=== PATIENT | male | born 1935 | race Caucasian/White ===

== ENCOUNTER → 2016-10-04 | Outpatient (CLI) | payer OTHER ==
[~2016-10-04] MED LIST: ASPEC81 PO; CARV6.252 PO; CLB200 PO; CLOP1TAB54 PO; DUTA0.5C PO; FELO5TAB PO; GLC/500 PO; GLC500 PO; HYT/2 PO; ISOS60TA PO; LCTL30 PO; LISI-461 PO; SENNTAB23 PO
[2016-10-04 10:46] LABS: BASO % 0.9 %; BASO ABS # 0.07 K/uL (0-0.2); COMPLETE YES; EOS % 6.6 %; HEMATOCRIT 38.4 % (42-52); IG% 0.4 %; LYMPH % 16.1 %; LYMPH ABS # 1.19 K/uL (1.2-3.4); MEAN CELL VOLUME 98.5 fL (80-100); MEAN CORPUSCULAR HEMOGLOBIN 33.1 pg (25-34); MEAN CORPUSCULAR HGB CONC 33.6 g/dl (32-36); MEAN PLATELET VOLUME 9.2 fL (7.4-10.4); MONO % 10.4 %; NEUT % 65.6 %; PLATELET COUNT 159 K/uL (130-400)
[2016-10-04 11:07] LABS: ALT/SGPT 18 U/L (12-78); AST/SGOT 11 U/L (15-37); BLOOD UREA NITROGEN 24 mg/dl (7-18); BUN/CREATININE RATIO 20.3 (10-20); CARBON DIOXIDE 25 mmol/L (21-32); CHLORIDE 103 mmol/L (98-107); CHOLESTEROL 188 mg/dl (0-200); GLUCOSE 144 mg/dl (70-99); POTASSIUM 4.7 mmol/L (3.5-5.1); SODIUM 139 mmol/L (136-145); TRIGLYCERIDES 191 mg/dl (0-150); VERY LOW DENSITY LIPOPROT CALC 38 mg/dl
[2016-10-04 11:18] LABS: ALB/GLOB RATIO 1.1 (0.9-2); ALKALINE PHOSPHATASE 62 U/L (45-117); CHOLESTEROL/HDL RATIO 5.7; HDL CHOLESTEROL 33 mg/dl; LDL CHOLESTEROL CALCULATED 117 mg/dl
[2016-10-04 11:28] LABS: ESTIMATED AVERAGE GLUCOSE 140 mg/dl; HA1C FLAG Normal (Normal)
[2016-10-04 11:30] LABS: CALCIUM 9.2 mg/dl (8.5-10.1)
--- NOTE | 2016-10-09 11:55 | CODING QUERY MEDICAL NECESSITY ---
SUPPORTING DIAGNOSIS NEEDED A supporting diagnosis is required for the test/procedure performed on this patient in order for us to be reimbursed by the patient's insurance. Please provide a supporting diagnosis for the following test/procedure listed below next to the test name along with your signature. *If there is no additional diagnosis for this patient that would support the following test/procedure please document that below next to the test/procedure. Test(s)/Procedure(s) that require a supporting diagnosis: * HEMOGLOBIN A1C DIAGNOSIS: * VITAMIN D, 25-HYDROXY DIAGNOSIS: Provider Signature: Date: Thank you Allegra Lucero [facility]stru[facility] Information Management Once completed, please kindly fax back to [phone] For questions please call [phone]
== END | disposition home or self-care (01) ==
LOC: C.LABBC 08:06
PROVIDERS: ATTEND Internal Medicine
DX: K59.09 Other constipation (principal); N20.0 Calculus of kidney; E11.9 Type 2 diabetes mellitus without complications; E55.9 Vitamin D deficiency, unspecified

== ENCOUNTER → 2017-04-29 | Outpatient (CLI) | payer OTHER | END | disposition home or self-care (01) | LOC: C.LABBC 09:49 | PROVIDERS: ATTEND Urology | DX: Z00.00 Encounter for general adult medical examination without abnormal findings (principal); N40.1 Benign prostatic hyperplasia with lower urinary tract symptoms ==

== ENCOUNTER 2017-08-07 15:56 | Inpatient (IN) | payer OTHER ==
[~2017-08-07] VITALS: Ht 177.8 cm; Wt 117.1 kg
[2017-08-07] MEDS ORDERED: ALBUT/IPRATROP 3MG/0.5MG NEB 3 ML VIAL INH SCH (16:15)
[2017-08-07] MEDS ORDERED: METHYLPREDNISOLONE 125 MG VIAL IV STA (16:26)
[2017-08-07] MEDS ORDERED: ALBUT/IPRATROP 3MG/0.5MG NEB 3 ML VIAL INH ONE (16:30)
--- NOTE | 2017-08-07 16:32 | DIAGNOSTIC IMAGING REPORT ---
CHEST ONE VIEW PORTABLE HISTORY: 81 years-old Male hypoxia acute hypoxia COMPARISON: Chest radiograph 10/22/2015 TECHNIQUE: Portable AP view of the chest FINDINGS: Cardiac silhouette is again enlarged. Atherosclerosis of the aorta. Prior median sternotomy. Trace bilateral pleural effusions with pulmonary vascular congestion and mild interstitial coarsening, left greater than right. No pneumothorax. Severe degenerative changes about the right shoulder with suggested loose bodies within the axillary recess. IMPRESSION: 1. Cardiomegaly with pulmonary vascular congestion and left greater than right interstitial coarsening suggesting asymmetric pulmonary edema. 2. Trace bilateral pleural effusions. The above report was generated using voice recognition software. It may contain grammatical, syntax or spelling errors. Electronically signed by: Braulio Ennis M.D. 08/07/2017 4:30 PM Dictated Date/Time: 08/07/2017 4:28 PM
[2017-08-07 16:38] VITALS: PULSE 80; O2SAT 98
[2017-08-07 16:49] LABS: BASO % 0.5 %; BASO ABS # 0.03 K/uL (0-0.2); EOS % 2.7 %; EOS ABS # 0.17 K/uL (0-0.5); HEMATOCRIT 35.5 % (42-52); HEMOGLOBIN 12.2 g/dL (14.0-18.0); IG# 0.03 K/uL (0.00-0.02); LYMPH ABS # 1.15 K/uL (1.2-3.4); MEAN CELL VOLUME 98.9 fL (80-100); MEAN CORPUSCULAR HGB CONC 34.4 g/dl (32-36); MEAN PLATELET VOLUME 8.8 fL (7.4-10.4); MONO % 14.6 %; MONO ABS # 0.93 K/uL (0.11-0.59); NEUT % 63.7 %; NEUT ABS # 4.08 K/uL (1.4-6.5); PLATELET COUNT 120 K/uL (130-400); RED CELL DISTRIBUTION WIDTH CV 15.1 % (11.5-14.5); RED CELL DISTRIBUTION WIDTH SD 54.8 fL (36.4-46.3); WHITE BLOOD COUNT 6.39 K/uL (4.8-10.8)
[2017-08-07] MEDS ORDERED: OMEP20CA9 PO (17:03)
[2017-08-07] MEDS ORDERED: LACT10SO30 PO (17:03)
[2017-08-07] MEDS ORDERED: LSX20 PO (17:03)
[2017-08-07 17:07] LABS: ALBUMIN 3.6 gm/dl (3.4-5.0); CALCIUM 8.7 mg/dl (8.5-10.1); CREATININE 1.59 mg/dl (0.60-1.40); POTASSIUM 4.8 mmol/L (3.5-5.1)
[2017-08-07] MEDS ORDERED: CEFTRIAXONE SOD INJ 1 GM in DEXTROSE 5% ADD-VANTAGE 50ML 50 ML IV STA (17:29)
[2017-08-07] MEDS ORDERED: ALUMINUM/MAGNESIUM/SIMETH (MAALOX MAX) 30 ML UDC PO PRN (18:45)
[2017-08-07] MEDS ORDERED: ONDANSETRON INJ 2 MG/ML 2 ML VIAL IV PRN (18:45)
[2017-08-07] MEDS ORDERED: NITROGLYCERIN 0.4 MG SL PER TAB CHARGE SL PRN (18:45)
[2017-08-07] MEDS ORDERED: ACETAMINOPHEN 325 MG TAB PO PRN (18:45)
[2017-08-07] MEDS ORDERED: MAGNESIUM HYDROXIDE SUSP 30 ML UDC PO PRN (18:45)
[2017-08-07] MEDS ORDERED: POLYETHYLENE (MIRALAX) 17 GM PACK PO PRN (18:45)
[2017-08-07] MEDS ORDERED: HEPARIN 25000 UNIT/500 ML D5W ONE (18:51)
[2017-08-07] MEDS ORDERED: HEPARIN SOD 5000 UNIT/0.5 ML CARP ONE (18:51)
[2017-08-07] MEDS ORDERED: FUROSEMIDE INJ 20 MG in SYRINGE 0 ML IV SCH (18:53)
[2017-08-07] MEDS ORDERED: DEXTROSE 50% 50 ML SYR IV PRN (19:00)
[2017-08-07] MEDS ORDERED: ALBUT/IPRATROP 3MG/0.5MG NEB 3 ML VIAL INH PRN (19:00)
[2017-08-07] MEDS ORDERED: GLUCOSE 10 TABS/TUBE PO PRN (19:00)
[2017-08-07] MEDS ORDERED: GLUCAGON FOR INJ 1 MG VIAL SQ PRN (19:00)
[2017-08-07] MEDS ORDERED: GLUCOSE 40% GEL 15 GM TUBE PO PRN (19:00)
[2017-08-07 19:23] LABS: PTT PATIENT 25.9 SECONDS (21.0-31.0)
--- NOTE | 2017-08-07 19:33 | EMERGENCY ROOM VISIT NOTE ---
History Report prepared by Isaac: Kaitlynn Blanco Under the Supervision of: Dr. Malcolm Prakash M.D. First contact with patient: 15:59 Chief Complaint: SHORTNESS OF BREATH History of Present Illness The patient is a 81 year old male who presents to the Emergency Room with complaints of shortness of breath beginning this morning. The patient reports that he normally has shortness of breath with significant exertion, but today he had had shortness of breath just getting out of his chair. He denies having a cough, abdominal pain, fevers, and diaphoresis. He reports that his lower extremity edema is at baseline. Per , the patient did complain of chest pain earlier today. The patient denies this and denies having any current chest pain. The patient reports a history of a myocardial infarction, congestive heart failure, diabetes, hypertension, and COPD, but reports that he is not on medications for his COPD. The patient states that he is normally not on Oxygen. Source of History: patient, spouse/significant other Onset: this morning Position: other (generalized ) Symptom Intensity: moderate Quality: other (shortness of breath ) Modifying Factors (Worsening): exertion Associated Symptoms: + chest pain, No fevers, No diaphoresis, No cough, No abdominal pain Review of Systems See HPI for pertinent positives & negatives. A total of 10 systems reviewed and were otherwise negative. Past Medical & Surgical Medical Problems: (1) Benign hypertension (2) Carotid artery stenosis (3) COPD (chronic obstructive pulmonary disease) (4) Coronary artery bypass grafting (5) Diabetes mellitus (6) Hyperlipidemia (7) Myocardial infarction (8) NSTEMI (non-ST elevated myocardial infarction) (9) Sepsis Family History Diabetes mellitus FH: lung disease FHx: heart disease Hypertension Social History Smoking Status: Former Smoker Alcohol Use: occasionally Marital Status: Housing Status: lives with significant other Occupation Status: retired Current/Historical Medications Scheduled Aspirin Enteric Coated (Ecotrin Or Generic *), 81 MG PO HS Carvedilol (Coreg), 12.5 MG PO BID Celecoxib (Celebrex *), 200 MG PO QAM Clopidogrel Bisulfate (Plavix), 75 MG PO QAM Dutasteride (Avodart), 0.5 MG PO HS Furosemide (Furosemide), 20 MG PO Q2D Isosorbide Mononitrate (Imdur), 60 MG PO QAM Lisinopril (Lisinopril), 10 MG PO QAM Metformin Hcl (Glucophage), 500 MG PO TID Omeprazole (Prilosec), 20 MG PO BID Sennosides-Docusate Sodium (Stool Softener), 1 TAB PO HS Terazosin Hcl (Hytrin), 2 MG PO HS Scheduled PRN Lactulose (Encephalopathy) (Lactulose), 30 ML PO BID PRN for Constipation Allergies Coded Allergies: Iodinated Diagnostic Agents (Verified Allergy, Unknown, ANAPHYLAXIS, ) Penicillins (Verified Allergy, Unknown, BOILS, 08/07/17) Shellfish (Verified Allergy, Unknown, ANAPHYLAXIS, 08/07/17) Latex1 -Allergic Contact Dermititis (Verified Adverse Reaction, Unknown, RASH, 08/07/17) Statins (Verified Adverse Reaction, Unknown, severe myalgias, 08/07/17) Physical Exam Vital Signs Date Time Temp Pulse Resp B/P (MAP) Pulse Ox O2 Delivery O2 Flow Rate FiO2 08/07/17 18:31 95 20 144/100 98 Nasal Cannula 2.0 08/07/17 17:15 163/92 08/07/17 17:07 81 23 100 08/07/17 16:38 80 16 98 Nasal Cannula 2.0 08/07/17 16:04 98 Nasal Cannula 2.0 08/07/17 16:04 36.6 92 22 122/78 85 Room Air 08/07/17 16:04 98 Nasal Cannula 2.0 08/07/17 16:02 122/78 Physical Exam Constitutional: Vital signs reviewed. Eyes: Pupils are equal round reactive to light. Conjunctiva are noninjected. ENT: Pharynx is clear without erythema or exudate. Mucous membranes are moist. Neck supple without meningeal signs. Respiratory: Poor air entry bilaterally with scattered expiratory wheezing. Breath sounds are equal bilaterally. Cardiovascular: Regular rate and rhythm. No rubs or gallops. GI: Soft, nondistended and nontender. Bowel sounds are present. Musculoskeletal: Bilateral pitting edema to the bilateral lower extremities. No lower extremity tenderness. Integumentary: No cyanosis. Neurological: The patient is awake and alert. No focal deficits. Psychiatric: Normal affect. Medical Decision & Procedures ER Provider Diagnostic Interpretation: Radiology results as stated below per my review and the radiologist's interpretation: CHEST ONE VIEW PORTABLE HISTORY: 81 years-old Male hypoxia acute hypoxia COMPARISON: Chest radiograph 10/22/2015 TECHNIQUE: Portable AP view of the chest FINDINGS: Cardiac silhouette is again enlarged. Atherosclerosis of the aorta. Prior median sternotomy. Trace bilateral pleural effusions with pulmonary vascular congestion and mild interstitial coarsening, left greater than right. No pneumothorax. Severe degenerative changes about the right shoulder with suggested loose bodies within the axillary recess. IMPRESSION: 1. Cardiomegaly with pulmonary vascular congestion and left greater than right interstitial coarsening suggesting asymmetric pulmonary edema. 2. Trace bilateral pleural effusions. The above report was generated using voice recognition software. It may contain grammatical, syntax or spelling errors. Electronically signed by: Braulio Ennis M.D. 08/07/2017 4:30 PM Dictated Date/Time: 08/07/2017 4:28 PM Laboratory Results 08/07/17 16:36 Red Blood Count 3.59, Mean Corpuscular Volume 98.9, Mean Corpuscular Hemoglobin 34.0, Mean Corpuscular Hemoglobin Concent 34.4, Mean Platelet Volume 8.8, Neutrophils (%) (Auto) 63.7, Lymphocytes (%) (Auto) 18.0, Monocytes (%) (Auto) 14.6, Eosinophils (%) (Auto) 2.7, Basophils (%) (Auto) 0.5, Neutrophils # (Auto ) 4.08, Lymphocytes # (Auto) 1.15, Monocytes # (Auto) 0.93, Eosinophils # (Auto ) 0.17, Basophils # (Auto) 0.03 08/07/17 16:36 Test 08/07/17 16:36 08/07/17 17:09 White Blood Count 6.39 K/uL (4.8-10.8) Red Blood Count 3.59 M/uL (4.7-6.1) Hemoglobin 12.2 g/dL (14.0-18.0) Hematocrit 35.5 % (42-52) Mean Corpuscular Volume 98.9 fL (80-100) Mean Corpuscular Hemoglobin 34.0 pg (25-34) Mean Corpuscular Hemoglobin Concent 34.4 g/dl (32-36) Platelet Count 120 K/uL (130-400) Mean Platelet Volume 8.8 fL (7.4-10.4) Neutrophils (%) (Auto) 63.7 % Lymphocytes (%) (Auto) 18.0 % Monocytes (%) (Auto) 14.6 % Eosinophils (%) (Auto) 2.7 % Basophils (%) (Auto) 0.5 % Neutrophils # (Auto) 4.08 K/uL (1.4-6.5) Lymphocytes # (Auto) 1.15 K/uL (1.2-3.4) Monocytes # (Auto) 0.93 K/uL (0.11-0.59) Eosinophils # (Auto) 0.17 K/uL (0-0.5) Basophils # (Auto) 0.03 K/uL (0-0.2) RDW Standard Deviation 54.8 fL (36.4-46.3) RDW Coefficient of Variation 15.1 % (11.5-14.5) Immature Granulocyte % (Auto) 0.5 % Immature Granulocyte # (Auto) 0.03 K/uL (0.00-0.02) Activated Partial Thromboplast Time 25.9 SECONDS (21.0-31.0) Partial Thromboplastin Ratio 1.0 Anion Gap 8.0 mmol/L (3-11) Est Creatinine Clear Calc Drug Dose 50.8 ml/min Estimated GFR () 47.2 Estimated GFR (Non- 40.7 BUN/Creatinine Ratio 19.6 (10-20) Calcium Level 8.7 mg/dl (8.5-10.1) Total Bilirubin 0.5 mg/dl (0.2-1) Aspartate Amino Transf (AST/SGOT) 43 U/L (15-37) Alanine Aminotransferase (ALT/SGPT) 52 U/L (12-78) Alkaline Phosphatase 73 U/L (45-117) Troponin I 1.590 ng/ml (0-0.045) Pro-B-Type Natriuretic Peptide 2055 pg/ml (0-1800) Total Protein 7.0 gm/dl (6.4-8.2) Albumin 3.6 gm/dl (3.4-5.0) Globulin 3.4 gm/dl (2.5-4.0) Albumin/Globulin Ratio 1.1 (0.9-2) Urine Color YELLOW Urine Appearance TURBID (CLEAR) Urine pH 5.0 (4.5-7.5) Urine Specific [place] 1.015 (1.000-1.030) Urine Protein NEG (NEG) Urine Glucose (UA) NEG (NEG) Urine Ketones NEG (NEG) Urine Occult Blood 1+ (NEG) Urine Nitrite POS (NEG) Urine Bilirubin NEG (NEG) Urine Urobilinogen NEG (NEG) Urine Leukocyte Esterase LARGE (NEG) Urine WBC (Auto) >30 /hpf (0-5) Urine RBC (Auto) 0-4 /hpf (0-4) Urine Hyaline Casts (Auto) 1-5 /lpf (0-5) Urine Epithelial Cells (Auto) >30 /lpf (0-5) Urine Bacteria (Auto) 4+ (NEG) Laboratory results as reviewed by me. Medications Administered Medications (Trade) Dose Ordered Sig/Richard Route Start Time Stop Time Status Last Admin Dose Admin Albuterol/ Ipratropium (Duoneb) 12 ml ONE ONCE INH 08/07/17 16:30 08/07/17 16:31 DC 08/07/17 16:38 12 ML Methylprednisolone Sodium Succinate (Solu-Medrol IV) 125 mg NOW STAT IV 08/07/17 16:26 08/07/17 16:27 DC 08/07/17 16:44 125 MG Ceftriaxone Sodium 1 gm/ Dextrose 50 ml @ 100 mls/hr ONE STAT IV 08/07/17 17:29 08/07/17 17:58 DC 08/07/17 17:56 100 MLS/HR Heparin Sodium/ Dextrose (Heparin 25,000 Unit/500ml D5W) 25,000 unit STK-MED ONCE .ROUTE 08/07/17 18:51 08/07/17 18:52 DC 08/07/17 18:56 25,000 UNIT Heparin Sodium (Porcine) (Heparin Sq 5000 Unit/0.5ml) 5,000 unit STK-MED ONCE .ROUTE 08/07/17 18:51 08/07/17 18:52 DC 08/07/17 18:55 5,000 UNIT ECG Per My Interpretation Indication: SOB/dyspnea Rate (beats per minute): 84 Rhythm: sinus rhythm Findings: PVC, Q waves (Inferior), T-wave inversion (Anterolateral) Change: no significant change (from October 2015) ED Course 1600: The patient was evaluated in room B12A by the resident. A complete history and physical exam was performed. 1615: Ordered Duoneb 3 ml INH. 1626: Ordered Methylprednisolone Sodium Succinate 125 mg IV. 1630: Ordered Duoneb 12 ml INH. 1641: I evaluated the patient. 1729: Ordered Ceftriaxone Sodium 1 gm/Dextrose 50 ml @ 100 mls/hr IV. 1737: The [facility]. The patient will be further evaluated by Dr. Calvillo. Medical Decision This is a 81-year-old male presents with shortness of breath on exertion. Differential diagnosis includes COPD exacerbation, CHF, edema, acute coronary syndrome, pneumonia. I did perform a limited focused review of portions of the patient's old chart on the electronic medical record. The patient has had no recent pertinent visits to this hospital. I did evaluate the patient as noted above. The patient is presenting with dyspnea on exertion. He was hypoxemic prior to arrival. IV access was established. The patient was placed on a continuous cardiac monitor technician. He was treated with an hour-long DuoNeb. He was also given Solu-Medrol IV. I did personally review the patient's 12-lead EKG and chest x-ray as described above. I did review the patient's blood work as noted in the electronic medical record. The patient's troponin is elevated. He has slight elevation of his creatinine as well. His BNP is elevated. The case was discussed with the hospitalist and supportive employment case manager. Resident Physician Supervision Note: I did evaluate and examine this patient myself. I did guide management for the patient. I agree with the resident's (Dr. Adam) assessment as discussed. Please see the resident's dictation for further details. Medication Reconcilliation Current Medication List: was personally reviewed by me Blood Pressure Screening Patient's blood pressure: Normal blood pressure Consults Time Called: 1729 Consulting Physician: Dr. Calvillo- [facility] Returned Call: [phone] The patient's case was discussed with Dr. Calvillo of the [facility]. The patient will be further evaluated by Dr. Calvillo. Impression Primary Impression: Non-STEMI (non-ST elevated myocardial infarction) Additional Impressions: COPD exacerbation Elevated troponin UTI (urinary tract infection) Scribe Attestation The scribe's documentation has been prepared under my direct and personally reviewed by me in its entirety. I confirm that the note above accurately reflects all work, treatment, procedures, and medical decision making performed by me. Departure Information Dispostion Being Evaluated By Hospitalist Referrals No Doctor, Assigned (PCP) Patient Instructions My [facility] Problem Qualifiers Additional Impressions: UTI (urinary tract infection) Urinary tract infection type: acute cystitis Hematuria presence: without hematuria Qualified Codes: N30.00 - Acute cystitis without hematuria
--- NOTE | 2017-08-07 19:42 | History and Physical ---
History & Physical Date & Time of Service: Aug 07, 2017 at 19:03 Chief Complaint: SOB Primary Care Physician: Antony Valladares M.D. History of Present Illness Source: patient Mr. Daugherty is a 81 y/o male with PMHx of CAD with NJ and S/P CABG, Systolic CHF, T2DM, HTN, COPD, Carotid Stenosis, HLD, and BPH with LUTS who presents to the ED c/o SOB x couple days. Patient states that he has had chronic sinusitis with nasal congestion and post-nasal drip but states this has been going on "a long time". He does report baseline SOB and is rarely ambulates and utilizes wheelchairs. However, over the past couple days he has noticed his SOB comes on with even the slightest movement. He states he does not have a cough or fever/ chills. He states he carries a diagnosis of COPD but doesn't utilize any inhalers for such. He states he doesn't feel any different after steroids and neb given in the ED. He does take Lasix Q2D but isn't sure if today was a dosed day or not. He reports that he has not had any chest pain but according to ED note the states he has complained of this but she is not at bedside at this time. He does report some indigestion that started earlier today. He does have chronic lower extremity edema that he feels is baseline and is pitting but appears largely as lymphedema. He also complains of urinary frequency and dysuria and reports he gets UTIs and also intermittently straight caths. Past Medical/Surgical History Medical Problems: (1) Benign hypertension (2) Carotid artery stenosis (3) COPD (chronic obstructive pulmonary disease) (4) Coronary artery bypass grafting (5) Diabetes mellitus (6) Hyperlipidemia (7) Myocardial infarction (8) NSTEMI (non-ST elevated myocardial infarction) (9) Sepsis (10) UTI (urinary tract infection) Family History Diabetes mellitus FH: lung disease FHx: heart disease Hypertension Social History Smoking Status: Never Smoker Smokeless Tobacco Use: No Alcohol Use: none Drug Use: none Marital Status: Housing status: lives with significant other Occupational Status: retired Immunizations History of Influenza Vaccine: Yes Allergies Coded Allergies: Iodinated Diagnostic Agents (Verified Allergy, Unknown, ANAPHYLAXIS, ) Penicillins (Verified Allergy, Unknown, BOILS, 08/07/17) Shellfish (Verified Allergy, Unknown, ANAPHYLAXIS, 08/07/17) Latex1 -Allergic Contact Dermititis (Verified Adverse Reaction, Unknown, RASH, 08/07/17) Statins (Verified Adverse Reaction, Unknown, severe myalgias, 08/07/17) Home Medications Scheduled Aspirin Enteric Coated (Ecotrin Or Generic *), 81 MG PO HS Carvedilol (Coreg), 12.5 MG PO BID Celecoxib (Celebrex *), 200 MG PO QAM Clopidogrel Bisulfate (Plavix), 75 MG PO QAM Dutasteride (Avodart), 0.5 MG PO HS Furosemide (Furosemide), 20 MG PO Q2D Isosorbide Mononitrate (Imdur), 60 MG PO QAM Lisinopril (Lisinopril), 10 MG PO QAM Metformin Hcl (Glucophage), 500 MG PO TID Omeprazole (Prilosec), 20 MG PO BID Sennosides-Docusate Sodium (Stool Softener), 1 TAB PO HS Terazosin Hcl (Hytrin), 2 MG PO HS Scheduled PRN Lactulose (Encephalopathy) (Lactulose), 30 ML PO BID PRN for Constipation Review of Systems Constitutional: + fatigue, No fever, No chills ENT: + nasal symptoms, No sore throat Respiratory: + dyspnea on exertion, + dyspnea at rest, No cough, No sputum, No wheezing Cardiovascular: + orthopnea, No chest pain Abdomen: + pain, No nausea, No vomiting, No diarrhea, No constipation Musculoskeletal: + swelling (chronic b/l lower extremities), No calf pain Genitourinary - Male: + dysuria, + urinary frequency, + urinary urgency, + urinary hesitancy Neurologic: + numbness/tingling Hematologic / Lymphatic: No abnormal bleeding/bruising Integumentary: No rash Physical Exam Vital Signs Date Time Temp Pulse Resp B/P (MAP) Pulse Ox O2 Delivery O2 Flow Rate FiO2 08/07/17 18:31 95 20 144/100 98 Nasal Cannula 2.0 08/07/17 17:15 163/92 08/07/17 17:07 81 23 100 08/07/17 16:38 80 16 98 Nasal Cannula 2.0 08/07/17 16:04 98 Nasal Cannula 2.0 4/19/18 16:04 36.6 92 22 122/78 85 Room Air 08/07/17 16:04 98 Nasal Cannula 2.0 08/07/17 16:02 122/78 General Appearance: WD/WN, no apparent distress Head: normocephalic, atraumatic Eyes: sclerae normal ENT: hearing grossly normal Neck: supple, no JVD, trachea midline Respiratory/Chest: no respiratory distress, no accessory muscle use, + decreased breath sounds (bases b/l), + crackles (L base) Cardiovascular: regular rate, rhythm Abdomen/GI: normal bowel sounds, non tender, soft Back: normal inspection Extremities/Musculoskelatal: + swelling (b/l lower extremity edema with 1+ pitting edema with dry skin; appears largely lymphedema) Neurologic/Psych: alert, oriented x 3 Skin: normal color, warm/dry Diagnostics Laboratory Results Results Past 24 Hours Test 08/07/17 16:36 08/07/17 17:09 08/07/17 18:58 Range/Units White Blood Count 6.39 4.8-10.8 K/uL Red Blood Count 3.59 4.7-6.1 M/uL Hemoglobin 12.2 14.0-18.0 g/dL Hematocrit 35.5 42-52 % Mean Corpuscular Volume 98.9 80-100 fL Mean Corpuscular Hemoglobin 34.0 25-34 pg Mean Corpuscular Hemoglobin Concent 34.4 32-36 g/dl Platelet Count 120 130-400 K/uL Mean Platelet Volume 8.8 7.4-10.4 fL Neutrophils (%) (Auto) 63.7 % Lymphocytes (%) (Auto) 18.0 % Monocytes (%) (Auto) 14.6 % Eosinophils (%) (Auto) 2.7 % Basophils (%) (Auto) 0.5 % Neutrophils # (Auto) 4.08 1.4-6.5 K/uL Lymphocytes # (Auto) 1.15 1.2-3.4 K/uL Monocytes # (Auto) 0.93 0.11-0.59 K/uL Eosinophils # (Auto) 0.17 0-0.5 K/uL Basophils # (Auto) 0.03 0-0.2 K/uL RDW Standard Deviation 54.8 36.4-46.3 fL RDW Coefficient of Variation 15.1 11.5-14.5 % Immature Granulocyte % (Auto) 0.5 % Immature Granulocyte # (Auto) 0.03 0.00-0.02 K/uL Sodium Level 134 136-145 mmol/L Potassium Level 4.8 3.5-5.1 mmol/L Chloride Level 101 98-107 mmol/L Carbon Dioxide Level 25 21-32 mmol/L Anion Gap 8.0 3-11 mmol/L Blood Urea Nitrogen 31 7-18 mg/dl Creatinine 1.59 0.60-1.40 mg/dl Est Creatinine Clear Calc Drug Dose 50.8 ml/min Estimated GFR () 47.2 Estimated GFR (Non- 40.7 BUN/Creatinine Ratio 19.6 10-20 Random Glucose 151 70-99 mg/dl Calcium Level 8.7 8.5-10.1 mg/dl Total Bilirubin 0.5 0.2-1 mg/dl Aspartate Amino Transf (AST/SGOT) 43 15-37 U/L Alanine Aminotransferase (ALT/SGPT) 52 12-78 U/L Alkaline Phosphatase 73 45-117 U/L Troponin I 1.590 0-0.045 ng/ml Pro-B-Type Natriuretic Peptide 2055 0-1800 pg/ml Total Protein 7.0 6.4-8.2 gm/dl Albumin 3.6 3.4-5.0 gm/dl Globulin 3.4 2.5-4.0 gm/dl Albumin/Globulin Ratio 1.1 0.9-2 Urine Color YELLOW Urine Appearance TURBID CLEAR Urine pH 5.0 4.5-7.5 Urine Specific [place] 1.015 1.000-1.030 Urine Protein NEG NEG Urine Glucose (UA) NEG NEG Urine Ketones NEG NEG Urine Occult Blood 1+ NEG Urine Nitrite POS NEG Urine Bilirubin NEG NEG Urine Urobilinogen NEG NEG Urine Leukocyte Esterase LARGE NEG Urine WBC (Auto) >30 0-5 /hpf Urine RBC (Auto) 0-4 0-4 /hpf Urine Hyaline Casts (Auto) 1-5 0-5 /lpf Urine Epithelial Cells (Auto) >30 0-5 /lpf Urine Bacteria (Auto) 4+ NEG Microbiology Results 08/07/17 Blood Culture, Received Pending 08/07/17 Blood Culture, Received Pending 08/07/17 Urine Culture, Received Pending Diagnostic Radiology CHEST ONE VIEW PORTABLE FINDINGS: Cardiac silhouette is again enlarged. Atherosclerosis of the aorta. Prior median sternotomy. Trace bilateral pleural effusions with pulmonary vascular congestion and mild interstitial coarsening, left greater than right. No pneumothorax. Severe degenerative changes about the right shoulder with suggested loose bodies within the axillary recess. IMPRESSION: 1. Cardiomegaly with pulmonary vascular congestion and left greater than right interstitial coarsening suggesting asymmetric pulmonary edema. 2. Trace bilateral pleural effusions. EKG Sinus rhythm with occasional Premature ventricular complexes Inferior infarct (cited on or before 01-OCT-2011) ST & T wave abnormality, consider lateral ischemia Abnormal ECG When compared with ECG of 22-OCT-2015 08:06, Premature ventricular complexes are now Present T wave inversion now evident in Anterolateral leads Confirmed by SHERI MENDOZA ([id number]) on 08/07/2017 4:38:14 PM Impression Assessment and Plan Mr. Daugherty is a 81 y/o male with PMHx of CAD with NJ and S/P CABG, Systolic CHF, T2DM, HTN, COPD, Carotid Stenosis, HLD, and BPH with LUTS who presents to the ED c/o SOB x couple days NSTEMI: - Presents with troponin of 1.59 with no reports of CP but is complaining of some indigestion; EKG with lateral T wave inversions; limited labs to assess for any chronicity to this - Initiate heparin gtt with bolus - ASA 81 mg and Plavix 75 mg daily - Coreg 12.5 mg BID and Lisinopril 10 mg daily and Imdur 60 mg daily - Consult cardiology - follows with Dr. Baird - appreciate recommendations Acute Hypoxic Respiratory Failure 2/2 Acute Systolic CHF Exacerbation: - There is likely a multifactorial component given body habitus would suspect some hypoventilation syndrome but does have crackles mostly of the L base; no response with steroids and duoneb in the ED and no wheezing on examination and doesn't appear this is a COPD exacerbation - Suspect he may have had a cardiac event prior to presentation resulting in congestive failure but can further assess with serial troponins - May warrant VQ scan to R/O PE given acute nature - heparin gtt will ultimately cover for this in the time being but will need to evaluate for long- term AC needs - Echo (2004) - EF 45%; septal infraapical infarct - BNP mildly elevated at 1999 with CXR with vascular congestion - Obtain updated echo - Lasix 20 mg IV x 1 dose now then Lasix 20 mg IV daily MATTHEW on CKD Stage II: - Appears he may have some mild kidney compromise but is acutely worsened - possibly from volume overload - Suspect will improve with diuresis but will monitor COPD without Exacerbation: - Does not appear to be in an exacerbation at this time will keep Duonebs PRN if wheezing/SOB continue UTI with BPH with LUTS: - UA suggests UTI with cx pending - is symptomatic and reports needing to straight cath intermittently - Rocephin 1 g IV daily - Terazosin 2 mg HS T2DM: A1c 6.5 - Hold Metformin and cover with SSI DVT Prophylaxis: Heparin Code Status: FULL RESUSCITATION Disposition: PT/OT evaluations - Expected LOS 2-3 days as likely will need 48 hrs heparin gtt Resident Physician Supervision Note: I was present with A Lynne AVENDANO during the history and exam. I discussed the case with the resident and agree with the findings and plan as documented in the note. Any exceptions or clarifications are listed here: 81 y/o M Hx CAD/NJ, Systolic CHF, T2DM, HTN, COPD, Carotid Stenosis, HLD, and BPH with LUTS presenting with SOB x 2 days - elevated trop is present on initial labs. OE AAO x 3 S1,2 R faint Crackles at bases - poor air movement NT. ND No CC MINIMAL EDEMA P: Pt will be fully anticoagulated for presumed NSTEMI - echo pending to evaluate for WMAs - cardiology consulted No evidence of current COPD exacerbation to merit steroid use Sliding scale for DM Documented By: Dane Calvillo Resuscitation Status VTE Prophylaxis Will order VTE Prophylaxis: Yes
[2017-08-07 21:01] VITALS: BMI 40.7
[2017-08-07 21:30] VITALS: BP 159/89; PULSE 92; TEMP 36.5; O2SAT 95
[2017-08-07] MEDS: HEPARIN 25,000 UNIT/500ML D5W 500 ML IV SCH (22:03)
[2017-08-07] MEDS: CARVEDILOL 12.5 MG TAB PO SCH (22:11)
[2017-08-07] MEDS: ASPIRIN 81 MG ECTAB PO SCH (22:11)
[2017-08-07] MEDS: DOCUSATE SODIUM/SENNA 50/8.6MG TAB PO SCH (22:11)
[2017-08-07] MEDS: INSULIN ASPART 100 UNITS/ML 3 ML PEN SC SCH (22:15)
[2017-08-07 23:15] VITALS: BP 146/85; PULSE 85; TEMP 36.4; O2SAT 94
[2017-08-08] MEDS ORDERED: AVODART - ORDER AWAITING ACTION SCH
[2017-08-08 01:34] LABS: PTT PATIENT 57.6 SECONDS (21.0-31.0)
[2017-08-08 03:41] VITALS: BP 125/77; PULSE 74; TEMP 36.6; O2SAT 96
[2017-08-08 04:08] LABS: HEMATOCRIT 33.7 % (42-52); MEAN CELL VOLUME 97.7 fL (80-100); MEAN CORPUSCULAR HEMOGLOBIN 34.8 pg (25-34); MEAN CORPUSCULAR HGB CONC 35.6 g/dl (32-36); PLATELET COUNT 130 K/uL (130-400); RED CELL DISTRIBUTION WIDTH CV 14.7 % (11.5-14.5); RED CELL DISTRIBUTION WIDTH SD 52.3 fL (36.4-46.3); WHITE BLOOD COUNT 4.71 K/uL (4.8-10.8)
[2017-08-08 04:29] LABS: CALCIUM 8.7 mg/dl (8.5-10.1); CREATININE 1.53 mg/dl (0.60-1.40); POTASSIUM 4.7 mmol/L (3.5-5.1)
[2017-08-08 04:31] LABS: PTT PATIENT 58.3 SECONDS (21.0-31.0)
[2017-08-08 06:14] LABS: HEMOGLOBIN A1C 6.6 % (4.5-5.6)
[2017-08-08 07:36] VITALS: BP 147/83; PULSE 84; TEMP 36.4; O2SAT 97
--- NOTE | 2017-08-08 08:24 | Hospitalist Progress Note ---
Hospitalist Progress Note Date of Service Aug 08, 2017. (Carmen Adair PA-C) Subjective Pt evaluation today including: conversation w/ patient, conversation w/ family , physical exam, chart review, lab review, review of studies, conversation w/ network consultant Pain: None PO Intake: Fair The patient was seen and examined this morning. Pts Shania is present with him at bedside. Pt reports his breathing is only slightly improved this morning compared to yesterday. He does not require supplemental O2 at baseline, or cpap at night. He also does not ambulate due to chronic arthritis and uses a motorized scooter for almost all his activity. He notes he is significantly sob with minimum of 2 -3 steps and this was very different from baseline. He denies any chest pain, heaviness or tightness. He also notes the need for straight caths several times per week due to a ureteral cyst. He is agreeable to colunga placement with aggressive diuresis but is requesting urology places it as he has had traumatic experience in the past with colunga placement. Plan to increase IV lasix today Discussion with Dr. Cardoso - awaiting echo read, pt recently had a follow up with Jiym Doan PA-C about 2 weeks ago. Constitutional: + fatigue, No fever, No chills, No sweats Eyes: No redness, No diplopia ENT: No nasal symptoms, No sore throat, No trouble swallowing Respiratory: + shortness of breath, + dyspnea on exertion, No cough, No sputum Cardiovascular: No chest pain, No edema, No palpitations Abdomen: No pain, No nausea, No vomiting, No diarrhea, No constipation Musculoskeletal: + swelling, No joint pain, No muscle pain Male : + see HPI Neurologic: No weakness, No numbness/tingling Psychiatric: No depression symptoms, No anxiety Endo: No fatigue Skin: No rash, No itch (Carmen Adair PA-C) Objective Vital Signs Date Time Temp Pulse Resp B/P (MAP) Pulse Ox O2 Delivery O2 Flow Rate FiO2 08/08/17 07:36 36.4 84 20 147/83 (104) 97 Room Air 08/08/17 04:00 Nasal Cannula 2.0 08/08/17 03:41 36.6 74 22 125/77 (93) 96 Nasal Cannula 2.0 08/07/17 23:59 Nasal Cannula 2.0 08/07/17 23:15 36.4 85 20 146/85 (105) 94 Nasal Cannula 2.0 08/07/17 21:30 36.5 92 20 159/89 (112) 95 Nasal Cannula 2.0 08/07/17 20:53 90 20 158/87 98 Nasal Cannula 2.0 08/07/17 18:31 95 20 144/100 98 Nasal Cannula 2.0 08/07/17 17:15 163/92 08/07/17 17:07 81 23 100 08/07/17 16:38 80 16 98 Nasal Cannula 2.0 08/07/17 16:04 98 Nasal Cannula 2.0 08/07/17 16:04 36.6 92 22 122/78 85 Room Air 08/07/17 16:04 98 Nasal Cannula 2.0 08/07/17 16:02 122/78 (Carmen Adair PA-C) Physical Exam General Appearance: WD/WN, no apparent distress Eyes: PERRL, EOMI ENT: hearing grossly normal, pharynx normal, + pertinent finding (MMM) Neck: supple, + pertinent finding (JVD difficult to assess due to body habitus) Respiratory/Chest: no respiratory distress, no accessory muscle use, + pertinent finding (on 2 L via NC, + barrel chested, + diminshed breath sounds throughout but moreso bibasilary, no crackles appreciated, no wheeze or rales) Cardiovascular: regular rate, rhythm, + pertinent finding (Unable to assess JVD , ) Abdomen: normal bowel sounds, non tender, soft Extremities: non-tender, no calf tenderness, + pedal edema (2+ pitting BLE) Neurologic/Psychiatric: alert, normal mood/affect, oriented x 3 Skin: normal color, warm/dry (Carmen Adair PA-C) Laboratory Results Last 24 Hours Test 08/07/17 16:36 08/07/17 17:09 08/07/17 21:54 08/07/17 22:17 White Blood Count 6.39 K/uL Red Blood Count 3.59 M/uL Hemoglobin 12.2 g/dL Hematocrit 35.5 % Mean Corpuscular Volume 98.9 fL Mean Corpuscular Hemoglobin 34.0 pg Mean Corpuscular Hemoglobin Concent 34.4 g/dl Platelet Count 120 K/uL Mean Platelet Volume 8.8 fL Neutrophils (%) (Auto) 63.7 % Lymphocytes (%) (Auto) 18.0 % Monocytes (%) (Auto) 14.6 % Eosinophils (%) (Auto) 2.7 % Basophils (%) (Auto) 0.5 % Neutrophils # (Auto) 4.08 K/uL Lymphocytes # (Auto) 1.15 K/uL Monocytes # (Auto) 0.93 K/uL Eosinophils # (Auto) 0.17 K/uL Basophils # (Auto) 0.03 K/uL RDW Standard Deviation 54.8 fL RDW Coefficient of Variation 15.1 % Immature Granulocyte % (Auto) 0.5 % Immature Granulocyte # (Auto) 0.03 K/uL Activated Partial Thromboplast Time 25.9 SECONDS Partial Thromboplastin Ratio 1.0 Sodium Level 134 mmol/L Potassium Level 4.8 mmol/L Chloride Level 101 mmol/L Carbon Dioxide Level 25 mmol/L Anion Gap 8.0 mmol/L Blood Urea Nitrogen 31 mg/dl Creatinine 1.59 mg/dl Est Creatinine Clear Calc Drug Dose 50.8 ml/min Estimated GFR () 47.2 Estimated GFR (Non- 40.7 BUN/Creatinine Ratio 19.6 Random Glucose 151 mg/dl Calcium Level 8.7 mg/dl Total Bilirubin 0.5 mg/dl Aspartate Amino Transf (AST/SGOT) 43 U/L Alanine Aminotransferase (ALT/SGPT) 52 U/L Alkaline Phosphatase 73 U/L Troponin I 1.590 ng/ml 2.480 ng/ml Pro-B-Type Natriuretic Peptide 2055 pg/ml Total Protein 7.0 gm/dl Albumin 3.6 gm/dl Globulin 3.4 gm/dl Albumin/Globulin Ratio 1.1 Urine Color YELLOW Urine Appearance TURBID Urine pH 5.0 Urine Specific [place] 1.015 Urine Protein NEG Urine Glucose (UA) NEG Urine Ketones NEG Urine Occult Blood 1+ Urine Nitrite POS Urine Bilirubin NEG Urine Urobilinogen NEG Urine Leukocyte Esterase LARGE Urine WBC (Auto) >30 /hpf Urine RBC (Auto) 0-4 /hpf Urine Hyaline Casts (Auto) 1-5 /lpf Urine Epithelial Cells (Auto) >30 /lpf Urine Bacteria (Auto) 4+ Bedside Glucose 254 mg/dl Test 08/08/17 00:57 08/08/17 03:46 08/08/17 06:51 Activated Partial Thromboplast Time 57.6 SECONDS 58.3 SECONDS Partial Thromboplastin Ratio 2.2 2.2 White Blood Count 4.71 K/uL Red Blood Count 3.45 M/uL Hemoglobin 12.0 g/dL Hematocrit 33.7 % Mean Corpuscular Volume 97.7 fL Mean Corpuscular Hemoglobin 34.8 pg Mean Corpuscular Hemoglobin Concent 35.6 g/dl RDW Standard Deviation 52.3 fL RDW Coefficient of Variation 14.7 % Platelet Count 130 K/uL Mean Platelet Volume 9.0 fL Sodium Level 134 mmol/L Potassium Level 4.7 mmol/L Chloride Level 103 mmol/L Carbon Dioxide Level 24 mmol/L Anion Gap 7.0 mmol/L Blood Urea Nitrogen 34 mg/dl Creatinine 1.53 mg/dl Est Creatinine Clear Calc Drug Dose 52.1 ml/min Estimated GFR () 49.4 Estimated GFR (Non- 42.6 BUN/Creatinine Ratio 22.3 Random Glucose 243 mg/dl Estimated Average Glucose 143 mg/dl Hemoglobin A1c 6.6 % Calcium Level 8.7 mg/dl Magnesium Level 1.8 mg/dl Troponin I 2.710 ng/ml Bedside Glucose 230 mg/dl (Carmen Adair, PA-C) Assessment and Plan Mr. Daugherty is a 81 y/o male with PMHx of CAD with SC and S/P CABG, Systolic CHF, T2DM, HTN, COPD, Carotid Stenosis, HLD, and BPH with LUTS who presents to the ED c/o SOB x couple days NSTEMI: - Trop 1.59 -- 2.48 --2.71: will check one more set to show trend downward. Initially was c/o indigestion as only presenting sx - pt denies any chest pain/ heaviness - EKG with lateral T wave inversions now -- was recently seen as outpatient by Jimy Doan -- will check outpatient records for previous EKG. - Cont heparin gtt with bolus for now - ASA 81 mg and Plavix 75 mg daily - Coreg 12.5 mg BID, Lisinopril 10 mg daily and Imdur 60 mg daily - Consult cardiology - discussed with Dr. Cardoso - no plans for cardiac cath at this facility, will await further recs to determine if transfer needed for catheterization, echo in process. Acute Hypoxic Respiratory Failure 2/2 Acute Systolic CHF Exacerbation: - Cr improved slightly, will follow PRP with increased diuresis - Strict I/O, daily weighs, 1 L out so far, but still appears volume overloaded - increase Lasix to 40 mg IV BID with extra 20 IV this morning to total 40 iv. - pt denies diet change or acute increase in weight. - heparin gtt for now, will ask cardiology to determine anticoagulation - 2D Echo in process - last done (2004) - EF 45%; septal infraapical infarct MATTHEW on CKD Stage II: - Cr. 1.59, not significantly improved yet, continue diuresis as likely elevated from volume overload - Trend prp COPD without Exacerbation: - Does not appear to be in an exacerbation at this time will keep Duonebs PRN if wheezing/SOB continue UTI with BPH with LUTS: - UA suggests UTI with cx pending - is symptomatic and reports needing to straight cath intermittently - Urology consult for cath placement with ureteral cyst and traumatic colunga placement hx - strict I/Os. - Rocephin 1 g IV daily (started 08/07) - Terazosin 2 mg HS T2DM: A1c 6.5 - Hold Metformin and cover with SSI DVT Prophylaxis: Heparin gtt Code Status: FULL RESUSCITATION Disposition: PT/OT sumi, dc unknown. (Carmen Adair, NATALIA) Reviewed: Pt Seen/Exam by Me (Loli Godinez MD) History Physician Time Study Technician supervision Note: I interviewed and examined the patient. Discussed with ROMANA Adair and agree with findings and plan as documented in the note. Any exceptions or clarifications are listed here: Patient feeling a little less short of breath now. Has been diuresing since here, Colunga was successfully placed. Discussed the case with cardiology today. No chest pain or pressure. Vitals reviewed, telemetry reviewed and reveals sinus rhythm with first-degree AV block with rates in the 60s-70s. Gen: AAOx3, NAD, obese HEENT: anicteric sclerae, EOMI CV: RRR no mgr nl S1S2 Pulm: Mild crackles at the bases bilaterally, otherwise clear, breathing unlabored, nasal cannula in place, no wheezes Abd: +BS soft NT ND no masses or hernias, obese Ext: 2+ pitting edema to the thighs bilaterally Skin: no rashes, warm/dry This patient is a 81-year-old male with a history of chronic systolic CHF, CAD with SC and status post CABG, DM 2, HTN, COPD, carotid artery stenosis, hyperlipidemia, and BPH with LUTS, who presents with progressively worsening dyspnea over 24 hour period-found to have acute on chronic systolic CHF and NSTEMI. Unclear which came first, the NSTEMI or the systolic CHF exacerbation. Cardiology reviewed previous ECG from the office a couple of weeks ago which actually looks about the same as now-the lateral T-wave changes are not new -Continue to serially trend the troponin as above -Awaiting for final echo report here -Plan to diuresis, tune him up from a CHF standpoint, and then possibly transfer to [facility] in [place] for cardiac catheterization early next week as per cardiology recommendations-unless our encephalographer is willing to accept the case. Cardiology is concerned here about his extensive history and in case he would need a repeat CABG. Documented By: Loli Godinez (Loli Godinez MD)
[2017-08-08] MEDS: ISOSORBIDE MONONITRATE 60 MG TABCR PO SCH (08:26)
[2017-08-08] MEDS: PANTOprazole SOD 40 MG TAB PO SCH (08:26)
[2017-08-08] MEDS: CARVEDILOL 12.5 MG TAB PO SCH ×2 (08:26→21:43)
[2017-08-08] MEDS: CLOPIDOGREL BISULFATE 75 MG TAB PO SCH (08:27)
[2017-08-08] MEDS: LISINOPRIL 10 MG TAB PO SCH (08:27)
[2017-08-08] MEDS: INSULIN ASPART 100 UNITS/ML 3 ML PEN SC SCH ×4 (08:39→21:00)
[2017-08-08] MEDS ORDERED: FUROSEMIDE INJ 20 MG in SYRINGE 0 ML IV SCH ×2 (09:00→18:00)
[2017-08-08 11:17] VITALS: Ht 177.8 cm; Wt 117.1 kg
[2017-08-08] MEDS ORDERED: FUROSEMIDE INJ 20 MG in SYRINGE 0 ML IV ONE (11:45)
[2017-08-08] MEDS: HEPARIN 25,000 UNIT/500ML D5W 500 ML IV SCH (12:39)
--- NOTE | 2017-08-08 14:46 | ECHOCARDIOGRAM REPORT ---
*NOTICE TO RECEIVING CONSTITUTION PARTY AGENCY This information is strictly Confidential and protected under [place] law. [place] law prohibits you from making any further disclosure of this information unless further disclosure is expressly permitted by the written consent of the person to whom it pertains or is authorized by law. A general authorization for the release of medical or other information is not sufficient for this purpose. Hospital accepts no responsibility if the information is made available to any other person, INCLUDING THE PATIENT. Interpretation Summary * The study was technically limited. * The study was technically difficult. * Name: NAMAN HOLLOWAY Study Date: 08/08/2017 07:58 AM BP: 125/77 mmHg Patient Location: C.2T\S\S234\S\1 HR: 84 : 1935 (M/d/yyyy) Gender: Male Height: 70 in Age: 81 yrs Ethnicity: [place] Weight: 283 lb Ordering Physician: Thao Batista Referring Physician: Self, Referred Performed By: Linda Restrepo, [facility] Reason For Study: AMI / ELEVATED TROPONIN BSA: 2.4 m2 * -- Conclusions -- * Due to technical limitations, the left ventricle is poorly visualized despite administration of ultrasound enhancement. * The LV regional wall motion cannot be assessed. * On a very limited basis, the ejection fraction appears to be in the range of 40-49% which is his typical historical baseline, however, images are very technically limited. Procedure Details * A complete two-dimensional transthoracic echocardiogram was performed (2D, M-mode, Doppler and color flow Doppler). * The study was technically difficult. * A contrast injection of Definity was performed to improve assessment of LV function. * Contrast was injected into an intravenous site in the right arm. * One vial of Definity ultrasound contrast was diluted in normal saline to a total volume of 10 ml. A total of '4' ml of solution was administered during imaging. * Lot # [id number] of Definity utilized for procedure. * Expiration date AUG 07. * The attending nurse who injected the contrast agent was KATHY LIN, LINDSAY. Left Ventricle * The left ventricle is not well visualized. * Due to technical limitations, the left ventricle is poorly visualized despite administration of ultrasound enhancement. The LV regional wall motion cannot be assessed. No comment can be made regarding ejection fraction. Right Ventricle * The right ventricle is not well visualized. Atria * The left atrium is mildly dilated. Mitral Valve * The mitral valve is not well visualized. * There is no significant mitral regurgitation or mitral stenosis on limited visualization. Tricuspid Valve * The tricuspid valve is not well visualized. * There is mild tricuspid regurgitation. Pericardium/Pleural * There is no pericardial effusion. Left Ventricular Diastolic Function * Grade I diastolic dysfunction, (abnormal relaxation pattern). MMode 2D Measurements and Calculations IVSd 2.1 cm IVSs 2.4 cm LVIDd 4.3 cm LVIDs 3.0 cm LVPWd 1.4 cm LVPWs 2.0 cm IVS/LVPW 1.5 FS 29.9 % EDV(Teich) 83.0 ml ESV(Teich) 35.4 ml EF(Teich) 57.4 % EDV(cubed) 79.5 ml ESV(cubed) 27.4 ml EF(cubed) 65.6 % % IVS thick 11.7 % % LVPW thick 39.2 % LV mass(C)d 333.0 grams LV mass(C)dI 137.6 grams/m\S\2 LV mass(C)s 307.0 grams LV mass(C)sI 126.9 grams/m\S\2 SV(Teich) 47.6 ml SI(Teich) 19.7 ml/m\S\2 SV(cubed) 52.1 ml SI(cubed) 21.5 ml/m\S\2 Ao root diam 3.5 cm Ao root area 9.7 cm\S\2 LA dimension 4.5 cm LA/Ao 1.3 LVOT diam 2.0 cm LVOT area 3.1 cm\S\2 Doppler Measurements and Calculations MV E max claudia 106.5 cm/sec MV A max claudia 130.1 cm/sec MV E/A 0.82 MV P1/2t max claudia 105.3 cm/sec MV P1/2t 71.9 msec MVA(P1/2t) 3.1 cm\S\2 MV dec slope 429.1 cm/sec\S\2 MV dec time 0.11 sec Ao V2 max 95.8 cm/sec Ao max PG 3.7 mmHg Ao max PG (full) 2.1 mmHg CAMERON(V,A) 2.0 cm\S\2 CAMERON(V,D) 2.0 cm\S\2 LV V1 max PG 1.6 mmHg LV V1 max 62.6 cm/sec TR max claudia 283.8 cm/sec
--- NOTE | 2017-08-08 15:12 | Cardiology Consultation ---
Cardiology Consultation Date of Consultation: Aug 08, 2017 History of Present Illness Ok Daugherty is a 81 year old male seen in cardiology consultation per the request of Thao Batista PA-C and Dr Godinez for the evaluation of shortness of marked dyspnea at rest. The patient's primary vending manager is Dr. Joseph Baird of our practice whom he had last seen in February 2017. The patient had a recent outpatient follow-up with Jimy Doan PA-C of our practice on 07/25/17 at that time he described increasing shortness of breath and lower extremity edema compared to his prior baseline. Furosemide was increased at that visit from 20 mg 3 days per week to 20 mg every other day. Felodipine was discontinued and carvedilol was increased from 6.25 mg a.m. and 12.5 mg p.m. to 12.5 mg twice daily. The patient presented to emergency room yesterday at just before 4 PM complaining of 2 days of progressive severe shortness of breath at rest and with minimal exertion. 2 days prior to presenting he had felt sinus congestion but he is able to enjoy dinner with friends that night at a restaurant. The next day he started having shortness of breath with exertion and by the time he went to sleep Friday night into night he felt very short of breath. He became progressively short of breath yesterday, , 08/07/17 and had a significant episode while in the bathroom with profound dyspnea prompting him to come to the emergency department. Blood pressure on presentation was 122/ 78. EKG on presentation revealed sinus rhythm at 84 bpm with chronic inferior and anterolateral infarct patterns, and ST segment changes are present in the lateral precordial leads new compared to his recent outpatient EKG, and new ST segment depression of 1 mm was noted in the high lateral leads I and aVL which replaced the previously noted T-wave inversions. Repeat EKG this morning is relatively same with lateral repolarization changes consistent with ischemia. The patient's troponin has been elevated with initial reading of 1.59, then 2.48 , and then 2.71ng/ml. Chest x-ray revealed pulmonary vascular congestion with left greater than right interstitial changes and trace bilateral pleural effusions. EKG performed at the time of that outpatient visit on 07/25/2017 revealed sinus rhythm at 67 bpm with a first-degree AV block evidence of left ventricular hypertrophy, age-indeterminate inferior infarction pattern with inferior Q waves noted since 2006, age-indeterminate anterolateral infarct pattern with lateral Q waves present since 2006. T-wave inversions were noted in leads I and aVL. This was unchanged compared to a prior tracing dated 08/09/2016 as an outpatient. The patient received 20 mg of IV furosemide last night at 2212, and 2 additional doses of 20 mg earlier this morning and then again just after noon time. He is feeling subjectively improved. He notes no recent chest pain or pressure. He states that this is different than the sensation that he had that prompted his prior coronary artery bypass grafting which was chest pressure that radiated to his back. He typically sleeps in a recliner at baseline for the last few years The patient's most recent outpatient chemistry panel on 04/03/17 included a creatinine of 1.12 mg/dL which was increased to 1.59 on admission, and was 1.53 on repeat early this morning. Past Medical/Surgical History Problem List: Medical Problems: (1) Benign hypertension (2) Carotid artery stenosis (3) COPD (chronic obstructive pulmonary disease) (4) Coronary artery bypass grafting (5) Diabetes mellitus (6) Hyperlipidemia (7) Myocardial infarction (8) NSTEMI (non-ST elevated myocardial infarction) (9) Sepsis History Past Medical History: 1. Atherosclerotic coronary disease and associated ischemic cardiomyopathy, EF of 40-45%. 2. Prior coronary bypass grafting, August of 2004, with incomplete revascularization of severe diffuse coronary disease receiving a IZQUIERDO graft to the 2nd diagonal, a radial graft anastomosing from the left internal mammary artery to the 3rd obtuse marginal, and a saphenous vein graft sequentially to the PDA and posterolateral branch of the right coronary artery. Targets were noted to be poor at the time of surgical procedure. 3. Chronic class 2 angina pectoris. 4. Atherosclerotic carotid disease status post right carotid stenting. 5. History of popliteal aneurysm. 6. Hyperlipidemia, with poor statin tolerance. 7. Severe degenerative joint disease/spinal stenosis with limiting backpain. 8. Type 2 diabetes mellitus Social History: CABG as outlined above, prior cardiac catheterizations, carotid stent Review Of Systems A 10 point review of systems is reviewed and is negative with the exception of that noted above Allergies Coded Allergies: Iodinated Diagnostic Agents (Verified Allergy, Unknown, ANAPHYLAXIS, ) Penicillins (Verified Allergy, Unknown, BOILS, 08/07/17) Shellfish (Verified Allergy, Unknown, ANAPHYLAXIS, 08/07/17) Latex1 -Allergic Contact Dermititis (Verified Adverse Reaction, Unknown, RASH, 08/07/17) Statins (Verified Adverse Reaction, Unknown, severe myalgias, 08/07/17) Medications Reported Home Medications Medications Dose Route/Sig Max Daily Dose Days Date Category Dose Instructions Furosemide 20 Mg Tab 20 Mg PO Q2D 08/07/17 Reported Prilosec (Omeprazole) 20 Mg Cap 20 Mg PO BID 08/07/17 Reported 20MG BID FOR ONE MONTH THEN PT IS TO GO BACK TO ONLY 20MG DAILY Lactulose (Lactulose (Encephalopathy)) 10 Gm/15 Ml Reyna 30 Ml PO BID PRN 08/07/17 Reported Lisinopril 10 Mg Tab 10 Mg PO QAM 10/22/15 Reported Stool Softener (Sennosides-Docusate Sodium) 1 Tab Tab 1 Tab PO HS 08/10/15 Reported Glucophage (Metformin Hcl) 500 Mg Tab 500 Mg PO TID 08/10/15 Reported Coreg (Carvedilol) 6.25 Mg Tab 12.5 Mg PO BID 08/10/15 Reported Avodart (Dutasteride) 0.5 Mg Cap 0.5 Mg PO HS 03/16/13 Reported Imdur (Isosorbide Mononitrate) 60 Mg Tab 60 Mg PO QAM 02/05/13 Reported Hytrin (Terazosin HCl) 2 Mg Cap 2 Mg PO HS 02/05/13 Reported Plavix (Clopidogrel Bisulfate) 75 Mg Tab 75 Mg PO QAM 10/01/11 Reported Celebrex * (Celecoxib) 200 Mg Cap 200 Mg PO QAM 10/01/11 Reported Ecotrin Or Generic * (Aspirin) 81 Mg Ectab 81 Mg PO HS 12/24/08 Reported Physical Exam Vital Signs (Last 8hrs): Last 8 Hrs Date Time Temp Pulse Resp B/P (MAP) Pulse Ox O2 Delivery O2 Flow Rate FiO2 08/08/17 12:00 Nasal Cannula 2.0 08/08/17 08:00 Nasal Cannula 2.0 08/08/17 07:36 36.4 84 20 147/83 (104) 97 Room Air General Appearance: Alert and Oriented x3. NAD. Head: Normocephalic Atraumatic. Eyes: PERRLA, EOMI, conjunctiva and sclera clear Neck: Supple. No carotid bruits noted. No JVD. No HJD. Respiratory: Decreased breath sounds bilaterally at the bases Cardiovascular: Reg rate and rhythm. S1 and S2 noted. No murmurs, rubs, gallops. PMI non displace. Abdomen: Normal bowel sounds, soft nontender. no abdominal bruits. Extremities: Mild edema to the mid tibia Neuro: No focal deficits. Psychiatric: Normal affect. Data Last Resulted 08/08/17 03:46 Last Resulted 08/08/17 03:46 Past 24 Hours Test 08/07/17 16:36 08/07/17 22:17 08/08/17 03:46 08/08/17 14:41 Range/Units Troponin I 1.590 *H 2.480 *H 2.710 *H 0-0.045 ng/ml Telemetry reveals sinus rhythm. EKG and chest x-ray as outlined in HPI Echocardiogram was reviewed independently. The images were technically limited due to poor acoustic windows, and his acute illness is likely added to the technical difficulty of his study. Regional wall motion not be adequately assessed on the current echocardiogram. On limited evaluation, the ejection fraction appears to be grossly in the range of 40-49% which is been his previous baseline, but this information is felt to be very technically limited. Assessment & Plan Impression: 81-year-old male 1. Acute decompensation, systolic heart failure 2. Non-ST segment elevation myocardial infarction 3. Acute kidney injury 4. Iodine allergy 5. Type 2 diabetes mellitus Discussion/recommendations: The patient has a long-standing history of diabetes related severe wiyot vessel coronary artery disease. As noted above at the time his coronary artery bypass grafting, was felt that incomplete revascularization occurred and that the wiyot coronaries provided poor bypass targets. He has long-standing history of baseline class II stable exertional angina review of his outpatient chart. The patient was not quite feeling himself with some degree of worsening edema shortness of breath at his recent outpatient visit earlier this month. Several medication changes were made, but in the interim he has had an acute decompensation within the last 2 days. He has new ischemic changes in his lateral precordial EKG leads and has a mildly elevated troponin. He is not having any chest pressure at present, and based on his EKG and clinical presentation I do not think that urgent cardiac catheterization is indicated. It is however difficult to determine if his congestive heart failure decompensation has been brought on by ischemia or if he is ischemic as a result of being volume overloaded. He has a problem with urinary outflow tract difficulties at baseline and therefore he performs urinary self-catheterization at baseline at home. Agree with having Jean catheter placed. Agree with increasing his furosemide dose to 40 mg twice daily. We will need to watch his renal function closely, but I am optimistic that perhaps with improving his cardiac status with a favorable improvement in his Starling curve hemodynamics that his renal perfusion will also improve. Agree with heparin for empiric treatment of possible subacute intracoronary plaque rupture. We will plan to optimize him from a volume status standpoint and renal function standpoint, and reassess clinical benefits of potential cardiac catheterization which would likely need to be performed at a tertiary center given his complex coronary anatomy and potential for complex bypass graft intervention. Case discussed with the PR hospitalist team. Dr Steve will be rounding this weekend.
[2017-08-08 15:19] VITALS: BP 132/70; PULSE 68; TEMP 36.2; O2SAT 97
[2017-08-08] MEDS: FUROSEMIDE INJ 40 MG in SYRINGE 0 ML IV SCH (17:01)
[2017-08-08] MEDS: CEFTRIAXONE SOD INJ 2,000 MG in DEXTROSE 5% 50ML 50 ML IV SCH (17:49)
[2017-08-08] MEDS ORDERED: CEFTRIAXONE SOD INJ 1 GM in DEXTROSE 5% ADD-VANTAGE 50ML 50 ML IV SCH (18:00)
[2017-08-08 19:09] VITALS: BP 124/73; PULSE 78; TEMP 36.5; O2SAT 96
[2017-08-08] MEDS: ASPIRIN 81 MG ECTAB PO SCH (21:43)
[2017-08-08] MEDS: DOCUSATE SODIUM/SENNA 50/8.6MG TAB PO SCH (21:44)
[2017-08-09] VITALS (8 sets, daily range): BP systolic 106–126; BP diastolic 59–75; PULSE 60–70; TEMP 36.3–36.8; O2SAT 94–98
[2017-08-09] MEDS: HEPARIN 25,000 UNIT/500ML D5W 500 ML IV SCH ×2 (01:04→15:51)
[2017-08-09] MEDS: FUROSEMIDE INJ 40 MG in SYRINGE 0 ML IV SCH (05:49)
[2017-08-09 06:18] LABS: HEMOGLOBIN 11.2 g/dL (14.0-18.0); MEAN CELL VOLUME 99.4 fL (80-100); MEAN CORPUSCULAR HEMOGLOBIN 34.8 pg (25-34); MEAN PLATELET VOLUME 9.1 fL (7.4-10.4); PLATELET COUNT 139 K/uL (130-400); RED CELL DISTRIBUTION WIDTH SD 53.7 fL (36.4-46.3); WHITE BLOOD COUNT 8.77 K/uL (4.8-10.8)
[2017-08-09 06:55] LABS: CALCIUM 8.5 mg/dl (8.5-10.1); CREATININE 1.71 mg/dl (0.60-1.40); POTASSIUM 3.9 mmol/L (3.5-5.1)
[2017-08-09] MEDS: INSULIN ASPART 100 UNITS/ML 3 ML PEN SC SCH ×4 (08:10→21:00)
[2017-08-09] MEDS: FINASTERIDE 5 MG TAB PO SCH (08:11)
[2017-08-09] MEDS: LISINOPRIL 10 MG TAB PO SCH (08:11)
[2017-08-09] MEDS: CARVEDILOL 12.5 MG TAB PO SCH ×2 (08:11→21:56)
[2017-08-09] MEDS: ISOSORBIDE MONONITRATE 60 MG TABCR PO SCH (08:11)
[2017-08-09] MEDS: PANTOprazole SOD 40 MG TAB PO SCH (08:12)
[2017-08-09] MEDS: CLOPIDOGREL BISULFATE 75 MG TAB PO SCH (08:12)
[2017-08-09] MEDS: LACTULOSE SYRUP 20 GM/30 ML UDC PO PRN (08:24)
[2017-08-09] MEDS ORDERED: MAGNESIUM SULFATE 1GM / D5W 1 GM in PREMIXED IN D5W 100 ML IV ONE (08:30)
--- NOTE | 2017-08-09 10:07 | GENITOURINARY CONSULTATION ---
DATE OF CONSULTATION: 08/09/2017 REASON FOR THE CONSULT: History of urinary stricture requiring CIC. HISTORY OF PRESENTATION: The patient is a 81-year-old male previously seen by Dr. Richmond who was started on daily self-catheterization because of incomplete emptying and urinary stricture. The patient was admitted for coronary reasons, appeared to have had a STEMI and was in congestive heart failure. A request was made for Jean catheter placement because he had a stricture. DICTATION ENDS HERE
--- NOTE | 2017-08-09 10:28 | GENITOURINARY CONSULTATION ---
DATE OF CONSULTATION: 08/09/2017 HISTORY OF PRESENTATION: Ok Daugherty is a 81-year-old male previously seen by Dr. Richmond for incomplete emptying and urethral stricture. He was admitted to the hospital with congestive heart failure and had been self-cathing at home without difficulty. Because that he was cathing, but is getting Lasix, the consulting physicians felt that he needed a Jean catheter and were concerned that it might be difficult because he had a urethral stricture. We are asked to see the patient to place a Jean catheter, but given that the patient could place a catheter, we were not in the hospital, we just instructed the nurses to place the catheter and if they had any difficulties to let us know. The catheter was placed without difficulty. The patient did have a urine culture taken yesterday and it is positive for E. coli. The patient is on Rocephin, which is sensitive to the E. coli. The Jean catheter is in place. The patient has no current complaints. PAST MEDICAL HISTORY: Significant for urethral stricture and incomplete emptying. The patient has coronary artery disease. REVIEW OF SYSTEMS: Please refer to the chart for review of systems. PHYSICAL EXAMINATION: The patient is an overweight male who has a Jean catheter in place, it is draining clear yellow urine. ASSESSMENT: Urethral stricture and incomplete emptying. PLAN: Continue antibiotics for 7-10 days. I would switch from Rocephin to either Keflex, although the patient does have an allergy to penicillin, or Macrobid. Would complete a course of antibiotics after the Rocephin. I would remove the catheter once the patient is over the critical coronary artery. He is not receiving a significant diuresis. We could resume b.i.d. self catheterization to empty as well as to keep the stricture open.
[2017-08-09] MEDS ORDERED: HYDROCORTISONE HC 2.5% CRM 30GM TUBE EXT PRN (12:45)
--- NOTE | 2017-08-09 13:00 | Hospitalist Progress Note ---
Hospitalist Progress Note Date of Service Aug 09, 2017. Subjective Pt evaluation today including: conversation w/ patient Voiding: colunga catheter in place diuresing quite a bit, but technical support engineer increased, held lasix. He feels less SOB, feels legs less swollen. He has not been out of the chair since admission as he sleeps in the chair as well, so unsure if he is COOLEY having some pain with hemorrhoids and has chronic issue with lactulose tele with NSR, SB rates 50s-70s, had 3-4 beats VT Constitutional: + weakness (feels a little "shakier than usual") Abdomen: No pain Musculoskeletal: + joint pain (chronic in knees) All Other Systems: Reviewed and Negative Objective Vital Signs Date Time Temp Pulse Resp B/P (MAP) Pulse Ox O2 Delivery O2 Flow Rate FiO2 08/09/17 11:38 36.8 61 18 106/65 (79) 97 Nasal Cannula 2.0 08/09/17 08:00 Nasal Cannula 2.0 08/09/17 07:57 36.7 66 18 122/75 (91) 98 Nasal Cannula 2.0 08/09/17 03:38 36.3 66 21 108/65 (79) 96 Nasal Cannula 2.0 08/09/17 00:00 36.4 70 22 115/73 (87) 97 Nasal Cannula 2.0 08/09/17 00:00 Nasal Cannula 2.0 08/08/17 20:00 Nasal Cannula 2.0 08/08/17 19:09 36.5 78 24 124/73 (90) 96 Nasal Cannula 2.0 08/08/17 16:00 Nasal Cannula 2.0 08/08/17 15:19 36.2 68 18 132/70 (90) 97 Nasal Cannula 2.0 Physical Exam General Appearance: no apparent distress, + obese Eyes: normal inspection, sclerae normal ENT: hearing grossly normal Neck: trachea midline Respiratory/Chest: lungs clear, normal breath sounds, no respiratory distress, no accessory muscle use Cardiovascular: regular rate, rhythm, no murmur, + pertinent finding (2+ pitting edema legs to thighs bilat) Abdomen: normal bowel sounds, non tender, soft Extremities: no calf tenderness, + swelling (as above) Neurologic/Psychiatric: alert, normal mood/affect, oriented x 3 Skin: normal color, warm/dry, no rash Laboratory Results Last 24 Hours Test 08/08/17 14:41 08/08/17 16:39 08/08/17 20:32 08/09/17 05:24 Troponin I 1.670 ng/ml Bedside Glucose 170 mg/dl 180 mg/dl White Blood Count 8.77 K/uL Red Blood Count 3.22 M/uL Hemoglobin 11.2 g/dL Hematocrit 32.0 % Mean Corpuscular Volume 99.4 fL Mean Corpuscular Hemoglobin 34.8 pg Mean Corpuscular Hemoglobin Concent 35.0 g/dl RDW Standard Deviation 53.7 fL RDW Coefficient of Variation 15.0 % Platelet Count 139 K/uL Mean Platelet Volume 9.1 fL Activated Partial Thromboplast Time 60.0 SECONDS Partial Thromboplastin Ratio 2.3 Sodium Level 136 mmol/L Potassium Level 3.9 mmol/L Chloride Level 101 mmol/L Carbon Dioxide Level 29 mmol/L Anion Gap 7.0 mmol/L Blood Urea Nitrogen 40 mg/dl Creatinine 1.71 mg/dl Est Creatinine Clear Calc Drug Dose 46.0 ml/min Estimated GFR () 43.2 Estimated GFR (Non- 37.3 BUN/Creatinine Ratio 23.6 Random Glucose 158 mg/dl Calcium Level 8.5 mg/dl Magnesium Level 1.8 mg/dl Test 08/09/17 06:19 08/09/17 11:11 Bedside Glucose 156 mg/dl 178 mg/dl Assessment and Plan This patient is a 81-year-old male with a history of chronic systolic CHF, CAD with NM and status post CABG, DM 2, HTN, COPD, carotid artery stenosis, hyperlipidemia, and BPH with LUTS, who presents with progressively worsening dyspnea over 24 hour period-found to have acute on chronic systolic CHF and NSTEMI. NSTEMI:Unclear which came first, the NSTEMI or the systolic CHF exacerbation. Cardiology reviewed previous ECG from the office a couple of weeks ago which actually looks about the same as now-the lateral T-wave changes are not new. Troponin peaked at 2.71 and now trending downward ECHO: *Due to technical limitations, the left ventricle is poorly visualized despite administration of ultrasound enhancement. * The LV regional wall motion cannot be assessed. * On a very limited basis, the ejection fraction appears to be in the range of 40-49% which is his typical historical baseline, however, images are very technically limited." -Plan to diurese, tune him up from a CHF standpoint, and then possibly transfer to [facility] in [place] for cardiac catheterization early next week as per cardiology recommendations-unless our steam meter reader is willing to accept the case. Cardiology is concerned here about his extensive history and in case he would need a repeat CABG. 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 so will hold lasix for now - Cont heparin gtt - continue ASA 81 mg and Plavix 75 mg daily - Coreg 12.5 mg BID and Imdur 60 mg daily -holding ACEI for MATTHEW - Consult cardiology appreciated Acute Hypoxic Respiratory Failure/Acute Systolic CHF Exacerbation: has diuresed 2.5 L net negative and feels much improved from a dyspnea perspective -continue supplemental O2 -continue diuresis as able to for CHF -Hypomagnesemia -replace magnesium to keep above 2.0 MATTHEW on CKD Stage II: technical support engineer worse again today to 1.71 - Trend prp -hold lasix and ACEI COPD without Exacerbation: - Does not appear to be in an exacerbation at this time will keep Duonebs PRN if wheezing/SOB continue UTI with BPH with LUTS: - UA abnormal, Ur cx with E. coli resistant to FQ - continue Rocephin (started 08/07) and switch to Keflex likely tomorrow - continue Terazosin 2 mg HS and finasteride T2DM: A1c 6.5 - Hold Metformin and cover with SSI DVT Prophylaxis: Heparin gtt Code Status: FULL RESUSCITATION Disposition: PT/OT sumi, dc unknown.
--- NOTE | 2017-08-09 16:20 | Cardiology Follow-Up ---
Subjective General Date of Service: Aug 09, 2017. Pt evaluation today including: conversation w/ patient, physical exam, chart review, lab review, review of studies, review of inpatient medication list History of Present Illness The patient is a 81 year old male seen in follow-up. Shortness of breath markedly improved since admission. Creatinine trending upward, diuretics placed on hold. Denies chest discomfort. States lower extremity edema at baseline or better. Denies orthopnea or paroxysmal nocturnal dyspnea. Occasional PVCs, and 2, 4-beat salvos of nonsustained ventricular tachycardia on telemetry. Allergies Coded Allergies: Iodinated Diagnostic Agents (Verified Allergy, Unknown, ANAPHYLAXIS, ) Penicillins (Verified Allergy, Unknown, BOILS, 08/07/17) Shellfish (Verified Allergy, Unknown, ANAPHYLAXIS, 08/07/17) Latex1 -Allergic Contact Dermititis (Verified Adverse Reaction, Unknown, RASH, 08/07/17) Statins (Verified Adverse Reaction, Unknown, severe myalgias, 08/07/17) Social History Smoking Status: Former Smoker Hx Tobacco Use In Past Year?: No (QUIT SEPTEMBER 2004, HX OF 2 PPD X20 YEARS) Hx Alcohol Use - Type And Amou: Yes (2-4 glasses of wine/day) Hx Substance Use - Type And Am: No Problem List Medical Problems: (1) COPD exacerbation Status: Acute (2) Elevated troponin Status: Acute (3) Non-STEMI (non-ST elevated myocardial infarction) Status: Acute (4) UTI (urinary tract infection) Status: Acute (5) UTI (urinary tract infection) Status: Acute Review of Systems Respiratory: + dyspnea on exertion, No cough, No sputum, No wheezing, No shortness of breath, No dyspnea at rest, No hemoptysis Cardiac: No chest pain, No orthopnea, No PND, No edema, No claudication, No palpitations Physical Exam Vital Signs Last Vital Signs Documentation Date Time Temp Pulse Resp B/P (MAP) Pulse Ox O2 Delivery O2 Flow Rate FiO2 08/09/17 15:08 36.4 60 18 106/67 (80) 97 Nasal Cannula 2.0 Physical Exam Constitutional: General Apperance: obese Level of Distress: chronically ill Head: normocephalic, atraumatic Eyes: EOM: EOMI Lungs: Auscultation: no wheezing, no rales/crackles, no rhonchi Cardiovascular: Heart Auscultation: RRR, normal S1, normal S2, no murmurs Peripheral Pulses: Radial Pulse: normal on the right Extremities: no cyanosis, no clubbing, no ulcers, edema (2+ bilateral pedal and pretibial edema, + stasis changes) Neurologic: Cranial Nerves: grossly intact Assessment and Plan Assessment and Plan 1. Acute decompensation, systolic heart failure 2. Non-ST segment elevation myocardial infarction 3. Acute kidney injury on CKD - creatinine trending upward 4. Iodine allergy 5. Type 2 diabetes mellitus 6. UTI Discussion/recommendations: Hold Lasix today. Repeat basic metabolic panel in a.m. May need to hold ACEI pending review of AM labs. Continue intravenous heparin infusion, aspirin, plavix. Continue to monitor telemetry. Replace electrolytes as indicated. Conservative medical management versus referral to tertiary care center for cardiac catheterization pending ongoing evaluation and clinical course. Laboratory Results Last 24 Hours Test 08/08/17 16:39 08/08/17 20:32 08/09/17 05:24 08/09/17 06:19 Bedside Glucose 170 mg/dl 180 mg/dl 156 mg/dl White Blood Count 8.77 K/uL Red Blood Count 3.22 M/uL Hemoglobin 11.2 g/dL Hematocrit 32.0 % Mean Corpuscular Volume 99.4 fL Mean Corpuscular Hemoglobin 34.8 pg Mean Corpuscular Hemoglobin Concent 35.0 g/dl RDW Standard Deviation 53.7 fL RDW Coefficient of Variation 15.0 % Platelet Count 139 K/uL Mean Platelet Volume 9.1 fL Activated Partial Thromboplast Time 60.0 SECONDS Partial Thromboplastin Ratio 2.3 Sodium Level 136 mmol/L Potassium Level 3.9 mmol/L Chloride Level 101 mmol/L Carbon Dioxide Level 29 mmol/L Anion Gap 7.0 mmol/L Blood Urea Nitrogen 40 mg/dl Creatinine 1.71 mg/dl Est Creatinine Clear Calc Drug Dose 46.0 ml/min Estimated GFR () 43.2 Estimated GFR (Non- 37.3 BUN/Creatinine Ratio 23.6 Random Glucose 158 mg/dl Calcium Level 8.5 mg/dl Magnesium Level 1.8 mg/dl Test 08/09/17 11:11 Bedside Glucose 178 mg/dl
[2017-08-09] MEDS: CEFTRIAXONE SOD INJ 2,000 MG in DEXTROSE 5% 50ML 50 ML IV SCH (17:50)
[2017-08-09] MEDS: DOCUSATE SODIUM/SENNA 50/8.6MG TAB PO SCH (21:56)
[2017-08-09] MEDS: ASPIRIN 81 MG ECTAB PO SCH (21:57)
[2017-08-10] VITALS (8 sets, daily range): BP systolic 115–147; BP diastolic 65–82; PULSE 57–79; TEMP 36.2–36.8; O2SAT 94–98
[2017-08-10] MEDS: HEPARIN 25,000 UNIT/500ML D5W 500 ML IV SCH ×2 (05:53→17:20)
[2017-08-10 06:24] LABS: HEMATOCRIT 33.9 % (42-52); HEMOGLOBIN 11.5 g/dL (14.0-18.0); MEAN CELL VOLUME 99.7 fL (80-100); MEAN CORPUSCULAR HEMOGLOBIN 33.8 pg (25-34); MEAN CORPUSCULAR HGB CONC 33.9 g/dl (32-36); MEAN PLATELET VOLUME 8.8 fL (7.4-10.4); PLATELET COUNT 141 K/uL (130-400); RED CELL DISTRIBUTION WIDTH CV 15.2 % (11.5-14.5); WHITE BLOOD COUNT 7.92 K/uL (4.8-10.8)
[2017-08-10 06:48] LABS: PTT PATIENT 52.5 SECONDS (21.0-31.0)
[2017-08-10] MEDS: INSULIN ASPART 100 UNITS/ML 3 ML PEN SC SCH ×4 (07:00→21:00)
[2017-08-10 07:07] LABS: CALCIUM 8.6 mg/dl (8.5-10.1); CREATININE 1.47 mg/dl (0.60-1.40)
[2017-08-10] MEDS: PANTOprazole SOD 40 MG TAB PO SCH (08:02)
[2017-08-10] MEDS: FINASTERIDE 5 MG TAB PO SCH (08:02)
[2017-08-10] MEDS: CLOPIDOGREL BISULFATE 75 MG TAB PO SCH (08:02)
[2017-08-10] MEDS: CARVEDILOL 12.5 MG TAB PO SCH ×2 (08:03→21:30)
[2017-08-10] MEDS: ISOSORBIDE MONONITRATE 60 MG TABCR PO SCH (08:03)
--- NOTE | 2017-08-10 11:25 | Cardiology Follow-Up ---
Subjective General Date of Service: Aug 10, 2017. Pt evaluation today including: conversation w/ patient, physical exam, chart review, lab review, review of studies, review of inpatient medication list History of Present Illness The patient is a 81 year old male seen in follow-up. Resting comfortably. Denies orthopnea or PND. No chest discomfort. No dysrhythmias on telemetry. 2000 cc urine output over 24 hours despite withholding Lasix. Allergies Coded Allergies: Iodinated Diagnostic Agents (Verified Allergy, Unknown, ANAPHYLAXIS, ) Penicillins (Verified Allergy, Unknown, BOILS, 08/07/17) Shellfish (Verified Allergy, Unknown, ANAPHYLAXIS, 08/07/17) Latex1 -Allergic Contact Dermititis (Verified Adverse Reaction, Unknown, RASH, 08/07/17) Statins (Verified Adverse Reaction, Unknown, severe myalgias, 08/07/17) Social History Smoking Status: Former Smoker Hx Tobacco Use In Past Year?: No (QUIT SEPTEMBER 2004, HX OF 2 PPD X20 YEARS) Hx Alcohol Use - Type And Amou: Yes (2-4 glasses of wine/day) Hx Substance Use - Type And Am: No Problem List Medical Problems: (1) COPD exacerbation Status: Acute (2) Elevated troponin Status: Acute (3) Non-STEMI (non-ST elevated myocardial infarction) Status: Acute (4) UTI (urinary tract infection) Status: Acute (5) UTI (urinary tract infection) Status: Acute Review of Systems Respiratory: + dyspnea on exertion, No cough, No sputum, No wheezing, No shortness of breath, No dyspnea at rest Cardiac: + edema, No chest pain, No orthopnea, No PND, No claudication, No palpitations Physical Exam Vital Signs Last Vital Signs Documentation Date Time Temp Pulse Resp B/P (MAP) Pulse Ox O2 Delivery O2 Flow Rate FiO2 08/10/17 08:00 Nasal Cannula 2.0 08/10/17 07:20 36.6 57 20 123/73 (90) 97 Physical Exam Constitutional: General Apperance: obese Level of Distress: chronically ill Head: normocephalic, atraumatic Eyes: EOM: EOMI Lungs: Auscultation: no wheezing, no rales/crackles, no rhonchi Cardiovascular: Heart Auscultation: RRR, normal S1, normal S2, no murmurs Peripheral Pulses: Radial Pulse: normal on the right Extremities: no cyanosis, no clubbing, no ulcers, edema (2+ bilateral pedal and pretibial edema, + stasis changes) Neurologic: Cranial Nerves: grossly intact Assessment and Plan Assessment and Plan 1. Acute decompensation, systolic heart failure 2. Non-ST segment elevation myocardial infarction 3. Acute kidney injury on CKD - creatinine improved today 4. Iodine allergy 5. Type 2 diabetes mellitus 6. UTI Discussion/recommendations: Restart Lasix 40 mg IV twice daily. Repeat basic metabolic panel in a.m. continue ACEI, intravenous heparin infusion, aspirin, plavix. Continue to monitor telemetry. Replace electrolytes as indicated. Conservative medical management versus referral to tertiary care center for cardiac catheterization pending ongoing evaluation and clinical course. Laboratory Results Last 24 Hours Test 08/09/17 16:28 08/09/17 20:04 08/10/17 05:45 08/10/17 06:20 Bedside Glucose 158 mg/dl 135 mg/dl 151 mg/dl White Blood Count 7.92 K/uL Red Blood Count 3.40 M/uL Hemoglobin 11.5 g/dL Hematocrit 33.9 % Mean Corpuscular Volume 99.7 fL Mean Corpuscular Hemoglobin 33.8 pg Mean Corpuscular Hemoglobin Concent 33.9 g/dl RDW Standard Deviation 55.0 fL RDW Coefficient of Variation 15.2 % Platelet Count 141 K/uL Mean Platelet Volume 8.8 fL Activated Partial Thromboplast Time 52.5 SECONDS Partial Thromboplastin Ratio 2.0 Sodium Level 136 mmol/L Potassium Level 4.0 mmol/L Chloride Level 101 mmol/L Carbon Dioxide Level 28 mmol/L Anion Gap 7.0 mmol/L Blood Urea Nitrogen 35 mg/dl Creatinine 1.47 mg/dl Est Creatinine Clear Calc Drug Dose 53.3 ml/min Estimated GFR () 51.8 Estimated GFR (Non- 44.7 BUN/Creatinine Ratio 23.8 Random Glucose 146 mg/dl Calcium Level 8.6 mg/dl Magnesium Level 2.2 mg/dl
--- NOTE | 2017-08-10 12:55 | Progress Note ---
Subjective Date of Service: Aug 10, 2017. Subjective Pt evaluation today including: conversation w/ patient, conversation w/ family , lab review, conversation w/ client insights consultant pt with colunga still in place spoke with hospitalist and explained colunga can be removed at their discretion Tried to explain to pt that biweekly CIC will result in recurrent utis but would not rx in future unless he was symptomatic for fear of development of multiresistance Problem List Medical Problems: (1) COPD exacerbation Status: Acute (2) Elevated troponin Status: Acute (3) Non-STEMI (non-ST elevated myocardial infarction) Status: Acute (4) UTI (urinary tract infection) Status: Acute (5) UTI (urinary tract infection) Status: Acute Objective Vital Signs Date Time Temp Pulse Resp B/P (MAP) Pulse Ox O2 Delivery O2 Flow Rate FiO2 08/10/17 12:00 Nasal Cannula 2.0 08/10/17 11:26 36.8 62 20 115/65 (82) 98 Nasal Cannula 2.0 08/10/17 08:00 Nasal Cannula 2.0 08/10/17 07:20 36.6 57 20 123/73 (90) 97 Nasal Cannula 2.0 08/10/17 04:00 Nasal Cannula 2.0 08/10/17 03:03 36.6 57 20 118/70 (86) 97 Nasal Cannula 2.0 08/10/17 00:02 Nasal Cannula 2.0 08/09/17 23:22 36.7 61 18 113/59 (77) 94 Nasal Cannula 2.0 08/09/17 20:11 36.6 65 22 126/73 (90) 98 Nasal Cannula 2.0 08/09/17 20:00 Nasal Cannula 2.0 08/09/17 16:00 Nasal Cannula 2.0 08/09/17 15:08 36.4 60 18 106/67 (80) 97 Nasal Cannula 2.0 Laboratory Results Last 24 Hours Test 08/09/17 16:28 08/09/17 20:04 08/10/17 05:45 08/10/17 06:20 Bedside Glucose 158 mg/dl 135 mg/dl 151 mg/dl White Blood Count 7.92 K/uL Red Blood Count 3.40 M/uL Hemoglobin 11.5 g/dL Hematocrit 33.9 % Mean Corpuscular Volume 99.7 fL Mean Corpuscular Hemoglobin 33.8 pg Mean Corpuscular Hemoglobin Concent 33.9 g/dl RDW Standard Deviation 55.0 fL RDW Coefficient of Variation 15.2 % Platelet Count 141 K/uL Mean Platelet Volume 8.8 fL Activated Partial Thromboplast Time 52.5 SECONDS Partial Thromboplastin Ratio 2.0 Sodium Level 136 mmol/L Potassium Level 4.0 mmol/L Chloride Level 101 mmol/L Carbon Dioxide Level 28 mmol/L Anion Gap 7.0 mmol/L Blood Urea Nitrogen 35 mg/dl Creatinine 1.47 mg/dl Est Creatinine Clear Calc Drug Dose 53.3 ml/min Estimated GFR () 51.8 Estimated GFR (Non- 44.7 BUN/Creatinine Ratio 23.8 Random Glucose 146 mg/dl Calcium Level 8.6 mg/dl Magnesium Level 2.2 mg/dl Test 08/10/17 11:24 Bedside Glucose 180 mg/dl Assessment and Plan will sign off complete 10 day course of antibiotic can switch to po from pov f/u w Dr. Richmond as scheduled in future
[2017-08-10] MEDS: LACTULOSE SYRUP 20 GM/30 ML UDC PO PRN (13:01)
--- NOTE | 2017-08-10 18:27 | Progress Note ---
Subjective Date of Service: Aug 10, 2017. Subjective Pt evaluation today including: conversation w/ patient, conversation w/ family ( at bedside), physical exam, chart review, lab review, review of studies ( echo), conversation w/ gis consultant (urology), review of inpatient medication list Pain: denies chest pain PO Intake: normal Voiding: colunga catheter in place tele stable overnight reports chronic weakness of legs and ambulatory dysfunction due to lumbar spinal stenosis, knee pain, and neuropathy uses motorized scooter at home no dyspnea overnight does not use O2 at home multiple questions from pt and his he reports he had CABG at [facility] 10 years ago no cath since self-cathes twice a week at home to keep patency of urethral tract (has known stricture) Problem List Medical Problems: (1) COPD exacerbation Status: Acute (2) Elevated troponin Status: Acute (3) Non-STEMI (non-ST elevated myocardial infarction) Status: Acute (4) UTI (urinary tract infection) Status: Acute (5) UTI (urinary tract infection) Status: Acute Review of Systems Constitutional: No fever, No chills Respiratory: No cough, No sputum Cardiac: + edema, No chest pain Abdomen: No pain Objective Vital Signs Date Time Temp Pulse Resp B/P (MAP) Pulse Ox O2 Delivery O2 Flow Rate FiO2 08/10/17 16:00 94 Nasal Cannula 08/10/17 15:25 36.2 72 20 147/80 (102) 94 Nasal Cannula 1.5 08/10/17 12:00 Nasal Cannula 2.0 08/10/17 11:26 36.8 62 20 115/65 (82) 98 Nasal Cannula 2.0 08/10/17 08:00 Nasal Cannula 2.0 08/10/17 07:20 36.6 57 20 123/73 (90) 97 Nasal Cannula 2.0 08/10/17 04:00 Nasal Cannula 2.0 08/10/17 03:03 36.6 57 20 118/70 (86) 97 Nasal Cannula 2.0 08/10/17 00:02 Nasal Cannula 2.0 08/09/17 23:22 36.7 61 18 113/59 (77) 94 Nasal Cannula 2.0 08/09/17 20:11 36.6 65 22 126/73 (90) 98 Nasal Cannula 2.0 08/09/17 20:00 Nasal Cannula 2.0 Physical Exam General Appearance: no apparent distress, + obese ENT: pharynx normal Neck: no JVD Respiratory/Chest: no respiratory distress, no accessory muscle use, + decreased breath sounds (bases) Cardiovascular: regular rate, rhythm, no gallop, no murmur Abdomen: normal bowel sounds, non tender, soft, no organomegaly Extremities: + pedal edema, + swelling (about 1+ b/l ) Neurologic/Psychiatric: alert, oriented x 3 Laboratory Results Last 24 Hours Test 08/09/17 20:04 08/10/17 05:45 08/10/17 06:20 08/10/17 11:24 Bedside Glucose 135 mg/dl 151 mg/dl 180 mg/dl White Blood Count 7.92 K/uL Red Blood Count 3.40 M/uL Hemoglobin 11.5 g/dL Hematocrit 33.9 % Mean Corpuscular Volume 99.7 fL Mean Corpuscular Hemoglobin 33.8 pg Mean Corpuscular Hemoglobin Concent 33.9 g/dl RDW Standard Deviation 55.0 fL RDW Coefficient of Variation 15.2 % Platelet Count 141 K/uL Mean Platelet Volume 8.8 fL Activated Partial Thromboplast Time 52.5 SECONDS Partial Thromboplastin Ratio 2.0 Sodium Level 136 mmol/L Potassium Level 4.0 mmol/L Chloride Level 101 mmol/L Carbon Dioxide Level 28 mmol/L Anion Gap 7.0 mmol/L Blood Urea Nitrogen 35 mg/dl Creatinine 1.47 mg/dl Est Creatinine Clear Calc Drug Dose 53.3 ml/min Estimated GFR () 51.8 Estimated GFR (Non- 44.7 BUN/Creatinine Ratio 23.8 Random Glucose 146 mg/dl Calcium Level 8.6 mg/dl Magnesium Level 2.2 mg/dl Test 08/10/17 16:17 Bedside Glucose 167 mg/dl Assessment and Plan 81yo male with: 1. NSTEMI - remains on heparin infusion. No ischemic symptoms. Cont beta mine, asa, plavix, imdur. He is statin intolerant. Plan for heart cath next 48 hours - Dr. Baird from [facility] to return tomorrow and his team will make decision about pursuing the cath here or in [place]. Appreciate cardiology consultation. 2. acute/chronic systolic CHF - had diuresed, then developed mild acute kidney injury - fortunately creatinine improved today. Diuresis resumed by Dr. Steve. Holding SAMMY due to acute kidney injury. 3. acute kidney injury - 2nd to diuresis - improved today. Cont to hold SAMMY inhibitor. 4. h/o urethral stricture - appreciate urology consultation. Ok to d/c colunga today. Resume twice weekly self-cathing. 5. COPD - no exacerbation at this time. 6. UTI - colunga-catheter associated/complicated (due to self-cathing) - day #4/ 7 of antibiotics; stop rocephin, change to keflex. 7. morbid obesity with BMI 38 8. T2DM - controlled with supplemental insulin. 9. BPH w/ LUTS - cont alpha mine and finasteride. 10. DVT proph - heparin infusion. 11. chronic constipation - cont lactulose at his request daily. 12. ambulatory dysfunction - chronic; PT, OT. updated d/c colunga today await further recs on cath tomorrow Continued [facility] stay due to: ambulation difficulties, multiple IV medications needed, other (need for cath) Discharge planning: uncertain
[2017-08-10] MEDS: FUROSEMIDE INJ 40 MG in SYRINGE 0 ML IV SCH (18:40)
[2017-08-10] MEDS: CEPHALEXIN MONOHYDRATE 500 MG CAP PO SCH (21:29)
[2017-08-10] MEDS: ASPIRIN 81 MG ECTAB PO SCH (21:30)
[2017-08-10] MEDS: DOCUSATE SODIUM/SENNA 50/8.6MG TAB PO SCH (21:31)
[2017-08-11] VITALS (10 sets, daily range): BP systolic 118–157; BP diastolic 67–83; PULSE 64–79; TEMP 36.4–36.8; O2SAT 92–100
[2017-08-11] MEDS: FUROSEMIDE INJ 40 MG in SYRINGE 0 ML IV SCH ×2 (06:37→18:32)
[2017-08-11] MEDS: INSULIN ASPART 100 UNITS/ML 3 ML PEN SC SCH ×4 (07:00→21:00)
[2017-08-11 07:29] LABS: PTT PATIENT 51.8 SECONDS (21.0-31.0)
[2017-08-11 07:40] LABS: CALCIUM 8.7 mg/dl (8.5-10.1); CREATININE 1.33 mg/dl (0.60-1.40); POTASSIUM 3.7 mmol/L (3.5-5.1)
[2017-08-11] MEDS ORDERED: LACTULOSE SYRUP 20 GM/30 ML UDC PO ONE (08:26)
[2017-08-11] MEDS: LACTULOSE SYRUP 30 GM/45 ML UDP PO SCH (08:28)
[2017-08-11] MEDS: CARVEDILOL 12.5 MG TAB PO SCH ×2 (08:29→21:23)
[2017-08-11] MEDS: CLOPIDOGREL BISULFATE 75 MG TAB PO SCH (08:30)
[2017-08-11] MEDS: ISOSORBIDE MONONITRATE 60 MG TABCR PO SCH (08:30)
[2017-08-11] MEDS: CEPHALEXIN MONOHYDRATE 500 MG CAP PO SCH ×2 (08:30→21:21)
[2017-08-11] MEDS: PANTOprazole SOD 40 MG TAB PO SCH (08:31)
[2017-08-11] MEDS: FINASTERIDE 5 MG TAB PO SCH (08:31)
--- NOTE | 2017-08-11 11:14 | CARDIOLOGY CONSULTATION ---
DATE OF CONSULTATION: 08/11/2017 The patient seen and examined. Chart, medications, telemetry reviewed. SUBJECTIVE: The patient continues to demonstrate improvement per his own description. Notes continued diuresis. Weight now down 8 kilograms or more since admission. Lower extremity edema and mild abdominal bloating is improved. Notes no chest pains. Notes no worsening shortness of breath. Notes no tachy palpitations. Notes symptoms were subacute in onset with gradually worsening edema times several weeks, culminating worsening dyspnea, unresponsive to the increased dose of diuretics as an outpatient. OBJECTIVE: VITAL SIGNS: Heart rate is 74, blood pressure is 143/83. NECK: Thick. There is no audible bruit today. LUNGS: Notable for diminished breath sounds bibasilar. There is no rhonchi or wheeze. CARDIOVASCULAR: Regular. There is no S3 gallop. ABDOMEN: Soft. EXTREMITIES: Reveal 2+ bilateral lower extremity edema. LABORATORY STUDIES: Sodium is 137, potassium is 3.7, chloride is 100, bicarbonate is 30, BUN is 28, creatinine is 1.33, hemoglobin is 11.5. The patient is anticoagulated with heparin. IMPRESSION AND PLAN: Complex 81-year-old male with history of severe diffuse coronary artery disease, status post coronary bypass grafting 2004 with incomplete revascularization due to severe diffuse coronary disease and poor surgical targets, past positive stress test, presents now with acute decompensated mixed systolic and diastolic heart failure with likely demand based ischemia elevated troponins with resultant non-ST segment elevation myocardial infarction. Current symptoms do not appear secondary to acute ischemia, but rather ischemia is type 2 demand ischemia with gradual clinical decline. Discussed management with the patient, continues to have improved, though has persistent lower extremity edema, will continue inpatient IV furosemide. The patient's afterload reduction with SAMMY inhibitor was discontinued due to transient renal insufficiency. We will add in hydralazine at 12.5 mg twice per day. Consider adding spironolactone, depending on potassium levels and need for potassium replacement. If signs of instability or angina or worsening symptoms develop, would consider a referral for high-risk diagnostic cardiac catheterization. At this time, will continue medical management. Discussed in detail with the patient. Continue anticoagulant at least to above adjustments made. MTDD
[2017-08-11] MEDS: HEPARIN 25,000 UNIT/500ML D5W 500 ML IV SCH (11:23)
--- NOTE | 2017-08-11 14:06 | Hospitalist Progress Note ---
Hospitalist Progress Note Date of Service Aug 11, 2017. (Thao Batista PA-C) Subjective Pt evaluation today including: conversation w/ patient, conversation w/ family Patient seen and evaluated. No acute events overnight Reporting improvement in his breathing but is currently on supplemental O2 and will continue to wean Currently - 5 L with stable kidney function. Planning medical management at this time and if worsens then may need transfer to tertiary care Constitutional: No fever, No chills Respiratory: + dyspnea on exertion, No shortness of breath Cardiovascular: No chest pain Abdomen: No pain, No nausea, No vomiting, No diarrhea, No constipation Male : + urinary frequency (chronic), No dysuria Heme: No abnormal bleeding/bruising (Thao Batista PA-C) Medications Current Inpatient Medications Medications (Trade) Dose Ordered Sig/Richard Route Start Time Stop Time Status Last Admin Dose Admin Acetaminophen (Tylenol Tab) 650 mg Q4H PRN PO 08/07/17 18:45 09/06/17 18:44 Al Hydrox/Mg Hydrox/Simethicone (Maalox Max Susp) 15 ml Q4H PRN PO 08/07/17 18:45 09/06/17 18:44 Magnesium Hydroxide (Milk Of Magnesia Susp) 30 ml Q12H PRN PO 08/07/17 18:45 09/06/17 18:44 Ondansetron HCl (Zofran Inj) 4 mg Q6H PRN IV 08/07/17 18:45 09/06/17 18:44 Nitroglycerin (Nitrostat Tab) 0.4 mg UD PRN SL 08/07/17 18:45 09/06/17 18:44 Polyethylene (Miralax Powder Packet) 17 gm DAILY PRN PO 08/07/17 18:45 09/06/17 18:44 Aspirin (Ecotrin Tab) 81 mg HS PO 08/07/17 21:00 09/06/17 20:59 08/10/17 21:30 81 MG Carvedilol (Coreg Tab) 12.5 mg BID PO 08/07/17 21:00 09/06/17 20:59 08/11/17 08:29 12.5 MG Clopidogrel Bisulfate (plAVix TAB) 75 mg QAM PO 08/08/17 09:00 09/07/17 08:59 08/11/17 08:30 75 MG Isosorbide Mononitrate (Imdur Ext Rel Tab) 60 mg QAM PO 08/08/17 09:00 09/07/17 08:59 08/11/17 08:30 60 MG Lisinopril (Zestril Tab) 10 mg QAM PO 08/08/17 09:00 09/07/17 08:59 Future Hold 08/09/17 08:11 10 MG Senna/Docusate Sodium (Senokot S Tab) 1 tab HS PO 08/07/17 21:00 09/06/17 20:59 08/10/17 21:31 1 TAB Terazosin HCl (Hytrin Cap) 2 mg HS PO 08/07/17 21:00 09/06/17 20:59 08/10/17 21:31 2 MG Pantoprazole Sodium (Protonix Tab) 40 mg QAM PO 08/08/17 09:00 09/07/17 08:59 08/11/17 08:31 40 MG Albuterol/ Ipratropium (Duoneb) 3 ml Q2H PRN INH 08/07/17 19:00 09/06/17 18:59 Insulin Aspart (novoLOG ASPART) SLIDING SCALE If C... ACHS SC 08/07/17 21:00 09/06/17 20:59 08/08/17 12:40 2 UNITS Glucose (Glucose 40% Gel) 15-30 GRAMS 15 GRAMS... UD PRN PO 08/07/17 19:00 09/06/17 18:59 Glucose (Glucose Chew Tab) 4-8 Tablets 4 Tabl... UD PRN PO 08/07/17 19:00 09/06/17 18:59 Dextrose (Dextrose 50% 50ML Syringe) 25-50ML OF 50% DW IV FOR... UD PRN IV 08/07/17 19:00 09/06/17 18:59 Glucagon (Glucagon Inj) 1 mg UD PRN SQ 08/07/17 19:00 09/06/17 18:59 Heparin Sodium/ Dextrose 500 ml @ 34 mls/hr [id number] IV 08/07/17 19:15 09/06/17 19:14 08/11/17 11:23 34 MLS/HR Furosemide 40 mg/ Syringe 4 ml @ 4 mls/min BID@0600,1800 IV 08/08/17 18:00 09/07/17 17:59 Future hold 08/11/17 06:37 4 MLS/MIN Finasteride (Proscar Tab) 5 mg QAM PO 08/09/17 09:00 09/08/17 08:59 08/11/17 08:31 5 MG Hydrocortisone (Proctozone Hc 2.5% Crm) 1 appln BID PRN EXT 08/09/17 12:45 09/08/17 12:44 Cephalexin Monohydrate (Keflex Cap) 500 mg BID PO 08/10/17 21:00 08/20/17 20:59 08/11/17 08:30 500 MG Lactulose (Chronulac Syrup) 30 gm QAM PO 08/11/17 09:00 09/06/17 18:59 08/11/17 08:28 30 GM Hydralazine HCl (Apresoline Tab) 12.5 mg BID17 PO 08/11/17 17:00 09/10/17 16:59 (Thao Batista, PA-C) Objective Vital Signs Date Time Temp Pulse Resp B/P (MAP) Pulse Ox O2 Delivery O2 Flow Rate FiO2 08/11/17 12:00 94 Room Air 08/11/17 11:52 36.5 79 18 151/76 (101) 96 08/11/17 08:00 94 Room Air 08/11/17 07:45 36.8 74 18 143/83 (103) 94 08/11/17 04:42 36.6 65 19 118/67 (84) 98 Nasal Cannula 2.0 08/11/17 04:00 Nasal Cannula 2.0 08/11/17 00:04 36.7 64 18 133/75 (94) 97 Nasal Cannula 2.0 08/10/17 23:59 97 Nasal Cannula 08/10/17 20:00 94 Room Air 08/10/17 19:34 36.8 79 144/82 (102) 96 Room Air 08/10/17 16:00 94 Nasal Cannula 08/10/17 15:25 36.2 72 20 147/80 (102) 94 Nasal Cannula 1.5 (Thao Batista PA-C) Physical Exam General Appearance: WD/WN, no apparent distress Eyes: sclerae normal ENT: hearing grossly normal Neck: supple, no JVD, trachea midline Respiratory/Chest: no respiratory distress, no accessory muscle use, + crackles (bases b/l) Cardiovascular: regular rate, rhythm Abdomen: normal bowel sounds, non tender, soft Extremities: no calf tenderness, + swelling Neurologic/Psychiatric: alert, oriented x 3 Skin: normal color, warm/dry (Thao Batista PA-C) Laboratory Results Last 24 Hours Test 08/10/17 16:17 08/10/17 20:24 08/11/17 06:17 08/11/17 06:20 Bedside Glucose 167 mg/dl 161 mg/dl 155 mg/dl Activated Partial Thromboplast Time 51.8 SECONDS Partial Thromboplastin Ratio 2.0 Sodium Level 137 mmol/L Potassium Level 3.7 mmol/L Chloride Level 100 mmol/L Carbon Dioxide Level 30 mmol/L Anion Gap 6.0 mmol/L Blood Urea Nitrogen 28 mg/dl Creatinine 1.33 mg/dl Est Creatinine Clear Calc Drug Dose 58.5 ml/min Estimated GFR () 58.5 Estimated GFR (Non- 50.5 BUN/Creatinine Ratio 20.8 Random Glucose 148 mg/dl Calcium Level 8.7 mg/dl Test 08/11/17 11:16 Bedside Glucose 169 mg/dl (Thao Batista PA-C) Assessment and Plan Mr. Daugherty is a 81 y/o male with PMHx of CAD with [place] and S/P CABG, Systolic CHF, T2DM, HTN, COPD, Carotid Stenosis, HLD, and BPH with LUTS who presents to the ED c/o SOB x couple days NSTEMI: - Continues with heparin gtt at this time - ASA 81 mg and Plavix 75 mg daily - Coreg 12.5 mg BID and Imdur 60 mg daily; ACEI on hold 2/2 kidney function; Statin intolerant - Cardiology following - plan for optimizing medically at this time; added Hydralazine BID Acute Hypoxic Respiratory Failure 2/2 Acute Systolic CHF Exacerbation: RESOLVED - Echo (2004) - EF 45%; septal infraapical infarct - Currently at - 5 L; Continue Lasix 40 mg IV BID MATTHEW on CKD Stage II: - Continue to monitor - currently diuresing; ACEI on hold COPD without Exacerbation: - Does not appear to be in an exacerbation at this time will keep Duonebs PRN if wheezing/SOB continue E. Coli UTI with BPH with LUTS: - Known ureteral stricture - continue PRN straight caths - Keflex 500 mg BID - Day #5/7 - Terazosin 2 mg HS and Proscar 5 mg daily Morbid Obesity: BMI 38 - Recommend more activity; T2DM: A1c 6.5 - Hold Metformin and cover with SSI Chronic Constipation: Lactulose daily Chronic Ambulatory Dysfunction: PT/OT DVT Prophylaxis: Heparin Code Status: FULL RESUSCITATION Disposition: PT/OT evaluations - Continue to medically optimize - hopeful D/C next 2-3 days Continued [facility] stay due to: multiple IV medications needed Discharge planning: home with home health (Thao Batista, PAGildardoC) Attending Attestation - Pt seen/examined, chart reviewed, care plan d/w ROMANA Batista. I agree w/ the puente components of her documentation. Pt feeling good today. No cp or dyspnea. LE edema improved. Tele stable overnight. VSS afebrile gen - obese, NAD neck - no JVD sitting at 90 degrees upright heart - RRR lungs - decreased BS bases, minimal rales bases abd - soft, ext - 1+ edema b/l A/P: 1. acute/chronic systolic CHF - improving with IV lasix; continue such, repeat labs & weight in AM. 2. positive troponin - either NSTEMI or simply myocardial demand ischemia in setting of #1 above. Cardiology following - there had been discussion about a heart cath - at this time this is unlikely. 3. acute kidney injury - improving . 4. known CAD s/p CABG in the past 5. e. coli UTI - finish abx course appreciate cardiology assistance Irene RAMOS MD (Glenn Ramos MD)
[2017-08-11] MEDS: DOCUSATE SODIUM/SENNA 50/8.6MG TAB PO SCH (21:00)
[2017-08-11] MEDS: ASPIRIN 81 MG ECTAB PO SCH (21:23)
[2017-08-12] VITALS (9 sets, daily range): BP systolic 115–164; BP diastolic 56–84; PULSE 60–195; TEMP 36.3–37; O2SAT 92–99
[2017-08-12] MEDS: HEPARIN 25,000 UNIT/500ML D5W 500 ML IV SCH (02:15)
[2017-08-12] MEDS: FUROSEMIDE INJ 40 MG in SYRINGE 0 ML IV SCH (06:20)
[2017-08-12] MEDS: INSULIN ASPART 100 UNITS/ML 3 ML PEN SC SCH ×5 (07:00→21:00)
[2017-08-12 07:03] LABS: CALCIUM 8.6 mg/dl (8.5-10.1); CREATININE 1.52 mg/dl (0.60-1.40); POTASSIUM 3.7 mmol/L (3.5-5.1)
[2017-08-12 07:05] LABS: PTT PATIENT 57.8 SECONDS (21.0-31.0)
[2017-08-12] MEDS: CARVEDILOL 12.5 MG TAB PO SCH ×2 (07:58→19:32)
[2017-08-12] MEDS: CEPHALEXIN MONOHYDRATE 500 MG CAP PO SCH ×2 (07:58→19:32)
[2017-08-12] MEDS: ISOSORBIDE MONONITRATE 60 MG TABCR PO SCH (07:58)
[2017-08-12] MEDS: CLOPIDOGREL BISULFATE 75 MG TAB PO SCH (07:58)
[2017-08-12] MEDS: LACTULOSE SYRUP 30 GM/45 ML UDP PO SCH (07:58)
[2017-08-12] MEDS: FINASTERIDE 5 MG TAB PO SCH (07:58)
[2017-08-12] MEDS: PANTOprazole SOD 40 MG TAB PO SCH (07:59)
[2017-08-12] MEDS ORDERED: SPIRONOLACTONE 25 MG TAB PO ONE (09:38)
--- NOTE | 2017-08-12 10:06 | PROGRESS NOTE ---
DATE: 08/12/2017 The patient seen and examined. Chart, medications, telemetry reviewed. SUBJECTIVE: The patient is comfortable this morning. Denies any chest pain or discomfort. Denies dizziness or lightheadedness. Leg edema is gradually improving. Continued to have significant urinary outputs over the last 24 hours of greater than 3000 mL. Notes no chest pains, tachypalpitations, syncope or near syncope. VITAL SIGNS: Heart rate 62, blood pressure is 115/77. NECK: Thick. There is no distinct jugular venous distention. LUNGS: Reveal diminished breath sounds diffusely. CARDIOVASCULAR: Regular. There is no S3 gallop. ABDOMEN: Soft, nontender. There is no palpable hepatosplenomegaly. EXTREMITIES: Reveal chronic stasis changes with 1+ lower extremity edema. LABORATORY STUDIES: Sodium is 135, potassium is 3.7, chloride is 99, bicarbonate is 31, BUN is 34, creatinine is 1.5. IMPRESSION: A 81-year-old male with issues as follows: 1. Acute decompensated systolic and diastolic congestive heart failure. 2. Non-ST segment elevation myocardial infarction secondary to demand based ischemia. 3. Severe multivessel coronary disease with remote coronary bypass grafting. 4. Transient acute renal insufficiency. RECOMMENDATIONS: I will reduce volume intake by discontinuing IV heparin. Will change furosemide to oral dosing at 40 mg twice per day, add spironolactone at 12.5 mg per day. Gradually increase activities. The patient may benefit from rehabilitation/physical therapy prior to return to home. Currently, no indications for cardiac catheterization, though given past history of known coronary disease though if signs or symptoms of instability or recurrent chest discomfort would develop, would consider. Discussed this in detail with the patient and his .
[2017-08-12] MEDS: FUROSEMIDE 40 MG TAB PO SCH (16:16)
--- NOTE | 2017-08-12 17:19 | Hospitalist Progress Note ---
Hospitalist Progress Note Date of Service Aug 12, 2017. (Thao Batista, ALBANIAC) Subjective Pt evaluation today including: conversation w/ patient, conversation w/ family , physical exam, lab review, review of inpatient medication list Patient seen and evaluated. No acute events overnight. Doing well overall. Breathing much improved. Lower leg edema improving. Discussed rehab options and patient is considering some but is concerned [facility] may be too aggressive. Discussed option of SNF vs home services with PT/OT and will continue to discuss. Off heparin gtt at this time and diuresing. Possible D/C tomorrow if remains well and okay with cards Constitutional: No fever, No chills Respiratory: + dyspnea on exertion, No cough, No dyspnea at rest Cardiovascular: No chest pain Abdomen: No pain, No nausea, No vomiting, No diarrhea, No constipation Male : No dysuria Heme: No abnormal bleeding/bruising (Thao Batista, ROMANA-C) Medications Current Inpatient Medications Medications (Trade) Dose Ordered Sig/Richard Route Start Time Stop Time Status Last Admin Dose Admin Acetaminophen (Tylenol Tab) 650 mg Q4H PRN PO 08/07/17 18:45 09/06/17 18:44 Al Hydrox/Mg Hydrox/Simethicone (Maalox Max Susp) 15 ml Q4H PRN PO 08/07/17 18:45 09/06/17 18:44 Magnesium Hydroxide (Milk Of Magnesia Susp) 30 ml Q12H PRN PO 08/07/17 18:45 09/06/17 18:44 Ondansetron HCl (Zofran Inj) 4 mg Q6H PRN IV 08/07/17 18:45 09/06/17 18:44 Nitroglycerin (Nitrostat Tab) 0.4 mg UD PRN SL 08/07/17 18:45 09/06/17 18:44 Polyethylene (Miralax Powder Packet) 17 gm DAILY PRN PO 08/07/17 18:45 09/06/17 18:44 Aspirin (Ecotrin Tab) 81 mg HS PO 08/07/17 21:00 09/06/17 20:59 08/11/17 21:23 81 MG Carvedilol (Coreg Tab) 12.5 mg BID PO 08/07/17 21:00 09/06/17 20:59 08/12/17 07:58 12.5 MG Clopidogrel Bisulfate (plAVix TAB) 75 mg QAM PO 08/08/17 09:00 09/07/17 08:59 08/12/17 07:58 75 MG Isosorbide Mononitrate (Imdur Ext Rel Tab) 60 mg QAM PO 08/08/17 09:00 09/07/17 08:59 08/12/17 07:58 60 MG Senna/Docusate Sodium (Senokot S Tab) 1 tab HS PO 08/07/17 21:00 09/06/17 20:59 08/10/17 21:31 1 TAB Terazosin HCl (Hytrin Cap) 2 mg HS PO 08/07/17 21:00 09/06/17 20:59 08/11/17 21:22 2 MG Pantoprazole Sodium (Protonix Tab) 40 mg QAM PO 08/08/17 09:00 09/07/17 08:59 08/12/17 07:59 40 MG Albuterol/ Ipratropium (Duoneb) 3 ml Q2H PRN INH 08/07/17 19:00 09/06/17 18:59 Insulin Aspart (novoLOG ASPART) SLIDING SCALE If C... ACHS SC 08/07/17 21:00 09/06/17 20:59 08/12/17 12:27 1 UNITS Glucose (Glucose 40% Gel) 15-30 GRAMS 15 GRAMS... UD PRN PO 08/07/17 19:00 09/06/17 18:59 Glucose (Glucose Chew Tab) 4-8 Tablets 4 Tabl... UD PRN PO 08/07/17 19:00 09/06/17 18:59 Dextrose (Dextrose 50% 50ML Syringe) 25-50ML OF 50% DW IV FOR... UD PRN IV 08/07/17 19:00 09/06/17 18:59 Glucagon (Glucagon Inj) 1 mg UD PRN SQ 08/07/17 19:00 09/06/17 18:59 Finasteride (Proscar Tab) 5 mg QAM PO 08/09/17 09:00 09/08/17 08:59 08/12/17 07:58 5 MG Hydrocortisone (Proctozone Hc 2.5% Crm) 1 appln BID PRN EXT 08/09/17 12:45 09/08/17 12:44 Cephalexin Monohydrate (Keflex Cap) 500 mg BID PO 08/10/17 21:00 08/20/17 20:59 08/12/17 07:58 500 MG Lactulose (Chronulac Syrup) 30 gm QAM PO 08/11/17 09:00 09/06/17 18:59 08/11/17 08:28 30 GM Hydralazine HCl (Apresoline Tab) 12.5 mg BID17 PO 08/11/17 17:00 09/10/17 16:59 08/12/17 16:16 12.5 MG Furosemide (Lasix Tab) 40 mg BID17 PO 08/12/17 17:00 09/11/17 16:59 08/12/17 16:16 40 MG Spironolactone (Aldactone Tab) 12.5 mg QAM PO 08/13/17 09:00 09/12/17 08:59 (Thao Batista PA-C) Objective Vital Signs Date Time Temp Pulse Resp B/P (MAP) Pulse Ox O2 Delivery O2 Flow Rate FiO2 08/12/17 16:00 Room Air 08/12/17 15:47 36.8 195 20 164/84 (110) 93 Room Air 08/12/17 14:40 92 08/12/17 12:15 36.4 73 16 124/56 (78) 93 08/12/17 12:01 94 Room Air 08/12/17 08:31 94 Room Air 08/12/17 08:02 36.3 62 18 115/77 (90) 96 08/12/17 04:07 36.5 60 20 116/68 (84) 93 Room Air 08/12/17 04:00 Nasal Cannula 2.0 08/12/17 00:01 37.0 62 16 132/73 (92) 99 Nasal Cannula 2.0 08/12/17 00:01 Nasal Cannula 2.0 08/11/17 20:00 Nasal Cannula 2.0 08/11/17 19:31 36.7 67 20 157/79 (105) 98 Nasal Cannula 2.0 (Thao Batista PA-C) Physical Exam General Appearance: WD/WN, no apparent distress Eyes: sclerae normal ENT: hearing grossly normal Neck: supple, no JVD, trachea midline Respiratory/Chest: no respiratory distress, no accessory muscle use, + crackles (L base) Cardiovascular: regular rate, rhythm Abdomen: normal bowel sounds, non tender, soft Extremities: no calf tenderness, + swelling (marked improvement in b/l lower extremity edema) Neurologic/Psychiatric: alert Skin: normal color, warm/dry (Thao Batista, ALBANIAC) Laboratory Results Last 24 Hours Test 08/11/17 20:28 08/12/17 06:11 08/12/17 06:19 08/12/17 11:43 Bedside Glucose 151 mg/dl 152 mg/dl 182 mg/dl Activated Partial Thromboplast Time 57.8 SECONDS Partial Thromboplastin Ratio 2.2 Sodium Level 135 mmol/L Potassium Level 3.7 mmol/L Chloride Level 99 mmol/L Carbon Dioxide Level 31 mmol/L Anion Gap 5.0 mmol/L Blood Urea Nitrogen 34 mg/dl Creatinine 1.52 mg/dl Est Creatinine Clear Calc Drug Dose 51.1 ml/min Estimated GFR () 49.8 Estimated GFR (Non- 43.0 BUN/Creatinine Ratio 22.4 Random Glucose 146 mg/dl Calcium Level 8.6 mg/dl Test 08/12/17 16:27 Bedside Glucose 149 mg/dl (Thao Batista, ALBANIAC) Assessment and Plan Mr. Daugherty is a 81 y/o male with PMHx of CAD with [place] and S/P CABG, Systolic CHF, T2DM, HTN, COPD, Carotid Stenosis, HLD, and BPH with LUTS who presents to the ED c/o SOB x couple days NSTEMI: STABLE - ASA 81 mg and Plavix 75 mg daily - Coreg 12.5 mg BID and Imdur 60 mg daily; ACEI on hold 2/2 kidney function; Statin intolerant - Cardiology following - plan for optimizing medically at this time; added Hydralazine BID Acute Hypoxic Respiratory Failure 2/2 Acute Systolic CHF Exacerbation: RESOLVED - Echo (2004) - EF 45%; septal infraapical infarct - Currently at - 5 L; Continue Lasix 40 mg BID and Spironolactone 12.5 mg daily MATTHEW on CKD Stage II: - Continue to monitor - currently diuresing with mild elevation in Cr today; ACEI on hold COPD without Exacerbation: - Does not appear to be in an exacerbation at this time will keep Duonebs PRN if wheezing/SOB continue E. Coli UTI with BPH with LUTS: - Known ureteral stricture - continue PRN straight caths - Keflex 500 mg BID - Day #6/7 - Terazosin 2 mg HS and Proscar 5 mg daily Morbid Obesity: BMI 38 - Recommend more activity T2DM: A1c 6.5 - Hold Metformin and cover with SSI Chronic Constipation: Lactulose daily Chronic Ambulatory Dysfunction: PT/OT DVT Prophylaxis: Heparin Code Status: FULL RESUSCITATION Disposition: PT/OT evaluations - Is considering rehab - he isn't sure if [facility] will be a good option as it may be too intense but could consider SNF - Other option would be home with home PT/OT - will reassess in AM - If remains stable and no further intervention from cardiology - could likely D /C tomorrow Discharge planning: fpc facility (vs Home with HHS and PT/OT) (Thao Batista, PAGildardoC) Attending Attestation - Pt seen/examined, chart reviewed, care plan d/w ROMANA Batista. I agree w/ the puente components of her documentation. Feeling good, no complaints. NO dyspnea. VSS afebrile o2 has been weaned off gen - obese, NAD neck - no JVD sitting at 90 degrees upright heart - RRR, s1, s2 lungs - airation improved, scant rales bases abd - soft, ext - <1+ edema b/l A/P: 1. acute/chronic systolic CHF - improved. Suspect we are close to euvolemia. Defer diuretic management to cardiology. 2. positive troponin - either NSTEMI or simply myocardial demand ischemia in setting of #1 above. Cardiology following - there had been discussion about a heart cath - at this time this has been deferred. Medical management of underlying CAD. 3. acute kidney injury - resolved. 4. known CAD s/p CABG in the past 5. e. coli UTI - finish abx course. suspect d/c tomorrow appreciate cardiology assistance Irene RAMOS MD (Glenn Ramos MD)
[2017-08-12] MEDS: ASPIRIN 81 MG ECTAB PO SCH (19:32)
[2017-08-12] MEDS: DOCUSATE SODIUM/SENNA 50/8.6MG TAB PO SCH (19:32)
[2017-08-13] VITALS (9 sets, daily range): BP systolic 112–156; BP diastolic 56–86; PULSE 62–102; TEMP 36.6–37; O2SAT 92–96
[2017-08-13 08:01] LABS: CALCIUM 9.3 mg/dl (8.5-10.1); CREATININE 1.46 mg/dl (0.60-1.40); POTASSIUM 3.8 mmol/L (3.5-5.1)
[2017-08-13] MEDS: INSULIN ASPART 100 UNITS/ML 3 ML PEN SC SCH ×4 (08:01→21:50)
[2017-08-13] MEDS: PANTOprazole SOD 40 MG TAB PO SCH (08:02)
[2017-08-13] MEDS: LACTULOSE SYRUP 30 GM/45 ML UDP PO SCH (08:02)
[2017-08-13] MEDS: FINASTERIDE 5 MG TAB PO SCH (08:02)
[2017-08-13] MEDS: CARVEDILOL 12.5 MG TAB PO SCH ×2 (08:03→20:26)
[2017-08-13] MEDS: CLOPIDOGREL BISULFATE 75 MG TAB PO SCH (08:03)
[2017-08-13] MEDS: CEPHALEXIN MONOHYDRATE 500 MG CAP PO SCH ×2 (08:03→20:26)
[2017-08-13] MEDS: ISOSORBIDE MONONITRATE 60 MG TABCR PO SCH (08:03)
[2017-08-13] MEDS: FUROSEMIDE 40 MG TAB PO SCH ×2 (08:03→17:29)
[2017-08-13] MEDS: SPIRONOLACTONE 25 MG TAB PO SCH (08:03)
[2017-08-13] MEDS ORDERED: APR25 PO (11:30)
[2017-08-13] MEDS ORDERED: NTRSLP4 SL (11:30)
[2017-08-13] MEDS ORDERED: FURO40TA3 PO (11:30)
[2017-08-13] MEDS ORDERED: SPR25 PO (11:30)
[2017-08-13] MEDS ORDERED: KFL500 PO (11:30)
--- NOTE | 2017-08-13 11:33 | Discharge Instructions ---
Discharge Instructions Date of Service Aug 13, 2017. Admission Reason for Admission: Nstemi Admission Date: Aug 07, 2017 at 18:47 Admission Diagnosis: Nstemi. Discharge Discharge Diagnosis / Problem: NSTEMI - Myocardial Infarction with Heart Failure Care Plan - Problem: NSTEMI - Myocardial Infarction with Heart Failure Discharge Goals Goal(s): Decrease discomfort, Improve function, Increase independence Activity Recommendations Activity Limitations: resume your previous activity . Instructions / Follow-Up Instructions / Follow-Up NSTEMI (Heart Attack) with Heart Failure: - It appears that the fluid in your system may have stressed your heart to cause a rise in your cardiac markers but this is improving. You had some medications adjusted during your stay here - STOP LISINOPRIL - THIS WAS ONE OF YOUR BLOOD PRESSURE MEDICATIONS - WE GAVE A NEW MEDICATION IN ITS PLACE - Continue Coreg 12.5 mg twice a day and Imdur 60 mg daily - Will give a prescription for nitro sublingual tablets to use only if you get chest pain. You can take one when chest pain starts and repeat another dose in 5 minutes if the pain is still present. If pain still is present after the 2nd dose call 911. Then take a 3rd dose of the sublingual tabs. You only need this medication if you have chest pain - Your heart doctor will help set up a follow-up appointment to make sure you are doing well with these changes - START HYDRALAZINE 25 MG TWICE A DAY (MORNING AND NIGHT) - THIS IS A BLOOD PRESSURE MEDICATION - TAKE LASIX 40 MG TWICE A DAY - AIM FOR IN THE MORNING WHEN YOU WAKE UP AND AROUND 5 PM SO YOU DO NOT TAKE IT TOO LATE AT NIGHT WHICH CAN INCREASE URINATION WHEN YOU ARE TRYING TO SLEEP - START SPIRONOLACTONE 12.5 MG DAILY - THIS IS ANOTHER WATER PILL TO HELP KEEP FLUID UNDER CONTROL - Please follow the recommendations below for signs and symptoms to watch for. Weigh yourself daily to monitor for quick weight gain or fluid accumulation. Please call your family doctor or heart doctor if you notice a 2-3 lb weight gain in just a day Urinary Tract Infection: - Will finish a course of Keflex 500 mg twice a day until complete. You had dose today so take one dose this evening on 08/13 then resume twice a day on . You are just a couple days away from finishing the course of antibiotics - Continue your previously prescribed medications for urinary issues and straight cath when needed T2DM: A1c 6.5 - Continue your Metformin and continue monitor sugars as you normally do Chronic Constipation: - Continue your previously prescribed stool medications Disposition: - Will get you set up with home services which can help with medications and blood work if necessary. Can help with physical therapy as well. Please, follow up with Dr. Antony Valladares on August 21 at 4:15 pm. *If you need to change this appointment, call the office at [phone]. Please, follow up at [facility] - they will call you with the appointment details. *If you have any questions, call Dr. Joseph Baird's office at [phone]." Call your Primary Care doctor if any of the following symptoms or problems start or get worse: * Shortness of breath or difficulty breathing * Wake up at night short of breath * Chest pain * Cough * Swelling of your hands, feet, or legs * More fatigued or tired with your normal activity * Palpitations - sudden fast heart beats WEIGHT * Weigh yourself every morning after using the bathroom. * Use the same scale. * Wear the same amount of clothing. * Write your weight down on a chart. * Call your Primary Care doctor or Heart Doctor if you gain more than 2-3 pounds in 1-2 days. MEDICATIONS * Use this discharge instruction sheet for medication instructions. * Take your medications at the time your doctor ordered. * Do not skip a dose of your medicines. * If you miss a dose of medicine, take it as soon as possible, but DO NOT DOUBLE A DOSE. * Read your medicine information when you get home. * Know all of the side effects of your medicine. If in doubt, ask your pharmacist * Call your Primary Care doctor's office if you have any side effects. * Be sure all of your doctors know what medicine and herbs you take (including cold, flu, and herbal medicine). Take the following with you to your follow-up doctor appointments: * Weight Chart * Medication List * List of questions Do not drink excessive alcohol, beer or wine. Current Hospital Diet Patient's current hospital diet: AHA Diet (Heart Healthy), Diabetes Type 2 Diet Discharge Diet Recommended Diet: AHA Diet (Heart Healthy), Diabetes Type 2 Diet Pending Studies Studies pending at discharge: no Laboratory Results Hemoglobin A1c Test 08/08/17 03:46 Range/Units Estimated Average Glucose 143 mg/dl Hemoglobin A1c 6.6 H 4.5-5.6 % Test Results: Hemoglobin A1c Test 08/08/17 03:46 Range/Units Estimated Average Glucose 143 mg/dl Hemoglobin A1c 6.6 H 4.5-5.6 % Medical Emergencies . Who to Call and When: Call 911 or go to the Emergency Room if: * If at any time you feel your situation is an emergency * You have tightness or pain in your chest that does not go away with rest or Nitroglycerin * You are very short of breath even with rest . Non-Emergent Contact Non-Emergency issues call your: Primary Care Provider Call Non-Emergent contact if: you have a fever, your pain is concerning you, you have any medication questions . . "Provider Documentation" section prepared by Thao Batista. . Care Plan - Instructions: Provider Instructions: Activation of Emergency Medical System: Call 911, immediately, if you experience any of the following: Warning Signs and Symptoms of a Heart Attack: * Chest pain that is not relieved by medication * Shortness of breath Otherwise, call your doctor immediately if you have: * Lightheadedness, dizziness, or fainting * Feeling of irregular heartbeat or fast pulse Home Care: * Take your medications exactly as directed. Don't skip doses. * Remember that recovery after a heart attack takes time. Plan to rest for at lease 4-8 weeks while you recover. Then return to normal activity when your doctor says it's okay. * Ask your doctor about joining a heart rehabilitation program. * Tell your doctor if you are feeling depressed. Feelings of sadness are common after a heart attack, but it is important that you speak to someone if you are feeling overwhelmed by these feelings. * If you are having chest pain, call 911 for an ambulance. Do NOT drive yourself to the hospital. * Ask your family members to learn CPR. * Learn to take your own blood pressure and pulse. Keep a record of your results. Ask your doctor when you should seek emergency medical attention. He or she will tell you which blood pressure reading is dangerous. Lifestyle Changes: * Maintain a healthy weight. Get help to lose any extra pounds. * Cut back on salt. 1. Limit canned, dried, packaged, and fast foods. 2. Don't add salt to your food. 3. Season foods with herbs instead of salt when you cook. * Break the smoking habit. Enroll in a stop-smoking program to improve your chances of success. * Limit fatty foods. * Check your lipid levels regularly. (Your doctor can show you how to do this. ) * Build up your activity according to your doctor's recommendation. * Ask your doctor when it's okay to resume sexual activity. * Tell your doctor about any erectile dysfunction (ED) medication you are taking. Some ED medications are not safe if you take certain heart medications. * Try to manage stress. Follow Up: It is important for you to keep your follow up appointments with your medical provider. VTE Core Measures Inpt VTE Proph given/why not?: Other Anticoagulation (Heparin drip), T.E.D. Stockings AMI Core Measures Reason no ASA as I/P: Treatment provided - N/A Reason no ASA at D/C: Treatment provided - N/A Reason no statin as I/P: Contraindicated (Intolerance) Reason no statin at D/C: Contraindicated (Intolerance) Josh Martinez Recommendations: Call your doctor if: * Temperature above 101 degrees * Pain not relieved by pain medicine ordered * There is increased drainage or redness from any incision * You have any unanswered questions or concerns. Your Doctors Instructions noted above were prepared by provider Thao Batista.
--- NOTE | 2017-08-13 12:02 | PROGRESS NOTE ---
DATE: 08/13/2017 CARDIOLOGY CONSULTATION FOLLOWUP NOTE The patient seen and examined. Chart, medications, telemetry reviewed. SUBJECTIVE: The patient feels once again stable this morning. He has been up to bedside. Denies any chest pains. Notes no orthopnea. Leg edema substantially improved with support and compression stockings in place. OBJECTIVE: VITAL SIGNS: Heart rate is 66, blood pressure is 132/80. HEENT: Normocephalic, atraumatic. Nares without discharge. Throat was clear. NECK: Supple without thyromegaly, lymphadenopathy, JVD, or bruit. LUNGS: Clear to auscultation. CARDIOVASCULAR EXAMINATION: Regular with normal S1, S2. No murmur, gallop, or rub. ABDOMEN: Soft, nontender. EXTREMITIES: Reveal moderate 1+ edema, substantially improved since admission. LABORATORY DATA: Sodium is 138, potassium is 3.8, chloride is 101, bicarbonate 28, BUN is 36, creatinine is 1.46. IMPRESSION: A 81-year-old male presented with [id number] decompensated systolic and diastolic heart failure, right greater than left, now clinically improved with IV and oral diuretics. Troponins are mildly elevated in association with demand-based ischemia in the setting of known multivessel coronary artery disease. RECOMMENDATIONS: We will continue current medications as prescribed with notable changes, lisinopril discontinued, hydralazine added, and diuretics titrated to furosemide 40 mg b.i.d. and spironolactone 12.5 mg per day. We will make arrangements for the patient seen in heart failure clinic in the next weeks' time.
[2017-08-13] MEDS ORDERED: LACTULOSE SYRUP 20 GM/30 ML UDC PO STA (12:46)
--- NOTE | 2017-08-13 15:49 | DIAGNOSTIC IMAGING REPORT ---
CHEST ONE VIEW PORTABLE CLINICAL HISTORY: Dyspnea COMPARISON STUDY: 08/07/2017 FINDINGS: The cardiac and mediastinal contours remain stable. There are postsurgical changes of a midline sternotomy. Multiple sternal sutures are fractured. There are persistent increased left lung markings. This could be secondary to a left lung inflammatory process, or asymmetric edema. There is left apical pleural thickening.[ IMPRESSION: Persistent increased left lung markings, similar to the preceding study. This could represent a left lung interstitial infectious/inflammatory process, or asymmetric edema. Electronically signed by: Diego Morales M.D. 08/13/2017 3:48 PM Dictated Date/Time: 08/13/2017 3:46 PM
[2017-08-13] MEDS ORDERED: BISACODYL 5 MG TABEC PO ONE (17:30)
--- NOTE | 2017-08-13 17:35 | Hospitalist Progress Note ---
Hospitalist Progress Note Date of Service Aug 13, 2017. (Thao Batista, PA-C) Subjective Pt evaluation today including: conversation w/ patient, physical exam, chart review, lab review, review of studies, conversation w/ behavioral health consultant (Dr. Baird - Cardiology), review of inpatient medication list Patient seen and evaluated. No acute events overnight. Patient has been doing well without respiratory distress and lungs sound very clear this AM. Plan was for D/C home today with [facility] However, patient ambulated to the bathroom to move his bowels that he reports caused him to strain. States he had some lightheadedness and felt like he couldn 't catch his breath States his O2 sats went into the somewhere in the 80s but not sure of the number. States the supplemental O2 helps. Obtained F/U CXR with progression of L sided congestion. He is unsure if he could lay completely flat for CT and will obtain U/S to assess fluid status. Patient appears in no respiratory distress on re-visit this afternoon and sats at 92% with supplemental O2. Able to hold a normal conversation without SOB. Lungs sound course b/l without wheeze or crackles. Continues to have post-nasal drip. Will continue to monitor overnight and wean O2 as tolerated. Low suspicion for PE given systemic heparin up until yesterday but will add SC coverage Constitutional: No fever, No chills ENT: + nasal symptoms, + problem reported (post-nasal drip) Respiratory: + see HPI Cardiovascular: No chest pain Abdomen: + constipation, No pain, No nausea, No vomiting, No diarrhea Musculoskeletal: + swelling (b/l lower extremities - improving), No joint pain Male : No dysuria Heme: No abnormal bleeding/bruising (Thao Batista, PA-C) Medications Current Inpatient Medications Medications (Trade) Dose Ordered Sig/Richard Route Start Time Stop Time Status Last Admin Dose Admin Acetaminophen (Tylenol Tab) 650 mg Q4H PRN PO 08/07/17 18:45 09/06/17 18:44 Al Hydrox/Mg Hydrox/Simethicone (Maalox Max Susp) 15 ml Q4H PRN PO 08/07/17 18:45 09/06/17 18:44 Magnesium Hydroxide (Milk Of Magnesia Susp) 30 ml Q12H PRN PO 08/07/17 18:45 09/06/17 18:44 Ondansetron HCl (Zofran Inj) 4 mg Q6H PRN IV 08/07/17 18:45 09/06/17 18:44 Nitroglycerin (Nitrostat Tab) 0.4 mg UD PRN SL 08/07/17 18:45 09/06/17 18:44 Polyethylene (Miralax Powder Packet) 17 gm DAILY PRN PO 08/07/17 18:45 09/06/17 18:44 Aspirin (Ecotrin Tab) 81 mg HS PO 08/07/17 21:00 09/06/17 20:59 08/12/17 19:32 81 MG Carvedilol (Coreg Tab) 12.5 mg BID PO 08/07/17 21:00 09/06/17 20:59 08/13/17 08:03 12.5 MG Clopidogrel Bisulfate (plAVix TAB) 75 mg QAM PO 08/08/17 09:00 09/07/17 08:59 08/13/17 08:03 75 MG Isosorbide Mononitrate (Imdur Ext Rel Tab) 60 mg QAM PO 08/08/17 09:00 09/07/17 08:59 08/13/17 08:03 60 MG Senna/Docusate Sodium (Senokot S Tab) 1 tab HS PO 08/07/17 21:00 09/06/17 20:59 08/12/17 19:32 1 TAB Terazosin HCl (Hytrin Cap) 2 mg HS PO 08/07/17 21:00 09/06/17 20:59 08/12/17 19:32 2 MG Pantoprazole Sodium (Protonix Tab) 40 mg QAM PO 08/08/17 09:00 09/07/17 08:59 08/13/17 08:02 40 MG Albuterol/ Ipratropium (Duoneb) 3 ml Q2H PRN INH 08/07/17 19:00 09/06/17 18:59 Insulin Aspart (novoLOG ASPART) SLIDING SCALE If C... ACHS SC 08/07/17 21:00 09/06/17 20:59 08/12/17 12:27 1 UNITS Glucose (Glucose 40% Gel) 15-30 GRAMS 15 GRAMS... UD PRN PO 08/07/17 19:00 09/06/17 18:59 Glucose (Glucose Chew Tab) 4-8 Tablets 4 Tabl... UD PRN PO 08/07/17 19:00 09/06/17 18:59 Dextrose (Dextrose 50% 50ML Syringe) 25-50ML OF 50% DW IV FOR... UD PRN IV 08/07/17 19:00 09/06/17 18:59 Glucagon (Glucagon Inj) 1 mg UD PRN SQ 08/07/17 19:00 09/06/17 18:59 Finasteride (Proscar Tab) 5 mg QAM PO 08/09/17 09:00 09/08/17 08:59 08/13/17 08:02 5 MG Hydrocortisone (Proctozone Hc 2.5% Crm) 1 appln BID PRN EXT 08/09/17 12:45 09/08/17 12:44 Cephalexin Monohydrate (Keflex Cap) 500 mg BID PO 08/10/17 21:00 08/20/17 20:59 08/13/17 08:03 500 MG Lactulose (Chronulac Syrup) 30 gm QAM PO 08/11/17 09:00 09/06/17 18:59 08/13/17 08:02 30 GM Furosemide (Lasix Tab) 40 mg BID17 PO 08/12/17 17:00 09/11/17 16:59 08/13/17 08:03 40 MG Spironolactone (Aldactone Tab) 12.5 mg QAM PO 08/13/17 09:00 09/12/17 08:59 08/13/17 08:03 12.5 MG Hydralazine HCl (Apresoline Tab) 25 mg BID17 PO 08/13/17 09:00 09/10/17 16:59 08/13/17 08:02 25 MG (Thao Batista PA-C) Objective Vital Signs Date Time Temp Pulse Resp B/P (MAP) Pulse Ox O2 Delivery O2 Flow Rate FiO2 08/13/17 16:09 Room Air 08/13/17 15:23 88 16 156/86 (109) 93 Nasal Cannula 2.0 08/13/17 14:21 99 121/74 (90) 08/13/17 13:30 102 120/72 (88) 08/13/17 13:30 95 112/68 (83) 08/13/17 12:03 Room Air 08/13/17 11:50 36.9 69 16 127/73 (91) 93 Room Air 08/13/17 08:10 Room Air 08/13/17 07:22 36.6 66 20 138/80 (99) 96 Room Air 08/13/17 04:00 Room Air 08/13/17 03:41 37.0 70 18 128/86 (100) 94 08/13/17 00:05 36.9 62 16 126/56 (79) 93 08/12/17 23:59 Room Air 08/12/17 20:00 Room Air 08/12/17 19:19 36.5 75 18 141/78 (99) 96 Room Air (Thao Batista PA-C) Physical Exam General Appearance: WD/WN, no apparent distress Eyes: sclerae normal ENT: hearing grossly normal Neck: supple, no JVD, trachea midline Respiratory/Chest: no respiratory distress, no accessory muscle use, + pertinent finding (initially clear diffusely in AM; no presents with coarse breath sounds b/l with good aeration, no wheeze or crackles) Cardiovascular: regular rate, rhythm Abdomen: normal bowel sounds, non tender, soft Extremities: + swelling (L > R but markedly improved; 2+ pitting edema ) Neurologic/Psychiatric: alert Skin: normal color, warm/dry (Thao Batista PA-C) Laboratory Results Last 24 Hours Test 08/12/17 20:26 08/13/17 06:46 08/13/17 07:01 08/13/17 11:25 Bedside Glucose 165 mg/dl 138 mg/dl 169 mg/dl Sodium Level 138 mmol/L Potassium Level 3.8 mmol/L Chloride Level 101 mmol/L Carbon Dioxide Level 28 mmol/L Anion Gap 9.0 mmol/L Blood Urea Nitrogen 36 mg/dl Creatinine 1.46 mg/dl Est Creatinine Clear Calc Drug Dose 36.9 ml/min Estimated GFR () 52.3 Estimated GFR (Non- 45.1 BUN/Creatinine Ratio 24.7 Random Glucose 135 mg/dl Calcium Level 9.3 mg/dl Test 08/13/17 16:16 Bedside Glucose 154 mg/dl (Thao Batista PA-C) Assessment and Plan Mr. Daugherty is a 81 y/o male with PMHx of CAD with AL and S/P CABG, Systolic CHF, T2DM, HTN, COPD, Carotid Stenosis, HLD, and BPH with LUTS who presents to the ED c/o SOB x couple days NSTEMI: STABLE - ASA 81 mg and Plavix 75 mg daily - Coreg 12.5 mg BID and Imdur 60 mg daily; ACEI to be D/Cd altogether; Statin intolerant - Cardiology following - discussed with Dr. Baird - continue current regimen established and will have outpatient F/U Acute Hypoxic Respiratory Failure 2/2 Acute Systolic CHF Exacerbation: - Had a recurrence of significant SOB this afternoon - reports walking to the restroom to try and have a BM with straining - got acutely dizzy/lightheaded and felt like he couldn't catch his breath; reports dropping sats into the 80s and was placed on supplemental O2. - CXR - image and report reviewed - worsening of congestion of the L side in comparison to present XR however clinically was improving; will obtain U/S to assess level of fluid as patient isn't sure if he could tolerate laying flat for CT - Echo (2004) - EF 45%; septal infraapical infarct - Continue Lasix 40 mg BID and Spironolactone 12.5 mg daily MATTHEW on CKD Stage II: STABLE - Continue to monitor COPD without Exacerbation: - Even with today's episode does not appear to be in an exacerbation - Does not appear to be in an exacerbation at this time will keep Duonebs PRN if wheezing/SOB continue E. Coli UTI with BPH with LUTS: STABLE - Known ureteral stricture - continue PRN straight caths - Keflex 500 mg BID - Day #7/10 - Terazosin 2 mg HS and Proscar 5 mg daily Morbid Obesity: BMI 38 - Recommend more activity T2DM: A1c 6.5 - Hold Metformin and cover with SSI Chronic Constipation: Lactulose daily; Increase Senna; Dulcolax x 1 Chronic Ambulatory Dysfunction: PT/OT DVT Prophylaxis: Heparin Code Status: FULL RESUSCITATION Disposition: PT/OT evaluations - Plan for home services on D/C - hopefully tomorrow depending on respiratory status; may need thoracentesis pending U/S? Continued [facility] stay due to: abnormal vital signs Discharge planning: home with home health (Thao Batista PA-C) Attending Attestation - Pt seen/examined, chart reviewed, care plan d/w ROMANA Batista. I agree w/ the puente components of her documentation. I saw the patient early afternoon. He had gotten up from the chair, went to the bathroom to have a bowel movement, passed flatus, and immediately after had dizziness. He then got up and went back to the chair and felt a little dyspneic. He admits to feeling anxious. This was the first time he ambulated on his own in nearly 2 days. Still does not want to go to rehab. VSS afebrile o2 sats wnl all day, then had mild desaturation into the 80s after his event in the bathroom gen - obese, NAD neck - no JVD sitting at 90 degrees upright heart - RRR, s1, s2 lungs - airation improved, CTA b/l, minimally decreased bases abd - soft, NT, ND ext - trace edema b/l A/P: 1. acute/chronic systolic CHF - appears euvolemic on a stable regimen of cardiac meds including diuretics; stressed importance of daily weights at home 2. positive troponin - either NSTEMI or simply myocardial demand ischemia in setting of #1 above. Suspect latter. Cardiology following - there had been discussion about a heart cath - at this time this has been deferred. Medical management of underlying CAD. 3. acute kidney injury - resolved. 4. known CAD s/p CABG in the past 5. e. coli UTI - finish abx course. 6. dizziness after using toilet - likely vasovagal. Orthostatic BPs checked and were negative. 7. dyspnea - repeat cxr with worsening left lung findings; etiology ?? checked thorax u/s to see if some of the issue is pleural effusion - negative for such. consider, at a minimum, repeat cxr in am. serial exams. if w/u ends up being negative I suspect the dyspnea is from deconditioning cancel d/c and observe overnight check procalcitonin level in am Irene RAMOS MD (Glenn Ramos MD)
[2017-08-13] MEDS: DOCUSATE SODIUM/SENNA 50/8.6MG TAB PO SCH (20:26)
[2017-08-13] MEDS: ASPIRIN 81 MG ECTAB PO SCH (20:26)
--- NOTE | 2017-08-13 22:42 | DIAGNOSTIC IMAGING REPORT ---
BILATERAL CHEST ULTRASOUND TO ASSESS FOR PLEURAL EFFUSIONS CLINICAL HISTORY: L sided Effusion COMPARISON STUDY: Chest radiograph August 13, 2017 at 3:08 PM. FINDINGS: No right or left pleural effusion was identified by sonography. No chest wall phylicia was placed given lack of pleural fluid. IMPRESSION: No right or left pleural effusion identified. Electronically signed by: Aaron Heath M.D. 08/13/2017 10:41 PM Dictated Date/Time: 08/13/2017 10:40 PM
[2017-08-14] VITALS (12 sets, daily range): BP systolic 102–175; BP diastolic 67–88; PULSE 64–87; TEMP 36.3–36.8; O2SAT 93–98
[2017-08-14] MEDS: INSULIN ASPART 100 UNITS/ML 3 ML PEN SC SCH ×4 (07:00→20:54)
[2017-08-14] MEDS: PANTOprazole SOD 40 MG TAB PO SCH (08:03)
[2017-08-14] MEDS: CLOPIDOGREL BISULFATE 75 MG TAB PO SCH (08:03)
[2017-08-14] MEDS: FUROSEMIDE 40 MG TAB PO SCH ×2 (08:03→17:49)
[2017-08-14] MEDS: ISOSORBIDE MONONITRATE 60 MG TABCR PO SCH (08:03)
[2017-08-14] MEDS: CEPHALEXIN MONOHYDRATE 500 MG CAP PO SCH ×2 (08:03→20:56)
[2017-08-14] MEDS: SPIRONOLACTONE 25 MG TAB PO SCH (08:03)
[2017-08-14] MEDS: CARVEDILOL 12.5 MG TAB PO SCH ×2 (08:03→21:00)
[2017-08-14] MEDS: FINASTERIDE 5 MG TAB PO SCH (08:03)
[2017-08-14] MEDS: LACTULOSE SYRUP 30 GM/45 ML UDP PO SCH (08:04)
[2017-08-14 09:21] LABS: CALCIUM 9.2 mg/dl (8.5-10.1); CREATININE 1.58 mg/dl (0.60-1.40); POTASSIUM 3.9 mmol/L (3.5-5.1)
--- NOTE | 2017-08-14 09:37 | DIAGNOSTIC IMAGING REPORT ---
TWO VIEW CHEST CLINICAL HISTORY: Dyspnea. Hypoxia. FINDINGS: PA and lateral chest radiographs are compared to study dated 08/13/2017. The patient is status post midline sternotomy. The heart is enlarged and there is atherosclerotic calcification of the thoracic aorta. There is mild pulmonary vascular congestion. Mild airspace opacities on the left are slightly asymmetric to the right. No pleural effusion is identified. There is no pneumothorax. The skeletal structures are osteopenic. Advanced arthritic change is seen in the shoulders and thoracic spine. IMPRESSION: 1. Cardiomegaly with evidence of mild congestive failure. 2. There are slightly increased markings on the left which are asymmetric to the right. This could represent a component of mild interstitial edema versus an infectious/inflammatory pneumonitis. Clinical correlation be required. 3. No pleural effusion is identified. Electronically signed by: Thor Julian M.D. 08/14/2017 9:36 AM Dictated Date/Time: 08/14/2017 9:32 AM
[2017-08-14] MEDS ORDERED: BISACODYL 5 MG TABEC PO ONE (11:34)
[2017-08-14] MEDS ORDERED: BISACODYL 5 MG TABEC PO PRN (11:45)
--- NOTE | 2017-08-14 15:25 | Cardiology Follow-Up ---
Subjective General Date of Service: Aug 14, 2017. Pt evaluation today including: conversation w/ patient, conversation w/ family , physical exam, chart review, lab review, review of studies, conversation w/ senior management consultant, review of inpatient medication list History of Present Illness The patient is a 81 year old male seen in follow-up. I was asked to reevaluate the patient today due to abnormal chest x-ray demonstrating asymmetric pulmonary edema. Chest x-ray is reviewed from the past 2 days. The repeat chest x-ray performed today 08/14 demonstrates improvement in asymmetric left-sided edema. Patient suffered an episode of shortness of breath when ambulating to the bathroom yesterday. Denies any recurrent chest pain. Lower extremity edema unchanged. is present at bedside as well. She is voicing concern regarding her ability to care for the patient when he returns home. She is questioning whether patient may benefit from inpatient rehab at this time. Allergies Coded Allergies: Iodinated Diagnostic Agents (Verified Allergy, Unknown, ANAPHYLAXIS, ) Penicillins (Verified Allergy, Unknown, BOILS, 08/07/17) Shellfish (Verified Allergy, Unknown, ANAPHYLAXIS, 08/07/17) Latex1 -Allergic Contact Dermititis (Verified Adverse Reaction, Unknown, RASH, 08/07/17) Statins (Verified Adverse Reaction, Unknown, severe myalgias, 08/07/17) Social History Smoking Status: Former Smoker Hx Tobacco Use In Past Year?: No (QUIT SEPTEMBER 2004, HX OF 2 PPD X20 YEARS) Hx Alcohol Use - Type And Amou: Yes (2-4 glasses of wine/day) Hx Substance Use - Type And Am: No Problem List Medical Problems: (1) COPD exacerbation Status: Acute (2) Elevated troponin Status: Acute (3) Non-STEMI (non-ST elevated myocardial infarction) Status: Acute (4) UTI (urinary tract infection) Status: Acute (5) UTI (urinary tract infection) Status: Acute Review of Systems Respiratory: + cough, + dyspnea on exertion, No sputum, No wheezing, No shortness of breath, No dyspnea at rest, No hemoptysis Cardiac: + edema, No chest pain, No orthopnea, No PND, No claudication, No palpitations Physical Exam Vital Signs Last Vital Signs Documentation Date Time Temp Pulse Resp B/P (MAP) Pulse Ox O2 Delivery O2 Flow Rate FiO2 08/14/17 12:20 Nasal Cannula 2.0 08/14/17 11:33 36.6 64 18 126/80 (54) 97 Physical Exam Constitutional: General Apperance: obese Level of Distress: chronically ill Head: normocephalic, atraumatic Eyes: EOM: EOMI Lungs: Auscultation: no wheezing, no rales/crackles, no rhonchi Cardiovascular: Heart Auscultation: RRR, normal S1, normal S2, no murmurs Peripheral Pulses: Radial Pulse: normal on the right Extremities: no cyanosis, no clubbing, no ulcers, edema (2+ bilateral pedal edema, + stasis changes) Neurologic: Cranial Nerves: grossly intact Assessment and Plan Assessment and Plan 1. Acute decompensation, systolic heart failure -Clinically improving; IV diuretics transition to oral formulation -Repeat chest x-ray demonstrates improving asymmetric left-sided pulmonary edema 2. Non-ST segment elevation myocardial infarction 3. Acute kidney injury on CKD - creatinine improved today 4. Iodine allergy 5. Type 2 diabetes mellitus 6. UTI Discussion/recommendations: I had a long discussion with the patient and his regarding his deconditioned state. We reviewed his repeat chest x-ray performed today. I explained that roentgenographic evidence of congestive heart failure can lag behind clinical improvement. Recommend he continue oral diuretic therapy at this time. Patient's would like to reconsider possible inpatient rehab at this time, however, patient is resistant to this suggestion. From a medication perspective lisinopril has been discontinued. Patient will continue Aldactone and hydralazine as recently added. He will require a repeat basic metabolic panel in 1 week as well. Close outpatient follow-up in the heart failure clinic at [facility] will be scheduled. Laboratory Results Last 24 Hours Test 08/13/17 16:16 08/13/17 20:51 08/14/17 06:40 08/14/17 08:15 Bedside Glucose 154 mg/dl 216 mg/dl 154 mg/dl Sodium Level 134 mmol/L Potassium Level 3.9 mmol/L Chloride Level 100 mmol/L Carbon Dioxide Level 27 mmol/L Anion Gap 7.0 mmol/L Blood Urea Nitrogen 38 mg/dl Creatinine 1.58 mg/dl Est Creatinine Clear Calc Drug Dose 49.0 ml/min Estimated GFR () 47.5 Estimated GFR (Non- 41.0 BUN/Creatinine Ratio 23.7 Random Glucose 198 mg/dl Calcium Level 9.2 mg/dl Procalcitonin 0.09 ng/ml Test 08/14/17 11:16 Bedside Glucose 159 mg/dl
--- NOTE | 2017-08-14 19:15 | Hospitalist Progress Note ---
Hospitalist Progress Note Date of Service Aug 14, 2017. (Thao Batista, PA-C) Subjective Pt evaluation today including: conversation w/ patient, physical exam, lab review, review of studies, conversation w/ mortgage consultant (Dr. Steve), review of inpatient medication list Patient seen and evaluated. Reports feeling a lot better but a little hesitant to wean O2 even with appropriate saturations. Seems to be more comfort related. Very focused on moving bowels and keeping these regular. Lungs sound better today and did try a neb treatment. Appears largely euvolemic except for his lower extremities but these are largely improved since admission. He ways less than outpatient records. Is in agreement for rehab stay as the acute SOB the other day may strictly be from severe deconditioning as he did ambulate to the bathroom unassisted. Constitutional: No fever, No chills ENT: + nasal symptoms Respiratory: No shortness of breath Cardiovascular: No chest pain Abdomen: + constipation, No pain, No nausea, No vomiting, No diarrhea Musculoskeletal: + swelling (L > R but improved from baseline), No calf pain Male : + urinary frequency, No dysuria (Thao Batista, ROMANA-C) Medications Current Inpatient Medications Medications (Trade) Dose Ordered Sig/Richard Route Start Time Stop Time Status Last Admin Dose Admin Acetaminophen (Tylenol Tab) 650 mg Q4H PRN PO 08/07/17 18:45 09/06/17 18:44 Al Hydrox/Mg Hydrox/Simethicone (Maalox Max Susp) 15 ml Q4H PRN PO 08/07/17 18:45 09/06/17 18:44 Magnesium Hydroxide (Milk Of Magnesia Susp) 30 ml Q12H PRN PO 08/07/17 18:45 09/06/17 18:44 Ondansetron HCl (Zofran Inj) 4 mg Q6H PRN IV 08/07/17 18:45 09/06/17 18:44 Nitroglycerin (Nitrostat Tab) 0.4 mg UD PRN SL 08/07/17 18:45 09/06/17 18:44 Polyethylene (Miralax Powder Packet) 17 gm DAILY PRN PO 08/07/17 18:45 09/06/17 18:44 Aspirin (Ecotrin Tab) 81 mg HS PO 08/07/17 21:00 09/06/17 20:59 08/13/17 20:26 81 MG Carvedilol (Coreg Tab) 12.5 mg BID PO 08/07/17 21:00 09/06/17 20:59 08/14/17 08:03 12.5 MG Clopidogrel Bisulfate (plAVix TAB) 75 mg QAM PO 08/08/17 09:00 09/07/17 08:59 08/14/17 08:03 75 MG Isosorbide Mononitrate (Imdur Ext Rel Tab) 60 mg QAM PO 08/08/17 09:00 09/07/17 08:59 08/14/17 08:03 60 MG Terazosin HCl (Hytrin Cap) 2 mg HS PO 08/07/17 21:00 09/06/17 20:59 08/13/17 20:26 2 MG Pantoprazole Sodium (Protonix Tab) 40 mg QAM PO 08/08/17 09:00 09/07/17 08:59 08/14/17 08:03 40 MG Albuterol/ Ipratropium (Duoneb) 3 ml Q2H PRN INH 08/07/17 19:00 09/06/17 18:59 08/14/17 11:32 3 ML Insulin Aspart (novoLOG ASPART) SLIDING SCALE If C... ACHS SC 08/07/17 21:00 09/06/17 20:59 08/13/17 21:50 1 UNITS Glucose (Glucose 40% Gel) 15-30 GRAMS 15 GRAMS... UD PRN PO 08/07/17 19:00 09/06/17 18:59 Glucose (Glucose Chew Tab) 4-8 Tablets 4 Tabl... UD PRN PO 08/07/17 19:00 09/06/17 18:59 Dextrose (Dextrose 50% 50ML Syringe) 25-50ML OF 50% DW IV FOR... UD PRN IV 08/07/17 19:00 09/06/17 18:59 Glucagon (Glucagon Inj) 1 mg UD PRN SQ 08/07/17 19:00 09/06/17 18:59 Finasteride (Proscar Tab) 5 mg QAM PO 08/09/17 09:00 09/08/17 08:59 08/14/17 08:03 5 MG Hydrocortisone (Proctozone Hc 2.5% Crm) 1 appln BID PRN EXT 08/09/17 12:45 09/08/17 12:44 Cephalexin Monohydrate (Keflex Cap) 500 mg BID PO 08/10/17 21:00 08/20/17 20:59 08/14/17 08:03 500 MG Lactulose (Chronulac Syrup) 30 gm QAM PO 08/11/17 09:00 09/06/17 18:59 08/14/17 08:04 30 GM Furosemide (Lasix Tab) 40 mg BID17 PO 08/12/17 17:00 09/11/17 16:59 08/14/17 17:49 40 MG Spironolactone (Aldactone Tab) 12.5 mg QAM PO 08/13/17 09:00 09/12/17 08:59 08/14/17 08:03 12.5 MG Hydralazine HCl (Apresoline Tab) 25 mg BID17 PO 08/13/17 09:00 09/10/17 16:59 08/14/17 17:49 25 MG Senna/Docusate Sodium (Senokot S Tab) 2 tab HS PO 08/13/17 21:00 09/06/17 20:59 08/13/17 20:26 2 TAB Bisacodyl (Dulcolax Tab) 5 mg DAILY PRN PO 08/14/17 11:45 09/13/17 11:44 (Thao Batista, NATALIA) Objective Vital Signs Date Time Temp Pulse Resp B/P (MAP) Pulse Ox O2 Delivery O2 Flow Rate FiO2 08/14/17 18:55 36.4 79 18 149/82 (104) 95 Nasal Cannula 2.0 08/14/17 16:21 36.3 72 20 175/74 (107) 97 Nasal Cannula 2.0 139/84 (102) 08/14/17 16:00 97 Nasal Cannula 2.0 08/14/17 12:20 Nasal Cannula 2.0 08/14/17 11:33 36.6 64 18 126/80 (95) 97 2.0 08/14/17 11:32 78 18 98 Nasal Cannula 2.0 08/14/17 08:20 Nasal Cannula 1.0 08/14/17 08:15 93 Nasal Cannula 1.0 08/14/17 07:27 36.6 64 18 151/88 (109) 97 2.0 08/14/17 04:00 Nasal Cannula 2.0 08/14/17 03:11 36.7 65 20 133/78 (96) 94 Nasal Cannula 2.0 08/13/17 23:59 Nasal Cannula 2.0 08/13/17 23:22 36.8 74 20 147/73 (97) 95 Room Air 08/13/17 20:11 36.6 82 18 152/81 (104) 92 Nasal Cannula 2.0 08/13/17 20:00 Room Air (Thao Batista, PA-C) Physical Exam General Appearance: WD/WN, no apparent distress Eyes: sclerae normal ENT: hearing grossly normal Neck: supple, no JVD, trachea midline Respiratory/Chest: lungs clear, normal breath sounds, no respiratory distress, no accessory muscle use Cardiovascular: regular rate, rhythm Abdomen: normal bowel sounds, non tender, soft Extremities: + swelling (L > R lower extremities) Neurologic/Psychiatric: alert, oriented x 3 (Thao Batista, ALBANIAC) Laboratory Results Last 24 Hours Test 08/13/17 20:51 08/14/17 06:40 08/14/17 08:15 08/14/17 11:16 Bedside Glucose 216 mg/dl 154 mg/dl 159 mg/dl Sodium Level 134 mmol/L Potassium Level 3.9 mmol/L Chloride Level 100 mmol/L Carbon Dioxide Level 27 mmol/L Anion Gap 7.0 mmol/L Blood Urea Nitrogen 38 mg/dl Creatinine 1.58 mg/dl Est Creatinine Clear Calc Drug Dose 49.0 ml/min Estimated GFR () 47.5 Estimated GFR (Non- 41.0 BUN/Creatinine Ratio 23.7 Random Glucose 198 mg/dl Calcium Level 9.2 mg/dl Procalcitonin 0.09 ng/ml Test 08/14/17 16:33 Bedside Glucose 157 mg/dl (Thao Batista PA-C) Assessment and Plan Mr. Daugherty is a 81 y/o male with PMHx of CAD with HI and S/P CABG, Systolic CHF, T2DM, HTN, COPD, Carotid Stenosis, HLD, and BPH with LUTS who presents to the ED c/o SOB x couple days NSTEMI: STABLE - ASA 81 mg and Plavix 75 mg daily - Coreg 12.5 mg BID and Imdur 60 mg daily; ACEI to be D/Cd altogether; Statin intolerant - Cardiology following - discussed with Dr. Steve given imaging findings - recommends to continue current regimen Acute Hypoxic Respiratory Failure 2/2 Acute Systolic CHF Exacerbation: - Continue to wean O2 however appears to be largely a comfort more than anything - Echo (2004) - EF 45%; septal infraapical infarct - Continue Lasix 40 mg BID and Spironolactone 12.5 mg daily MATTHEW on CKD Stage II: STABLE - Continue to monitor; BMP in AM COPD without Exacerbation: - Did utilize Duoneb today to see if this would improve his feeling of SOB - does not appear to be too beneficial - Duonebs PRN E. Coli UTI with BPH with LUTS: STABLE - Known ureteral stricture - continue PRN straight caths - Keflex 500 mg BID - Day #8/10 - Terazosin 2 mg HS and Proscar 5 mg daily Morbid Obesity: BMI 38 - Recommend more activity; largely scooter bound T2DM: A1c 6.5 - Hold Metformin and cover with SSI Chronic Constipation: Lactulose daily; Increase Senna; Dulcolax x 1 Chronic Ambulatory Dysfunction: PT/OT DVT Prophylaxis: Heparin Code Status: FULL RESUSCITATION Disposition: PT/OT evaluations - In agreement for SNF - discussed with case management - will begin this process Continued [facility] stay due to: ambulation difficulties Discharge planning: correction facility (Thao Batista, PAGildardoC) Attending Attestation - Pt seen/examined, chart reviewed, care plan d/w ROMANA Batista. I agree w/ the puente components of her documentation. Tele wnl overnight. Tele has been stable since admission. Pt sitting in chair during my visit Offered no complaints of dyspnea, cough, chest pain, abd pain He is eating well after much discussion he IS agreeable to SNF placement for rehab VSS afebrile o2 sats wnl on small amount of NC O2 gen - obese, NAD neck - no JVD sitting at 90 degrees upright in the chair heart - RRR, s1, s2 lungs - CTA b/l, decreased BS at the bases minimally abd - soft, NT, ND ext - trace edema right foot, 1+ lymphedema like swelling in left foot A/P: 1. acute/chronic systolic CHF - appears euvolemic on exam today on a stable regimen of cardiac meds including diuretics. cxr suggests assymetric pulmonary edema on left, but patient's weight is MUCH below any weight recorded in [employer] from the outpatient office appreciate [facility] cardiology input no change in meds today 2. positive troponin - either NSTEMI or simply myocardial demand ischemia in setting of #1 above. Suspected to be the latter. Cardiology following - there had been discussion about a heart cath - at this time this has been deferred. Medical management of underlying CAD. 3. acute kidney injury - resolved. 4. known CAD s/p CABG in the past 5. e. coli UTI - finishing abx course. 6. dizziness after using toilet yesterday- likely vasovagal as it occurred after straining/passing flatus. Orthostatic BPs checked and were negative. 7. dyspnea - repeat cxr with worsening left lung findings despite a stable lung exam. NO pleural effusion on repeat cxr today or chest u/s. could consider CT chest to r/o intrinsic lung disease doubt PE(s) as he was on heparin infusion up until 36 hours ago I question if some of his O2 requirement could be chronic. 8. left leg lymphedema - this appears chronic. He had his vein harvesting for his CABG from the left leg. Could consider doppler to r/o DVT but again this appears chronic. follow closely social work aware of pt's change in mind to pursue rehab at [facility] patient has been stable on tele for 5+ days without arrhythmia reasonable to d/c tele and move to med/surg Irene RAMOS MD (Glenn Ramos MD)
[2017-08-14] MEDS: DOCUSATE SODIUM/SENNA 50/8.6MG TAB PO SCH (20:55)
[2017-08-14] MEDS: ASPIRIN 81 MG ECTAB PO SCH (20:56)
[2017-08-14 21:56] LABS: CALCIUM 9.3 mg/dl (8.5-10.1); CREATININE 2.17 mg/dl (0.60-1.40); POTASSIUM 4.2 mmol/L (3.5-5.1)
[2017-08-14] MEDS: HEPARIN SOD 5000 UNIT/0.5 ML CARP SQ SCH (22:00)
--- NOTE | 2017-08-14 22:29 | Progress Note ---
Progress Note Date of Service Aug 14, 2017. Progress Note Code cornell was called around 2105 . Per nursing patient was in the toilet and called for nurse as he was trying to get up. According to nurse, he was slow to respond. She denies syncope, LOC, or fall. I assessed patient,and by that time , symptoms resolved. Patient was alert and oriented. He did reports SOB, lightheadedness. He denied chest pain, palpitation. Wheelchair was brought in to move patient from bathroom to chair. Pulse ox was 89%. He was placed on 4L Oxymask and was able to maintain oxygenation. Exam showed no focal neural signs, Chest was clear to auscultation. EKG was performed and there was no acute changes from previous. Troponin was ordered. Patients symptoms seems most likely attributable to vasovagal in addition to hypoxia. Glucose was checked and was not hypoglycemic.
[2017-08-15] MEDS: HEPARIN SOD 5000 UNIT/0.5 ML CARP SQ SCH ×3 (05:53→21:56)
[2017-08-15 06:51] LABS: HEMATOCRIT 36.2 % (42-52); HEMOGLOBIN 12.5 g/dL (14.0-18.0); MEAN CELL VOLUME 100.6 fL (80-100); MEAN CORPUSCULAR HEMOGLOBIN 34.7 pg (25-34); MEAN CORPUSCULAR HGB CONC 34.5 g/dl (32-36); MEAN PLATELET VOLUME 9.2 fL (7.4-10.4); PLATELET COUNT 131 K/uL (130-400); RED CELL DISTRIBUTION WIDTH CV 14.9 % (11.5-14.5); RED CELL DISTRIBUTION WIDTH SD 54.2 fL (36.4-46.3); WHITE BLOOD COUNT 8.79 K/uL (4.8-10.8)
[2017-08-15 07:24] LABS: CALCIUM 9.2 mg/dl (8.5-10.1); CREATININE 1.69 mg/dl (0.60-1.40); POTASSIUM 4.1 mmol/L (3.5-5.1)
[2017-08-15 07:29] VITALS: BP 123/81; PULSE 74; TEMP 36.6; O2SAT 95
[2017-08-15 08:00] VITALS: O2SAT 95
[2017-08-15] MEDS: PANTOprazole SOD 40 MG TAB PO SCH (08:11)
[2017-08-15] MEDS: CARVEDILOL 12.5 MG TAB PO SCH ×2 (08:11→20:31)
[2017-08-15] MEDS: CLOPIDOGREL BISULFATE 75 MG TAB PO SCH (08:11)
[2017-08-15] MEDS: FINASTERIDE 5 MG TAB PO SCH (08:11)
[2017-08-15] MEDS: CEPHALEXIN MONOHYDRATE 500 MG CAP PO SCH ×2 (08:11→20:32)
[2017-08-15] MEDS: ISOSORBIDE MONONITRATE 60 MG TABCR PO SCH (08:11)
[2017-08-15] MEDS: LACTULOSE SYRUP 30 GM/45 ML UDP PO SCH (08:11)
[2017-08-15] MEDS: FUROSEMIDE 40 MG TAB PO SCH (08:12)
[2017-08-15] MEDS: SPIRONOLACTONE 25 MG TAB PO SCH (08:12)
[2017-08-15] MEDS: INSULIN ASPART 100 UNITS/ML 3 ML PEN SC SCH ×4 (08:15→20:32)
[2017-08-15 16:00] VITALS: O2SAT 95
[2017-08-15 17:02] VITALS: BP 139/82; PULSE 83; O2SAT 95
[2017-08-15 20:28] VITALS: BP 128/75; PULSE 89; O2SAT 95
[2017-08-15] MEDS: DOCUSATE SODIUM/SENNA 50/8.6MG TAB PO SCH (20:31)
[2017-08-15] MEDS: ASPIRIN 81 MG ECTAB PO SCH (20:32)
--- NOTE | 2017-08-15 20:57 | Hospitalist Progress Note ---
Hospitalist Progress Note Date of Service Aug 15, 2017. (Thao Batista PA-C) Subjective Pt evaluation today including: conversation w/ patient, conversation w/ family , physical exam, chart review, lab review, review of inpatient medication list Patient seen and evaluated. Was a code purple after syncopal episode on the commode. Had a long conversation with patient and about the mechanism behind what is likely a vagal episode. He appears euvolemic however suspect maybe his body hasn't fully adjusted to this change in fluid status. Will reduce regimen of diuretics as this may be too aggressive for him at this stage. Additional Comments: ROS: Constitutional: No fever, No chills ENT: + nasal symptoms Respiratory: No shortness of breath Cardiovascular: No chest pain Abdomen: + constipation, No pain, No nausea, No vomiting, No diarrhea Musculoskeletal: + swelling (L > R but improved from baseline), No calf pain Male : + urinary frequency, No dysuria (Thao Batista PA-C) Medications Current Inpatient Medications Medications (Trade) Dose Ordered Sig/Richard Route Start Time Stop Time Status Last Admin Dose Admin Acetaminophen (Tylenol Tab) 650 mg Q4H PRN PO 08/07/17 18:45 09/06/17 18:44 Al Hydrox/Mg Hydrox/Simethicone (Maalox Max Susp) 15 ml Q4H PRN PO 08/07/17 18:45 09/06/17 18:44 Magnesium Hydroxide (Milk Of Magnesia Susp) 30 ml Q12H PRN PO 08/07/17 18:45 09/06/17 18:44 Ondansetron HCl (Zofran Inj) 4 mg Q6H PRN IV 08/07/17 18:45 09/06/17 18:44 Nitroglycerin (Nitrostat Tab) 0.4 mg UD PRN SL 08/07/17 18:45 09/06/17 18:44 Polyethylene (Miralax Powder Packet) 17 gm DAILY PRN PO 08/07/17 18:45 09/06/17 18:44 Aspirin (Ecotrin Tab) 81 mg HS PO 08/07/17 21:00 09/06/17 20:59 08/15/17 20:32 81 MG Carvedilol (Coreg Tab) 12.5 mg BID PO 4/19/18 21:00 09/06/17 20:59 08/15/17 20:31 12.5 MG Clopidogrel Bisulfate (plAVix TAB) 75 mg QAM PO 08/08/17 09:00 09/07/17 08:59 08/15/17 08:11 75 MG Isosorbide Mononitrate (Imdur Ext Rel Tab) 60 mg QAM PO 08/08/17 09:00 09/07/17 08:59 08/15/17 08:11 60 MG Terazosin HCl (Hytrin Cap) 2 mg HS PO 08/07/17 21:00 09/06/17 20:59 08/15/17 20:32 2 MG Pantoprazole Sodium (Protonix Tab) 40 mg QAM PO 08/08/17 09:00 09/07/17 08:59 08/15/17 08:11 40 MG Albuterol/ Ipratropium (Duoneb) 3 ml Q2H PRN INH 08/07/17 19:00 09/06/17 18:59 08/14/17 11:32 3 ML Insulin Aspart (novoLOG ASPART) SLIDING SCALE If C... ACHS SC 08/07/17 21:00 09/06/17 20:59 08/15/17 12:20 1 UNITS Glucose (Glucose 40% Gel) 15-30 GRAMS 15 GRAMS... UD PRN PO 08/07/17 19:00 09/06/17 18:59 Glucose (Glucose Chew Tab) 4-8 Tablets 4 Tabl... UD PRN PO 08/07/17 19:00 09/06/17 18:59 Dextrose (Dextrose 50% 50ML Syringe) 25-50ML OF 50% DW IV FOR... UD PRN IV 08/07/17 19:00 09/06/17 18:59 Glucagon (Glucagon Inj) 1 mg UD PRN SQ 08/07/17 19:00 09/06/17 18:59 Finasteride (Proscar Tab) 5 mg QAM PO 08/09/17 09:00 09/08/17 08:59 08/15/17 08:11 5 MG Hydrocortisone (Proctozone Hc 2.5% Crm) 1 appln BID PRN EXT 08/09/17 12:45 09/08/17 12:44 Cephalexin Monohydrate (Keflex Cap) 500 mg BID PO 08/10/17 21:00 08/20/17 20:59 08/15/17 20:32 500 MG Lactulose (Chronulac Syrup) 30 gm QAM PO 08/11/17 09:00 09/06/17 18:59 08/15/17 08:11 30 GM Spironolactone (Aldactone Tab) 12.5 mg QAM PO 08/13/17 09:00 09/12/17 08:59 08/15/17 08:12 12.5 MG Hydralazine HCl (Apresoline Tab) 25 mg BID17 PO 08/13/17 09:00 09/10/17 16:59 08/15/17 17:06 25 MG Senna/Docusate Sodium (Senokot S Tab) 2 tab HS PO 08/13/17 21:00 09/06/17 20:59 08/15/17 20:31 2 TAB Bisacodyl (Dulcolax Tab) 5 mg DAILY PRN PO 08/14/17 11:45 09/13/17 11:44 Heparin Sodium (Porcine) (Heparin Sq 5000 Unit/0.5ml) 5,000 unit Q8 SQ 08/14/17 22:00 09/13/17 21:59 08/15/17 14:38 5,000 UNIT Furosemide (Lasix Tab) 40 mg QAM PO 08/16/17 09:00 09/15/17 08:59 (Thao Batista, ALBANIAC) Objective Vital Signs Date Time Temp Pulse Resp B/P (MAP) Pulse Ox O2 Delivery O2 Flow Rate FiO2 08/15/17 20:28 89 128/75 (92) 95 Nasal Cannula 2.0 08/15/17 17:02 83 18 139/82 (101) 95 Nasal Cannula 2.0 08/15/17 16:00 95 Nasal Cannula 2.0 08/15/17 08:00 95 Nasal Cannula 2.0 08/15/17 07:29 36.6 74 20 123/81 (95) 95 Nasal Cannula 2.0 08/15/17 00:00 Oxymask 2.0 08/14/17 22:09 36.4 87 20 122/77 (92) 95 Oxymask 2.0 08/14/17 21:23 86 131/83 (99) 08/14/17 21:17 36.8 86 102/67 (79) 93 Oxymask 2.0 (Thao Batista PA-C) Physical Exam Notes: Physical Exam General Appearance: WD/WN, no apparent distress Eyes: sclerae normal ENT: hearing grossly normal Neck: supple, no JVD, trachea midline Respiratory/Chest: lungs clear, normal breath sounds, no respiratory distress, no accessory muscle use Cardiovascular: regular rate, rhythm Abdomen: normal bowel sounds, non tender, soft Extremities: + swelling (L > R lower extremities) Neurologic/Psychiatric: alert, oriented x 3 (Thao Batista PA-C) Laboratory Results Last 24 Hours Test 08/14/17 21:22 08/15/17 01:01 08/15/17 06:33 08/15/17 07:38 Sodium Level 135 mmol/L 137 mmol/L Potassium Level 4.2 mmol/L 4.1 mmol/L Chloride Level 99 mmol/L 101 mmol/L Carbon Dioxide Level 25 mmol/L 30 mmol/L Anion Gap 11.0 mmol/L 7.0 mmol/L Blood Urea Nitrogen 44 mg/dl 40 mg/dl Creatinine 2.17 mg/dl 1.69 mg/dl Est Creatinine Clear Calc Drug Dose 35.7 ml/min 45.1 ml/min Estimated GFR () 32.4 43.5 Estimated GFR (Non- 27.9 37.5 BUN/Creatinine Ratio 20.1 23.8 Random Glucose 202 mg/dl 147 mg/dl Calcium Level 9.3 mg/dl 9.2 mg/dl Chemistry Specimen Hemolysis Troponin I 0.126 ng/ml White Blood Count 8.79 K/uL Red Blood Count 3.60 M/uL Hemoglobin 12.5 g/dL Hematocrit 36.2 % Mean Corpuscular Volume 100.6 fL Mean Corpuscular Hemoglobin 34.7 pg Mean Corpuscular Hemoglobin Concent 34.5 g/dl RDW Standard Deviation 54.2 fL RDW Coefficient of Variation 14.9 % Platelet Count 131 K/uL Mean Platelet Volume 9.2 fL Magnesium Level 2.2 mg/dl Bedside Glucose 139 mg/dl Test 08/15/17 11:39 08/15/17 16:45 Bedside Glucose 184 mg/dl 161 mg/dl (Thao Batista PA-C) Assessment and Plan Mr. Daugherty is a 81 y/o male with PMHx of CAD with [place] and S/P CABG, Systolic CHF, T2DM, HTN, COPD, Carotid Stenosis, HLD, and BPH with LUTS who presents to the ED c/o SOB x couple days NSTEMI: STABLE - ASA 81 mg and Plavix 75 mg daily - Coreg 12.5 mg BID and Imdur 60 mg daily; ACEI to be D/Cd altogether; Statin intolerant - Cardiology followed Acute Hypoxic Respiratory Failure 2/2 Acute Systolic CHF Exacerbation: - Continue to wean O2 however appears to be largely a comfort more than anything - Echo (2004) - EF 45%; septal infraapical infarct - Change to Lasix 40 mg daily and Spironolactone 12.5 mg daily - given great overall diuresis this may be too aggressive for him at this stage given 2 syncopal episodes Near Syncope with BMs: Vagal Response: - This appears to be a vagal response possibly increased by over diuresis. However patient doesn't largely appear dry but maybe his dynamics need to adjust to this new fluid status as clearly he has been progressively retaining fluid for some time - Changed diuretic plan as above MATTHEW on CKD Stage II: STABLE - Continue to monitor; BMP in AM COPD without Exacerbation: - Duonebs PRN E. Coli UTI with BPH with LUTS: STABLE - Known ureteral stricture - continue PRN straight caths - Keflex stopped at this point - no further acute urinary symptoms - Terazosin 2 mg HS and Proscar 5 mg daily Morbid Obesity: BMI 38 - Recommend more activity; largely scooter bound T2DM: A1c 6.5 - Hold Metformin and cover with SSI Chronic Constipation: Lactulose daily; Increase Senna; Dulcolax Chronic Ambulatory Dysfunction: PT/OT DVT Prophylaxis: Heparin Code Status: FULL RESUSCITATION Disposition: PT/OT evaluations - In agreement for SNF - possible [facility] Discharge planning: correction facility (Thao Batista PA-C) Reviewed: Pt Seen/Exam by Me (Loli Godinez MD) History Physician Ccie supervision Note: I interviewed and examined the patient. Discussed with ROMANA Batista and agree with findings and plan as documented in the note. Any exceptions or clarifications are listed here: Patient had another code purple last night for near syncope while on the commode. Reports that he did have another bowel movement this evening and did not have the similar symptoms. His evening Lasix dose has been held. Denies chest pain, feels his shortness of breath is much improved since admission. No other complaints Vitals reviewed Gen: AAOx3, NAD, morbidly obese, sitting in chair HEENT: anicteric sclerae, EOMI CV: RRR no mgr nl S1S2 Pulm: CTAB no wcr Abd: +BS soft NT ND no masses or hernias, obese Ext: Trace pitting edema of the right leg to the mid tibia, left leg with 1+ pitting edema, significantly improved from admission Skin: no rashes, warm/dry This patient is a 81-year-old male with a history of chronic systolic CHF, CAD with [place] and status post CABG, DM 2, HTN, COPD, carotid artery stenosis, hyperlipidemia, and BPH with LUTS, who presents with progressively worsening dyspnea over 24 hour period-found to have acute on chronic systolic CHF and NSTEMI. NSTEMI:Unclear which came first, the NSTEMI or the systolic CHF exacerbation. Likely demand ischemia due to CHF. Cardiology reviewed previous ECG from the office a couple of weeks ago which actually looks about the same as now-the lateral T-wave changes are not new. Troponin peaked at 2.71 and now trending downward ECHO: *Due to technical limitations, the left ventricle is poorly visualized despite administration of ultrasound enhancement. * The LV regional wall motion cannot be assessed. * On a very limited basis, the ejection fraction appears to be in the range of 40-49% which is his typical historical baseline, however, images are very technically limited." -Heparin drip stopped a while back -Has diuresed very nicely and now may be over diuresed given two near syncopal episodes in the last several days-cut Lasix down to once daily - continue ASA 81 mg and Plavix 75 mg daily - Coreg 12.5 mg BID and Imdur 60 mg daily, continue hydralazine which is now -No SAMMY inhibitor given renal function worsening - Consult cardiology appreciated-no cardiac catheterization planned at this point due to complex history and was unable to be completely revascularized even with CABG in the past Disposition-awaiting SNF placement but likely not to Friday Documented By: Loli Godinez (Loli Godinez MD)
[2017-08-16 00:07] VITALS: BP 122/77; PULSE 66; TEMP 36.6; O2SAT 94
[2017-08-16] MEDS: HEPARIN SOD 5000 UNIT/0.5 ML CARP SQ SCH ×3 (06:08→21:26)
[2017-08-16] MEDS: INSULIN ASPART 100 UNITS/ML 3 ML PEN SC SCH ×4 (06:30→21:26)
[2017-08-16 06:55] LABS: HEMATOCRIT 34.2 % (42-52); HEMOGLOBIN 11.5 g/dL (14.0-18.0); MEAN CELL VOLUME 100.3 fL (80-100); MEAN CORPUSCULAR HEMOGLOBIN 33.7 pg (25-34); MEAN CORPUSCULAR HGB CONC 33.6 g/dl (32-36); MEAN PLATELET VOLUME 9.4 fL (7.4-10.4); PLATELET COUNT 126 K/uL (130-400); RED CELL DISTRIBUTION WIDTH CV 14.9 % (11.5-14.5); RED CELL DISTRIBUTION WIDTH SD 54.3 fL (36.4-46.3); WHITE BLOOD COUNT 7.19 K/uL (4.8-10.8)
[2017-08-16 07:32] LABS: CALCIUM 9.3 mg/dl (8.5-10.1); CREATININE 1.51 mg/dl (0.60-1.40); POTASSIUM 3.9 mmol/L (3.5-5.1)
[2017-08-16 08:00] VITALS: O2SAT 94
[2017-08-16] MEDS: CARVEDILOL 12.5 MG TAB PO SCH ×2 (08:20→21:20)
[2017-08-16] MEDS: FUROSEMIDE 40 MG TAB PO SCH (08:20)
[2017-08-16] MEDS: CLOPIDOGREL BISULFATE 75 MG TAB PO SCH (08:20)
[2017-08-16] MEDS: PANTOprazole SOD 40 MG TAB PO SCH (08:20)
[2017-08-16] MEDS: LACTULOSE SYRUP 30 GM/45 ML UDP PO SCH (08:21)
[2017-08-16] MEDS: FINASTERIDE 5 MG TAB PO SCH (08:22)
[2017-08-16] MEDS: ISOSORBIDE MONONITRATE 60 MG TABCR PO SCH (08:22)
[2017-08-16] MEDS: SPIRONOLACTONE 25 MG TAB PO SCH (08:23)
[2017-08-16 08:24] VITALS: BP 151/77; PULSE 67; TEMP 36.4; O2SAT 94
--- NOTE | 2017-08-16 10:21 | Hospitalist Progress Note ---
Hospitalist Progress Note Date of Service Aug 16, 2017. Subjective Pt evaluation today including: conversation w/ patient, conversation w/ [facility]iances consultant (Cardiology) Patient said his shortness of breath is improved today. However, as I was in the room with him, the RN got him out of the chair to the standing scale to weigh him-he then sat down and felt very lightheaded and had an episode of near syncope again. We reclined him back and put his legs up above his heart in the recliner chair and within about 1 minute he had resolution of the symptoms. His blood pressure was checked and found to be 116 systolic, with a heart rate in the 80s, pulse ox was in the mid 80s on 2 L nasal cannula. His BP this morning prior to medication administration was 151 systolic. Constitutional: No fever Respiratory: No shortness of breath Cardiovascular: + problem reported (Lightheadedness with standing), No chest pain All Other Systems: Reviewed and Negative Objective Vital Signs Date Time Temp Pulse Resp B/P (MAP) Pulse Ox O2 Delivery O2 Flow Rate FiO2 08/16/17 08:24 36.4 67 20 151/77 (101) 94 08/16/17 00:20 Nasal Cannula 2.0 08/16/17 00:07 36.6 66 20 122/77 (92) 94 2.0 08/15/17 20:28 89 128/75 (92) 95 Nasal Cannula 2.0 08/15/17 17:02 83 18 139/82 (101) 95 Nasal Cannula 2.0 08/15/17 16:00 95 Nasal Cannula 2.0 Physical Exam General Appearance: no apparent distress, + obese Eyes: normal inspection, sclerae normal ENT: hearing grossly normal Neck: trachea midline Respiratory/Chest: lungs clear, normal breath sounds, no respiratory distress, no accessory muscle use Cardiovascular: regular rate, rhythm, no murmur, + pertinent finding (Trace pitting edema bilateral legs significantly improved from previous) Abdomen: normal bowel sounds, non tender, soft Neurologic/Psychiatric: alert (Except slightly less alert during episode of near syncope but no loss of consciousness), normal mood/affect, oriented x 3 Skin: warm/dry, no rash, + pallor (During episode of near syncope) Laboratory Results Last 24 Hours Test 08/15/17 11:39 08/15/17 16:45 08/15/17 20:28 08/16/17 06:24 Bedside Glucose 184 mg/dl 161 mg/dl 163 mg/dl White Blood Count 7.19 K/uL Red Blood Count 3.41 M/uL Hemoglobin 11.5 g/dL Hematocrit 34.2 % Mean Corpuscular Volume 100.3 fL Mean Corpuscular Hemoglobin 33.7 pg Mean Corpuscular Hemoglobin Concent 33.6 g/dl RDW Standard Deviation 54.3 fL RDW Coefficient of Variation 14.9 % Platelet Count 126 K/uL Mean Platelet Volume 9.4 fL Sodium Level 137 mmol/L Potassium Level 3.9 mmol/L Chloride Level 102 mmol/L Carbon Dioxide Level 29 mmol/L Anion Gap 6.0 mmol/L Blood Urea Nitrogen 42 mg/dl Creatinine 1.51 mg/dl Est Creatinine Clear Calc Drug Dose 50.4 ml/min Estimated GFR () 49.8 Estimated GFR (Non- 43.0 BUN/Creatinine Ratio 27.9 Random Glucose 141 mg/dl Calcium Level 9.3 mg/dl Magnesium Level 2.2 mg/dl Test 08/16/17 07:58 Bedside Glucose 144 mg/dl Assessment and Plan This patient is an 82-year-old male with a history of chronic systolic CHF, CAD with [place] and status post CABG, DM 2, HTN, COPD, carotid artery stenosis, hyperlipidemia, and BPH with LUTS, who presents with progressively worsening dyspnea over 24 hour period-found to have acute on chronic systolic CHF and NSTEMI. NSTEMI:Unclear which came first, the NSTEMI or the systolic CHF exacerbation. Likely demand ischemia due to CHF. Cardiology reviewed previous ECG from the office a couple of weeks ago which actually looks about the same as now-the lateral T-wave changes are not new. Troponin peaked at 2.71 and now trending downward ECHO: *Due to technical limitations, the left ventricle is poorly visualized despite administration of ultrasound enhancement. * The LV regional wall motion cannot be assessed. * On a very limited basis, the ejection fraction appears to be in the range of 40-49% which is his typical historical baseline, however, images are very technically limited." -Heparin drip stopped a while back - continue ASA 81 mg and Plavix 75 mg daily - Coreg 12.5 mg BID and Imdur 60 mg daily -Statin intolerance noted -Will discontinue hydralazine due to recurrent near syncope since starting this -No SAMMY inhibitor given renal function worsening-not able to use hydralazine as above - Consult cardiology appreciated-no cardiac catheterization planned at this point due to complex history and was unable to be completely revascularized even with CABG in the past Acute Hypoxic Respiratory Failure 2/2 Acute on chronic systolic CHF Exacerbation /recurrent near syncope:-Has diuresed very nicely almost 7 L of fluid net negative, and now may be over diuresed given now 3 episodes near syncope in the last several days which seem to be orthostatic in nature-cut Lasix down to once daily on 08/15 -now will discontinue hydralazine as per my discussion with cardiology -We will lower the dose of the Hytrin to 1 mg p.o. nightly -Continue Lasix 40 mg once daily, continue Aldactone 12.5 mg once daily -Continue supplemental O2 to keep pulse ox greater than 92% - Echo (2004) - EF 45%; septal infraapical infarct MATTHEW on CKD Stage II: Improving with lowering Lasix dosage, creatinine down to 1.51 today, electrolytes within normal limits - Continue to monitor; BMP in AM COPD without Exacerbation: - Duonebs PRN E. Coli UTI with BPH with LUTS: Resolved - Known ureteral stricture - continue PRN straight caths - Keflex stopped at this point - no further acute urinary symptoms -Reducing terazosin to 1 mg HS and will continue Proscar 5 mg daily Morbid Obesity: BMI 38 - Recommend more activity; largely scooter bound T2DM: A1c 6.5 - Holding Metformin and cover with SSI Chronic Constipation: Lactulose daily; Increase Senna; Dulcolax Chronic Ambulatory Dysfunction: PT/OT DVT Prophylaxis: Heparin Code Status: FULL RESUSCITATION Disposition: PT/OT evaluations - In agreement for SNF - possible [facility] on Friday
[2017-08-16 16:00] VITALS: O2SAT 95
[2017-08-16 16:23] VITALS: BP 122/62; PULSE 84; TEMP 37.2; O2SAT 99
[2017-08-16 21:18] VITALS: BP 120/75; PULSE 89
[2017-08-16] MEDS: DOCUSATE SODIUM/SENNA 50/8.6MG TAB PO SCH (21:20)
[2017-08-16] MEDS: ASPIRIN 81 MG ECTAB PO SCH (21:21)
[2017-08-17 00:25] VITALS: BP 123/70; PULSE 75; TEMP 36.8; O2SAT 92
[2017-08-17] MEDS: HEPARIN SOD 5000 UNIT/0.5 ML CARP SQ SCH ×3 (06:18→21:06)
[2017-08-17 07:17] LABS: BASO % 0.5 %; BASO ABS # 0.04 K/uL (0-0.2); EOS % 2.8 %; EOS ABS # 0.22 K/uL (0-0.5); HEMATOCRIT 33.2 % (42-52); HEMOGLOBIN 11.4 g/dL (14.0-18.0); IG# 0.04 K/uL (0.00-0.02); LYMPH % 17.9 %; LYMPH ABS # 1.38 K/uL (1.2-3.4); MEAN CELL VOLUME 100.3 fL (80-100); MEAN CORPUSCULAR HEMOGLOBIN 34.4 pg (25-34); MEAN CORPUSCULAR HGB CONC 34.3 g/dl (32-36); MEAN PLATELET VOLUME 9.3 fL (7.4-10.4); MONO % 8.9 %; MONO ABS # 0.69 K/uL (0.11-0.59); NEUT % 69.4 %; NEUT ABS # 5.36 K/uL (1.4-6.5); PLATELET COUNT 126 K/uL (130-400); RED CELL DISTRIBUTION WIDTH CV 14.8 % (11.5-14.5); RED CELL DISTRIBUTION WIDTH SD 53.6 fL (36.4-46.3); WHITE BLOOD COUNT 7.73 K/uL (4.8-10.8)
[2017-08-17 07:37] VITALS: BP 142/80; PULSE 68; TEMP 36.2; O2SAT 95
[2017-08-17 07:54] LABS: CALCIUM 9.1 mg/dl (8.5-10.1); CREATININE 1.53 mg/dl (0.60-1.40)
[2017-08-17] MEDS: INSULIN ASPART 100 UNITS/ML 3 ML PEN SC SCH ×4 (08:09→21:00)
[2017-08-17] MEDS: LACTULOSE SYRUP 30 GM/45 ML UDP PO SCH (08:50)
[2017-08-17] MEDS: FINASTERIDE 5 MG TAB PO SCH (08:51)
[2017-08-17] MEDS: FUROSEMIDE 40 MG TAB PO SCH (08:51)
[2017-08-17] MEDS: SPIRONOLACTONE 25 MG TAB PO SCH (08:51)
[2017-08-17] MEDS: CARVEDILOL 12.5 MG TAB PO SCH ×2 (08:51→21:03)
[2017-08-17] MEDS: ISOSORBIDE MONONITRATE 60 MG TABCR PO SCH (08:51)
[2017-08-17] MEDS: PANTOprazole SOD 40 MG TAB PO SCH (08:51)
[2017-08-17] MEDS: CLOPIDOGREL BISULFATE 75 MG TAB PO SCH (08:51)
[2017-08-17 14:46] VITALS: BP 123/68; PULSE 75; TEMP 36.4; O2SAT 95
[2017-08-17 16:02] VITALS: O2SAT 95
--- NOTE | 2017-08-17 19:15 | Hospitalist Progress Note ---
Hospitalist Progress Note Date of Service Aug 17, 2017. Subjective Pt evaluation today including: conversation w/ patient Feeling much better today, less SOB, not lightheadedness or dizziness with standing today. All Other Systems: Reviewed and Negative Objective Vital Signs Date Time Temp Pulse Resp B/P (MAP) Pulse Ox O2 Delivery O2 Flow Rate FiO2 08/17/17 16:02 95 Nasal Cannula 1.5 08/17/17 14:46 36.4 75 20 123/68 (86) 95 Nasal Cannula 1.5 08/17/17 08:00 Nasal Cannula 2.0 08/17/17 07:37 36.2 68 20 142/80 (100) 95 08/17/17 00:25 36.8 75 20 123/70 (87) 92 Nasal Cannula 3.0 08/17/17 00:00 Nasal Cannula 2.0 08/16/17 21:18 89 120/75 (90) 08/16/17 20:00 Nasal Cannula 2.0 Physical Exam General Appearance: WD/WN, no apparent distress, + obese Eyes: normal inspection, sclerae normal ENT: hearing grossly normal Neck: trachea midline Respiratory/Chest: no respiratory distress, no accessory muscle use, + decreased breath sounds (throughout due to body habitus, mild wheeze, no crackles) Cardiovascular: regular rate, rhythm, no murmur, + pertinent finding (1+ pitting edema L>R legs) Abdomen: normal bowel sounds, non tender, soft Extremities: no calf tenderness Neurologic/Psychiatric: alert, normal mood/affect, oriented x 3 Skin: normal color, warm/dry, no rash Laboratory Results Last 24 Hours Test 08/16/17 20:05 08/17/17 06:47 08/17/17 07:05 08/17/17 11:31 Bedside Glucose 185 mg/dl 140 mg/dl 160 mg/dl White Blood Count 7.73 K/uL Red Blood Count 3.31 M/uL Hemoglobin 11.4 g/dL Hematocrit 33.2 % Mean Corpuscular Volume 100.3 fL Mean Corpuscular Hemoglobin 34.4 pg Mean Corpuscular Hemoglobin Concent 34.3 g/dl Platelet Count 126 K/uL Mean Platelet Volume 9.3 fL Neutrophils (%) (Auto) 69.4 % Lymphocytes (%) (Auto) 17.9 % Monocytes (%) (Auto) 8.9 % Eosinophils (%) (Auto) 2.8 % Basophils (%) (Auto) 0.5 % Neutrophils # (Auto) 5.36 K/uL Lymphocytes # (Auto) 1.38 K/uL Monocytes # (Auto) 0.69 K/uL Eosinophils # (Auto) 0.22 K/uL Basophils # (Auto) 0.04 K/uL RDW Standard Deviation 53.6 fL RDW Coefficient of Variation 14.8 % Immature Granulocyte % (Auto) 0.5 % Immature Granulocyte # (Auto) 0.04 K/uL Sodium Level 137 mmol/L Potassium Level 4.0 mmol/L Chloride Level 103 mmol/L Carbon Dioxide Level 28 mmol/L Anion Gap 6.0 mmol/L Blood Urea Nitrogen 43 mg/dl Creatinine 1.53 mg/dl Est Creatinine Clear Calc Drug Dose 49.0 ml/min Estimated GFR () 49.0 Estimated GFR (Non- 42.3 BUN/Creatinine Ratio 27.9 Random Glucose 150 mg/dl Calcium Level 9.1 mg/dl Magnesium Level 2.2 mg/dl Vitamin B12 Level 832 pg/mL Folate 18.54 ng/mL Test 08/17/17 16:30 Bedside Glucose 162 mg/dl Assessment and Plan This patient is an 82-year-old male with a history of chronic systolic CHF, CAD with [place] and status post CABG, DM 2, HTN, COPD, carotid artery stenosis, hyperlipidemia, and BPH with LUTS, who presents with progressively worsening dyspnea over 24 hour period-found to have acute on chronic systolic CHF and NSTEMI. NSTEMI:Unclear which came first, the NSTEMI or the systolic CHF exacerbation. Likely demand ischemia due to CHF. Cardiology reviewed previous ECG from the office a couple of weeks ago which actually looks about the same as now-the lateral T-wave changes are not new. Troponin peaked at 2.71 and now trending downward ECHO: *Due to technical limitations, the left ventricle is poorly visualized despite administration of ultrasound enhancement. * The LV regional wall motion cannot be assessed. * On a very limited basis, the ejection fraction appears to be in the range of 40-49% which is his typical historical baseline, however, images are very technically limited." -Heparin drip stopped a while back - continue ASA 81 mg and Plavix 75 mg daily - Coreg 12.5 mg BID and Imdur 60 mg daily -Statin intolerance noted -discontinued hydralazine due to recurrent near syncope and weight gain since starting this -No SAMMY inhibitor given renal function worsening-not able to use hydralazine as above - Consult cardiology appreciated-no cardiac catheterization planned at this point due to complex history and was unable to be completely revascularized even with CABG in the past Acute Hypoxic Respiratory Failure/Acute on chronic systolic CHF Exacerbation/ recurrent near syncope:-Has diuresed very nicely -7.2 L of fluid net negative, weight down 13 kg. Did suspect overdiuresis with multiple near syncopal episodes and lasix was decreased to once daily on 08/15,, however hydralazine may have been the culprit which is now stopped No further near syncopal episodes since dc hydralazine and decreased Hytrin dose -continue the lower the dose of the Hytrin 1 mg p.o. nightly -Continue Lasix 40 mg once daily and consider increasing again to 40mg po bid or using afternoon prn dose for weight gain -continue Aldactone 12.5 mg once daily -Continue supplemental O2 to keep pulse ox greater than 92% - Echo (2004) - EF 45%; septal infraapical infarct MATTHEW on CKD Stage II: Improving with lowering Lasix dosage, creatinine stable at 1.5 today, electrolytes within normal limits - Continue to monitor periodically with BMP COPD without Exacerbation: - Duonebs PRN E. Coli UTI with BPH with LUTS: Resolved - Known ureteral stricture - continue PRN straight caths - Keflex stopped at this point - no further acute urinary symptoms -Reduced terazosin to 1 mg HS and will continue Proscar 5 mg daily Morbid Obesity: BMI 36.6 - Recommend more activity; largely scooter bound T2DM: A1c 6.5 - Holding Metformin and cover with SSI Chronic Constipation-resolved- -continue Lactulose daily; Senna; Dulcolax Chronic Ambulatory Dysfunction: PT/OT DVT Prophylaxis: Heparin Code Status: FULL RESUSCITATION Disposition: PT/OT evaluations - In agreement for SNF - possible [facility] on Friday
[2017-08-17] MEDS: ASPIRIN 81 MG ECTAB PO SCH (21:03)
[2017-08-17] MEDS: DOCUSATE SODIUM/SENNA 50/8.6MG TAB PO SCH (21:03)
[2017-08-17 23:45] VITALS: BP 120/74; PULSE 70; TEMP 36.8; O2SAT 95
[2017-08-18] MEDS: HEPARIN SOD 5000 UNIT/0.5 ML CARP SQ SCH ×2 (06:15→14:02)
[2017-08-18] MEDS: INSULIN ASPART 100 UNITS/ML 3 ML PEN SC SCH ×2 (07:34→12:13)
[2017-08-18 08:05] VITALS: BP 119/73; PULSE 67; TEMP 36.6; O2SAT 93
[2017-08-18] MEDS: CLOPIDOGREL BISULFATE 75 MG TAB PO SCH (09:04)
[2017-08-18] MEDS: LACTULOSE SYRUP 30 GM/45 ML UDP PO SCH (09:04)
[2017-08-18] MEDS: CARVEDILOL 12.5 MG TAB PO SCH (09:05)
[2017-08-18] MEDS: FUROSEMIDE 40 MG TAB PO SCH (09:05)
[2017-08-18] MEDS: SPIRONOLACTONE 25 MG TAB PO SCH (09:05)
[2017-08-18] MEDS: FINASTERIDE 5 MG TAB PO SCH (09:05)
[2017-08-18] MEDS: PANTOprazole SOD 40 MG TAB PO SCH (09:05)
[2017-08-18] MEDS: ISOSORBIDE MONONITRATE 60 MG TABCR PO SCH (09:05)
[2017-08-18] MEDS ORDERED: LSX40 PO (13:00)
[2017-08-18] MEDS ORDERED: LACT10SO30 PO (13:00)
[2017-08-18] MEDS ORDERED: HYT1 PO (13:00)
[2017-08-18] MEDS ORDERED: ANSHCCR EXT (13:00)
[2017-08-18] MEDS ORDERED: NVLGIPEN SC (13:00)
[2017-08-18] MEDS ORDERED: PRT40 PO (13:00)
[2017-08-18] MEDS ORDERED: FRS/40 PO (13:00)
--- NOTE | 2017-08-18 13:05 | Discharge Instructions ---
Discharge Instructions Date of Service Aug 18, 2017. Admission Reason for Admission: NSTEMI, Acute systolic CHF Discharge Discharge Diagnosis / Problem: Acute on chronic systolic CHF, NSTEMI Discharge Goals Goal(s): Improve disease control, Diagnostic testing, Therapeutic intervention Activity Recommendations Activity Limitations: as noted below Exercise/Sports Limitations: gradually increase as tolerated Shower/Bathe: no limitations . Instructions / Follow-Up Instructions / Follow-Up This patient is an 82-year-old male with a history of chronic systolic CHF, CAD with CO and status post CABG, DM 2, HTN, COPD, carotid artery stenosis, hyperlipidemia, and BPH with LUTS, who presents with progressively worsening dyspnea over 24 hour period-found to have acute on chronic systolic CHF and NSTEMI. NSTEMI:Unclear which came first, the NSTEMI or the systolic CHF exacerbation. Likely demand ischemia due to CHF. Cardiology reviewed previous ECG from the office a couple of weeks prior to admission which actually looks about the same as now-the lateral T-wave changes are not new. Troponin peaked at 2.71 and now trending downward ECHO: *Due to technical limitations, the left ventricle is poorly visualized despite administration of ultrasound enhancement. * The LV regional wall motion cannot be assessed. * On a very limited basis, the ejection fraction appears to be in the range of 40-49% which is his typical historical baseline, however, images are very technically limited." -Heparin drip stopped after 48 hours - continue ASA 81 mg and Plavix 75 mg daily -continue Coreg 12.5 mg BID and Imdur 60 mg daily -Statin intolerance noted -discontinued hydralazine due to recurrent near syncope and weight gain since starting this -No SAMMY inhibitor given renal function worsening-not able to use hydralazine as above - Consult cardiology appreciated-no cardiac catheterization planned at this point due to complex history and was unable to be completely revascularized even with CABG in the past -f/u with Cardiology within 2 weeks after discharge Acute Hypoxic Respiratory Failure/Acute on chronic systolic CHF Exacerbation/ recurrent near syncope:-Has diuresed very nicely -7.2 L of fluid net negative, weight down 13 kg. Did suspect overdiuresis with multiple near syncopal episodes and lasix was decreased to once daily on 08/15,, however hydralazine may have been the culprit which is now stopped No further near syncopal episodes since dc hydralazine and decreased Hytrin dose -continue the lower the dose of the Hytrin 1 mg p.o. nightly -Continue Lasix 40 mg once daily and use afternoon prn dose of 40mg for weight gain -continue Aldactone 12.5 mg once daily -Continue supplemental O2 to keep pulse ox greater than 92% - Echo (2004) - EF 45%; septal infraapical infarct MATTHEW on CKD Stage II: Improving with lowering Lasix dosage, creatinine stable at 1.5, electrolytes within normal limits - Continue to monitor periodically with BMP COPD without Exacerbation: - Duonebs PRN E. 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 * Use the same scale. * Wear the same amount of clothing. * Write your weight down on a chart. * Call your Primary Care doctor if you gain more than 2-3 pounds in 1-2 days. MEDICATIONS * Use this discharge instruction sheet for medication instructions. * Take your medications at the time your doctor ordered. * Do not skip a dose of your medicines. * If you miss a dose of medicine, take it as soon as possible, but DO NOT DOUBLE A DOSE. * Read your medicine information when you get home. * Know all of the side effects of your medicine. If in doubt, ask your pharmacist * Call your Primary Care doctor's office if you have any side effects. * Be sure all of your doctors know what medicine and herbs you take (including cold, flu, and herbal medicine). Take the following with you to your follow-up doctor appointments: * Weight Chart * Medication List * List of questions Do not drink excessive alcohol, beer or wine. Current Hospital Diet Patient's current hospital diet: AHA Diet (Heart Healthy), Diabetes Type 2 Diet Discharge Diet Recommended Diet: Low Sodium Diet (2gm Na), Diabetes Type 2 Diet Fluid Restriction: 1800 ml (7 cups) Procedures Procedures Performed: Chest xrays Chest US Pending Studies Studies pending at discharge: no Laboratory Results Last 24 Hours Test 08/17/17 16:30 08/17/17 20:23 08/18/17 07:25 08/18/17 11:38 Bedside Glucose 162 mg/dl 170 mg/dl 151 mg/dl 183 mg/dl Hemoglobin A1c Test 08/08/17 03:46 Range/Units Estimated Average Glucose 143 mg/dl Hemoglobin A1c 6.6 H 4.5-5.6 % Medical Emergencies . Who to Call and When: Call 911 or go to the Emergency Room if: * If at any time you feel your situation is an emergency * You have tightness or pain in your chest that does not go away with rest or Nitroglycerin * You are very short of breath even with rest . Non-Emergent Contact Non-Emergency issues call your: Primary Care Provider, Lead Caster Helper Call Non-Emergent contact if: you have any medication questions . . "Provider Documentation" section prepared by Loli Godinez. .
--- NOTE | 2017-08-18 13:11 | Discharge Summary ---
Discharge Summary Date of Service Aug 18, 2017. Discharge Summary Admission Date: Aug 07, 2017 at 18:47 Discharge Date: Aug 13, 2017 Discharge Disposition: [facility] facility Principal Diagnosis: Acute on chronic systolic CHF, NSTEMI Problems/Secondary Diagnoses: NSTEMI/Type II, Myocardial demand ischemia CAD with NV and status post CABG DM 2, controlled, not on chcf insulin Obesity, BMI 37 HTN carotid artery stenosis hyperlipidemia BPH with LUTS Statin intolerance Acute renal insufficiency in setting of CKD Stage III Acute Hypoxic Respiratory Failure Near syncope COPD without Exacerbation E. Coli UTI Chronic Constipation Chronic Ambulatory Dysfunction History of ureteral stricture and urinary retention Immunizations: Have You Had Influenza Vaccine: Yes Procedures: CXRs Chest US ECHOCARDIOGRAM Consultations: Cardiology Urology Medication Reconciliation New Medications: Furosemide (Lasix) 40 Mg Tab 40 MG PO QPM PRN for weight gain > 2-3 lbs/24 hours for 30 Days, TAB Furosemide (Furosemide) 40 Mg Tab 40 MG PO QAM for 30 Days, #30 TAB Hydrocortisone (Proctosol Hc) 90 Appln/30 Gm Cr 1 APPLN EXT BID PRN for Hemorrhoids for 30 Days Insulin Aspart (Novolog Flexpen) 100 Units/Ml Inj 0 UNITS SC ACHS for 30 Days Sliding Scale Pantoprazole (Pantoprazole Sodium) 40 Mg Tab 40 MG PO QAM for 30 Days, #30 TAB Spironolactone (Spironolactone) 25 Mg Tab 12.5 MG PO QAM for 30 Days, #15 TAB Terazosin HCl (Terazosin HCl) 1 Mg Cap 1 MG PO HS for 30 Days, #30 CAP Changed Medications: Lactulose (Encephalopathy) (Lactulose) 10 Gm/15 Ml Reyna 30 ML PO QAM for 30 Days (Changed from: BID; Removed Reason) Continued Medications: Aspirin Enteric Coated (Ecotrin Or Generic *) 81 Mg Ectab 81 MG PO HS, 0 Refills Carvedilol (Coreg) 6.25 Mg Tab 12.5 MG PO BID Clopidogrel Bisulfate (Plavix) 75 Mg Tab 75 MG PO QAM, TAB Dutasteride (Avodart) 0.5 Mg Cap 0.5 MG PO HS, CAP Isosorbide Mononitrate (Imdur) 60 Mg Tab 60 MG PO QAM Sennosides-Docusate Sodium (Stool Softener) 1 Tab Tab 1 TAB PO HS Discontinued Medications: Celecoxib (Celebrex *) 200 Mg Cap 200 MG PO QAM, CAP Lisinopril (Lisinopril) 10 Mg Tab 10 MG PO QAM Metformin Hcl (Glucophage) 500 Mg Tab 500 MG PO TID, TAB Omeprazole (Prilosec) 20 Mg Cap 20 MG PO BID 20MG BID FOR ONE MONTH THEN PT IS TO GO BACK TO ONLY 20MG DAILY Terazosin Hcl (Hytrin) 2 Mg Cap 2 MG PO HS, CAP Discharge Exam Feeling very well, no further lightheaded episodes in days, BPs acceptable, no trouble with urine retention, is moving bowels, elmer po. Not SOB except with exertion Physical Exam General Appearance: WD/WN, no apparent distress, + obese Eyes: normal inspection, sclerae normal ENT: hearing grossly normal Neck: trachea midline Respiratory/Chest: no respiratory distress, no accessory muscle use, + decreased breath sounds (throughout due to body habitus, mild wheeze, no crackles) Cardiovascular: regular rate, rhythm, no murmur, + pertinent finding (1+ pitting edema L>R legs) Abdomen: normal bowel sounds, non tender, soft Extremities: no calf tenderness Neurologic/Psychiatric: alert, normal mood/affect, oriented x 3 Skin: normal color, warm/dry, no rash Review of Systems: Constitutional: No problem reported Eyes: No problem reported ENT: No problem reported Respiratory: + dyspnea on exertion Cardiovascular: No chest pain Abdomen: No pain Musculoskeletal: + problem reported (chronic knee joint pain) Genitourinary - Male: No problem reported Neurologic: No problem reported Psychiatric: No problem reported Endocrine: No problem reported Hematologic / Lymphatic: No problem reported Integumentary: No problem reported Hospital Course This patient is an 82-year-old male with a history of chronic systolic CHF, CAD with NV and status post CABG, DM 2, HTN, COPD, carotid artery stenosis, hyperlipidemia, and BPH with LUTS, who presents with progressively worsening dyspnea over 24 hour period-found to have acute on chronic systolic CHF and NSTEMI. NSTEMI:Unclear which came first, the NSTEMI or the systolic CHF exacerbation. Likely demand ischemia due to CHF. Cardiology reviewed previous ECG from the office a couple of weeks ago which actually looks about the same as now-the lateral T-wave changes are not new. Troponin peaked at 2.71 and now trending downward ECHO: *Due to technical limitations, the left ventricle is poorly visualized despite administration of ultrasound enhancement. * The LV regional wall motion cannot be assessed. * On a very limited basis, the ejection fraction appears to be in the range of 40-49% which is his typical historical baseline, however, images are very technically limited." -Heparin drip stopped a while back - continue ASA 81 mg and Plavix 75 mg daily - Coreg 12.5 mg BID and Imdur 60 mg daily -Statin intolerance noted -discontinued hydralazine due to recurrent near syncope and weight gain since starting this -No SAMMY inhibitor given renal function worsening-not able to use hydralazine as above - Consult cardiology appreciated-no cardiac catheterization planned at this point due to complex history and was unable to be completely revascularized even with CABG in the past Acute Hypoxic Respiratory Failure/Acute on chronic systolic CHF Exacerbation/ recurrent near syncope:-Has diuresed very nicely -7.2 L of fluid net negative, weight down 13 kg. Did suspect overdiuresis with multiple near syncopal episodes and lasix was decreased to once daily on 08/15,, however hydralazine may have been the culprit which is now stopped No further near syncopal episodes since dc hydralazine and decreased Hytrin dose -continue the lower the dose of the Hytrin 1 mg p.o. nightly -Continue Lasix 40 mg once daily and consider increasing again to 40mg po bid or using afternoon prn dose for weight gain -continue Aldactone 12.5 mg once daily -Continue supplemental O2 to keep pulse ox greater than 92% - Echo (2004) - EF 45%; septal infraapical infarct MATTHEW on CKD Stage II: Improving with lowering Lasix dosage, creatinine stable at 1.5 today, electrolytes within normal limits - Continue to monitor periodically with BMP COPD without Exacerbation: - Duonebs PRN E. Coli UTI with BPH with LUTS: Resolved - Known ureteral stricture - continue PRN straight caths - Keflex stopped at this point - no further acute urinary symptoms -Reduced terazosin to 1 mg HS and will continue Proscar 5 mg daily Morbid Obesity: BMI 36.6 - Recommend more activity; largely scooter bound T2DM: A1c 6.5 - Holding Metformin and cover with SSI Chronic Constipation-resolved- -continue Lactulose daily; Senna; Dulcolax Chronic Ambulatory Dysfunction: PT/OT DVT Prophylaxis: Heparin Code Status: FULL RESUSCITATION Disposition: PT/OT evaluations - In agreement for SNF - [facility] on Friday Total Time Spent: Greater than 30 minutes This includes examination of the patient, discharge planning, medication reconciliation, and communication with other providers. Discharge Instructions Please refer to the electronic Patient Visit Report (Discharge Instructions) for additional information. Follow-Up With PCP within 1 week after discharge With Cardiology within 2 weeks Additional Copies To Antony Valladares M.D.; Joseph Baird M.D.
[2017-08-18 14:21] VITALS: BP 119/73; PULSE 67; TEMP 36.6; O2SAT 93
== END 2017-08-18 15:35 | DRG 280 ==
LOC: EDBD 15:56 → C.EDB 15:58 → C.2T 18:47 → CANRESERV 19:10 → ENRESERV 19:10 → C.2T 08-12 06:52 → ENRESERV 08-14 17:22 → C.MS2W 08-14 18:43
PROVIDERS: ADMIT Internal Medicine; ATTEND Family Medicine
DX: I21.A1 Myocardial infarction type 2 (principal); I50.23 Acute on chronic systolic (congestive) heart failure; I13.0 Hypertensive heart and chronic kidney disease with heart failure and stage 1 through stage 4 chronic kidney disease, or unspecified chronic kidney disease; N39.0 Urinary tract infection, site not specified; J96.01 Acute respiratory failure with hypoxia; N17.9 Acute kidney failure, unspecified; J44.9 Chronic obstructive pulmonary disease, unspecified; E78.5 Hyperlipidemia, unspecified; I21.4 Non-ST elevation (NSTEMI) myocardial infarction; I65.29 Occlusion and stenosis of unspecified carotid artery; Z95.1 Presence of aortocoronary bypass graft; E11.21 Type 2 diabetes mellitus with diabetic nephropathy; E66.9 Obesity, unspecified; I25.2 Old myocardial infarction; Z87.891 Personal history of nicotine dependence; Z88.0 Allergy status to penicillin; N18.3 Chronic kidney disease, stage 3 (moderate); N40.1 Benign prostatic hyperplasia with lower urinary tract symptoms; Z79.84 Long term (current) use of oral hypoglycemic drugs; Z91.040 Latex allergy status; Z68.37 Body mass index [BMI] 37.0-37.9, adult; B96.20 Unspecified Escherichia coli [E. coli] as the cause of diseases classified elsewhere

== ENCOUNTER → 2017-12-08 | Outpatient (CLI) | payer OTHER ==
[~2017-12-08] MED LIST changes: +ACET1TAB84 PO; +ANSHCCR EXT; -CLB200 PO; +DOCU100C31 PO; -FELO5TAB PO; -GLC/500 PO; -GLC500 PO; +HYDR-4717 PO; -HYT/2 PO; +LACT10SO30 PO; -LCTL30 PO; -LISI-461 PO; +LSX40 PO; +NTRGSL/4 UT; +NVLGIPEN SC; +PANT1TAB4 PO; +SPIR25TA6 PO; +TERA1CAP38 PO; +vitamin d
[2017-12-08 13:45] LABS: ALBUMIN 3.9 gm/dl (3.4-5.0); BLOOD UREA NITROGEN 51 mg/dl (7-18); CALCIUM 9.4 mg/dl (8.5-10.1); CARBON DIOXIDE 24 mmol/L (21-32); CREATININE 1.59 mg/dl (0.60-1.40); GLUCOSE 184 mg/dl (70-99); PHOSPHORUS 3.7 mg/dl (2.5-4.9); POTASSIUM 4.3 mmol/L (3.5-5.1); SODIUM 133 mmol/L (136-145)
== END | disposition home or self-care (01) ==
LOC: C.LABBC 11:47
PROVIDERS: ATTEND Internal Medicine Nephrology
DX: I95.9 Hypotension, unspecified (principal)

== ENCOUNTER 2018-04-23 11:26 | Inpatient (IN) ==
--- NOTE | 2018-04-23 11:56 | XRay Report ---
XR chest 1V portable CLINICAL HISTORY: Shortness of breath. COMPARISON STUDY: Chest radiograph February 05, 2018. FINDINGS: Note is made of median sternotomy wires, mediastinal surgical clips and a dual-lead left milton bclavian pacer/AICD. There are small bilateral pleural effusions. Diffuse interstitial thickening wit h bilateral opacities are noted. There is no pneumothorax. Cardiomegaly is unchanged. IMPRESSION: 1. Interstitial thickening with bilateral airspace opacities. Pulmonary edema is favored although pne umonia could appear similar. Radiographic follow-up is recommended. 2. Small bilateral pleural effusions. Electronically signed by: Aaron Heath M.D. 04/23/2018 11:55 AM
[2018-04-23 11:58] LABS: Basophils # (auto) 0.03 K/uL (0-0.2); Basophils % (auto) 0.4 %; Eosinophils # (auto) 0.12 K/uL (0-0.5); Eosinophils % (auto) 1.7 %; Hematocrit (blood only) 29.8 % (42-52); Hemoglobin 9.7 g/dL (14.0-18.0); Immature Granulocytes # (auto) 0.02 K/uL (0.00-0.02); Immature Granulocytes % (auto) 0.3 %; Lymphocytes # (auto) 0.66 K/uL (1.2-3.4); Lymphocytes % (auto) 9.3 %; Mean Corpuscular Hgb Conc 32.6 g/dL (32-36); Mean Corpuscular Volume 99.3 fL (80-100); Mean Platelet Volume 8.6 fL (7.4-10.4); Monocytes # (auto) 0.74 K/uL (0.11-0.59); Monocytes % (auto) 10.5 %; Neutrophils # (auto) 5.49 K/uL (1.4-6.5); Neutrophils % (auto) 77.8 %; Platelet Count 151 K/uL (130-400); RDW Coefficient of Variation 15.8 % (11.5-14.5); RDW Standard Deviation 56.9 fL (36.4-46.3); White Blood Count 7.06 K/uL (4.8-10.8)
[2018-04-23 12:05] LABS: Albumin Level 3.2 gm/dl (3.4-5.0); BUN Creatinine Ratio 19.7 (10-20); Calcium 8.8 mg/dl (8.5-10.1); Creatinine Clr Calc Pharmacy 49.7 ml/min; Est GFR (African American) 48.7; Potassium 4.2 mmol/L (3.5-5.1)
[2018-04-23 12:10] LABS: Albumin Globulin Ratio 0.8 (0.9-2); Bilirubin,Total 0.8 mg/dl (0.2-1); Globulin 3.8 gm/dl (2.5-4.0); Troponin I 0.02 ng/ml (0-0.045)
[2018-04-23 12:14] LABS: INR 3.3 (0.9-1.1); Partial Thromboplastin Ratio 1.8
[2018-04-23 12:21] LABS: Partial Thromboplastin Time 46.2 Seconds (21.0-31.0)
[2018-04-23] MEDS ORDERED: FUROSEMIDE 40 MG/4 ML VIAL IV STA (12:21)
--- NOTE | 2018-04-23 13:50 | History & Physical Report ---
Date of Service April 23, 2018 Assessment & Plan (1) CHF exacerbation: Patient with 3 days of progressive SOB as well as orthopnea/weight gain/ hypoxia. Elevated BNP and pulmonary edema noted on CXR. He reports compliance with his home medications, however, may have been less compliant with sodium restriction over the holidays. Patient presently with no respiratory distress. Saturation 94-96% on 5L NC. * Will admit to medical floor with telemetry * Lasix 20mg IV BID * Monitor strict intake/output, daily weights and BID BMPs with close attention to renal function * Low Na diet * COntinue Metoprolol 12.5mg po BID * Continue Imdur 60mg po daily * Present on Admission?: Yes (2) Hypoxia: Oxygenation improved on NC. Hypoxia most likely secondary to acute exacerbation of CHF. Patient afebrile, no leukocytosis, anticoagulated on Coumadin * Supplemental O2 as needed * Present on Admission?: Yes (3) CAD (coronary artery disease): Patient with CAD s/p CABG with subsequent stenting. AICD in place for episode of VT. Presently with no chest pain. Troponin detectable at 0.02. * Telemetry monitoring * Trend troponin * Continue Plavix * Continue Metoprolol * Continue Amiodarone * Present on Admission?: Yes (4) Atrial fibrillation: Patient presently in NSR. Anticoagulated with Coumadin, INR 3.3 * Continue Metoprolol and Amiodarone as above * Continue Coumadin * Daily INR monitoring * (5) DM w/o complication type II: Diet controlled. Blood sugar presently 137. Last HgAIC=6.3 02/01/18 * Monitor blood sugars on BMP * If elevated will add fingersticks and insulin coverage * (6) Tinea cruris: Patient with Tinea cruris in right groin. No bleeding. No evidence of secondary bacterial infection * Clotrimozole cream BID * Monitor * Present on Admission?: Yes (7) CKD (chronic kidney disease), stage III: Patient with baseline Cr of 1.4 - 1.6. Presently at 1.54. Adequate UOP. Electrolytes WNL * Diuresis as above * BID BMPs to monitor electrolytes and renal function * Avoid nephrotoxic agents * Renal dosing where appropriate * (8) BPH (benign prostatic hyperplasia): Chronic. Stable * Continue Terazosin * Continue Finasteride * F/E/N- Diuresis as above. BMP BID. Low Na, heart healthy diet as tolerated Ppx - Coumadin as above Code - Full per discussion with patient Dispo - Medical floor with telemetry Present on Admission?: Yes History of Present Illness Chief Complaint: SOB Primary Care Provider: Antony Valladares MD Mr. Daugherty is a pleasant 82yo male with extensive cardiac history to include CAD s/p CABG x 4v in 2004 with incomplete vascularization, subsequent [place] placed to on 02/05/18 after presenting with syncope, NSTEMI and sustained VT , s/p dual chamber AICD placement and initiation of Amiodarone. Patient with chronic systolic and diastolic CHF. with EF of 40-49% with grade I diastolic dysfunction per echo 08/08/17. He presents today with complaint of 3 days of progressive SOB, worse on exertion but at rest as well. Patient also with orthopnea, trace edema and a 10 # unintentional weight gain since . Patient has home pulse oximeter and states that his oxygen saturation was periodically in the high 70' s and 80's. Also with fatigue and poor appetite. He denies chest pain, palpitations, cough, wheeze, fevers, chills. Denies abdominal pain, nausea, vomiting, diarrhea or constipation. He does have some mild nasal congestion. When EMS arrived patient was found to be hypoxic, 80% on room air. He was placed on BiPAP for transfer to the ER. Upon arrival to the ER patient was found to be tachypneic at 24bpm and hypoxic 80% on room air. He was placed on 5L nasal cannula with adequate oxygenation. Presetnly he feels better, SOB has improved. He was given Lasix 40mg IV x 1 with response in UOP. No additional complaints at this time. ER Course: Lasix 40mg IV Allergies Allergy/AdvReac Type Severity Reaction Status Date / Time clindamycin Allergy Intermediate Rash Verified 04/23/18 13:18 atorvastatin Allergy Unknown GI SYMPTOMS Verified 04/23/18 13:18 Iodinated Contrast- Oral and Allergy Unknown ANAPHYLAXIS Verified 04/23/18 13:18 IV Dye Penicillins Allergy Unknown BOILS Verified 04/23/18 13:18 rosuvastatin Allergy Unknown GI SYMPTOMS Verified 04/23/18 13:18 shellfish derived Allergy Unknown ANAPHYLAXIS Verified 04/23/18 13:18 levofloxacin [From Levaquin] Allergy Insomnia Verified 04/23/18 13:18 latex AdvReac Unknown RASH Verified 04/23/18 13:18 [id number] Reductase AdvReac Unknown severe Verified 04/23/18 13:18 Inhibitor myalgias Home Medications Home Medications Medication Instructions Recorded Confirmed Type docusate sodium [Colace] 100 mg PO HS 01/31/18 04/23/18 History dutasteride 0.5 mg PO HS 01/31/18 04/23/18 History isosorbide mononitrate 60 mg PO QAM 01/31/18 04/23/18 History lactulose 15 ml PO HS 01/31/18 04/23/18 History nitroglycerin 0.4 mg SUBLINGUAL UD PRN 01/31/18 04/23/18 History pantoprazole 40 mg PO QAM 01/31/18 04/23/18 History terazosin 1 mg PO HS 01/31/18 04/23/18 History warfarin 2 mg PO 5XWK 01/31/18 04/23/18 History warfarin 4 mg PO 2XWK 01/31/18 04/23/18 History amiodarone 200 mg PO QAM #30 tab 02/06/18 04/23/18 Rx metoprolol tartrate 12.5 mg PO BID #30 tab 02/06/18 04/23/18 Rx acetaminophen [Mapap 650 mg PO BID 04/23/18 04/23/18 History (acetaminophen)] furosemide 20 mg PO 3XWK 04/23/18 04/23/18 History polyethylene glycol 3350 [Miralax] 17 g PO QAM 04/23/18 04/23/18 History Past Med/Surg History Medical History Pressure ulcer (Acute) Drug eruption Tinea cruris DVT prophylaxis Osteoarthritis of knees, 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 Constipation Patient on home bowel regimen but requesting possible enema to aid in bowel movement 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, NYHA class 2 STEMI (ST elevation myocardial infarction) Atrial fibrillation CAD (coronary artery disease) Ventricular tachycardia (Acute) Syncope (Acute) Laceration of forehead, left, complicated (Acute) CKD (chronic kidney disease), stage III (Acute) Sepsis COPD (chronic obstructive pulmonary disease) (Chronic) NSTEMI (non-ST elevated myocardial infarction) ASCVD (arteriosclerotic cardiovascular disease) (Acute) Former smoker (Acute) Status post fall (Acute) Angina, class II Chronic combined systolic and diastolic CHF (congestive heart failure) Dyslipidemia, goal LDL below 70 Paroxysmal atrial fibrillation Popliteal aneurysm Stenosis of right internal carotid artery Urinary retention Surgical History AICD (automatic cardioverter/defibrillator) present (Acute) History of coronary artery stent placement (Acute) S/P CABG x 1 (Acute) S/P CABG x 2 (Acute) S/P CABG x 4 Family History Other No pertinent family history Social History marital status: Current Living Situation: Spouse current occupational status: retired Other Information That Helps Us Care for You: No Feels Safe at Home: Yes Safety Concerns: Feels Safe At This Time Smoking Status: Former smoker Hx Alcohol Use: Yes Alcohol type: wine Alcohol Intake Frequency: a few times a week Hx Substance Use: No Beliefs That Will Affect Care: None Preferred Language: Kazakh Communication Ability: Effective Review of Systems All systems reviewed & are unremarkable except as noted in HPI & below Physical Exam 2 Vital Signs (Past 24 Hours): Last Vital Signs Temp 36.6 C 04/23/18 11:48 Pulse 66 04/23/18 13:29 Resp 22 04/23/18 13:29 BP 144/73 H 04/23/18 13:29 Pulse Ox 94 04/23/18 13:29 Physical Exam: General: patient resting comfortably, NAD, non-toxic in appearance, AA&O x 4 Skin: warm, dry,fungal appearing rash right groin, wound on right heel HEENT: NC/AT, PERRL, EOMI, anicteric sclera, conjunctiva without injection, external ear normal to inspection and nontender, nares patent, moist mucus membranes, dentition intact, no oropharyngeal lesions, neck supple, trachea midline, no LAD, no thyromegaly, no JVD Heart: +S1/S2, regular, no m/r/g Lungs: equal air entry bilaterally, diffuse crackles in bilateral bases with diminished breath sounds in the bases, no rhonchi/wheezes Abd: +BS, soft, NT/ND, no masses/organomegaly/ascites Ext: warm, 2+ pulses in UE/LE bilaterally, no clubbing/cyanosis, trace pitting edema of bilateral LE. Neuro: nonfocal, patient AA&O x 4, speech intact, no facial droop, moving all extremities on command with equal strength 5/5 Results & Data Laboratory Results Lab Results 04/23/18 04/23/18 04/23/18 Range/Units 11:40 11:40 11:40 WBC 7.06 (4.8-10.8) K/uL RBC 3.00 L (4.7-6.1) M/uL Hgb 9.7 L (14.0-18.0) g/dL Hct 29.8 L (42-52) % MCV 99.3 (80-100) fL MCH 32.3 (25-34) pg MCHC 32.6 (32-36) g/dL RDW Std Deviation 56.9 H (36.4-46.3) fL RDW Coeff of Dayanara 15.8 H (11.5-14.5) % Plt Count 151 (130-400) K/uL MPV 8.6 (7.4-10.4) fL Immature Gran % (Auto) 0.3 % Neut % (Auto) 77.8 % Lymph % (Auto) 9.3 % [place] % (Auto) 10.5 % Eos % (Auto) 1.7 % Baso % (Auto) 0.4 % Immature Gran # (Auto) 0.02 (0.00-0.02) K/uL Neut # (Auto) 5.49 (1.4-6.5) K/uL Lymph # (Auto) 0.66 L (1.2-3.4) K/uL [place] # (Auto) 0.74 H (0.11-0.59) K/uL Eos # (Auto) 0.12 (0-0.5) K/uL Baso # (Auto) 0.03 (0-0.2) K/uL PT 31.0 H (9.0-12.0) Seconds INR 3.3 H (0.9-1.1) APTT 46.2 H* (21.0-31.0) Seconds PTT Ratio 1.8 Sodium 137 (136-145) mmol/L Potassium 4.2 (3.5-5.1) mmol/L Chloride 104 (98-107) mmol/L Carbon Dioxide 24 (21-32) mmol/L Anion Gap 9.0 (3-11) BUN 30 H (7-18) mg/dl Creatinine 1.54 H (0.6-1.4) mg/dl Est Cr Clr Drug Dosing 49.7 ml/min Est GFR ( Amer) 48.7 Est GFR (Non-Af Amer) 42.0 BUN/Creatinine Ratio 19.7 (10-20) Glucose 137 H (70-99) mg/dl Calcium 8.8 (8.5-10.1) mg/dl Total Bilirubin 0.8 (0.2-1) mg/dl AST 14 L (15-37) U/L ALT 11 L (12-78) U/L Alkaline Phosphatase 71 (45-117) U/L Troponin I 0.020 (0-0.045) ng/ml NT-Pro-B Natriuret Pep (0-1800) pg/ml Total Protein 7.0 (6.4-8.2) gm/dl Albumin 3.2 L (3.4-5.0) gm/dl Globulin 3.8 (2.5-4.0) gm/dl Albumin/Globulin Ratio 0.8 L (0.9-2) 04/23/18 Range/Units 11:40 WBC (4.8-10.8) K/uL RBC (4.7-6.1) M/uL Hgb (14.0-18.0) g/dL Hct (42-52) % MCV (80-100) fL MCH (25-34) pg MCHC (32-36) g/dL RDW Std Deviation (36.4-46.3) fL RDW Coeff of Dayanara (11.5-14.5) % Plt Count (130-400) K/uL MPV (7.4-10.4) fL Immature Gran % (Auto) % Neut % (Auto) % Lymph % (Auto) % [place] % (Auto) % Eos % (Auto) % Baso % (Auto) % Immature Gran # (Auto) (0.00-0.02) K/uL Neut # (Auto) (1.4-6.5) K/uL Lymph # (Auto) (1.2-3.4) K/uL [place] # (Auto) (0.11-0.59) K/uL Eos # (Auto) (0-0.5) K/uL Baso # (Auto) (0-0.2) K/uL PT (9.0-12.0) Seconds INR (0.9-1.1) APTT (21.0-31.0) Seconds PTT Ratio Sodium (136-145) mmol/L Potassium (3.5-5.1) mmol/L Chloride (98-107) mmol/L Carbon Dioxide (21-32) mmol/L Anion Gap (3-11) BUN (7-18) mg/dl Creatinine (0.6-1.4) mg/dl Est Cr Clr Drug Dosing ml/min Est GFR ( Amer) Est GFR (Non-Af Amer) BUN/Creatinine Ratio (10-20) Glucose (70-99) mg/dl Calcium (8.5-10.1) mg/dl Total Bilirubin (0.2-1) mg/dl AST (15-37) U/L ALT (12-78) U/L Alkaline Phosphatase (45-117) U/L Troponin I (0-0.045) ng/ml NT-Pro-B Natriuret Pep 4864 H (0-1800) pg/ml Total Protein (6.4-8.2) gm/dl Albumin (3.4-5.0) gm/dl Globulin (2.5-4.0) gm/dl Albumin/Globulin Ratio (0.9-2) Diagnostic Findings XR chest 1V portable CLINICAL HISTORY: Shortness of breath. COMPARISON STUDY: Chest radiograph February 05, 2018. FINDINGS: Note is made of median sternotomy wires, mediastinal surgical clips and a dual-lead left subclavian pacer/AICD. There are small bilateral pleural effusions. Diffuse interstitial thickening with bilateral opacities are noted. There is no pneumothorax. Cardiomegaly is unchanged. IMPRESSION: 1. Interstitial thickening with bilateral airspace opacities. Pulmonary edema is favored although pneumonia could appear similar. Radiographic follow-up is recommended. 2. Small bilateral pleural effusions. Electronically signed by: Aaron Heath M.D. 04/23/2018 11:55 AM Dictated: 04/23/18 1154 Transcribed: 04/23/18 1154 ECG Additional Comments: The study shows SR at 73bpm with first degree AV block, OK= 218, normal axis, YTM=207, VEh=127, evidence of old inferior infarct, no acute ST-T wave changes Code Status & VTE Plan Code Status Full per discussion with patient VTE Prophylaxis Plan VTE Prophylaxis will be ordered: No Critical Care Time Critical Care Time: No _ (1) CHF exacerbation Heart failure type: unspecified Qualified Code(s): I50.9 - Heart failure, unspecified (2) CAD (coronary artery disease) Coronary Disease-Associated Artery/Lesion type: bypass graft [place] vs. transplanted heart: [place] heart Associated angina: without angina Qualified Code(s): I25.810 - Atherosclerosis of coronary artery bypass graft(s) without angina pectoris (3) Atrial fibrillation Atrial fibrillation type: paroxysmal Qualified Code(s): I48.0 - Paroxysmal atrial fibrillation (4) DM w/o complication type II Diabetes mellitus local [employer] insulin use: without nursing home use Qualified Code (s): E11.9 - Type 2 diabetes mellitus without complications (5) BPH (benign prostatic hyperplasia) Lower urinary tract symptom presence: symptoms absent Qualified Code(s): N40.0 - Benign prostatic hyperplasia without lower urinary tract symptoms
[2018-04-23] MEDS ORDERED: ACETAMINOPHEN 325 MG TAB PO PRN (15:26)
[2018-04-23] MEDS ORDERED: SODIUM CHLORIDE 0.65% NA SOLN 45 ML (OCEAN) PRN (15:26)
[2018-04-23] MEDS: WARFARIN SOD 2 MG TAB PO SCH (16:45)
[2018-04-23] MEDS: FUROSEMIDE 20 MG in SYRINGE 0 ML IV SCH (17:33)
--- NOTE | 2018-04-23 19:16 | Emergency Department Note ---
Entered by Kate Moses acting as a scribe for Tyrone Pierre History of Present Illness General Chief complaint: Shortness of Breath/Dyspnea Time Seen by Provider: 04/23/18 12:13 Source: patient and family History of Present Illness Onset (ago): day(s) (this morning) Location: chest Pain Consistency: + other (worsening) Quality: + other (shortness of breath) Relieved By: not by medication (furosemide) Associated symptoms: + denies other symptoms (diarrhea), + loss of appetite and + other (leg swelling, weight gain); no cough, no fever/chills (fever) and no nausea/vomiting The patient is an 82 year old male who presents to the Emergency Room with complaints of worsening shortness of breath starting this morning. The patient states that he has a large cardiac history spanning over many years. He states that he has had multiple heart attacks, stents placed, and bypasses done, some of which are now closed. He reports that last year he was in the hospital twice. He states that in July he was here for CHF and again was here in January for A-Fib. He reports that he also had a pacemaker and defibrillator placed in January. He notes that he was started on Coumadin at this time. The patient states that since then he was been doing well. He states that this morning he started having increased trouble breathing. He notes that he has had increased leg swelling with it and noticed that he has gained 10 lbs over a month. He notes that he does take Furosemide 3 times a week, but it has offered no relief. The patient complains of loss of appetite. The patients notes that he used to slef cath 2-3 times a week, but hasnt been able to get the cath in since his most recent hospital visit. The patient denies fever, cough, nausea, vomiting, diarrhea, and normally wearing Oxygen. Home Medications Home Medications Medication Instructions Recorded Confirmed Type docusate sodium [Colace] 100 mg PO HS 01/31/18 04/23/18 History dutasteride 0.5 mg PO HS 01/31/18 04/23/18 History isosorbide mononitrate 60 mg PO QAM 01/31/18 04/23/18 History lactulose 15 ml PO HS 01/31/18 04/23/18 History nitroglycerin 0.4 mg SUBLINGUAL UD PRN 01/31/18 04/23/18 History pantoprazole 40 mg PO QAM 01/31/18 04/23/18 History terazosin 1 mg PO HS 01/31/18 04/23/18 History warfarin 2 mg PO 5XWK 01/31/18 04/23/18 History warfarin 4 mg PO 2XWK 01/31/18 04/23/18 History amiodarone 200 mg PO QAM #30 tab 02/06/18 04/23/18 Rx metoprolol tartrate 12.5 mg PO BID #30 tab 02/06/18 04/23/18 Rx acetaminophen [Mapap 650 mg PO BID 04/23/18 04/23/18 History (acetaminophen)] furosemide 20 mg PO 3XWK 04/23/18 04/23/18 History polyethylene glycol 3350 [Miralax] 17 g PO QAM 04/23/18 04/23/18 History Allergies Allergy/AdvReac Type Severity Reaction Status Date / Time Iodinated Contrast- Oral and Allergy Severe ANAPHYLAXIS Verified 04/23/18 15:45 IV Dye shellfish derived Allergy Severe ANAPHYLAXIS Verified 04/23/18 15:45 clindamycin Allergy Intermediate Rash Verified 04/23/18 13:18 Penicillins Allergy Intermediate BOILS Verified 04/23/18 15:45 latex AdvReac Intermediate RASH Verified 04/23/18 15:45 Qrketns-Isd-Ygy Reductase AdvReac Intermediate severe Verified 04/23/18 15:45 Inhibitor myalgias atorvastatin AdvReac Mild GI SYMPTOMS Verified 04/23/18 15:45 levofloxacin [From Levaquin] AdvReac Mild Insomnia Verified 04/23/18 15:45 rosuvastatin AdvReac Mild GI SYMPTOMS Verified 04/23/18 15:45 Past Med/Surg History Medical History Pressure ulcer (Acute) Drug eruption Tinea cruris DVT prophylaxis Osteoarthritis of knees, 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 Constipation Patient on home bowel regimen but requesting possible enema to aid in bowel movement 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, NYHA class 2 STEMI (ST elevation myocardial infarction) Atrial fibrillation CAD (coronary artery disease) Ventricular tachycardia (Acute) Syncope (Acute) Laceration of forehead, left, complicated (Acute) CKD (chronic kidney disease), stage III (Acute) Sepsis COPD (chronic obstructive pulmonary disease) (Chronic) NSTEMI (non-ST elevated myocardial infarction) ASCVD (arteriosclerotic cardiovascular disease) (Acute) Former smoker (Acute) Status post fall (Acute) Angina, class II Chronic combined systolic and diastolic CHF (congestive heart failure) Dyslipidemia, goal LDL below 70 Paroxysmal atrial fibrillation Popliteal aneurysm Stenosis of right internal carotid artery Urinary retention Surgical History AICD (automatic cardioverter/defibrillator) present (Acute) History of coronary artery stent placement (Acute) S/P CABG x 1 (Acute) S/P CABG x 2 (Acute) S/P CABG x 4 Family History Other No pertinent family history Social History marital status: Current Living Situation: Spouse current occupational status: retired Other Information That Helps Us Care for You: No Feels Safe at Home: Yes Safety Concerns: Feels Safe At This Time Smoking Status: Former smoker Hx Alcohol Use: Yes Alcohol type: wine Alcohol Intake Frequency: a few times a week Hx Substance Use: No Beliefs That Will Affect Care: None Preferred Language: Romanian Communication Ability: Effective Review of Systems See HPI for pertinent positives & negatives. and A total of 10 systems reviewed and were otherwise negative Physical Exam Vital Signs Vital Signs - 24 hr 04/23/18 11:48 04/23/18 12:46 04/23/18 13:29 Temperature 36.6 C Temperature Source Oral Sepsis Recent Fever Within 48 Hours No Sepsis Action Taken by Nursing No Action Required Pulse Rate 81 Pulse Rate [Left Radial] 63 69 66 Pulse Rhythm Regular Pulse Strength Normal Respiratory Rate 24 24 22 Respiratory Effort / Characteristics Accessory Muscle Use Short of Breath SOB on Exertion Non-Labored Spontaneous Respiratory Depth Normal Respiratory Pattern Tachypnea Blood Pressure 157/77 H Blood Pressure [Left Arm] 147/72 H 144/73 H Blood Pressure Mean 103 Blood Pressure Mean [Left Arm] 97 96 Blood Pressure Position Lying Blood Pressure Position [Left Arm] Lying Lying Pulse Oximetry 96 92 94 Oxygen Delivery Method Nasal Cannula Nasal Cannula Nasal Cannula Oxygen Flow Rate 2 5 5 04/23/18 13:48 04/23/18 14:27 Temperature Temperature Source Sepsis Recent Fever Within 48 Hours Sepsis Action Taken by Nursing Pulse Rate Pulse Rate [Left Radial] 64 Pulse Rhythm Pulse Strength Respiratory Rate 18 Respiratory Effort / Characteristics Non-Labored Spontaneous Non-Labored Spontaneous Respiratory Depth Normal Normal Respiratory Pattern Regular Blood Pressure Blood Pressure [Left Arm] 138/74 Blood Pressure Mean Blood Pressure Mean [Left Arm] 95 Blood Pressure Position Blood Pressure Position [Left Arm] Pulse Oximetry 95 Oxygen Delivery Method Nasal Cannula Room Air Oxygen Flow Rate 5 Physical Exam GENERAL: He is oriented to person, place, and time. He appears well-developed and well-nourished. He does not appear distressed. HENT: Exam performed. - Head: Normocephalic and atraumatic. - Right Ear: External ear normal. No mastoid tenderness. - Left Ear: External ear normal. No mastoid tenderness. - Mouth/Throat: The oropharynx is clear and moist. No trismus in the jaw. No dental abscesses or uvula swelling. No oropharyngeal exudate or tonsillar abscesses. EYES: Conjunctivae and EOM are normal. Pupils are equal, round, and reactive to light. Right eye exhibits no discharge. Left eye exhibits no discharge. No scleral icterus. NECK: Normal range of motion. Neck supple. No JVD present. No spinous process tenderness present. No carotid bruit present. No rigidity. No tracheal deviation and normal range of motion present. No Brudzinski's sign and no Kernig 's sign noted. CV: Normal rate, regular rhythm, normal heart sounds and intact distal pulses. There is 2+ pitting edema in bilateral lower extremities. Palpable radial pulses bue. PULM/CHEST: Effort normal and breath sounds normal. No respiratory distress. No stridor. He has no wheezes. He has rales bilaterally. - Chest Wall: He exhibits no tenderness. ABD: The abdomen is soft. Bowel sounds are normal. He has no distension. No mass is present. There is no tenderness. There is no rebound, no guarding, no Peralta's sign and no tenderness at McBurney's point. Rovsig negative. MUSC/SKEL: Normal range of motion. There is 2+ pitting edema in bilateral lower extremities. There is no tenderness or deformity. LYMPH: No cervical adenopathy. NEURO: He is alert and oriented to person, place, and time. He has normal strength. No cranial nerve deficit or sensory deficit. Coordination and gait normal. GCS eye subscore is 4. GCS verbal subscore is 5. GCS motor subscore is 6. Cerebellar tests wnl. SKIN: Skin is warm and dry. He is not diaphoretic. Ulcer over his right lateral heel which appears to be healing appropriately. No purulent discharge or bleeding. PSYCH: He has a normal mood and affect. Behavior is normal. Judgment and thought content normal. Course 1215: Past medical records reviewed. The patient was evaluated in room A9B, and a complete history and physical examination were performed. EMS bought the patient in with low O2 saturations in the the 80s. They started him on Bi-PAP which was discontinued in the ED. The patient states that the Bi-PAP helped a lot. I discussed the test results and treatment plan with him today. He verbally agrees and understands. 1232: Vital signs stable on nasal cannula. Chest x-ray shows cardiomegaly with cephalization. Troponin within normal limits. Creatinine is at baseline. The patient will be treated with Lasix and admitted to the hospital. I reviewed the patient's case with Dr. Harry DEWITT Hospitalist. She will evaluate the patient for further management. Consultations Consultation #1: I reviewed the patient's case with Dr. Harry DEWITT Hospitalist. She will evaluate the patient for further management. Time: 12:32 Administered Medications Furosemide 20 mg/ Syringe 2 mls @ 4 mls/min IV [id number] [facility] Stop: 05/23/18 17:59 Last Admin: 04/23/18 17:33 Dose: 4 mls/min Warfarin Sodium (Coumadin) 2 mg PO [id number] [facility] Stop: 05/23/18 15:59 Last Admin: 04/23/18 16:45 Dose: 2 mg Discontinued Medications Furosemide (Lasix) 40 mg IV NOW [facility] Stop: 04/23/18 12:22 Last Admin: 04/23/18 12:39 Dose: 40 mg Medical Decision Making Medical Records Attestation: I reviewed the patient's medical records. Home Medications Current Medication List: was personally reviewed by me Laboratory Data Attestation: I reviewed the patient's lab results. Result diagrams: 04/23/18 11:40 04/23/18 11:40 Lab Results 04/23/18 04/23/18 04/23/18 Range/Units 11:40 11:40 11:40 WBC 7.06 (4.8-10.8) K/uL RBC 3.00 L (4.7-6.1) M/uL Hgb 9.7 L (14.0-18.0) g/dL Hct 29.8 L (42-52) % MCV 99.3 (80-100) fL MCH 32.3 (25-34) pg MCHC 32.6 (32-36) g/dL RDW Std Deviation 56.9 H (36.4-46.3) fL RDW Coeff of Dayanara 15.8 H (11.5-14.5) % Plt Count 151 (130-400) K/uL MPV 8.6 (7.4-10.4) fL Immature Gran % (Auto) 0.3 % Neut % (Auto) 77.8 % Lymph % (Auto) 9.3 % Randolph % (Auto) 10.5 % Eos % (Auto) 1.7 % Baso % (Auto) 0.4 % Immature Gran # (Auto) 0.02 (0.00-0.02) K/uL Neut # (Auto) 5.49 (1.4-6.5) K/uL Lymph # (Auto) 0.66 L (1.2-3.4) K/uL Randolph # (Auto) 0.74 H (0.11-0.59) K/uL Eos # (Auto) 0.12 (0-0.5) K/uL Baso # (Auto) 0.03 (0-0.2) K/uL PT 31.0 H (9.0-12.0) Seconds INR 3.3 H (0.9-1.1) APTT 46.2 H* (21.0-31.0) Seconds PTT Ratio 1.8 Sodium 137 (136-145) mmol/L Potassium 4.2 (3.5-5.1) mmol/L Chloride 104 (98-107) mmol/L Carbon Dioxide 24 (21-32) mmol/L Anion Gap 9.0 (3-11) BUN 30 H (7-18) mg/dl Creatinine 1.54 H (0.6-1.4) mg/dl Est Cr Clr Drug Dosing 49.7 ml/min Est GFR ( Amer) 48.7 Est GFR (Non-Af Amer) 42.0 BUN/Creatinine Ratio 19.7 (10-20) Glucose 137 H (70-99) mg/dl Calcium 8.8 (8.5-10.1) mg/dl Total Bilirubin 0.8 (0.2-1) mg/dl AST 14 L (15-37) U/L ALT 11 L (12-78) U/L Alkaline Phosphatase 71 (45-117) U/L Troponin I 0.020 (0-0.045) ng/ml NT-Pro-B Natriuret Pep (0-1800) pg/ml Total Protein 7.0 (6.4-8.2) gm/dl Albumin 3.2 L (3.4-5.0) gm/dl Globulin 3.8 (2.5-4.0) gm/dl Albumin/Globulin Ratio 0.8 L (0.9-2) 04/23/18 Range/Units 11:40 WBC (4.8-10.8) K/uL RBC (4.7-6.1) M/uL Hgb (14.0-18.0) g/dL Hct (42-52) % MCV (80-100) fL MCH (25-34) pg MCHC (32-36) g/dL RDW Std Deviation (36.4-46.3) fL RDW Coeff of Dayanara (11.5-14.5) % Plt Count (130-400) K/uL MPV (7.4-10.4) fL Immature Gran % (Auto) % Neut % (Auto) % Lymph % (Auto) % Randolph % (Auto) % Eos % (Auto) % Baso % (Auto) % Immature Gran # (Auto) (0.00-0.02) K/uL Neut # (Auto) (1.4-6.5) K/uL Lymph # (Auto) (1.2-3.4) K/uL Randolph # (Auto) (0.11-0.59) K/uL Eos # (Auto) (0-0.5) K/uL Baso # (Auto) (0-0.2) K/uL PT (9.0-12.0) Seconds INR (0.9-1.1) APTT (21.0-31.0) Seconds PTT Ratio Sodium (136-145) mmol/L Potassium (3.5-5.1) mmol/L Chloride (98-107) mmol/L Carbon Dioxide (21-32) mmol/L Anion Gap (3-11) BUN (7-18) mg/dl Creatinine (0.6-1.4) mg/dl Est Cr Clr Drug Dosing ml/min Est GFR ( Amer) Est GFR (Non-Af Amer) BUN/Creatinine Ratio (10-20) Glucose (70-99) mg/dl Calcium (8.5-10.1) mg/dl Total Bilirubin (0.2-1) mg/dl AST (15-37) U/L ALT (12-78) U/L Alkaline Phosphatase (45-117) U/L Troponin I (0-0.045) ng/ml NT-Pro-B Natriuret Pep 4864 H (0-1800) pg/ml Total Protein (6.4-8.2) gm/dl Albumin (3.4-5.0) gm/dl Globulin (2.5-4.0) gm/dl Albumin/Globulin Ratio (0.9-2) Imaging Data Radiologist's Impression: Radiology results as stated below per my review and the radiologist's interpretation: XR chest 1V portable CLINICAL HISTORY: Shortness of breath. COMPARISON STUDY: Chest radiograph February 05, 2018. FINDINGS: Note is made of median sternotomy wires, mediastinal surgical clips and a dual-lead left subclavian pacer/AICD. There are small bilateral pleural effusions. Diffuse interstitial thickening with bilateral opacities are noted. There is no pneumothorax. Cardiomegaly is unchanged. IMPRESSION: 1. Interstitial thickening with bilateral airspace opacities. Pulmonary edema is favored although pneumonia could appear similar. Radiographic follow-up is recommended. 2. Small bilateral pleural effusions. Electronically signed by: Aaron Heath M.D. 04/23/2018 11:55 AM ECG Data Attestation: I personally reviewed and interpreted this ECG as follows: Indication: SOB/dyspnea Rate (beats per minute): 73 Rhythm: sinus rhythm Findings: + other (NC interval 218, QRS interval 122, QT-c interval 464, baseline wander and artifact) and + PVC; no ST depression and no left axis deviation Blood Pressure Blood Pressure Findings: Elevated blood pressure Blood Pressure Disposition: further management by hospitalist ILYA Narrative 1215: Past medical records reviewed. The patient was evaluated in room A9B, and a complete history and physical examination were performed. EMS bought the patient in with low O2 saturations in the the 80s. They started him on Bi-PAP which was discontinued in the ED. The patient states that the Bi-PAP helped a lot. I discussed the test results and treatment plan with him today. He verbally agrees and understands. 1232: Vital signs stable on nasal cannula. Chest x-ray shows cardiomegaly with cephalization. Troponin within normal limits. Creatinine is at baseline. The patient will be treated with Lasix and admitted to the hospital. I reviewed the patient's case with Dr. Mcdonald [facility] Hospitalist. She will evaluate the patient for further management. Impression & Plan Hypoxia, CHF exacerbation Discharge Plan Visit Data *Final* Discharge Date/Time: 04/23/18 14:13 Chief Complaint: Shortness of Breath/Dyspnea ED Provider: Tyrone Pierre Discharge Problem: Hypoxia, CHF exacerbation Patient Disposition: Admitted As Inpatient Discharge Instructions Interventions: ED Discharge Assessment Last Done: 04/23/18 14:13 The scribe's documentation has been prepared under my direction and personally reviewed by me in its entirety. I confirm that the note above accurately reflects all work, treatment, procedures, and medical decision making performed by me.
[2018-04-23 19:34] LABS: BUN Creatinine Ratio 17.9 (10-20); Calcium 8.8 mg/dl (8.5-10.1); Creatinine Clr Calc Pharmacy 45.2 ml/min; Est GFR (African American) 43.5; Est GFR (Non-African American) 37.5; Magnesium 1.9 mg/dl (1.8-2.4); Potassium 3.9 mmol/L (3.5-5.1)
[2018-04-23 19:38] LABS: Phosphorus 3.7 mg/dl (2.5-4.9); Troponin I 0.017 ng/ml (0-0.045)
[2018-04-23] MEDS ORDERED: DUTASTERIDE 0.5 MG PO SCH (21:00)
[2018-04-23] MEDS ORDERED: FUROSEMIDE 20 MG in SYRINGE 0 ML IV SCH (21:00)
[2018-04-23] MEDS ORDERED: FUROSEMIDE 40 MG/4 ML VIAL IV SCH (21:00)
[2018-04-23] MEDS: LACTULOSE SYRUP 10 GM/15 ML BTL 473 ML PO SCH (21:23)
[2018-04-23] MEDS: DOCUSATE SODIUM 100 MG CAP PO SCH (21:24)
[2018-04-23] MEDS: TERAZOSIN HCL 1 MG CAP PO SCH (21:25)
[2018-04-23] MEDS: METOPROLOL TARTRATE 25 MG TAB PO SCH (21:25)
[2018-04-23] MEDS: CLOTRIMAZOLE 1% CR 15 GM TUBE EXT SCH (21:26)
[2018-04-23] MEDS: NYSTATIN CR 15 GM TUBE EXT SCH (21:26)
[2018-04-23] MEDS: ACETAMINOPHEN 325 MG TAB PO SCH (21:29)
[2018-04-24 07:08] LABS: Basophils # (auto) 0.03 K/uL (0-0.2); Basophils % (auto) 0.4 %; Eosinophils # (auto) 0.11 K/uL (0-0.5); Eosinophils % (auto) 1.3 %; Hematocrit (blood only) 30.5 % (42-52); Hemoglobin 9.8 g/dL (14.0-18.0); Immature Granulocytes # (auto) 0.03 K/uL (0.00-0.02); Immature Granulocytes % (auto) 0.4 %; Lymphocytes # (auto) 0.58 K/uL (1.2-3.4); Lymphocytes % (auto) 7.1 %; Mean Corpuscular Hgb Conc 32.1 g/dL (32-36); Mean Corpuscular Volume 98.7 fL (80-100); Mean Platelet Volume 8.7 fL (7.4-10.4); Monocytes # (auto) 1.07 K/uL (0.11-0.59); Neutrophils # (auto) 6.38 K/uL (1.4-6.5); Neutrophils % (auto) 77.8 %; Platelet Count 164 K/uL (130-400); RDW Coefficient of Variation 15.5 % (11.5-14.5); RDW Standard Deviation 56.2 fL (36.4-46.3); Red Blood Count 3.09 M/uL (4.7-6.1)
[2018-04-24 07:19] LABS: Prothrombin Time 35.5 Seconds (9.0-12.0)
[2018-04-24 07:27] LABS: INR 3.8 (0.9-1.1)
[2018-04-24] MEDS: FUROSEMIDE 20 MG in SYRINGE 0 ML IV SCH ×2 (08:43→16:06)
[2018-04-24] MEDS: CLOTRIMAZOLE 1% CR 15 GM TUBE EXT SCH ×2 (08:44→20:43)
[2018-04-24] MEDS: ISOSORBIDE MONO EXTENDED REL 60 MG TABCR PO SCH (08:44)
[2018-04-24] MEDS: NYSTATIN CR 15 GM TUBE EXT SCH ×2 (08:44→20:42)
[2018-04-24] MEDS: METOPROLOL TARTRATE 25 MG TAB PO SCH ×2 (08:44→20:41)
[2018-04-24] MEDS: AMIODARONE 200 MG TAB PO SCH (08:44)
[2018-04-24] MEDS: PANTOprazole 40 MG TAB PO SCH (08:45)
[2018-04-24] MEDS: POLYETHYLENE (MIRALAX) 17 GM PACK PO SCH (08:45)
[2018-04-24] MEDS: ACETAMINOPHEN 325 MG TAB PO SCH ×2 (09:00→21:42)
[2018-04-24 17:27] LABS: BUN Creatinine Ratio 20.1 (10-20); Calcium 8.7 mg/dl (8.5-10.1); Creatinine Clr Calc Pharmacy 42.5 ml/min; Est GFR (African American) 44.1; Est GFR (Non-African American) 38.1; Potassium 3.7 mmol/L (3.5-5.1)
[2018-04-24] MEDS: LACTULOSE SYRUP 10 GM/15 ML BTL 473 ML PO SCH (20:40)
[2018-04-24] MEDS: DOCUSATE SODIUM 100 MG CAP PO SCH (20:40)
[2018-04-24] MEDS: TERAZOSIN HCL 1 MG CAP PO SCH (20:41)
--- NOTE | 2018-04-24 22:58 | Hospitalist Progress Note ---
Date of Service April 24, 2018 Assessment & Plan (1) CHF exacerbation: Patient with 3 days of progressive SOB as well as orthopnea/weight gain/ hypoxia. Elevated BNP and pulmonary edema noted on CXR. He reports compliance with his home medications, however, may have been less compliant with sodium restriction over the holidays. Patient presently with no respiratory distress. Saturation 94-96% on 5L NC.Q Will keep patient in tele. Patient is still not at baseline. Will repeat BMP. May consider increasing dose of lasix. In the meantime will continue lasix 20 mg IV BID. If creatinine does not increase, will consider uppint to 40 mg in AM. * Monitor strict intake/output, daily weights and BID BMPs with close attention to renal function * Low Na diet * COntinue Metoprolol 12.5mg po BID * Continue Imdur 60mg po daily (2) Hypoxia: Oxygenation improved on NC. Hypoxia most likely secondary to acute exacerbation of CHF. Patient afebrile, no leukocytosis, anticoagulated on Coumadin * Supplemental O2 as needed * (3) CAD (coronary artery disease): Patient with CAD s/p CABG with subsequent stenting. AICD in place for episode of VT. Presently with no chest pain. Troponin detectable at 0.02. * Telemetry monitoring * Trop is negative x2 * Continue Plavix * Continue Metoprolol * Continue Amiodarone * (4) Atrial fibrillation: Patient presently in NSR. Anticoagulated with Coumadin, INR 3.3 * Continue Metoprolol and Amiodarone as above * Continue Coumadin * Daily INR monitoring * INR is above 3. (5) DM w/o complication type II: Diet controlled. Blood sugar presently 137. Last HgAIC=6.3 02/01/18 * Monitor blood sugars on BMP * If elevated will add fingersticks and insulin coverage * (6) Tinea cruris: Patient with Tinea cruris in right groin. No bleeding. No evidence of secondary bacterial infection * Clotrimozole cream BID * Monitor * (7) CKD (chronic kidney disease), stage III: Patient with baseline Cr of 1.4 - 1.6. Creat is at 1.6 which continues to be at baseline. will monitor. (8) BPH (benign prostatic hyperplasia): Chronic. Stable * Continue Terazosin * Continue Finasteride * Pressure ulcer of sacral region, stage 2, POA Nursing admission assessment notes a non-intact reddened sacral area. Recommend Offloading/turn/reposition Will monitor. Pressure ulcer of right heel, stage 3, POA Ulcer of right heel noted by nursing. Per wound clinic notes, this is a "Pressure ulcer of the right lateral heel" and described as "full thickness". WOCN consulted for "right heel wound". Appreciate recommendations. F/E/N- Diuresis as above. BMP BID. Low Na, heart healthy diet as tolerated Ppx - Coumadin as above Code - Full per discussion with patient Subjective Patient reports mild improvement. He still reports feeling SOB at rest. And is requiring oxygen. Patient reports he has not been very active this AM. Review of Systems All systems reviewed & are unremarkable except as noted in HPI & below Physical Exam 2 Vital Signs (Past 24 Hours): Last Vital Signs Temp 36.5 C 04/24/18 20:17 Pulse 89 04/24/18 20:17 Resp 20 04/24/18 20:17 BP 152/75 H 04/24/18 20:17 Pulse Ox 91 04/24/18 20:17 Physical Exam: General: patient resting comfortably, NAD, non-toxic in appearance, AA&O x 4 Skin: warm, dry,fungal appearing rash right groin, wound on right heel ( covered in dressing), decubitus wound also has dressing. HEENT: NC/AT, PERRL, EOMI, anicteric sclera, conjunctiva without injection, external ear normal to inspection and nontender, nares patent, moist mucus membranes, dentition intact, no oropharyngeal lesions, neck supple, trachea midline, no LAD, no thyromegaly, no JVD Heart: +S1/S2, regular, no m/r/g Lungs: equal air entry bilaterally, diffuse crackles in bilateral bases with diminished breath sounds in the bases, no rhonchi/wheezes Abd: +BS, soft, NT/ND, no masses/organomegaly/ascites Ext: warm, 2+ pulses in UE/LE bilaterally, no clubbing/cyanosis, trace pitting edema of bilateral LE. 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 transplanted heart: [place] heart Qualified Code( s): I25.810 - Atherosclerosis of coronary artery bypass graft(s) without angina pectoris (5) Atrial fibrillation Atrial fibrillation type: paroxysmal Qualified Code(s): I48.0 - Paroxysmal atrial fibrillation
[2018-04-25] MEDS: METOPROLOL TARTRATE 25 MG TAB PO SCH ×2 (08:25→20:28)
[2018-04-25] MEDS: AMIODARONE 200 MG TAB PO SCH (08:25)
[2018-04-25] MEDS: ISOSORBIDE MONO EXTENDED REL 60 MG TABCR PO SCH (08:25)
[2018-04-25] MEDS: CLOTRIMAZOLE 1% CR 15 GM TUBE EXT SCH ×2 (08:26→20:31)
[2018-04-25] MEDS: PANTOprazole 40 MG TAB PO SCH (08:26)
[2018-04-25] MEDS: POLYETHYLENE (MIRALAX) 17 GM PACK PO SCH (08:27)
[2018-04-25] MEDS: NYSTATIN CR 15 GM TUBE EXT SCH ×2 (08:27→20:31)
[2018-04-25] MEDS: FUROSEMIDE 20 MG in SYRINGE 0 ML IV SCH ×2 (08:30→17:22)
[2018-04-25] MEDS: ACETAMINOPHEN 325 MG TAB PO SCH ×2 (08:35→20:27)
[2018-04-25 10:49] LABS: Calcium 8.7 mg/dl (8.5-10.1); Creatinine Clr Calc Pharmacy 46.3 ml/min; Est GFR (Non-African American) 42.3; Potassium 3.5 mmol/L (3.5-5.1)
[2018-04-25 15:50] LABS: INR 2.9 (0.9-1.1); Prothrombin Time 27.9 Seconds (9.0-12.0)
[2018-04-25] MEDS: WARFARIN SOD 2 MG TAB PO SCH (17:23)
[2018-04-25] MEDS ORDERED: FUROSEMIDE 20 MG in SYRINGE 0 ML IV ONE (17:45)
[2018-04-25] MEDS: LACTULOSE SYRUP 10 GM/15 ML BTL 473 ML PO SCH (20:24)
[2018-04-25] MEDS: DOCUSATE SODIUM 100 MG CAP PO SCH (20:24)
[2018-04-25] MEDS: TERAZOSIN HCL 1 MG CAP PO SCH (20:28)
--- NOTE | 2018-04-25 21:42 | Hospitalist Progress Note ---
Date of Service April 25, 2018 Assessment & Plan (1) CHF exacerbation: Patient with 3 days of progressive SOB as well as orthopnea/weight gain/ hypoxia. Elevated BNP and pulmonary edema noted on CXR. He reports compliance with his home medications, however, may have been less compliant with sodium restriction over the holidays. Patient presently with no respiratory distress. Saturation 94-96% on 5L NC.Q Will keep patient in tele. Patient is still not at baseline. His creatinine however has stayed at 1.5 Will continue with furosemide 20 mg IV BID. * Monitor strict intake/output, daily weights and BID BMPs with close attention to renal function * Low Na diet * COntinue Metoprolol 12.5mg po BID * Continue Imdur 60mg po daily (2) Hypoxia: Oxygenation improved on NC. Hypoxia most likely secondary to acute exacerbation of CHF. Patient afebrile, no leukocytosis, anticoagulated on Coumadin * Supplemental O2 as needed * (3) CAD (coronary artery disease): Patient with CAD s/p CABG with subsequent stenting. AICD in place for episode of VT. Presently with no chest pain. Troponin detectable at 0.02. * Telemetry monitoring * Trop is negative x2 * Continue Plavix * Continue Metoprolol * Continue Amiodarone * (4) Atrial fibrillation: Patient presently in NSR. Anticoagulated with Coumadin, INR 3.3 * Continue Metoprolol and Amiodarone as above * Continue Coumadin * Daily INR monitoring * INR is 2.9 (5) DM w/o complication type II: Diet controlled. Blood sugar presently 137. Last HgAIC=6.3 02/01/18 * Monitor blood sugars on BMP * If elevated will add fingersticks and insulin coverage * (6) Tinea cruris: Patient with Tinea cruris in right groin. No bleeding. No evidence of secondary bacterial infection * Clotrimozole cream BID * Monitor * (7) CKD (chronic kidney disease), stage III: Patient with baseline Cr of 1.4 - 1.6. Creat is at 1.5 which continues to be at baseline. will monitor. (8) BPH (benign prostatic hyperplasia): Chronic. Stable * Continue Terazosin * Continue Finasteride * Pressure ulcer of sacral region, stage 2, POA Nursing admission assessment notes a non-intact reddened sacral area. Recommend Offloading/turn/reposition Will monitor. Pressure ulcer of right heel, stage 3, POA Ulcer of right heel noted by nursing. Per wound clinic notes, this is a "Pressure ulcer of the right lateral heel" and described as "full thickness". WOCN consulted for "right heel wound". Appreciate recommendations. F/E/N- Diuresis as above. BMP BID. Low Na, heart healthy diet as tolerated Ppx - Coumadin as above Code - Full per discussion with patient Spent 25 minutes in management of patient. Subjective Patient reports again mild improvement. He sttaes that he is breathing a little easier. However, discussing with nurse, unable to decrease titrate off oxygen. Physical Exam 2 Vital Signs (Past 24 Hours): Last Vital Signs Temp 36.8 C 04/25/18 20:09 Pulse 75 04/25/18 20:09 Resp 20 04/25/18 20:09 BP 138/76 04/25/18 20:09 Pulse Ox 96 04/25/18 20:09 Physical Exam: General: patient resting comfortably, NAD, non-toxic in appearance, AA&O x 4 Skin: warm, dry,fungal appearing rash right groin, wound on right heel ( covered in dressing), decubitus wound also has dressing. HEENT: NC/AT, PERRL, EOMI, anicteric sclera, conjunctiva without injection, external ear normal to inspection and nontender, nares patent, moist mucus membranes, dentition intact, no oropharyngeal lesions, neck supple, trachea midline, no LAD, no thyromegaly, no JVD Heart: +S1/S2, regular, no m/r/g Lungs: equal air entry bilaterally, diffuse crackles in bilateral bases with diminished breath sounds in the bases, no rhonchi/wheezes Abd: +BS, soft, NT/ND, no masses/organomegaly/ascites Ext: warm, 2+ pulses in UE/LE bilaterally, no clubbing/cyanosis, trace pitting edema of bilateral LE. Neuro: nonfocal, patient AA&O x 4, speech intact, no facial droop, moving all extremities on command with equal strength 5/5 _ (1) CHF exacerbation Heart failure type: unspecified Qualified Code(s): I50.9 - Heart failure, unspecified (2) CAD (coronary artery disease) Coronary Disease-Associated Artery/Lesion type: bypass graft [place] vs. transplanted heart: [place] heart Associated angina: without angina Qualified Code(s): I25.810 - Atherosclerosis of coronary artery bypass graft(s) without angina pectoris (3) Atrial fibrillation Atrial fibrillation type: paroxysmal Qualified Code(s): I48.0 - Paroxysmal atrial fibrillation (4) DM w/o complication type II Diabetes mellitus assisted insulin use: without assisted use Qualified Code (s): E11.9 - Type 2 diabetes mellitus without complications (5) BPH (benign prostatic hyperplasia) Lower urinary tract symptom presence: symptoms absent Lower urinary tract symptom detail: Qualified Code(s): N40.0 - Benign prostatic hyperplasia without lower urinary tract symptoms
[2018-04-26] MEDS: PANTOprazole 40 MG TAB PO SCH (07:44)
[2018-04-26] MEDS: METOPROLOL TARTRATE 25 MG TAB PO SCH ×2 (07:44→21:24)
[2018-04-26] MEDS: ISOSORBIDE MONO EXTENDED REL 60 MG TABCR PO SCH (07:44)
[2018-04-26] MEDS: AMIODARONE 200 MG TAB PO SCH (07:44)
[2018-04-26] MEDS: CLOTRIMAZOLE 1% CR 15 GM TUBE EXT SCH ×2 (07:45→21:24)
[2018-04-26] MEDS: NYSTATIN CR 15 GM TUBE EXT SCH ×2 (07:45→21:24)
[2018-04-26] MEDS: POLYETHYLENE (MIRALAX) 17 GM PACK PO SCH (07:47)
[2018-04-26] MEDS: ACETAMINOPHEN 325 MG TAB PO SCH ×2 (07:52→21:26)
[2018-04-26] MEDS: FUROSEMIDE 20 MG in SYRINGE 0 ML IV SCH ×2 (09:01→17:04)
[2018-04-26] MEDS: WARFARIN SOD 2 MG TAB PO SCH (15:49)
[2018-04-26] MEDS: LACTULOSE SYRUP 10 GM/15 ML BTL 473 ML PO SCH (21:23)
[2018-04-26] MEDS: TERAZOSIN HCL 1 MG CAP PO SCH (21:24)
[2018-04-26] MEDS: DOCUSATE SODIUM 100 MG CAP PO SCH (21:26)
--- NOTE | 2018-04-26 21:38 | Hospitalist Progress Note ---
Date of Service April 26, 2018 Assessment & Plan (1) CHF exacerbation: Patient with 3 days of progressive SOB as well as orthopnea/weight gain/ hypoxia. Elevated BNP and pulmonary edema noted on CXR. He reports compliance with his home medications, however, may have been less compliant with sodium restriction over the holidays. Patient presently with no respiratory distress. Saturation 94-96% on 5L NC.Q Will keep patient in tele. Patient is still not at baseline. His creatinine however has stayed at 1.5 Will increase with furosemide 40 mg IV BID. Given that he has not diuresed well over past few days. Creat is also stable. * Monitor strict intake/output, daily weights and BID BMPs with close attention to renal function * Low Na diet * COntinue Metoprolol 12.5mg po BID * Continue Imdur 60mg po daily (2) Hypoxia: Oxygenation improved on NC. Hypoxia most likely secondary to acute exacerbation of CHF. Patient afebrile, no leukocytosis, anticoagulated on Coumadin * Supplemental O2 as needed * (3) CAD (coronary artery disease): Patient with CAD s/p CABG with subsequent stenting. AICD in place for episode of VT. Presently with no chest pain. Troponin detectable at 0.02. * Telemetry monitoring * Trop is negative x2 * Continue Plavix * Continue Metoprolol * Continue Amiodarone * (4) Atrial fibrillation: Patient presently in NSR. Anticoagulated with Coumadin, INR 3.3 * Continue Metoprolol and Amiodarone as above * Continue Coumadin * INR is 2.9 * will recheck in AM of 04/27 (5) DM w/o complication type II: Diet controlled. Blood sugar presently 137. Last HgAIC=6.3 02/01/18 * Monitor blood sugars on BMP * If elevated will add fingersticks and insulin coverage * (6) Tinea cruris: Patient with Tinea cruris in right groin. No bleeding. No evidence of secondary bacterial infection * Clotrimozole cream BID * Monitor * (7) CKD (chronic kidney disease), stage III: Patient with baseline Cr of 1.4 - 1.6. Creat is at 1.5 which continues to be at baseline. will monitor. (8) BPH (benign prostatic hyperplasia): Chronic. Stable * Continue Terazosin * Continue Finasteride * Pressure ulcer of sacral region, stage 2, POA Nursing admission assessment notes a non-intact reddened sacral area. Recommend Offloading/turn/reposition Will monitor. Pressure ulcer of right heel, stage 3, POA Ulcer of right heel noted by nursing. Per wound clinic notes, this is a "Pressure ulcer of the right lateral heel" and described as "full thickness". WOCN consulted for "right heel wound". Appreciate recommendations. F/E/N- Diuresis as above. BMP BID. Low Na, heart healthy diet as tolerated Ppx - Coumadin as above Code - Full per discussion with patient Spent 25 minutes in management of patient. Subjective Patient reports no improvement from yesterday. He has not been able to get off his oxygen. He again states that he is not on oxygen during the day as an outpatient. . Physical Exam 2 Vital Signs (Past 24 Hours): Last Vital Signs Temp 37.3 C 04/26/18 19:45 Pulse 97 H 04/26/18 19:45 Resp 20 04/26/18 19:45 BP 162/73 H 04/26/18 19:45 Pulse Ox 96 04/26/18 19:45 Physical Exam: General: patient resting comfortably, NAD, non-toxic in appearance, AA&O x 4 Skin: warm, dry,fungal appearing rash right groin, wound on right heel ( covered in dressing), decubitus wound also has dressing. HEENT: NC/AT, PERRL, EOMI, anicteric sclera, conjunctiva without injection, external ear normal to inspection and nontender, nares patent, moist mucus membranes, dentition intact, no oropharyngeal lesions, neck supple, trachea midline, no LAD, no thyromegaly, no JVD Heart: +S1/S2, regular, no m/r/g Lungs: equal air entry bilaterally, diffuse crackles in bilateral bases with diminished breath sounds in the bases, no rhonchi/wheezes Abd: +BS, soft, NT/ND, no masses/organomegaly/ascites Ext: warm, 2+ pulses in UE/LE bilaterally, no clubbing/cyanosis, trace pitting edema of bilateral LE. 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 transplanted heart: [place] heart Qualified Code( s): I25.810 - Atherosclerosis of coronary artery bypass graft(s) without angina pectoris (5) Atrial fibrillation Atrial fibrillation type: paroxysmal Qualified Code(s): I48.0 - Paroxysmal atrial fibrillation
[2018-04-27 07:44] LABS: Basophils # (auto) 0.04 K/uL (0-0.2); Basophils % (auto) 0.5 %; Eosinophils # (auto) 0.32 K/uL (0-0.5); Eosinophils % (auto) 4.2 %; Hematocrit (blood only) 30.2 % (42-52); Hemoglobin 9.7 g/dL (14.0-18.0); Immature Granulocytes # (auto) 0.03 K/uL (0.00-0.02); Immature Granulocytes % (auto) 0.4 %; Lymphocytes % (auto) 9.2 %; Mean Corpuscular Hgb Conc 32.1 g/dL (32-36); Mean Corpuscular Volume 97.4 fL (80-100); Monocytes # (auto) 0.89 K/uL (0.11-0.59); Monocytes % (auto) 11.7 %; Neutrophils # (auto) 5.65 K/uL (1.4-6.5); Platelet Count 163 K/uL (130-400); RDW Coefficient of Variation 15.2 % (11.5-14.5); RDW Standard Deviation 53.9 fL (36.4-46.3); White Blood Count 7.63 K/uL (4.8-10.8)
[2018-04-27 07:51] LABS: INR 2.4 (0.9-1.1); Prothrombin Time 23.4 Seconds (9.0-12.0)
[2018-04-27 08:10] LABS: BUN Creatinine Ratio 25.7 (10-20); Calcium 8.8 mg/dl (8.5-10.1); Creatinine Clr Calc Pharmacy 42.5 ml/min; Est GFR (African American) 44.4; Est GFR (Non-African American) 38.3; Potassium 3.5 mmol/L (3.5-5.1)
[2018-04-27] MEDS: ISOSORBIDE MONO EXTENDED REL 60 MG TABCR PO SCH (08:22)
[2018-04-27] MEDS: METOPROLOL TARTRATE 25 MG TAB PO SCH ×2 (08:22→20:42)
[2018-04-27] MEDS: AMIODARONE 200 MG TAB PO SCH (08:22)
[2018-04-27] MEDS: NYSTATIN CR 15 GM TUBE EXT SCH ×2 (08:23→20:40)
[2018-04-27] MEDS: PANTOprazole 40 MG TAB PO SCH (08:23)
[2018-04-27] MEDS: CLOTRIMAZOLE 1% CR 15 GM TUBE EXT SCH ×2 (08:23→20:41)
[2018-04-27] MEDS: ACETAMINOPHEN 325 MG TAB PO SCH ×2 (08:28→20:44)
[2018-04-27] MEDS: POLYETHYLENE (MIRALAX) 17 GM PACK PO SCH (08:28)
[2018-04-27] MEDS ORDERED: FUROSEMIDE 40 MG in SYRINGE 0 ML IV SCH (09:00)
--- NOTE | 2018-04-27 15:18 | Hospitalist Progress Note ---
Date of Service April 27, 2018 Assessment & Plan (1) CHF exacerbation: Acute on chronic systolic heart failure with EF 35-40% in 01/2018. Patient with 3 days of progressive SOB as well as orthopnea/weight gain/ hypoxia. Patient and report non-compliance with diet during the holidays. - Continue diuresis - Monitor weights, I&Os - Telemetry - Fluid restriction - Low Na diet - Continue Metoprolol 12.5mg BID & Imdur 60mg daily - Continue amiodarone 200mg daily for prior episode of VT (2) Hypoxia: Oxygenation improved on NC. Hypoxia most likely secondary to acute exacerbation of CHF. - Supplemental O2 as needed - Will need 2-step if unable to wean O2 (3) CAD (coronary artery disease): Patient with CAD s/p CABG with subsequent stenting. AICD in place for episode of VT. Presently with no chest pain. - Continue home meds as above (4) Atrial fibrillation: Patient presently in NSR. Anticoagulated with Coumadin. - Continue metoprolol and amiodarone as above - Continue Coumadin - INR 2.4 on 04/27 (5) DM w/o complication type II: Diet controlled. Last HgAIC was 6.3% on 02/01/18. - Sliding scale insulin (6) Tinea cruris: Patient with Tinea cruris in right groin. No bleeding. No evidence of secondary bacterial infection. - Continue clotrimozole cream BID (7) CKD (chronic kidney disease), stage III: Patient with baseline Cr of 1.4 - 1.6. - Still at baseline - Monitor (8) BPH (benign prostatic hyperplasia): Chronic. Stable. No concerns for acute retention. - Continue terazosin - Continue finasteride (9) DVT prophylaxis: On warfarin for afib Subjective 82yo M w/ hx of CHF who presents with CHF exacerbation. Feels close to baseline at present. Still very shortness of breath, but this is pretty normal for him. Would like to work with PT/OT today. Reports no fevers/ chills, chest pain, abdominal pain, nausea, or vomiting. Physical Exam 2 Vital Signs (Past 24 Hours): Last Vital Signs Temp 36.6 C 04/27/18 12:00 Pulse 64 04/27/18 12:00 Resp 20 04/27/18 12:00 BP 106/55 L 04/27/18 12:00 Pulse Ox 92 04/27/18 12:15 Constitutional: WD/WN, vitals as above Eyes: EOM intact bilaterally; no conjunctival abnormality ENMT: external ear and nose normal, oropharynx normal Neck: trachea midline, no thyromegaly normal visual inspection Respiratory: normal respiratory effort, lungs clear to auscultation no respiratory distress Cardiovascular: RRR, no murmur, no edema Gastrointestinal (Abdomen): Inspection/Auscultation: abdomen normal to inspection; abdomen not distended Musculoskeletal: no cyanosis or clubbing, extremities motor strength 5/5 Skin: no rashes, warm and dry Neurologic: moves all extremities and awake Psychiatric: Orientation: alert, oriented to person and cooperative _ (1) CHF exacerbation Heart failure type: unspecified Qualified Code(s): I50.9 - Heart failure, unspecified (2) CAD (coronary artery disease) Coronary Disease-Associated Artery/Lesion type: bypass graft [place] vs. transplanted heart: [place] heart Associated angina: without angina Qualified Code(s): I25.810 - Atherosclerosis of coronary artery bypass graft(s) without angina pectoris (3) Atrial fibrillation Atrial fibrillation type: paroxysmal Qualified Code(s): I48.0 - Paroxysmal atrial fibrillation (4) DM w/o complication type II Diabetes mellitus terminal supervisor insulin use: without terminal supervisor use Qualified Code (s): E11.9 - Type 2 diabetes mellitus without complications (5) BPH (benign prostatic hyperplasia) Lower urinary tract symptom presence: symptoms absent Lower urinary tract symptom detail: Qualified Code(s): N40.0 - Benign prostatic hyperplasia without lower urinary tract symptoms
[2018-04-27] MEDS: LACTULOSE SYRUP 10 GM/15 ML BTL 473 ML PO SCH (20:39)
[2018-04-27] MEDS: TERAZOSIN HCL 1 MG CAP PO SCH (20:42)
[2018-04-27] MEDS: DOCUSATE SODIUM 100 MG CAP PO SCH (20:44)
[2018-04-28 07:07] LABS: BUN Creatinine Ratio 29.4 (10-20); Calcium 8.7 mg/dl (8.5-10.1); Creatinine Clr Calc Pharmacy 49.7 ml/min; Est GFR (African American) 53.7; Est GFR (Non-African American) 46.3; Magnesium 2.1 mg/dl (1.8-2.4); Potassium 3.5 mmol/L (3.5-5.1)
[2018-04-28] MEDS: ISOSORBIDE MONO EXTENDED REL 60 MG TABCR PO SCH (08:10)
[2018-04-28] MEDS: AMIODARONE 200 MG TAB PO SCH (08:10)
[2018-04-28] MEDS: PANTOprazole 40 MG TAB PO SCH (08:10)
[2018-04-28] MEDS: POLYETHYLENE (MIRALAX) 17 GM PACK PO SCH (08:10)
[2018-04-28] MEDS: METOPROLOL TARTRATE 25 MG TAB PO SCH ×2 (08:10→21:04)
[2018-04-28] MEDS: ACETAMINOPHEN 325 MG TAB PO SCH ×2 (08:10→21:03)
[2018-04-28] MEDS: CLOTRIMAZOLE 1% CR 15 GM TUBE EXT SCH ×2 (08:12→21:25)
[2018-04-28] MEDS: NYSTATIN CR 15 GM TUBE EXT SCH ×2 (08:12→21:09)
[2018-04-28] MEDS: POTASSIUM CHLORIDE 20 MEQ TABCR PO SCH ×2 (12:14→21:05)
[2018-04-28] MEDS: FUROSEMIDE 60 MG in SYRINGE 0 ML IV SCH ×2 (12:14→17:05)
--- NOTE | 2018-04-28 13:26 | Hospitalist Progress Note ---
Date of Service April 28, 2018 Assessment & Plan (1) CHF exacerbation: Acute on chronic systolic heart failure with EF 35-40% in 01/2018. Patient with 3 days of progressive SOB as well as orthopnea/weight gain/ hypoxia. Patient and report non-compliance with diet during the holidays. - Monitor weights, I&Os - Telemetry - Fluid restriction - Low Na diet - Continue Metoprolol 12.5mg BID & Imdur 60mg daily - Continue amiodarone 200mg daily for prior episode of VT - Continue diuresis - Dr. Melgar put him on Lasix 60mg IV BID on 04/28 - CXR to assess continued pulmonary edema (2) Hypoxia: Oxygenation improved on NC. Hypoxia most likely secondary to acute exacerbation of CHF. - Supplemental O2 as needed - Plan as above for CHF (3) CAD (coronary artery disease): Patient with CAD s/p CABG with subsequent stenting. AICD in place for episode of VT. Presently with no chest pain. - Continue home meds as above (4) Atrial fibrillation: Patient presently in NSR. Anticoagulated with Coumadin. - Continue metoprolol and amiodarone as above - Continue Coumadin - INR 2.4 on 04/27 (5) DM w/o complication type II: Diet controlled. Last HgAIC was 6.3% on 02/01/18. - Sliding scale insulin (6) Tinea cruris: Patient with tinea cruris in right groin. No bleeding. No evidence of secondary bacterial infection. - Continue clotrimozole cream BID (7) CKD (chronic kidney disease), stage III: Patient with baseline Cr of 1.4 - 1.6. - Still at baseline - Monitor (8) BPH (benign prostatic hyperplasia): Chronic. Stable. No concerns for acute retention. - Continue terazosin - Continue finasteride (9) DVT prophylaxis: On warfarin for afib Subjective 82yo M w/ hx of CHF who presents with CHF exacerbation. Walked with PT today and did not do well. O2 sat dropped to 70s even on 5L NC. Reports no fevers/chills, chest pain, abdominal pain, nausea, or vomiting. Physical Exam 2 Vital Signs (Past 24 Hours): Last Vital Signs Temp 36.7 C 04/28/18 07:58 Pulse 64 01/08/19 12:14 Resp 18 04/28/18 12:07 BP 121/68 04/28/18 12:14 Pulse Ox 93 04/28/18 13:02 Constitutional: WD/WN, vitals as above Eyes: EOM intact bilaterally; no conjunctival abnormality ENMT: external ear and nose normal, oropharynx normal Neck: trachea midline, no thyromegaly normal visual inspection Respiratory: normal respiratory effort, lungs clear to auscultation no respiratory distress Cardiovascular: RRR, no murmur, no edema Gastrointestinal (Abdomen): Inspection/Auscultation: abdomen normal to inspection; abdomen not distended Musculoskeletal: no cyanosis or clubbing, extremities motor strength 5/5 Skin: no rashes, warm and dry Neurologic: moves all extremities and awake Psychiatric: Orientation: alert, oriented to person and cooperative _ (1) CHF exacerbation Heart failure type: unspecified Qualified Code(s): I50.9 - Heart failure, unspecified (2) CAD (coronary artery disease) Coronary Disease-Associated Artery/Lesion type: bypass graft [place] vs. transplanted heart: [place] heart Associated angina: without angina Qualified Code(s): I25.810 - Atherosclerosis of coronary artery bypass graft(s) without angina pectoris (3) Atrial fibrillation Atrial fibrillation type: paroxysmal Qualified Code(s): I48.0 - Paroxysmal atrial fibrillation (4) DM w/o complication type II Diabetes mellitus concession manager insulin use: without prison use Qualified Code (s): E11.9 - Type 2 diabetes mellitus without complications (5) BPH (benign prostatic hyperplasia) Lower urinary tract symptom presence: symptoms absent Lower urinary tract symptom detail: Qualified Code(s): N40.0 - Benign prostatic hyperplasia without lower urinary tract symptoms
--- NOTE | 2018-04-28 13:28 | Nephrology Consultation ---
Date of Consultation April 28, 2018 Assessment & Plan (1) Acute kidney injury superimposed on CKD: -- MATTHEW related to CHF. MATTHEW has resolved following diuretic therapy (2) CKD (chronic kidney disease), stage III: -- Baseline creatinine has been ~ 1.2. Renal impairment is on the basis of poor cardiac output, AODM and microvascular disease -- Will monitor PRP, weight and UO (3) CHF exacerbation: -- Echocardiogram 08/06: LVEF 40-49% with grade I diastolic dysfunction. -- Dietary indiscretion w/ salt is likely a contributing factor -- Agree w/ Cardiology's plan to increase Furosemide to 60 mg IV BID -- Will order follow up CXR -- Will order consultation w/ dietitian for education on low sodium diet -- Education provided to patient and spouse today on the importance of daily weights at home and dosing loop diuretic based on weight and symptoms (4) DM w/o complication type II: (5) Pressure ulcer: (6) BPH (benign prostatic hyperplasia): History of Present Illness Reason for Consultation: Assist w/ diuretic management in this patient w/ acute on CKD Requesting Physician: Dr. Melgar Attending Physician: Adonay Richmond MD History of Present Illness Mr. Daugherty is an 82 year old white male who is seen at the request of Dr. Melgar to assist w/ diuretic management in this patient w/ acute on CKD. Medical records in the EMR were reviewed today and are summarized as follows: Mr. Daugherty has CKD w/ baseline creatinine ~ 1.2 w/ EGFR 55 cc/min. His Vp Cardiovascular is Dr. Metz. His medical history is also significant for ASCVD s/p CABG x 4 (2005), [place] to [place] (2018), [place] s/p dual chamber AICD and initiation of Amiodarone therapy, AODM, BPH, spinal stenosis. Mr. Daugherty has been euvolemic on Furosemide 20 mg po QOD. He reports a "dry weight" of 225 lbs ( 102 kg). During the holidays Mr. Daugherty did not weigh himself. He was more liberal in his sodium intake. Over the last 3 days he has experienced progressive dyspnea. He presented to the ED 04/23/18 where CXR revealed CHF and creatinine was increased to 1.6. Troponin was normal x 2 and ECG was negative for ischemic change. Since admission to the hospital, Mr. Daugherty has been on IV Furosemide 40 mg twice daily. He reports brisk diuresis. I&O's and daily weights are not congruent. EMR shows that weight has dropped to 108 kg but net UO has only been 2 L. Mr. Daugherty remains dyspneic w/ exertion. Allergies Allergy/AdvReac Type Severity Reaction Status Date / Time Iodinated Contrast- Oral and Allergy Severe ANAPHYLAXIS Verified 04/23/18 15:45 IV Dye shellfish derived Allergy Severe ANAPHYLAXIS Verified 04/23/18 15:45 clindamycin Allergy Intermediate Rash Verified 04/23/18 13:18 Penicillins Allergy Intermediate BOILS Verified 04/23/18 15:45 latex AdvReac Intermediate RASH Verified 04/23/18 15:45 Qsothts-Nxa-Oao Reductase AdvReac Intermediate severe Verified 04/23/18 15:45 Inhibitor myalgias atorvastatin AdvReac Mild GI SYMPTOMS Verified 04/23/18 15:45 levofloxacin [From Levaquin] AdvReac Mild Insomnia Verified 04/23/18 15:45 rosuvastatin AdvReac Mild GI SYMPTOMS Verified 04/23/18 15:45 Home Medications Home Medications Medication Instructions Recorded Confirmed Type docusate sodium [Colace] 100 mg PO HS 01/31/18 04/23/18 History dutasteride 0.5 mg PO HS 01/31/18 04/23/18 History isosorbide mononitrate 60 mg PO QAM 01/31/18 04/23/18 History lactulose 15 ml PO HS 01/31/18 04/23/18 History nitroglycerin 0.4 mg SUBLINGUAL UD PRN 01/31/18 04/23/18 History pantoprazole 40 mg PO QAM 01/31/18 04/23/18 History terazosin 1 mg PO HS 01/31/18 04/23/18 History warfarin 2 mg PO 5XWK 01/31/18 04/23/18 History warfarin 4 mg PO 2XWK 01/31/18 04/23/18 History amiodarone 200 mg PO QAM #30 tab 02/06/18 04/23/18 Rx metoprolol tartrate 12.5 mg PO BID #30 tab 02/06/18 04/23/18 Rx acetaminophen [Mapap 650 mg PO BID 04/23/18 04/23/18 History (acetaminophen)] furosemide 20 mg PO 3XWK 04/23/18 04/23/18 History polyethylene glycol 3350 [Miralax] 17 g PO QAM 04/23/18 04/23/18 History Patient History Medical History Pressure ulcer (Acute) Drug eruption Tinea cruris DVT prophylaxis Osteoarthritis of knees, 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 Constipation Patient on home bowel regimen but requesting possible enema to aid in bowel movement 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, NYHA class 2 STEMI (ST elevation myocardial infarction) Atrial fibrillation CAD (coronary artery disease) Ventricular tachycardia (Acute) Syncope (Acute) Laceration of forehead, left, complicated (Acute) CKD (chronic kidney disease), stage III (Acute) Sepsis COPD (chronic obstructive pulmonary disease) (Chronic) NSTEMI (non-ST elevated myocardial infarction) ASCVD (arteriosclerotic cardiovascular disease) (Acute) Former smoker (Acute) Status post fall (Acute) Angina, class II Chronic combined systolic and diastolic CHF (congestive heart failure) Dyslipidemia, goal LDL below 70 Paroxysmal atrial fibrillation Popliteal aneurysm Stenosis of right internal carotid artery Urinary retention Surgical History AICD (automatic cardioverter/defibrillator) present (Acute) History of coronary artery stent placement (Acute) S/P CABG x 1 (Acute) S/P CABG x 2 (Acute) S/P CABG x 4 Family History Other No pertinent family history Social History marital status: Current Living Situation: Spouse current occupational status: retired Other Information That Helps Us Care for You: No Feels Safe at Home: Yes Safety Concerns: Feels Safe At This Time Smoking Status: Former smoker Hx Alcohol Use: Yes Alcohol type: wine Alcohol Intake Frequency: a few times a week Hx Substance Use: No Beliefs That Will Affect Care: None Communication Ability: Effective Review of Systems Constitutional: no fever Respiratory: + dyspnea on exertion; no cough Cardiovascular: + dyspnea on exertion; no chest pain Gastrointestinal: no abdominal pain and no vomiting Physical Exam 2 Vital Signs (Past 24 Hours): Last Vital Signs Temp 36.7 C 04/28/18 07:58 Pulse 64 04/28/18 12:14 Resp 18 04/28/18 12:07 BP 121/68 04/28/18 12:14 Pulse Ox 93 04/28/18 13:02 Constitutional: + obese Eyes: PERRL, conjunctivae normal, anicteric sclerae Neck: trachea midline, no thyromegaly Respiratory: normal respiratory effort (diminished BS at bases bilaterally); no respiratory distress Cardiovascular: Rate/Rhythm: regular rate and regular rhythm (AICD palpable beneath L clavicle) Extremities: + edema (trace pretibial pitting edema) Gastrointestinal (Abdomen): normal bowel sounds, soft, nontender, no hepatosplenomegaly Results & Data Laboratory Results Laboratory Tests 04/27/18 04/27/18 04/28/18 07:33 07:33 05:59 WBC 7.63 Hgb 9.7 L Hct 30.2 L Plt Count 163 Sodium 135 L Potassium 3.5 Chloride 101 Carbon Dioxide 28 Anion Gap 6.0 BUN 42 H Creatinine 1.42 H Glucose 110 H Calcium 8.7 NT-Pro-B Natriuret Pep 3730 H Laboratory Tests 04/23/18 04/23/18 11:40 18:53 Troponin I 0.020 0.017 _ (1) CHF exacerbation Heart failure type: unspecified Qualified Code(s): I50.9 - Heart failure, unspecified (2) DM w/o complication type II Diabetes mellitus correction insulin use: without incident handler use Qualified Code (s): E11.9 - Type 2 diabetes mellitus without complications (3) BPH (benign prostatic hyperplasia) Lower urinary tract symptom presence: symptoms absent Lower urinary tract symptom detail: Qualified Code(s): N40.0 - Benign prostatic hyperplasia without lower urinary tract symptoms
--- NOTE | 2018-04-28 14:22 | CT Scan Report ---
CT chest wo con CT DOSE: 694.07 mGycm HISTORY: Short of breath. Pulmonary edema. TECHNIQUE: Multiaxial CT images of the chest were performed without contrast. A dose lowering techni que was utilized adhering to the principles of ALARA. COMPARISON: Chest CT 03/22/2010. FINDINGS: No pneumothorax. The central airways are patent. Small right apical density, unchanged. Thi s likely represents scarring. Progressive left apical small irregular densities which also favors sca rring. Linear densities within the base of the left lower lobe persist and favor round atelectasis. T here is right greater than left groundglass airspace opacities with interlobular septal thickening. T here are also small subpleural densities within the lungs which are new from the prior study. Stable left posterior pleural thickening. The liver and visualized adrenal glands are unremarkable. There ar e a few punctate calcified granulomas within the spleen. No change in the sternal the head since. Lef t-sided pacemaker. Normal caliber thoracic aorta. The heart is mildly enlarged. A few mildly enlarged mediastinal lymph nodes which have slightly increased in size. For comparative purposes a prevascula r lymph node measures 17 x 13 mm, previously measuring 11 x 7 mm. Calcified left hilar lymph nodes. N o suspicious lytic or blastic osseous lesions. Severe osteoarthritis at the right glenohumeral joint. IMPRESSION: 1. Right greater than left groundglass airspace opacities with interlobular septal thickening. This m ay represent pulmonary edema. However, there are also small bilateral subpleural densities. Therefore , an atypical pneumonitis would also be considered in the differential diagnosis. Hypersensitivity pn eumonitis or pulmonary alveolar hemorrhage could also have a similar appearance but are considered le ss likely. 2. Mild mediastinal lymphadenopathy which has progressed. 3. Mild cardiomegaly, unchanged. 4. Sternal dehiscence, unchanged. Electronically signed by: Shan Nicholson M.D. 04/28/2018 2:21 PM
[2018-04-28 14:23] LABS: Appearance Urine Cloudy (Clear); Bacteria Urine Automated 4+ (Negative); Bilirubin Urine Negative (Negative); Cast Urine Automated 0 /lpf (0-5); Color Urine Dark Yellow; Glucose Urine UA Negative (Negative); Ketones Urine Negative (Negative); Leukocyte Esterase Urine 3+ (Negative); Nitrite Urine Positive (Negative); Protein Urine Negative (Negative); Specific Gravity Urine 1.015 (1.000-1.030); Urobilinogen Urine Negative (Negative); WBC Urine Automated >30 /hpf (0-5)
[2018-04-28 14:29] LABS: Creatinine Urine Random 80.4 mg/dl; Total Protein Urine Random 13.6 mg/dl (0-11.9)
--- NOTE | 2018-04-28 14:29 | XRay Report ---
XR chest 1V portable HISTORY: Short of breath. Congestive heart failure. COMPARISON: Chest 04/23/2018. FINDINGS: No pneumothorax. The patient is slightly rotated on this study. The heart remains enlarged. There are poststernotomy changes with sternal dehiscence, unchanged. Diffuse interstitial thickening and hazy airspace opacities. Stable blunting of the left lateral costophrenic sulcus. Left-sided matt l-chamber pacemaker. IMPRESSION: No change in the cardiomegaly with interstitial thickening and hazy airspace opacities. This is nonsp ecific but favors pulmonary edema. An atypical pneumonitis could also have a similar appearance. Electronically signed by: Shan Nicholson M.D. 04/28/2018 2:28 PM
[2018-04-28] MEDS: WARFARIN SOD 2 MG TAB PO SCH (16:02)
[2018-04-28] MEDS: LACTULOSE SYRUP 10 GM/15 ML BTL 473 ML PO SCH (20:40)
[2018-04-28] MEDS: TERAZOSIN HCL 1 MG CAP PO SCH (21:05)
[2018-04-28] MEDS: DOCUSATE SODIUM 100 MG CAP PO SCH (21:05)
--- NOTE | 2018-04-28 21:45 | Consultation Report ---
DATE OF CONSULTATION: 04/28/2018 INPATIENT CARDIOLOGY CONSULTATION CONSULTATION REQUESTED BY: Dr. Richmond. REASON FOR CONSULTATION: Acute decompensated systolic heart failure. HISTORY OF PRESENT ILLNESS: The patient is a very pleasant 82-year-old gentleman who normally follows with Jimy Doan and Dr. Baird of our Cardiology practice. He presented to [facility] on 04/23/2018 with complaints of increasing shortness of breath, 10-pound weight gain and lower extremity edema. The patient notes that ever since around of this year, he has not been following his low sodium diet and has admitted only been eating quite a bit. He has not been taking his Lasix that often at home and he mostly has gained about approximately 10 pounds and few days prior to presentation, developed significant shortness of breath. It initially occurred when he was ambulating; however, then started feeling short of breath at home, at which point I called EMS. EMS found him to be hypoxic in the 80s. He was placed on BiPAP and brought in the Emergency Department. Here again he was found to be hypoxic. He was given 40 mg of IV Lasix with good initial diuresis. The patient was then admitted to Telemetry where he was diuresed for few days; however, after few days of diuresis, his creatinine started to climb and his diuretics were discontinued. On the morning of 04/28/2018, the patient remains short of breath and with a high oxygen requirement with no significant improvement from presentation and Cardiology was asked to see the patient. Currently the patient is upright, is out of bed in a chair. States that he feels okay if he does not move around too much, but as soon as he gets up to ambulate to the bathroom, he will become short of breath. He states his lower extremities are still rather edematous; otherwise, he denies experiencing any chest pain, palpitations, lightheadedness, dizziness or syncope. Of note, the patient follows with Dr. Metz of the [facility] Nephrology Department. PAST SURGICAL HISTORY: 1. Coronary artery bypass grafting surgery in 2004 with IZQUIERDO to the second diagonal and a radial graft anastomosing from the IZQUIERDO to the third obtuse marginal and a vein graft sequentially to the posterior descending and posterior lateral branches of the right coronary with poor targets, deemed incomplete revascularization. 2. PCI with drug-eluting stent to a protected left main in 03/2018 in the setting of sustained ventricular tachycardia and non-STEMI. 3. Dual chamber pacer defibrillator, [employer], MRI compatible in 01/2018. 4. Right carotid artery stenting. 5. Ureteral endoscopy for stricture. 6. Cataract surgery. MEDICAL ILLNESSES: 1. Complex coronary artery disease. 2. Chronic stable angina class 2-3. 3. Peripheral vascular disease. 4. Ischemic cardiomyopathy, EF 40%-49%. 5. Chronic kidney disease. 6. Popliteal aneurysm. 7. Hyperlipidemia with statin intolerance. 8. Chronic back pain. 9. Chronic urinary retention. FAMILY HISTORY: Noncontributory. SOCIAL HISTORY: The patient has a remote tobacco use history, quit in 2000. Denies any alcohol or recreational drug use. REVIEW OF SYSTEMS: As per HPI, all other review of systems reviewed and negative at this time. ALLERGIES: 1. CONTRAST DYE. 2. ENVIRONMENTAL ALLERGIES. 3. PENICILLIN. MEDICATIONS AN OUTPATIENT: 1. Lasix 20 mg daily on Friday, Friday, Fridays only. 2. Amiodarone 200 mg daily. 3. Metoprolol succinate 12.5 mg b.i.d. 4. Coumadin as directed by the [facility]. 5. Plavix 75 mg daily. 6. Imdur 60 mg daily. 7. Protonix daily. PHYSICAL EXAMINATION: VITALS: Temperature 36.4, pulse 66, respiratory rate 12, blood pressure 126/65, currently saturating 94% on 3 liters nasal cannula. GENERAL: Awake, alert, oriented x3. Mild conversational dyspnea. HEENT: Normocephalic, atraumatic. Pupils equal, round react to light and accommodation. Extraocular muscles intact. Anicteric sclerae. Moist mucous membranes. NECK: Bilateral 2/6 carotid bruits, no JVD. CARDIOVASCULAR: Regular, but distant. Unable to appreciate murmurs, rubs or gallops. PULMONARY: Scattered rhonchi throughout with decreased breath sounds in the left base, greater than the right. ABDOMEN: Bowel sounds x4, soft. No rebound, guarding, tenderness. No organomegaly. EXTREMITIES: No clubbing, cyanosis or edema. +2 pedal pulses bilaterally. SKIN: Warm and dry. TEST RESULTS: CT of the chest which I had ordered today was read as right greater than left ground-glass airspace opacities with interlobular septal thickening. This may represent pulmonary edema; however, there are also small bilateral subpleural densities; therefore, atypical pneumonitis would also be considered in the differential diagnosis. Hypersensitivity pneumonitis or pulmonary alveolar hemorrhage would also be similar in appearance, but considered less likely. LABORATORY STUDIES OF SIGNIFICANCE: Sodium 135, BUN 42, creatinine 1.42, potassium of 3.5. Of note, the patient's creatinine is lower than his baseline. IMPRESSION: 1. Acute decompensated left ventricular systolic heart failure. 2. Questionable pneumonitis. 3. Ischemic cardiomyopathy, EF 40%-49%. 4. Extensive coronary artery disease, incompletely revascularized. 5. Chronic kidney disease, not far from baseline. 6. History of ventricular tachycardia in the setting of a non-ST segment elevation myocardial infarction. RECOMMENDATIONS: It was my pleasure to see the patient in consultation today. At this point, I do not believe the patient has been adequately diuresed, so we will restart his Lasix at a higher dose of 60 mg b.i.d. and follow his outputs closely. His electrolytes will also be repleted and I will start him on b.i.d. potassium chloride at this point. 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 I would also recommend consideration being given to evaluation by Pulmonary Medicine given the CT findings. Otherwise, he will be continued on his amiodarone, metoprolol and Coumadin with a goal INR of 2-3 and I will follow the patient along with you during his hospital stay.
[2018-04-29 06:02] LABS: Hematocrit (blood only) 28.7 % (42-52); Hemoglobin 9.1 g/dL (14.0-18.0); Mean Corpuscular Hgb Conc 31.7 g/dL (32-36); Mean Platelet Volume 8.7 fL (7.4-10.4); Platelet Count 163 K/uL (130-400); RDW Coefficient of Variation 15.1 % (11.5-14.5); RDW Standard Deviation 54.3 fL (36.4-46.3); Red Blood Count 2.93 M/uL (4.7-6.1); White Blood Count 6.82 K/uL (4.8-10.8)
[2018-04-29 06:16] LABS: INR 2.5 (0.9-1.1); Prothrombin Time 23.7 Seconds (9.0-12.0)
[2018-04-29 06:37] LABS: BUN Creatinine Ratio 27.3 (10-20); Calcium 8.5 mg/dl (8.5-10.1); Creatinine Clr Calc Pharmacy 42.4 ml/min; Est GFR (African American) 44.4; Est GFR (Non-African American) 38.3; Ferritin 451.2 ng/ml (8-388); Magnesium 2.2 mg/dl (1.8-2.4); Potassium 4.1 mmol/L (3.5-5.1)
[2018-04-29] MEDS: NYSTATIN CR 15 GM TUBE EXT SCH ×2 (07:40→20:07)
[2018-04-29] MEDS: METOPROLOL TARTRATE 25 MG TAB PO SCH ×2 (07:40→20:05)
[2018-04-29] MEDS: ISOSORBIDE MONO EXTENDED REL 60 MG TABCR PO SCH (07:40)
[2018-04-29] MEDS: PANTOprazole 40 MG TAB PO SCH (07:40)
[2018-04-29] MEDS: POTASSIUM CHLORIDE 20 MEQ TABCR PO SCH ×2 (07:40→20:06)
[2018-04-29] MEDS: AMIODARONE 200 MG TAB PO SCH (07:40)
[2018-04-29] MEDS: CLOTRIMAZOLE 1% CR 15 GM TUBE EXT SCH ×2 (07:41→20:07)
[2018-04-29] MEDS: POLYETHYLENE (MIRALAX) 17 GM PACK PO SCH (07:48)
[2018-04-29] MEDS: ACETAMINOPHEN 325 MG TAB PO SCH ×2 (07:48→20:54)
[2018-04-29] MEDS: FUROSEMIDE 60 MG in SYRINGE 0 ML IV SCH ×3 (07:49→20:06)
--- NOTE | 2018-04-29 09:27 | Nephrology Progress Note ---
Date of Service April 29, 2018 Assessment & Plan (1) Acute kidney injury superimposed on CKD: -- MATTHEW related to CHF. Creatinine has risen to 1.6. May need to accept mild decrease in kidney function in order to render patient euvolemic and allow him to complete ADL's (2) CKD (chronic kidney disease), stage III: -- Baseline creatinine has been ~ 1.2. Renal impairment is on the basis of poor cardiac output, AODM and microvascular disease -- Will monitor PRP, weight and UO (3) CHF exacerbation: -- Echocardiogram 08/06: LVEF 40-49% with grade I diastolic dysfunction. -- Dietary indiscretion w/ salt is likely a contributing factor -- Chest CT yesterday revealed alveolar ground glass opacities and subpleural opacities. Ddx includes CHF, atypical pneumonia, pulmonary hemorrhage -- Recommend consultation w/ Pulmonology to review chest CT findings -- Will increase Furosemide to 60 mg IV TID (4) Anemia: -- Slow progressive decline in Hgb. Patient may benefit from IV iron therapy once pulmonary infection is effectively ruled out (5) DM w/o complication type II: (6) Pressure ulcer: (7) BPH (benign prostatic hyperplasia): Subjective Mr. Daugherty was seen & examined in his hospital room this morning. He reports little response to the increase in his diuretic therapy. He became dyspneic off O2 this morning when using the bathroom. Respiratory: + dyspnea on exertion; no cough Cardiovascular: + dyspnea on exertion; no chest pain Physical Exam 2 Vital Signs (Past 24 Hours): Last Vital Signs Temp 36.4 C L 04/29/18 07:20 Pulse 86 04/29/18 07:20 Resp 18 04/29/18 07:20 BP 102/63 04/29/18 07:20 Pulse Ox 96 04/29/18 05:30 Constitutional: + obese Eyes: PERRL, conjunctivae normal, anicteric sclerae Neck: trachea midline, no thyromegaly Respiratory: normal respiratory effort (diminished BS at bases bilaterally); no respiratory distress Cardiovascular: Rate/Rhythm: regular rate and regular rhythm (AICD palpable beneath L clavicle) Extremities: no edema Gastrointestinal (Abdomen): normal bowel sounds, soft, nontender, no hepatosplenomegaly Results & Data Laboratory Results Laboratory Tests 04/29/18 04/29/18 05:47 05:47 WBC 6.82 Hgb 9.1 L Hct 28.7 L Plt Count 163 Sodium 135 L Potassium 4.1 D Chloride 102 Carbon Dioxide 28 BUN 45 H Creatinine 1.66 H Glucose 116 H Calcium 8.5 Magnesium 2.2 Transferrin % Sat 10 L Ferritin 451.2 H NT-Pro-B Natriuret Pep [address] 04/28/18: 1. Right greater than left groundglass airspace opacities with interlobular septal thickening. This may represent pulmonary edema. However, there are also small bilateral subpleural densities. Therefore, an atypical pneumonitis would also be considered in the differential diagnosis. Hypersensitivity pneumonitis or pulmonary alveolar hemorrhage could also have a similar appearance but are considered less likely. 2. Mild mediastinal lymphadenopathy which has progressed. 3. Mild cardiomegaly, unchanged. 4. Sternal dehiscence, unchanged. _ (1) CHF exacerbation Heart failure type: unspecified Qualified Code(s): I50.9 - Heart failure, unspecified (2) DM w/o complication type II Diabetes mellitus longwall foreman insulin use: without longwall foreman use Qualified Code (s): E11.9 - Type 2 diabetes mellitus without complications (3) BPH (benign prostatic hyperplasia) Lower urinary tract symptom presence: symptoms absent Lower urinary tract symptom detail: Qualified Code(s): N40.0 - Benign prostatic hyperplasia without lower urinary tract symptoms
--- NOTE | 2018-04-29 15:26 | Cardiology Progress Note ---
Date of Service April 29, 2018 Assessment & Plan (1) CHF exacerbation: acute decompensation lasix restarted, unfortunately, without significant output as of yet I agree with nephrology's recommendation of increasing to TID will follow (2) Acute kidney injury superimposed on CKD: nephrology following Subjective Pt seen and examined, with at bedside. OOB in chair. States breathing may be slightly improved today. Able to ambulate a littler further today without dyspnea. Continues to deny cp, palpitations, lightheadedness or dizziness. Physical Exam 2 Vital Signs (Past 24 Hours): Last Vital Signs Temp 36.5 C 04/29/18 14:58 Pulse 65 04/29/18 14:58 Resp 18 04/29/18 14:58 BP 120/64 04/29/18 14:58 Pulse Ox 97 04/29/18 14:58 Physical Exam: General: Awake, alert and oriented x 3. No acute distress. HEENT: Normocephalic, atraumatic. Pupils equal, round and reactive to light and accommodation. Extraocular muscles are intact. Anicteric sclera. Moist mucous membranes. Neck: No JVD. No bruit. Cardiovascular: Regular. Positive S-4. Normal S-1 and S-2. No S-3. No murmurs or rubs. Pulmonary: Poor air movement in B/L bases. otherwise, clear Abdomen: Bowel sounds x 4, soft. No rebound, guarding or tenderness. No organomegaly. Extremities: No clubbing, cyanosis or edema. +2 pedal pulses bilaterally. Skin: Warm and dry. _ (1) CHF exacerbation Heart failure type: unspecified Qualified Code(s): I50.9 - Heart failure, unspecified
[2018-04-29] MEDS: WARFARIN SOD 2 MG TAB PO SCH (16:09)
--- NOTE | 2018-04-29 16:33 | Hospitalist Progress Note ---
Date of Service April 29, 2018 Assessment & Plan (1) CHF exacerbation: Acute on chronic systolic heart failure with EF 35-40% in 01/2018. Patient with 3 days of progressive SOB as well as orthopnea/weight gain/ hypoxia. Patient and report non-compliance with diet during the holidays. - Monitor weights, I&Os - Telemetry - Fluid restriction - Low Na diet - Continue Metoprolol 12.5mg BID & Imdur 60mg daily - Continue amiodarone 200mg daily for prior episode of VT - Continue diuresis - Dr. Brewster increased Lasix 60mg IV from BID to TID on 04/29 (2) Abnormal finding on CT scan: CT chest on 04/28 showed findings concerning for pulmonary edema vs. "atypical pneumonitis." Discussed with pulmonology who will see him with any further recs. - Follow up pulm consult (3) Hypoxia: Oxygenation improved on NC. Hypoxia most likely secondary to acute exacerbation of CHF. - Supplemental O2 as needed - Plan as above for CHF (4) CAD (coronary artery disease): Patient with CAD s/p CABG with subsequent stenting. AICD in place for episode of VT. Presently with no chest pain. - Continue home meds as above (5) Atrial fibrillation: Patient presently in NSR. Anticoagulated with Coumadin. - Continue metoprolol and amiodarone as above - Continue Coumadin - INR 2.5 on 04/29 (6) DM w/o complication type II: Diet controlled. Last HgAIC was 6.3% on 02/01/18. - Sliding scale insulin (7) Tinea cruris: Patient with tinea cruris in right groin. No bleeding. No evidence of secondary bacterial infection. - Continue clotrimozole cream BID (8) CKD (chronic kidney disease), stage III: Patient with baseline Cr of 1.4 - 1.6. - Still at baseline - Monitor with increased diuresis (9) BPH (benign prostatic hyperplasia): Chronic. Stable. No concerns for acute retention. - Continue terazosin - Continue finasteride (10) DVT prophylaxis: On warfarin for afib Subjective 82yo M w/ hx of CHF who presents with CHF exacerbation. Walked with PT today and improving. Also feels stronger. Reports no fevers/ chills, chest pain, abdominal pain, nausea, or vomiting. Physical Exam 2 Vital Signs (Past 24 Hours): Last Vital Signs Temp 36.5 C 04/29/18 14:58 Pulse 65 04/29/18 14:58 Resp 18 04/29/18 14:58 BP 120/64 04/29/18 14:58 Pulse Ox 97 04/29/18 14:58 Constitutional: WD/WN, vitals as above Eyes: EOM intact bilaterally; no conjunctival abnormality ENMT: external ear and nose normal, oropharynx normal Neck: trachea midline, no thyromegaly normal visual inspection Respiratory: normal respiratory effort, lungs clear to auscultation no respiratory distress Cardiovascular: RRR, no murmur, no edema Gastrointestinal (Abdomen): Inspection/Auscultation: abdomen normal to inspection; abdomen not distended Musculoskeletal: no cyanosis or clubbing, extremities motor strength 5/5 Skin: no rashes, warm and dry Neurologic: moves all extremities and awake Psychiatric: Orientation: alert, oriented to person and cooperative _ (1) CHF exacerbation Heart failure type: unspecified Qualified Code(s): I50.9 - Heart failure, unspecified (2) CAD (coronary artery disease) Coronary Disease-Associated Artery/Lesion type: bypass graft [place] vs. transplanted heart: [place] heart Associated angina: without angina Qualified Code(s): I25.810 - Atherosclerosis of coronary artery bypass graft(s) without angina pectoris (3) Atrial fibrillation Atrial fibrillation type: paroxysmal Qualified Code(s): I48.0 - Paroxysmal atrial fibrillation (4) DM w/o complication type II Diabetes mellitus detention insulin use: without bill peddler use Qualified Code (s): E11.9 - Type 2 diabetes mellitus without complications (5) BPH (benign prostatic hyperplasia) Lower urinary tract symptom presence: symptoms absent Lower urinary tract symptom detail: Qualified Code(s): N40.0 - Benign prostatic hyperplasia without lower urinary tract symptoms
[2018-04-29] MEDS: LACTULOSE SYRUP 10 GM/15 ML BTL 473 ML PO SCH (20:05)
[2018-04-29] MEDS: TERAZOSIN HCL 1 MG CAP PO SCH (20:05)
[2018-04-29] MEDS: DOCUSATE SODIUM 100 MG CAP PO SCH (20:06)
--- NOTE | 2018-04-29 22:30 | Pulmonary Consultation ---
Date of Consultation April 29, 2018 Assessment & Plan (1) CHF exacerbation: Impression: 1. CHF with exacerbation, the patient presented with increased shortness of breath, bilateral crackles, elevated BNP, and chest x-ray consistent with cardiomegaly and pulmonary edema. 2. I could not find any evidence of COPD in this patient, patient never been on inhalers, no history of oxygen use, never smoked cigarettes in his life. 3. Chronic kidney disease contributing to his symptoms as well. 4. A. fib, on Coumadin. 5. Concerns for amiodarone toxicity however, the CAT scan did not show signs of alveolitis fibrosis syndrome. Cannot be differentiated by CAT scan from CHF either. Plan: 1. Start the patient on Lasix drip if Lasix injections are not adequate, BNP showed response with the improvement from [id number].. 2. Follow the patient BUN and creatinine daily. 3. Potassium replacement. 4. Wean oxygen to off as tolerated. 5. Obtain pulmonary function test as an outpatient, if the patient has restrictive pattern, consider discontinuation of amiodarone if possible. Thank you for your kind referral, will follow as needed. Heart failure type: unspecified Qualified Code(s): I50.9 - Heart failure, unspecified History of Present Illness Reason for Consultation: Shortness of breath. Requesting Physician: Dr. Richmond. Attending Physician: Adonay Richmond MD History of Present Illness Dear Dr. Richmond: Thank you for the kind referral Mr. Daugherty to pulmonary service. This is 82- year-old gentleman with history of congestive heart failure, chronic kidney disease, coronary artery disease in the past, no history of COPD, does not use any inhalers at home, has not been on oxygen at home, no history of smoking lifetime, no history of secondhand exposure to smoking either. The patient presented to the hospital with increasing shortness of breath accompanied with increased swelling in his lower extremities. The patient exercise capacity in general is less than 50 feet. The patient has house which is amenable to handicap service. The patient lives with his . He denies any cough no sputum production, no constitutional symptoms. No history of wheezing and no chest pain. Denies any hemoptysis or sputum production. No sinusitis symptoms , facial pain, headache, neck pain. He does have orthopnea, and dyspnea on exertion. No nocturnal symptoms. The rest of his review of system was unremarkable. 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 No industrial exposure. Allergies Allergy/AdvReac Type Severity Reaction Status Date / Time Iodinated Contrast- Oral and Allergy Severe ANAPHYLAXIS Verified 04/23/18 15:45 IV Dye shellfish derived Allergy Severe ANAPHYLAXIS Verified 04/23/18 15:45 clindamycin Allergy Intermediate Rash Verified 04/23/18 13:18 Penicillins Allergy Intermediate BOILS Verified 04/23/18 15:45 latex AdvReac Intermediate RASH Verified 04/23/18 15:45 [id number] Reductase AdvReac Intermediate severe Verified 04/23/18 15:45 Inhibitor myalgias atorvastatin AdvReac Mild GI SYMPTOMS Verified 04/23/18 15:45 levofloxacin [From Levaquin] AdvReac Mild Insomnia Verified 04/23/18 15:45 rosuvastatin AdvReac Mild GI SYMPTOMS Verified 04/23/18 15:45 Home Medications Home Medications Medication Instructions Recorded Confirmed Type docusate sodium [Colace] 100 mg PO HS 01/31/18 04/23/18 History dutasteride 0.5 mg PO HS 01/31/18 04/23/18 History isosorbide mononitrate 60 mg PO QAM 01/31/18 04/23/18 History lactulose 15 ml PO HS 01/31/18 04/23/18 History nitroglycerin 0.4 mg SUBLINGUAL UD PRN 01/31/18 04/23/18 History pantoprazole 40 mg PO QAM 01/31/18 04/23/18 History terazosin 1 mg PO HS 01/31/18 04/23/18 History warfarin 2 mg PO 5XWK 01/31/18 04/23/18 History warfarin 4 mg PO 2XWK 01/31/18 04/23/18 History amiodarone 200 mg PO QAM #30 tab 02/06/18 04/23/18 Rx metoprolol tartrate 12.5 mg PO BID #30 tab 02/06/18 04/23/18 Rx acetaminophen [Mapap 650 mg PO BID 04/23/18 04/23/18 History (acetaminophen)] furosemide 20 mg PO 3XWK 04/23/18 04/23/18 History polyethylene glycol 3350 [Miralax] 17 g PO QAM 04/23/18 04/23/18 History Patient History Medical History Pressure ulcer (Acute) Drug eruption Tinea cruris DVT prophylaxis Osteoarthritis of knees, 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 Constipation Patient on home bowel regimen but requesting possible enema to aid in bowel movement 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, NYHA class 2 STEMI (ST elevation myocardial infarction) Atrial fibrillation CAD (coronary artery disease) Ventricular tachycardia (Acute) Syncope (Acute) Laceration of forehead, left, complicated (Acute) CKD (chronic kidney disease), stage III (Acute) Sepsis COPD (chronic obstructive pulmonary disease) (Chronic) NSTEMI (non-ST elevated myocardial infarction) ASCVD (arteriosclerotic cardiovascular disease) (Acute) Former smoker (Acute) Status post fall (Acute) Angina, class II Chronic combined systolic and diastolic CHF (congestive heart failure) Dyslipidemia, goal LDL below 70 Paroxysmal atrial fibrillation Popliteal aneurysm Stenosis of right internal carotid artery Urinary retention Surgical History AICD (automatic cardioverter/defibrillator) present (Acute) History of coronary artery stent placement (Acute) S/P CABG x 1 (Acute) S/P CABG x 2 (Acute) S/P CABG x 4 Family History Other No pertinent family history Social History marital status: Current Living Situation: Spouse current occupational status: retired Other Information That Helps Us Care for You: No Feels Safe at Home: Yes Safety Concerns: Feels Safe At This Time Smoking Status: Former smoker Hx Alcohol Use: Yes Alcohol type: wine Alcohol Intake Frequency: a few times a week Hx Substance Use: No Beliefs That Will Affect Care: None Communication Ability: Effective Review of Systems Unremarkable, 14 systems has been reviewed, except for the above mentioned in the first section. Physical Exam 2 Vital Signs (Past 24 Hours): Last Vital Signs Temp 36.9 C 04/29/18 19:29 Pulse 62 04/29/18 19:29 Resp 20 04/29/18 19:29 BP 128/71 04/29/18 19:29 Pulse Ox 94 04/29/18 19:29 Physical Exam: Vital signs are stable, S1-S2 regular rate and rhythm, lungs with bibasilar crackles, abdomen is benign, 1+ edema in the periphery. Neurologically he is intact. Results & Data Laboratory Results His labs showed stable CBC, INR is 2.5, BUN and creatinine is 45 and 1.6. Diagnostic Findings Chest x-ray and CAT scan of the chest was reviewed which are consistent with mosaic pattern consistent with pulmonary vascular congestion. Cardiomegaly and CHF.
[2018-04-30 06:02] LABS: Appearance Urine Cloudy (Clear); Bacteria Urine Automated 2+ (Negative); Bilirubin Urine Negative (Negative); Color Urine Yellow; Glucose Urine UA Negative (Negative); Ketones Urine Negative (Negative); Leukocyte Esterase Urine 3+ (Negative); Nitrite Urine Positive (Negative); Protein Urine Negative (Negative); Specific Gravity Urine 1.013 (1.000-1.030); Urobilinogen Urine Negative (Negative); WBC Urine Automated >30 /hpf (0-5)
[2018-04-30 06:15] LABS: Hematocrit (blood only) 29.8 % (42-52); Hemoglobin 9.7 g/dL (14.0-18.0); Mean Corpuscular Hgb Conc 32.6 g/dL (32-36); Mean Corpuscular Volume 97.4 fL (80-100); Mean Platelet Volume 9.2 fL (7.4-10.4); Platelet Count 197 K/uL (130-400); RDW Coefficient of Variation 15.1 % (11.5-14.5); RDW Standard Deviation 53.6 fL (36.4-46.3); Red Blood Count 3.06 M/uL (4.7-6.1); White Blood Count 6.63 K/uL (4.8-10.8)
[2018-04-30 06:20] LABS: Creatinine Urine Random 58.7 mg/dl
[2018-04-30 06:51] LABS: BUN Creatinine Ratio 31.2 (10-20); Creatinine Clr Calc Pharmacy 44.2 ml/min; Est GFR (African American) 47.2; Est GFR (Non-African American) 40.7; Potassium 4.5 mmol/L (3.5-5.1)
[2018-04-30] MEDS: POLYETHYLENE (MIRALAX) 17 GM PACK PO SCH (08:04)
[2018-04-30] MEDS: CLOTRIMAZOLE 1% CR 15 GM TUBE EXT SCH ×2 (08:05→20:46)
[2018-04-30] MEDS: NYSTATIN CR 15 GM TUBE EXT SCH ×2 (08:05→20:46)
[2018-04-30] MEDS: FUROSEMIDE 60 MG in SYRINGE 0 ML IV SCH (08:05)
[2018-04-30] MEDS: ISOSORBIDE MONO EXTENDED REL 60 MG TABCR PO SCH (08:06)
[2018-04-30] MEDS: METOPROLOL TARTRATE 25 MG TAB PO SCH ×2 (08:06→20:45)
[2018-04-30] MEDS: AMIODARONE 200 MG TAB PO SCH (08:06)
[2018-04-30] MEDS: POTASSIUM CHLORIDE 20 MEQ TABCR PO SCH ×2 (08:07→20:46)
[2018-04-30] MEDS: PANTOprazole 40 MG TAB PO SCH (08:07)
[2018-04-30] MEDS: ACETAMINOPHEN 325 MG TAB PO SCH ×2 (08:08→21:24)
[2018-04-30] MEDS ORDERED: FUROSEMIDE 20 MG in SYRINGE 0 ML IV ONE (09:15)
--- NOTE | 2018-04-30 09:49 | Nephrology Progress Note ---
Date of Service April 30, 2018 Assessment & Plan (1) Acute kidney injury superimposed on CKD: -- MATTHEW related to CHF. Creatinine has risen to 1.6. May need to accept mild decrease in kidney function in order to render patient euvolemic and allow him to complete ADL's (2) CKD (chronic kidney disease), stage III: -- Baseline creatinine has stabilized at ~ 1.6. Renal impairment is on the basis of poor cardiac output, AODM and microvascular disease -- Will monitor PRP, weight and UO (3) CHF exacerbation: -- Echocardiogram 08/06: LVEF 40-49% with grade I diastolic dysfunction. -- Dietary indiscretion w/ salt is likely a contributing factor -- Chest CT yesterday revealed alveolar ground glass opacities and subpleural opacities. Ddx includes CHF, atypical pneumonia, pulmonary hemorrhage. Pulmonary consultation reviewed this am. No overt infection. Medical presentation is most c/w pulmonary edema -- Will increase Furosemide to 80 mg IV TID this am (4) Anemia: -- Slow progressive decline in Hgb. -- Start IV iron to help correct anemia (5) DM w/o complication type II: (6) Pressure ulcer: (7) BPH (benign prostatic hyperplasia): Subjective Mr. Daugherty was seen & examined in his hospital room this morning. Plan of care was discussed w/ hospitalist service. Pulmonary consultation was reviewed. Mr. Daugherty remains dyspneic w/ exertion. He reports that he was not on oxygen at home. He has noticed improved UO w/ titration of IV bolud diuretic therapy. Respiratory: + dyspnea on exertion; no cough Cardiovascular: + dyspnea on exertion; no chest pain Physical Exam 2 Vital Signs (Past 24 Hours): Last Vital Signs Temp 36.3 C L 04/30/18 07:12 Pulse 62 04/30/18 07:12 Resp 20 04/30/18 07:12 BP 125/66 04/30/18 07:12 Pulse Ox 93 04/30/18 07:12 Constitutional: + obese Eyes: PERRL, conjunctivae normal, anicteric sclerae Neck: trachea midline, no thyromegaly Respiratory: normal respiratory effort (diminished BS at bases bilaterally); no respiratory distress Cardiovascular: Rate/Rhythm: regular rate and regular rhythm (AICD palpable beneath L clavicle) Extremities: no edema Gastrointestinal (Abdomen): normal bowel sounds, soft, nontender, no hepatosplenomegaly Results & Data Laboratory Results Laboratory Tests 04/30/18 04/30/18 05:37 05:37 WBC 6.63 Hgb 9.7 L Hct 29.8 L Plt Count 197 Sodium 134 L Potassium 4.5 Chloride 100 Carbon Dioxide 27 BUN 49 H Creatinine 1.58 H Glucose 119 H _ (1) CHF exacerbation Heart failure type: unspecified Qualified Code(s): I50.9 - Heart failure, unspecified (2) DM w/o complication type II Diabetes mellitus terminal operator insulin use: without terminal operator use Qualified Code (s): E11.9 - Type 2 diabetes mellitus without complications (3) BPH (benign prostatic hyperplasia) Lower urinary tract symptom presence: symptoms absent Lower urinary tract symptom detail: Qualified Code(s): N40.0 - Benign prostatic hyperplasia without lower urinary tract symptoms
[2018-04-30] MEDS ORDERED: IRON SUCROSE (VENOFER) 100 MG/5 ML VIAL IV SCH (10:00)
[2018-04-30] MEDS: IRON SUCROSE 200 MG in 0.9 % SODIUM CHLORIDE 100 ML IV SCH ×2 (10:26→12:42)
--- NOTE | 2018-04-30 14:20 | Hospitalist Progress Note ---
Date of Service April 30, 2018 Assessment & Plan (1) CHF exacerbation: Acute on chronic systolic heart failure with EF 35-40% in 01/2018. Patient with 3 days of progressive SOB as well as orthopnea/weight gain/ hypoxia. Patient and report non-compliance with diet during the holidays. - Monitor weights, I&Os - Telemetry - Fluid restriction & low Na diet - Continue Metoprolol 12.5mg BID & Imdur 60mg daily - Continue diuresis - Dr. Brewster increased Lasix 80mg IV on 04/30 (2) Abnormal finding on CT scan: CT chest on 04/28 showed findings concerning for pulmonary edema vs. "atypical pneumonitis." Discussed with pulmonology who it is likely pulmonary edema vs. possible amiodarone toxicity. He was on amiodarone for a prior episode of VT, but now has a AICD and had no episodes of VT/VF since 02/2018 on the pacer interrogation this admission. - Amiodarone 200mg daily held on 04/[address] Melgar (3) Hypoxia: Oxygenation improved on NC. Hypoxia most likely secondary to acute exacerbation of CHF. - Supplemental O2 as needed - Plan as above for CHF (4) CAD (coronary artery disease): Patient with CAD s/p CABG with subsequent stenting. AICD in place for episode of VT. Presently with no chest pain. - Continue home meds as above (5) Atrial fibrillation: Patient presently in NSR. Anticoagulated with Coumadin. - Continue metoprolol as above - Hold amiodarone for possible toxicity (see above) - Continue Coumadin - Monitor INRs (6) DM w/o complication type II: Diet controlled. Last HgAIC was 6.3% on 02/01/18. - Sliding scale insulin (7) Tinea cruris: Patient with tinea cruris in right groin. No bleeding. No evidence of secondary bacterial infection. - Continue clotrimozole cream BID (8) CKD (chronic kidney disease), stage III: Patient with baseline Cr of 1.4 - 1.6. - Still at baseline - Monitor with increased diuresis (9) BPH (benign prostatic hyperplasia): Chronic. Stable. No concerns for acute retention. - Continue terazosin - Continue finasteride (10) DVT prophylaxis: On warfarin for afib Subjective 82yo M w/ hx of CHF who presents with CHF exacerbation. Walked with PT today and improving. Reports no fevers/chills, chest pain, abdominal pain, nausea, or vomiting. Physical Exam 2 Vital Signs (Past 24 Hours): Last Vital Signs Temp 36.7 C 04/30/18 10:41 Pulse 79 04/30/18 10:41 Resp 16 04/30/18 10:41 BP 109/64 04/30/18 10:41 Pulse Ox 95 04/30/18 10:41 Constitutional: WD/WN, vitals as above Eyes: EOM intact bilaterally; no conjunctival abnormality ENMT: external ear and nose normal, oropharynx normal Neck: trachea midline, no thyromegaly normal visual inspection Respiratory: normal respiratory effort, lungs clear to auscultation no respiratory distress Cardiovascular: RRR, no murmur, no edema Gastrointestinal (Abdomen): Inspection/Auscultation: abdomen normal to inspection; abdomen not distended Musculoskeletal: no cyanosis or clubbing, extremities motor strength 5/5 Skin: no rashes, warm and dry Neurologic: moves all extremities and awake Psychiatric: Orientation: alert, oriented to person and cooperative _ (1) CHF exacerbation Heart failure type: unspecified Qualified Code(s): I50.9 - Heart failure, unspecified (2) CAD (coronary artery disease) Coronary Disease-Associated Artery/Lesion type: bypass graft [place] vs. transplanted heart: [place] heart Associated angina: without angina Qualified Code(s): I25.810 - Atherosclerosis of coronary artery bypass graft(s) without angina pectoris (3) Atrial fibrillation Atrial fibrillation type: paroxysmal Qualified Code(s): I48.0 - Paroxysmal atrial fibrillation (4) DM w/o complication type II Diabetes mellitus residential insulin use: without residential use Qualified Code (s): E11.9 - Type 2 diabetes mellitus without complications (5) BPH (benign prostatic hyperplasia) Lower urinary tract symptom presence: symptoms absent Lower urinary tract symptom detail: Qualified Code(s): N40.0 - Benign prostatic hyperplasia without lower urinary tract symptoms
[2018-04-30] MEDS: FUROSEMIDE 80 MG in SYRINGE 0 ML IV SCH ×2 (14:26→20:43)
[2018-04-30] MEDS: WARFARIN SOD 2 MG TAB PO SCH (15:42)
[2018-04-30] MEDS: LACTULOSE SYRUP 10 GM/15 ML BTL 473 ML PO SCH (20:44)
[2018-04-30] MEDS: DOCUSATE SODIUM 100 MG CAP PO SCH (20:44)
[2018-04-30] MEDS: TERAZOSIN HCL 1 MG CAP PO SCH (20:45)
[2018-05-01 07:20] LABS: INR 2.5 (0.9-1.1); Prothrombin Time 23.9 Seconds (9.0-12.0)
[2018-05-01 07:43] LABS: BUN Creatinine Ratio 32.5 (10-20); Creatinine Clr Calc Pharmacy 38.2 ml/min; Est GFR (African American) 39.8; Est GFR (Non-African American) 34.3; Potassium 4.5 mmol/L (3.5-5.1)
[2018-05-01] MEDS: IRON SUCROSE 200 MG in 0.9 % SODIUM CHLORIDE 100 ML IV SCH (08:55)
[2018-05-01] MEDS: FUROSEMIDE 80 MG in SYRINGE 0 ML IV SCH (08:56)
[2018-05-01] MEDS: METOPROLOL TARTRATE 25 MG TAB PO SCH ×2 (08:56→20:53)
[2018-05-01] MEDS: PANTOprazole 40 MG TAB PO SCH (08:57)
[2018-05-01] MEDS: ISOSORBIDE MONO EXTENDED REL 60 MG TABCR PO SCH (08:57)
[2018-05-01] MEDS: POTASSIUM CHLORIDE 20 MEQ TABCR PO SCH ×2 (08:57→20:54)
[2018-05-01] MEDS: CLOTRIMAZOLE 1% CR 15 GM TUBE EXT SCH ×2 (08:58→20:54)
[2018-05-01] MEDS: ACETAMINOPHEN 325 MG TAB PO SCH ×2 (09:04→20:53)
[2018-05-01] MEDS: POLYETHYLENE (MIRALAX) 17 GM PACK PO SCH ×2 (09:10→09:11)
[2018-05-01] MEDS: NYSTATIN CR 15 GM TUBE EXT SCH ×2 (09:42→20:54)
--- NOTE | 2018-05-01 12:33 | Nephrology Progress Note ---
Date of Service May 01, 2018 Assessment & Plan (1) Acute kidney injury superimposed on CKD: -- MATTHEW related to CHF. Creatinine has risen to 1.8. May need to accept mild decrease in kidney function in order to render patient euvolemic and allow him to complete ADL's -- FeNa 1.1% while on diuretic therapy. Urine sediment has been acellular. No significant proteinuria. (2) CKD (chronic kidney disease), stage III: -- Baseline creatinine had been ~ 1.2. Renal impairment is on the basis of poor cardiac output, AODM and microvascular disease -- Will monitor PRP, weight and UO (3) CHF exacerbation: -- Echocardiogram 08/06: LVEF 40-49% with grade I diastolic dysfunction. -- Dietary indiscretion w/ salt is likely a contributing factor -- Chest CT yesterday revealed alveolar ground glass opacities and subpleural opacities. Ddx includes CHF, atypical pneumonia, pulmonary hemorrhage and Amiodarone toxicity. Pulmonary consultation has been reviewed. No overt infection. Medical presentation is most c/w pulmonary edema -- Patient is net 2.5 L net negative since admission. Continue Furosemide 80 mg IV TID this am (4) Anemia: -- Slow progressive decline in Hgb. -- Day #2 of 5 IV Venofer (5) DM w/o complication type II: (6) Pressure ulcer: (7) BPH (benign prostatic hyperplasia): Subjective Mr. Daugherty was seen & examined in his hospital room this morning. He reports improved UO in response to diuretic therapy but still has [place]. He continues to require oxygen by NC. Respiratory: + dyspnea on exertion; no cough Cardiovascular: + dyspnea on exertion; no chest pain Physical Exam 2 Vital Signs (Past 24 Hours): Last Vital Signs Temp 36.5 C 05/01/18 07:49 Pulse 60 05/01/18 08:00 Resp 18 05/01/18 07:49 BP 132/69 05/01/18 07:49 Pulse Ox 91 05/01/18 07:49 Constitutional: + obese Eyes: PERRL, conjunctivae normal, anicteric sclerae Neck: trachea midline, no thyromegaly Respiratory: normal respiratory effort (diminished BS at bases bilaterally); no respiratory distress Cardiovascular: Rate/Rhythm: regular rate and regular rhythm (AICD palpable beneath L clavicle) Extremities: no edema Gastrointestinal (Abdomen): normal bowel sounds, soft, nontender, no hepatosplenomegaly Results & Data Laboratory Results Laboratory Tests 04/30/18 05/01/18 05:37 06:29 WBC 6.63 Hgb 9.7 L Hct 29.8 L Plt Count 197 Sodium 134 L Potassium 4.5 Chloride 100 Carbon Dioxide 28 BUN 59 H Creatinine 1.82 H Glucose 113 H _ (1) BPH (benign prostatic hyperplasia) Lower urinary tract symptom detail: Lower urinary tract symptom presence: symptoms absent Qualified Code(s): N40.0 - Benign prostatic hyperplasia without lower urinary tract symptoms (2) CHF exacerbation Heart failure type: unspecified Qualified Code(s): I50.9 - Heart failure, unspecified (3) DM w/o complication type II Diabetes mellitus custodial insulin use: without superintendent marine oil terminal use Qualified Code (s): E11.9 - Type 2 diabetes mellitus without complications
--- NOTE | 2018-05-01 13:06 | Hospitalist Progress Note ---
Date of Service May 01, 2018 Assessment & Plan (1) CHF exacerbation: Acute on chronic systolic heart failure with EF 35-40% in 01/2018. Patient with 3 days of progressive SOB as well as orthopnea/weight gain/ hypoxia. Patient and report non-compliance with diet during the holidays. - Monitor weights, I&Os - Telemetry - Fluid restriction & low Na diet - Continue Metoprolol 12.5mg BID & Imdur 60mg daily - Continue diuresis - Dr. Brewster increased Lasix 80mg IV TID on 04/30 (2) Abnormal finding on CT scan: CT chest on 04/28 showed findings concerning for pulmonary edema vs. "atypical pneumonitis." Discussed with pulmonology who it is likely pulmonary edema vs. possible amiodarone toxicity. He was on amiodarone for a prior episode of VT, but now has a AICD and had no episodes of VT/VF since 02/2018 on the pacer interrogation this admission. - Amiodarone 200mg daily held on 04/[address] Melgar (3) Hypoxia: Oxygenation improved on NC. Hypoxia most likely secondary to acute exacerbation of CHF vs. amiodarone toxicity. - Supplemental O2 as needed - Plan as above for CHF (4) CAD (coronary artery disease): Patient with CAD s/p CABG with subsequent stenting. AICD in place for episode of VT. Presently with no chest pain. - Continue home meds as above (5) Atrial fibrillation: Patient presently in NSR. Anticoagulated with Coumadin. - Continue metoprolol as above - Hold amiodarone for possible toxicity (see above) - Continue Coumadin - Monitor INRs (6) DM w/o complication type II: Diet controlled. Last HgAIC was 6.3% on 02/01/18. - Sliding scale insulin (7) Tinea cruris: Patient with tinea cruris in right groin. No bleeding. No evidence of secondary bacterial infection. - Continue clotrimozole cream BID (8) CKD (chronic kidney disease), stage III: Patient with baseline Cr of 1.4 - 1.6. - Mildly above baseline on 05/01 - Monitor with increased diuresis (9) BPH (benign prostatic hyperplasia): Chronic. Stable. No concerns for acute retention. - Continue terazosin - Continue finasteride (10) DVT prophylaxis: On warfarin for afib Subjective 82yo M w/ hx of CHF who presents with CHF exacerbation. No major changes to how he feels today. Making some urine with the increased diuresis. Reports no fevers/chills, chest pain, abdominal pain, nausea, or vomiting. Physical Exam 2 Vital Signs (Past 24 Hours): Last Vital Signs Temp 36.6 C 05/01/18 12:43 Pulse 66 05/01/18 12:43 Resp 18 05/01/18 12:43 BP 94/61 L 05/01/18 12:43 Pulse Ox 95 05/01/18 12:43 Constitutional: WD/WN, vitals as above Eyes: EOM intact bilaterally; no conjunctival abnormality ENMT: external ear and nose normal, oropharynx normal Neck: trachea midline, no thyromegaly normal visual inspection Respiratory: normal respiratory effort, lungs clear to auscultation no respiratory distress Cardiovascular: RRR, no murmur, no edema Gastrointestinal (Abdomen): Inspection/Auscultation: abdomen normal to inspection; abdomen not distended Musculoskeletal: no cyanosis or clubbing, extremities motor strength 5/5 Skin: no rashes, warm and dry Neurologic: moves all extremities and awake Psychiatric: Orientation: alert, oriented to person and cooperative _ (1) CHF exacerbation Heart failure type: unspecified Qualified Code(s): I50.9 - Heart failure, unspecified (2) CAD (coronary artery disease) Coronary Disease-Associated Artery/Lesion type: bypass graft [place] vs. transplanted heart: [place] heart Associated angina: without angina Qualified Code(s): I25.810 - Atherosclerosis of coronary artery bypass graft(s) without angina pectoris (3) Atrial fibrillation Atrial fibrillation type: paroxysmal Qualified Code(s): I48.0 - Paroxysmal atrial fibrillation (4) DM w/o complication type II Diabetes mellitus surgical brace maker insulin use: without surgical brace maker use Qualified Code (s): E11.9 - Type 2 diabetes mellitus without complications (5) BPH (benign prostatic hyperplasia) Lower urinary tract symptom presence: symptoms absent Lower urinary tract symptom detail: Qualified Code(s): N40.0 - Benign prostatic hyperplasia without lower urinary tract symptoms
[2018-05-01] MEDS: WARFARIN SOD 4 MG TAB PO SCH (16:40)
[2018-05-01] MEDS: DOCUSATE SODIUM 100 MG CAP PO SCH (20:54)
[2018-05-01] MEDS: TERAZOSIN HCL 1 MG CAP PO SCH (20:54)
[2018-05-01] MEDS: LACTULOSE SYRUP 10 GM/15 ML BTL 473 ML PO SCH (20:55)
[2018-05-02 07:10] LABS: Basophils # (auto) 0.04 K/uL (0-0.2); Basophils % (auto) 0.5 %; Eosinophils # (auto) 0.52 K/uL (0-0.5); Eosinophils % (auto) 6.8 %; Hematocrit (blood only) 31.7 % (42-52); Hemoglobin 10.1 g/dL (14.0-18.0); Immature Granulocytes # (auto) 0.03 K/uL (0.00-0.02); Immature Granulocytes % (auto) 0.4 %; Lymphocytes # (auto) 0.93 K/uL (1.2-3.4); Lymphocytes % (auto) 12.2 %; Mean Corpuscular Hgb Conc 31.9 g/dL (32-36); Mean Corpuscular Volume 97.5 fL (80-100); Mean Platelet Volume 9.1 fL (7.4-10.4); Monocytes % (auto) 9.2 %; Neutrophils # (auto) 5.42 K/uL (1.4-6.5); Neutrophils % (auto) 70.9 %; Platelet Count 202 K/uL (130-400); RDW Coefficient of Variation 14.9 % (11.5-14.5); RDW Standard Deviation 52.8 fL (36.4-46.3); Red Blood Count 3.25 M/uL (4.7-6.1); White Blood Count 7.64 K/uL (4.8-10.8)
[2018-05-02 07:41] LABS: BUN Creatinine Ratio 34.6 (10-20); Creatinine Clr Calc Pharmacy 40.6 ml/min; Est GFR (African American) 42.9; Magnesium 2.3 mg/dl (1.8-2.4); Potassium 4.8 mmol/L (3.5-5.1)
[2018-05-02] MEDS: ISOSORBIDE MONO EXTENDED REL 60 MG TABCR PO SCH (08:38)
[2018-05-02] MEDS: POTASSIUM CHLORIDE 20 MEQ TABCR PO SCH (08:38)
[2018-05-02] MEDS: METOPROLOL TARTRATE 25 MG TAB PO SCH ×2 (08:38→20:33)
[2018-05-02] MEDS: PANTOprazole 40 MG TAB PO SCH (08:38)
[2018-05-02] MEDS: NYSTATIN CR 15 GM TUBE EXT SCH ×2 (08:39→20:34)
[2018-05-02] MEDS: CLOTRIMAZOLE 1% CR 15 GM TUBE EXT SCH ×2 (08:39→20:34)
[2018-05-02] MEDS: ACETAMINOPHEN 325 MG TAB PO SCH ×2 (08:47→20:36)
[2018-05-02] MEDS: POLYETHYLENE (MIRALAX) 17 GM PACK PO SCH (08:47)
--- NOTE | 2018-05-02 11:47 | Nephrology Progress Note ---
Date of Service May 02, 2018 Assessment & Plan (1) Acute kidney injury superimposed on CKD: -- MATTHEW related to CHF. Creatinine has risen to 1.8. May need to accept mild decrease in kidney function in order to render patient euvolemic and allow him to complete ADL's -- FeNa 1.1% while on diuretic therapy. Urine sediment has been acellular. No significant proteinuria. (2) CKD (chronic kidney disease), stage III: -- Baseline creatinine had been ~ 1.2. Renal impairment is on the basis of poor cardiac output, AODM and microvascular disease -- Will monitor PRP, weight and UO (3) CHF exacerbation: -- Echocardiogram 08/06: LVEF 40-49% with grade I diastolic dysfunction. -- Dietary indiscretion w/ salt is likely a contributing factor -- Chest CT yesterday revealed alveolar ground glass opacities and subpleural opacities. Ddx includes CHF, atypical pneumonia, pulmonary hemorrhage and Amiodarone toxicity. Pulmonary consultation has been reviewed. No overt infection. --urine output remained relatively low with net positive despite being on Furosemide 80 mg IV TID --clinically does not seem to be significantly volume overloaded, no evidence of lower extremity edema or pulmonary congestion --would continue on current diuretics dose, monitor renal function closely --decrease potassium chloride to 40 mg once a day (4) Anemia: -- Slow progressive decline in Hgb. -- Day #2 of 5 IV Venofer (5) DM w/o complication type II: (6) Pressure ulcer: (7) BPH (benign prostatic hyperplasia): Subjective Mr. Daugherty was seen & examined in his hospital room this morning. He reports improved UO in response to diuretic therapy but still has COOLEY. He continues to require oxygen by NC. Respiratory: + dyspnea on exertion; no cough Cardiovascular: + dyspnea on exertion; no chest pain Physical Exam 2 Vital Signs (Past 24 Hours): Last Vital Signs Temp 36.6 C 05/02/18 07:20 Pulse 60 05/02/18 07:20 Resp 16 05/02/18 07:20 BP 124/71 05/02/18 07:20 Pulse Ox 95 05/02/18 07:20 Constitutional: WD/WN, vitals as above Neck: supple, no jvd Respiratory: Auscultation: + diminished lung sounds Cardiovascular: Heart Sounds: normal S1 and normal S2 no edema Neurologic: moves all extremities and awake Psychiatric: Orientation: alert and oriented x 3 _ (1) CHF exacerbation Heart failure type: unspecified Qualified Code(s): I50.9 - Heart failure, unspecified (2) DM w/o complication type II Diabetes mellitus [facility] insulin use: without intermodal dispatcher use Qualified Code (s): E11.9 - Type 2 diabetes mellitus without complications (3) BPH (benign prostatic hyperplasia) Lower urinary tract symptom presence: symptoms absent Lower urinary tract symptom detail: Qualified Code(s): N40.0 - Benign prostatic hyperplasia without lower urinary tract symptoms
--- NOTE | 2018-05-02 12:49 | Hospitalist Progress Note ---
Date of Service May 02, 2018 Assessment & Plan (1) CHF exacerbation: Acute on chronic systolic heart failure with EF 35-40% in 01/2018. Patient with 3 days of progressive SOB as well as orthopnea/weight gain/ hypoxia. Patient and report non-compliance with diet during the holidays. - Monitor weights, I&Os - Telemetry - Fluid restriction & low Na diet - Continue Metoprolol 12.5mg BID & Imdur 60mg daily - Continue diuresis - Dr. Brewster increased Lasix 80mg IV TID on 04/30 - Held on 05/01 for higher Cr; restarted on 05/02 (2) Abnormal finding on CT scan: CT chest on 04/28 showed findings concerning for pulmonary edema vs. "atypical pneumonitis." Discussed with pulmonology who it is likely pulmonary edema vs. possible amiodarone toxicity. He was on amiodarone for a prior episode of VT, but now has a AICD and had no episodes of VT/VF since 02/2018 on the pacer interrogation this admission. - Amiodarone 200mg daily held on 04/[address] Melgar (3) Hypoxia: Oxygenation improved on NC. Hypoxia most likely secondary to acute exacerbation of CHF vs. amiodarone toxicity. - Supplemental O2 as needed (4) CAD (coronary artery disease): Patient with CAD s/p CABG with subsequent stenting. AICD in place for episode of VT. Presently with no chest pain. - Continue home meds as above (5) Atrial fibrillation: Patient presently in NSR. Anticoagulated with Coumadin. - Continued metoprolol as above - Held amiodarone for possible toxicity (see above) - Continue Coumadin - Monitor INRs (6) DM w/o complication type II: Diet controlled. Last HgAIC was 6.3% on 02/01/18. - Sliding scale insulin (7) Tinea cruris: Patient with tinea cruris in right groin. No bleeding. No evidence of secondary bacterial infection. - Continued clotrimozole cream BID (8) CKD (chronic kidney disease), stage III: Patient with baseline Cr of 1.4 - 1.6. - Mildly above baseline on 05/01 (1.8) and down on 05/02 (1.7) - Monitor with increased diuresis (9) BPH (benign prostatic hyperplasia): Chronic. Stable. No concerns for acute retention. - Continue terazosin - Continue finasteride (10) DVT prophylaxis: On warfarin for afib Subjective 82yo M w/ hx of CHF who presents with CHF exacerbation. Feels his exercise tolerance is improving. Reports no fevers/chills, chest pain , abdominal pain, nausea, or vomiting. Physical Exam 2 Vital Signs (Past 24 Hours): Last Vital Signs Temp 36.6 C 05/02/18 07:20 Pulse 60 05/02/18 07:20 Resp 16 05/02/18 07:20 BP 124/71 05/02/18 07:20 Pulse Ox 95 05/02/18 07:20 Constitutional: WD/WN, vitals as above Eyes: EOM intact bilaterally; no conjunctival abnormality ENMT: external ear and nose normal, oropharynx normal Neck: trachea midline, no thyromegaly normal visual inspection Respiratory: normal respiratory effort, lungs clear to auscultation no respiratory distress Cardiovascular: RRR, no murmur, no edema Gastrointestinal (Abdomen): Inspection/Auscultation: abdomen normal to inspection; abdomen not distended Musculoskeletal: no cyanosis or clubbing, extremities motor strength 5/5 Skin: no rashes, warm and dry Neurologic: moves all extremities and awake Psychiatric: Orientation: alert, oriented to person and cooperative _ (1) CHF exacerbation Heart failure type: unspecified Qualified Code(s): I50.9 - Heart failure, unspecified (2) CAD (coronary artery disease) Coronary Disease-Associated Artery/Lesion type: bypass graft [place] vs. transplanted heart: [place] heart Associated angina: without angina Qualified Code(s): I25.810 - Atherosclerosis of coronary artery bypass graft(s) without angina pectoris (3) Atrial fibrillation Atrial fibrillation type: paroxysmal Qualified Code(s): I48.0 - Paroxysmal atrial fibrillation (4) DM w/o complication type II Diabetes mellitus assisted insulin use: without arts administrator use Qualified Code (s): E11.9 - Type 2 diabetes mellitus without complications (5) BPH (benign prostatic hyperplasia) Lower urinary tract symptom presence: symptoms absent Lower urinary tract symptom detail: Qualified Code(s): N40.0 - Benign prostatic hyperplasia without lower urinary tract symptoms
[2018-05-02] MEDS: FUROSEMIDE 80 MG in SYRINGE 0 ML IV SCH ×2 (14:47→20:33)
[2018-05-02] MEDS: WARFARIN SOD 2 MG TAB PO SCH (15:48)
[2018-05-02] MEDS: LACTULOSE SYRUP 10 GM/15 ML BTL 473 ML PO SCH (20:29)
[2018-05-02] MEDS: DOCUSATE SODIUM 100 MG CAP PO SCH (20:29)
[2018-05-02] MEDS: TERAZOSIN HCL 1 MG CAP PO SCH (20:33)
[2018-05-03] MEDS: ISOSORBIDE MONO EXTENDED REL 60 MG TABCR PO SCH (07:44)
[2018-05-03] MEDS: POTASSIUM CHLORIDE 20 MEQ TABCR PO SCH (07:44)
[2018-05-03] MEDS: ACETAMINOPHEN 325 MG TAB PO SCH ×2 (07:45→21:20)
[2018-05-03] MEDS: PANTOprazole 40 MG TAB PO SCH (07:45)
[2018-05-03] MEDS: NYSTATIN CR 15 GM TUBE EXT SCH ×2 (07:45→21:23)
[2018-05-03] MEDS: METOPROLOL TARTRATE 25 MG TAB PO SCH ×2 (07:45→21:20)
[2018-05-03] MEDS: CLOTRIMAZOLE 1% CR 15 GM TUBE EXT SCH ×2 (07:45→21:24)
[2018-05-03] MEDS: POLYETHYLENE (MIRALAX) 17 GM PACK PO SCH (07:46)
[2018-05-03] MEDS: IRON SUCROSE 200 MG in 0.9 % SODIUM CHLORIDE 100 ML IV SCH (07:50)
[2018-05-03 08:55] LABS: BUN Creatinine Ratio 29.8 (10-20); Calcium 9.4 mg/dl (8.5-10.1); Creatinine Clr Calc Pharmacy 33.1 ml/min; Est GFR (African American) 33.4; Est GFR (Non-African American) 28.9; Potassium 4.4 mmol/L (3.5-5.1)
[2018-05-03] MEDS ORDERED: FUROSEMIDE 80 MG TAB PO SCH (09:00)
--- NOTE | 2018-05-03 11:52 | Nephrology Progress Note ---
Date of Service May 03, 2018 Assessment & Plan (1) Acute kidney injury superimposed on CKD: -- MATTHEW related to CHF. Creatinine has risen to 2.0 May need to accept mild decrease in kidney function in order to render patient euvolemic and allow him to complete ADL's (2) CKD (chronic kidney disease), stage III: -- Baseline creatinine had been ~ 1.2. Renal impairment is on the basis of poor cardiac output, AODM and microvascular disease -- Will monitor PRP, weight and UO (3) CHF exacerbation: -- net negative more than 1 L overnight, with slight worsening of renal function and intravascular volume depletion -- continue Lasix IV, decrease dose to 80 mg twice a day -- repeat echo -- if there is any significant drop in ejection fraction, may need to consider inotropic agent for improve renal blood flow -- continue to monitor renal function closely (4) Anemia: -- Slow progressive decline in Hgb. -- Day #2 of 5 IV Venofer (5) DM w/o complication type II: (6) Pressure ulcer: (7) BPH (benign prostatic hyperplasia): Subjective Mr. Daugherty was seen & examined in his hospital room this morning. He reports improved UO in response to diuretic therapy but still has COOLEY although overall feels slightly improved. He continues to require oxygen by NC. Respiratory: + dyspnea on exertion; no cough Cardiovascular: + dyspnea on exertion; no chest pain Physical Exam 2 Vital Signs (Past 24 Hours): Last Vital Signs Temp 36.5 C 05/03/18 07:38 Pulse 66 05/03/18 08:00 Resp 22 05/03/18 07:38 BP 131/75 05/03/18 07:38 Pulse Ox 91 05/03/18 07:38 Constitutional: WD/WN, vitals as above Respiratory: Auscultation: + diminished lung sounds Cardiovascular: Heart Sounds: normal S1 and normal S2 Neurologic: moves all extremities and awake Psychiatric: Orientation: alert and oriented x 3 _ (1) CHF exacerbation Heart failure type: unspecified Qualified Code(s): I50.9 - Heart failure, unspecified (2) DM w/o complication type II Diabetes mellitus grain inspector insulin use: without grain inspector use Qualified Code (s): E11.9 - Type 2 diabetes mellitus without complications (3) BPH (benign prostatic hyperplasia) Lower urinary tract symptom presence: symptoms absent Lower urinary tract symptom detail: Qualified Code(s): N40.0 - Benign prostatic hyperplasia without lower urinary tract symptoms
--- NOTE | 2018-05-03 14:20 | Hospitalist Progress Note ---
Date of Service May 03, 2018 Assessment & Plan (1) CHF exacerbation: Acute on chronic systolic heart failure with EF 35-40% in 01/2018. Patient and report non-compliance with diet during the holidays. - Fluid restriction & low Na diet - Continue Metoprolol 12.5mg BID & Imdur 60mg daily - Continue diuresis - Dr. Brewster increased Lasix 80mg IV TID on 04/30 - Held on 05/01 & then on 05/03 for higher Cr - I feel he is at dry weight now (~99 kg). He has skin tenting, minimal LE edema. (2) Abnormal finding on CT scan: CT chest on 04/28 showed findings concerning for pulmonary edema vs. "atypical pneumonitis." Discussed with pulmonology who it is pulmonary edema vs. possible amiodarone toxicity. He was on amiodarone for a prior episode of VT , but now has a AICD and had no episodes of VT/VF since 02/2018 on the pacer interrogation this admission. - Amiodarone 200mg daily held on 04/[address] Melgar (3) Hypoxia: Oxygenation improved on NC. Hypoxia most likely secondary to acute exacerbation of CHF vs. amiodarone toxicity. - Supplemental O2 as needed (4) CAD (coronary artery disease): Patient with CAD s/p CABG with subsequent stenting. AICD in place for episode of VT. Presently with no chest pain. - Continue home meds as above (5) Atrial fibrillation: Patient presently in NSR. Anticoagulated with Coumadin. - Continued metoprolol as above - Held amiodarone for possible toxicity (see above) - Continue Coumadin - Monitor INRs (6) DM w/o complication type II: Diet controlled. Last A1C was 6.3% on 02/01/18. - Sliding scale insulin (7) Tinea cruris: Patient with tinea cruris in right groin. No bleeding. No evidence of secondary bacterial infection. - Continued clotrimozole cream BID (8) CKD (chronic kidney disease), stage III: Patient with baseline Cr of 1.4 - 1.6. - Mildly above baseline on 05/01 (1.8), down on 05/02 (1.7), and back up on (2.1) - Monitor with increased diuresis (9) BPH (benign prostatic hyperplasia): Chronic. Stable. No concerns for acute retention. - Continue terazosin - Continue finasteride (10) DVT prophylaxis: On warfarin for afib Dispo: Getting echo to check EF (nephrology worried about renal perfusion). Repeat CXR and BNP on Friday morning. If improved, could discharge to rehab. If CXR and BNP indicate continue pulmonary congestion, nephrology wanted to consider dobutamine. Subjective 82yo M w/ hx of CHF who presents with CHF exacerbation. Feeling downspirited about the fact that the kidney function increased compared to yesterday. Otherwise, no changes. Reports no fevers/chills, chest pain, abdominal pain, nausea, or vomiting. Physical Exam 2 Vital Signs (Past 24 Hours): Last Vital Signs Temp 36.3 C L 05/03/18 12:09 Pulse 61 05/03/18 12:09 Resp 16 05/03/18 12:09 BP 116/66 05/03/18 12:09 Pulse Ox 95 05/03/18 12:09 Constitutional: WD/WN, vitals as above Eyes: EOM intact bilaterally; no conjunctival abnormality ENMT: external ear and nose normal, oropharynx normal Neck: trachea midline, no thyromegaly normal visual inspection Respiratory: normal respiratory effort, lungs clear to auscultation no respiratory distress Cardiovascular: RRR, no murmur, no edema Gastrointestinal (Abdomen): Inspection/Auscultation: abdomen normal to inspection; abdomen not distended Musculoskeletal: no cyanosis or clubbing, extremities motor strength 5/5 Skin: no rashes, warm and dry Neurologic: moves all extremities and awake Psychiatric: Orientation: alert, oriented to person and cooperative _ (1) CHF exacerbation Heart failure type: unspecified Qualified Code(s): I50.9 - Heart failure, unspecified (2) CAD (coronary artery disease) Coronary Disease-Associated Artery/Lesion type: bypass graft [place] vs. transplanted heart: [place] heart Associated angina: without angina Qualified Code(s): I25.810 - Atherosclerosis of coronary artery bypass graft(s) without angina pectoris (3) Atrial fibrillation Atrial fibrillation type: paroxysmal Qualified Code(s): I48.0 - Paroxysmal atrial fibrillation (4) DM w/o complication type II Diabetes mellitus halfway insulin use: without halfway use Qualified Code (s): E11.9 - Type 2 diabetes mellitus without complications (5) BPH (benign prostatic hyperplasia) Lower urinary tract symptom presence: symptoms absent Lower urinary tract symptom detail: Qualified Code(s): N40.0 - Benign prostatic hyperplasia without lower urinary tract symptoms
[2018-05-03] MEDS: WARFARIN SOD 2 MG TAB PO SCH (15:57)
[2018-05-03] MEDS: DOCUSATE SODIUM 100 MG CAP PO SCH (21:19)
[2018-05-03] MEDS: TERAZOSIN HCL 1 MG CAP PO SCH (21:19)
[2018-05-03] MEDS: LACTULOSE SYRUP 10 GM/15 ML BTL 473 ML PO SCH (21:22)
[2018-05-04 07:03] LABS: Estimated Average Glucose 131 mg/dl
[2018-05-04 07:14] LABS: Hematocrit (blood only) 32.7 % (42-52); Hemoglobin 10.4 g/dL (14.0-18.0); Mean Corpuscular Hgb Conc 31.8 g/dL (32-36); Mean Corpuscular Volume 98.2 fL (80-100); Platelet Count 190 K/uL (130-400); RDW Coefficient of Variation 15.1 % (11.5-14.5); RDW Standard Deviation 54.2 fL (36.4-46.3); Red Blood Count 3.33 M/uL (4.7-6.1); White Blood Count 6.03 K/uL (4.8-10.8)
[2018-05-04 07:37] LABS: INR 3.2 (0.9-1.1); Prothrombin Time 29.9 Seconds (9.0-12.0)
[2018-05-04 07:44] LABS: Calcium 9.1 mg/dl (8.5-10.1); Creatinine Clr Calc Pharmacy 36.4 ml/min; Est GFR (African American) 37.5; Est GFR (Non-African American) 32.4; Magnesium 2.5 mg/dl (1.8-2.4); Potassium 4.3 mmol/L (3.5-5.1)
--- NOTE | 2018-05-04 08:17 | XRay Report ---
XR chest 2V routine CLINICAL HISTORY: Check pulmonary congestion COMPARISON STUDY: 04/28/2018 FINDINGS: The heart remains enlarged. There are postsurgical changes of midline sternotomy. There is a left subclavian pacer/defibrillator present. There is minimal improvement in the mild congestive fa ilure. There is no lobar consolidation.[ IMPRESSION: Minimal improvement in the hazy airspace opacities suggesting slight improvement in the p reviously identified congestive failure/pulmonary edema Electronically signed by: Diego Morales M.D. 05/04/2018 8:15 AM
[2018-05-04] MEDS: POTASSIUM CHLORIDE 20 MEQ TABCR PO SCH (09:23)
[2018-05-04] MEDS: CLOTRIMAZOLE 1% CR 15 GM TUBE EXT SCH ×2 (09:23→20:08)
[2018-05-04] MEDS: ISOSORBIDE MONO EXTENDED REL 60 MG TABCR PO SCH (09:23)
[2018-05-04] MEDS: POLYETHYLENE (MIRALAX) 17 GM PACK PO SCH (09:23)
[2018-05-04] MEDS: PANTOprazole 40 MG TAB PO SCH (09:23)
[2018-05-04] MEDS: METOPROLOL TARTRATE 25 MG TAB PO SCH ×2 (09:23→20:03)
[2018-05-04] MEDS: NYSTATIN CR 15 GM TUBE EXT SCH ×2 (09:23→20:08)
[2018-05-04] MEDS: ACETAMINOPHEN 325 MG TAB PO SCH ×2 (09:23→20:10)
[2018-05-04] MEDS: IRON SUCROSE 200 MG in 0.9 % SODIUM CHLORIDE 100 ML IV SCH (09:24)
--- NOTE | 2018-05-04 10:02 | Nephrology Progress Note ---
Date of Service May 04, 2018 Assessment & Plan (1) Acute kidney injury superimposed on CKD: -- MATTHEW related to CHF. Cr slightly improved off of diuretics but became net positive May need to accept mild decrease in kidney function in order to render patient euvolemic and allow him to complete ADL's --monitor holding diuretics, will eventually need to restart on diuretics --suggest PT evaluation -- if there is any significant drop in ejection fraction, may need to consider inotropic agent for improve renal blood flow -- continue to monitor renal function closely (2) CKD (chronic kidney disease), stage III: -- Baseline creatinine had been ~ 1.2. Renal impairment is on the basis of poor cardiac output, AODM and microvascular disease -- Will monitor PRP, weight and UO (3) CHF exacerbation: (4) Anemia: -- Slow progressive decline in Hgb. 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 UO dropped off of diuretics but overall remains asymptomatic and denies significant SOB. He continues to require oxygen by NC. Renal function slightly improved. Respiratory: + dyspnea on exertion; no cough Cardiovascular: + dyspnea on exertion; no chest pain Physical Exam 2 Vital Signs (Past 24 Hours): Last Vital Signs Temp 36.7 C 05/04/18 07:22 Pulse 64 05/04/18 08:00 Resp 20 05/04/18 07:22 BP 123/69 05/04/18 07:22 Pulse Ox 95 05/04/18 07:22 Constitutional: WD/WN, vitals as above Cardiovascular: Heart Sounds: normal S1 and normal S2 Neurologic: moves all extremities and awake Psychiatric: Orientation: alert and oriented x 3 _ (1) CHF exacerbation Heart failure type: unspecified Qualified Code(s): I50.9 - Heart failure, unspecified (2) DM w/o complication type II Diabetes mellitus care home insulin use: without care home use Qualified Code (s): E11.9 - Type 2 diabetes mellitus without complications (3) BPH (benign prostatic hyperplasia) Lower urinary tract symptom presence: symptoms absent Lower urinary tract symptom detail: Qualified Code(s): N40.0 - Benign prostatic hyperplasia without lower urinary tract symptoms
--- NOTE | 2018-05-04 14:34 | Hospitalist Progress Note ---
Date of Service May 04, 2018 Assessment & Plan (1) CHF exacerbation: (2) Abnormal finding on CT scan: (3) Hypoxia: (4) CAD (coronary artery disease): (5) Atrial fibrillation: (6) DM w/o complication type II: (7) Tinea cruris: (8) CKD (chronic kidney disease), stage III: (9) BPH (benign prostatic hyperplasia): (10) DVT prophylaxis: 82-year-old male admitted on April 23, 2018 because of CHF exacerbation, Acute on chronic systolic heart failure with EF 35-40% in 01/2018. reported LVEF in recent cardiac cath was 35% too Stable and minimal improving,, continue fluid restriction, low-sodium diet, Continue Metoprolol 12.5mg BID & Imdur 60mg daily Lasix 80mg IV TID on 04/30, was on hold, and today restarted, because of patient has continuous lung injection, shortness of breath, therefore need to continue of this diuretic CT chest on 04/28 showed findings concerning for pulmonary edema vs. "atypical pneumonitis." on amiodarone for a prior episode of VT, Hypoxia likely from CHF exacerbation, oxygen saturation dropped to 70s when up and walk today, continue nasal cannula oxygen support, aggressive treated for the underlying conditions such as CHF exacerbation, CAD s/p CABG with subsequent stenting. AICD in place for episode of VT. Presently with no chest pain. Atrial fibrillation: Continue anticoagulated with Coumadin, metoprolol, and Coumadin, continue monitor INRs Well-controlled diabetic with A1c 6.3, Tinea cruris: Is better and resolving, CKD with creatinine baseline Cr of 1.4 - 1.6. BPH, Chronic. Stable. No concerns for acute retention. - Continue terazosin - Continue finasteride (10) DVT prophylaxis: On warfarin for afib Continue current care, nephrology wanted to consider dobutamine. Resume diuretic, Patient want to follow-up with Dr. Joseph Baird in 10 days after discharge, to not want to see PA, follow-up appointment has requested through navigator Subjective Complaint of a wet cough, and oxygen dropped to 70s when up and walk, with therapist Generally feeling better, Review of Systems Constitutional: Positive weakness, or fatigue Respiratory: no wheezing, denies dyspnea on exertion Cardiac: No chest pain, No orthopnea, Abdomen: No pain, No nausea, No vomiting, No diarrhea, Musculoskeletal: No joint pain, No muscle pain, No swelling, No calf pain, No problem reported : No dysuria, No urinary frequency, No incontinence, No hematuria Neurologic: No paralysis, No weakness, No numbness/tingling, Psychiatric: No depression symptoms, No anhedonism, No anxiety, No insomnia, No substance abuse Heme: No abnormal bleeding/bruising, No clotting problems, Skin: No rash, No itch, No new/changing skin lesions, Physical Exam 2 Vital Signs (Past 24 Hours): Last Vital Signs Temp 36.4 C L 05/04/18 11:49 Pulse 65 05/04/18 11:49 Resp 20 05/04/18 11:49 BP 105/61 05/04/18 11:49 Pulse Ox 91 05/04/18 11:49 Physical Exam: General Appearance: Pleasant, conversational, WD/WN, no apparent distress, Eyes: normal inspection, PERRL, EOMI, sclerae normal ENT: normal ENT inspection, hearing grossly normal, pharynx normal Neck: supple, no adenopathy, thyroid normal, no JVD, no carotid bruits, trachea midline Respiratory/Chest: chest non-tender, significantly decreased breath sounds, no respiratory distress, no accessory muscle use, no crackle or rales, wheezing Cardiovascular: regular rate, rhythm, no JVD, no murmur Abdomen: normal bowel sounds, non tender, soft, no organomegaly, Extremities: normal range of motion, non-tender, normal inspection, 1+ pedal edema, no calf tenderness, normal capillary refill , pelvis stable, joint has no limited range of motion, capillary refill is normal, no cyanosis clubbing Neurologic/Psychiatric: fashion coordinator II-XII nml as tested, no motor/sensory deficits, Skin: normal color, warm/dry, no rash Lymphatic: no adenopathy Results & Data Laboratory Results Laboratory Results - last 24 hr 05/03/18 05/04/18 05/04/18 08:09 06:47 06:47 WBC 6.03 RBC 3.33 L Hgb 10.4 L Hct 32.7 L MCV 98.2 MCH 31.2 MCHC 31.8 L RDW Std Deviation 54.2 H RDW Coeff of Dayanara 15.1 H Plt Count 190 MPV 9.0 PT 29.9 H INR 3.2 H Sodium Potassium Chloride Carbon Dioxide Anion Gap BUN Creatinine Est Cr Clr Drug Dosing Est GFR ( Amer) Est GFR (Non-Af Amer) BUN/Creatinine Ratio Glucose Estimat Average Glucose 131 Hemoglobin A1c 6.2 H Calcium Magnesium NT-Pro-B Natriuret Pep 05/04/18 06:47 WBC RBC Hgb Hct MCV MCH MCHC RDW Std Deviation RDW Coeff of Dayanara Plt Count MPV PT INR Sodium 133 L Potassium 4.3 Chloride 98 Carbon Dioxide 27 Anion Gap 8.0 BUN 57 H Creatinine 1.91 H Est Cr Clr Drug Dosing 36.4 Est GFR ( Amer) 37.5 Est GFR (Non-Af Amer) 32.4 BUN/Creatinine Ratio 30.0 H Glucose 113 H Estimat Average Glucose Hemoglobin A1c Calcium 9.1 Magnesium 2.5 H NT-Pro-B Natriuret Pep 621 Diagnostic Findings Chest x-ray today per report: Minimal improvement in the hazy airspace opacities suggesting slight improvement in the previously identified congestive failure/pulmonary edema _ (1) CHF exacerbation Heart failure type: unspecified Qualified Code(s): I50.9 - Heart failure, unspecified (2) CAD (coronary artery disease) Coronary Disease-Associated Artery/Lesion type: bypass graft [place] vs. transplanted heart: [place] heart Associated angina: without angina Qualified Code(s): I25.810 - Atherosclerosis of coronary artery bypass graft(s) without angina pectoris (3) Atrial fibrillation Atrial fibrillation type: paroxysmal Qualified Code(s): I48.0 - Paroxysmal atrial fibrillation (4) DM w/o complication type II Diabetes mellitus terminal clerk insulin use: without fdc use Qualified Code (s): E11.9 - Type 2 diabetes mellitus without complications (5) BPH (benign prostatic hyperplasia) Lower urinary tract symptom presence: symptoms absent Lower urinary tract symptom detail: Qualified Code(s): N40.0 - Benign prostatic hyperplasia without lower urinary tract symptoms
[2018-05-04] MEDS: WARFARIN SOD 4 MG TAB PO SCH (15:54)
[2018-05-04] MEDS: DOCUSATE SODIUM 100 MG CAP PO SCH (20:03)
[2018-05-04] MEDS: TERAZOSIN HCL 1 MG CAP PO SCH (20:03)
[2018-05-04] MEDS: LACTULOSE SYRUP 10 GM/15 ML BTL 473 ML PO SCH (20:03)
[2018-05-04] MEDS: DUTASTERIDE 0.5 MG PO SCH (20:04)
[2018-05-05 07:13] LABS: Basophils # (auto) 0.05 K/uL (0-0.2); Basophils % (auto) 0.8 %; Eosinophils # (auto) 0.54 K/uL (0-0.5); Eosinophils % (auto) 8.4 %; Hematocrit (blood only) 32.1 % (42-52); Hemoglobin 10.2 g/dL (14.0-18.0); Immature Granulocytes # (auto) 0.03 K/uL (0.00-0.02); Immature Granulocytes % (auto) 0.5 %; Lymphocytes # (auto) 0.99 K/uL (1.2-3.4); Lymphocytes % (auto) 15.4 %; Mean Corpuscular Hgb Conc 31.8 g/dL (32-36); Mean Corpuscular Volume 98.2 fL (80-100); Mean Platelet Volume 8.8 fL (7.4-10.4); Monocytes # (auto) 0.72 K/uL (0.11-0.59); Monocytes % (auto) 11.2 %; Neutrophils # (auto) 4.09 K/uL (1.4-6.5); Neutrophils % (auto) 63.7 %; Platelet Count 193 K/uL (130-400); RDW Coefficient of Variation 14.9 % (11.5-14.5); RDW Standard Deviation 53.2 fL (36.4-46.3); Red Blood Count 3.27 M/uL (4.7-6.1); White Blood Count 6.42 K/uL (4.8-10.8)
[2018-05-05 07:44] LABS: BUN Creatinine Ratio 33.6 (10-20); Calcium 8.9 mg/dl (8.5-10.1); Creatinine Clr Calc Pharmacy 47.8 ml/min; Est GFR (African American) 52.3; Est GFR (Non-African American) 45.2; Magnesium 2.6 mg/dl (1.8-2.4); Phosphorus 3.1 mg/dl (2.5-4.9); Potassium 4.6 mmol/L (3.5-5.1)
[2018-05-05] MEDS: METOPROLOL TARTRATE 25 MG TAB PO SCH ×2 (08:36→21:13)
[2018-05-05] MEDS: PANTOprazole 40 MG TAB PO SCH (08:36)
[2018-05-05] MEDS: POTASSIUM CHLORIDE 20 MEQ TABCR PO SCH (08:37)
[2018-05-05] MEDS: ISOSORBIDE MONO EXTENDED REL 60 MG TABCR PO SCH (08:37)
[2018-05-05] MEDS: NYSTATIN CR 15 GM TUBE EXT SCH ×2 (08:38→21:15)
[2018-05-05] MEDS: CLOTRIMAZOLE 1% CR 15 GM TUBE EXT SCH ×2 (08:38→21:14)
[2018-05-05] MEDS: POLYETHYLENE (MIRALAX) 17 GM PACK PO SCH (08:42)
[2018-05-05] MEDS: ACETAMINOPHEN 325 MG TAB PO SCH ×2 (08:42→21:12)
--- NOTE | 2018-05-05 10:53 | Palliative Care Consultation ---
Date of Consultation May 05, 2018 Assessment & Plan (1) Goals of care, counseling/discussion: -82 year male patient with PMH CHF, CAD, afib, STEMI/NSTEMI, CKD, Vtach s/ p AICD placement, and many other medical problems listed in history, presented 12 days ago with CHF exacerbation. Patient being diuresed and now has element of acute kidney injury. Nephrology following and believes it is due to CHF exacerbation, likely need to accept kidney injury in order to maintain euvolemia. EF 30-35%, patient does get SOB with activity. He is currently full code. Palliative care consulted to assist with establishing goals of care and CODE STATUS. -Met with patient this morning in room 285. He is awake, alert and oriented x4. Pleasant and talkative. Patient states that he knows his heart is not going to get better. His SOB is his main complaint that keeps him from doing the things he wants to do. His goal would be to get to a point that he could go home with his , Bonita, but he is unsure at this point if that's possible. -Current plan is for patient to go to [facility] for rehab and use that time to decide if he will be able to go home or need to stay at SNF. -We discussed CODE STATUS. Patient states that he would not want to live in a debilitated state of poor quality of life. He does have a living will which states in end-stage condition he would not want CPR or life-prolonging measures. He feels ready to transition to DNR/DNI at this time, but continue with medical treatment as necessary. -Will make patient DO NOT RESUSCITATE. -Discussed POLST form, will wait for peatr's to arrive to do POLST this afternoon. Will also discuss hospice care with them for when the time comes. -Patient has no pain or symptoms other than the SOB with activity. Continue diuretics as managed by hospitalist/cardiology/nephrology. (2) CHF exacerbation: -Has been diuresed. -EF 30-35%. -S/P AICD for history of Vtach. Heart failure type: unspecified Qualified Code(s): I50.9 - Heart failure, unspecified (3) Acute kidney injury superimposed on CKD: -2/2 CHF exacerbation and diuresis. -Baseline creatinine appears to be about 1.4-1.5 per record. -Creat peaked at 2.10, now down to 1.45 today. -Nephrology following. History of Present Illness Attending Physician: Juanjo Durham MD, PhD, [facility] History of Present Illness This 82 year male patient with PMH CHF, CAD, afib, STEMI/NSTEMI, CKD, Vtach s/p AICD placement, and many other medical problems listed in history, presented 12 days ago with CHF exacerbation. Patient being diuresed and now has element of acute kidney injury. Nephrology following and believes it is due to CHF exacerbation, likely need to accept kidney injury in order to maintain euvolemia. EF 30-35%, patient does get SOB with activity. He is currently full code. Palliative care consulted to assist with establishing goals of care and CODE STATUS. See A&P for details. Thank you kindly for this consult. I will follow as needed. Allergies Allergy/AdvReac Type Severity Reaction Status Date / Time Iodinated Contrast- Oral and Allergy Severe ANAPHYLAXIS Verified 04/23/18 15:45 IV Dye shellfish derived Allergy Severe ANAPHYLAXIS Verified 04/23/18 15:45 clindamycin Allergy Intermediate Rash Verified 04/23/18 13:18 Penicillins Allergy Intermediate BOILS Verified 04/23/18 15:45 latex AdvReac Intermediate RASH Verified 04/23/18 15:45 Pmovelh-Box-Lwe Reductase AdvReac Intermediate severe Verified 04/23/18 15:45 Inhibitor myalgias atorvastatin AdvReac Mild GI SYMPTOMS Verified 04/23/18 15:45 levofloxacin [From Levaquin] AdvReac Mild Insomnia Verified 04/23/18 15:45 rosuvastatin AdvReac Mild GI SYMPTOMS Verified 04/23/18 15:45 Fish Containing Products AdvReac Unknown Swelling Verified 04/30/18 09:18 of Lip/Tongue/Throat Home Medications Home Medications Medication Instructions Recorded Confirmed Type docusate sodium [Colace] 100 mg PO HS 01/31/18 04/23/18 History dutasteride 0.5 mg PO HS 01/31/18 04/23/18 History isosorbide mononitrate 60 mg PO QAM 01/31/18 04/23/18 History lactulose 15 ml PO HS 01/31/18 04/23/18 History nitroglycerin 0.4 mg SUBLINGUAL UD PRN 01/31/18 04/23/18 History pantoprazole 40 mg PO QAM 01/31/18 04/23/18 History terazosin 1 mg PO HS 01/31/18 04/23/18 History warfarin 2 mg PO 5XWK 01/31/18 04/23/18 History warfarin 4 mg PO 2XWK 01/31/18 04/23/18 History amiodarone 200 mg PO QAM #30 tab 02/06/18 04/23/18 Rx metoprolol tartrate 12.5 mg PO BID #30 tab 02/06/18 04/23/18 Rx acetaminophen [Mapap 650 mg PO BID 04/23/18 04/23/18 History (acetaminophen)] furosemide 20 mg PO 3XWK 04/23/18 04/23/18 History polyethylene glycol 3350 [Miralax] 17 g PO QAM 04/23/18 04/23/18 History Patient History Medical History Pressure ulcer (Acute) Drug eruption Tinea cruris DVT prophylaxis Osteoarthritis of knees, 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 Constipation Patient on home bowel regimen but requesting possible enema to aid in bowel movement 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, NYHA class 2 STEMI (ST elevation myocardial infarction) Atrial fibrillation CAD (coronary artery disease) Ventricular tachycardia (Acute) Syncope (Acute) Laceration of forehead, left, complicated (Acute) CKD (chronic kidney disease), stage III (Acute) Sepsis COPD (chronic obstructive pulmonary disease) (Chronic) NSTEMI (non-ST elevated myocardial infarction) ASCVD (arteriosclerotic cardiovascular disease) (Acute) Former smoker (Acute) Status post fall (Acute) Angina, class II Chronic combined systolic and diastolic CHF (congestive heart failure) Dyslipidemia, goal LDL below 70 Paroxysmal atrial fibrillation Popliteal aneurysm Stenosis of right internal carotid artery Urinary retention Surgical History AICD (automatic cardioverter/defibrillator) present (Acute) History of coronary artery stent placement (Acute) S/P CABG x 1 (Acute) S/P CABG x 2 (Acute) S/P CABG x 4 Family History Other No pertinent family history Social History marital status: Current Living Situation: Spouse current occupational status: retired Other Information That Helps Us Care for You: No Feels Safe at Home: Yes Safety Concerns: Feels Safe At This Time Smoking Status: Former smoker Hx Alcohol Use: Yes Alcohol type: wine Alcohol Intake Frequency: a few times a week Hx Substance Use: No Beliefs That Will Affect Care: None Communication Ability: Effective Review of Systems Constitutional: + weakness Ear, Nose, Mouth, Throat: no dysphagia Respiratory: + dyspnea on exertion; no cough Cardiovascular: no chest pain and no edema Gastrointestinal: no abdominal pain, no nausea and no vomiting Integumentary: no problem reported Neurologic: no confusion Psychiatric: no depression and no anxiety Physical Exam 2 Vital Signs (Past 24 Hours): Last Vital Signs Temp 36.8 C 05/05/18 08:06 Pulse 65 05/05/18 08:25 Resp 20 05/05/18 08:06 BP 113/68 05/05/18 08:06 Pulse Ox 95 05/05/18 08:06 Constitutional: WD/WN, vitals as above + obese Eyes: PERRL, conjunctivae normal, anicteric sclerae ENMT: external ear and nose normal, oropharynx normal Neck: normal visual inspection Respiratory: no respiratory distress Auscultation: + diminished lung sounds Cardiovascular: RRR, no murmur, no edema Gastrointestinal (Abdomen): Inspection/Auscultation: abdomen normal to inspection; abdomen not distended Musculoskeletal: no cyanosis or clubbing, extremities motor strength 5/5 Skin: no rashes, warm and dry Neurologic: moves all extremities and awake Psychiatric: Orientation: alert and oriented x 3 Time Spent Midlevel 70 minutes with >50% of time spent at bedside with patient discussing condition , GOC, and POLST form.
--- NOTE | 2018-05-05 11:32 | Nephrology Progress Note ---
Date of Service May 05, 2018 Assessment & Plan (1) Acute kidney injury superimposed on CKD: -- MATTHEW related to CHF. Cr slightly improved off of diuretics but became net positive May need to accept mild decrease in kidney function in order to render patient euvolemic and allow him to complete ADL's --monitor holding diuretics, will eventually need to restart on diuretics --suggest PT evaluation -- if renal function remained stable and continue to improve, otherwise clinically stable, hopefully he can be discharged to rehab tomorrow --will consider starting on low-dose diuretics on discharge Will follow (2) CKD (chronic kidney disease), stage III: -- Baseline creatinine had been ~ 1.2. Renal impairment is on the basis of poor cardiac output, AODM and microvascular disease -- Will monitor PRP, weight and UO (3) CHF exacerbation: (4) Anemia: -- Slow progressive decline in Hgb. 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 UO dropped off of diuretics but overall remains net even and asymptomatic and denies significant SOB. He continues to require oxygen by NC. Renal function improved , getting close to baseline. Respiratory: + dyspnea on exertion; no cough Cardiovascular: + dyspnea on exertion; no chest pain Physical Exam 2 Vital Signs (Past 24 Hours): Last Vital Signs Temp 36.8 C 05/05/18 08:06 Pulse 65 05/05/18 08:25 Resp 20 05/05/18 08:06 BP 113/68 05/05/18 08:06 Pulse Ox 95 05/05/18 08:06 Constitutional: WD/WN, vitals as above Respiratory: Auscultation: + diminished lung sounds Cardiovascular: Heart Sounds: normal S1 and normal S2 Neurologic: moves all extremities and awake Psychiatric: Orientation: alert and oriented x 3 _ (1) CHF exacerbation Heart failure type: unspecified Qualified Code(s): I50.9 - Heart failure, unspecified (2) DM w/o complication type II Diabetes mellitus cco & president insulin use: without care home use Qualified Code (s): E11.9 - Type 2 diabetes mellitus without complications (3) BPH (benign prostatic hyperplasia) Lower urinary tract symptom presence: symptoms absent Lower urinary tract symptom detail: Qualified Code(s): N40.0 - Benign prostatic hyperplasia without lower urinary tract symptoms
--- NOTE | 2018-05-05 15:53 | Hospitalist Progress Note ---
Date of Service May 05, 2018 Assessment & Plan (1) CHF exacerbation: (2) Abnormal finding on CT scan: (3) Hypoxia: (4) CAD (coronary artery disease): (5) Atrial fibrillation: (6) DM w/o complication type II: (7) Tinea cruris: (8) CKD (chronic kidney disease), stage III: (9) BPH (benign prostatic hyperplasia): (10) DVT prophylaxis: 82-year-old male admitted on April 23, 2018 because of CHF exacerbation, Acute on chronic systolic heart failure with EF 35-40% in 01/2018. reported LVEF in recent cardiac cath was 35% too Stable and minimal improving,, continue fluid restriction, low-sodium diet, Continue Metoprolol 12.5mg BID & Imdur 60mg daily Lasix 80mg IV TID on 04/30, was on hold, has been continue on hold yesterday and today per recommendation of bleach supervisor Possible will continue of this diuretic tomorrow CT chest on 04/28 showed findings concerning for pulmonary edema vs. "atypical pneumonitis." on amiodarone for a prior episode of VT, Hypoxia likely from CHF exacerbation, oxygen saturation dropped to 70s when up and walk 2 days ago Continue nasal cannula oxygen support, aggressive treated for the underlying conditions such as CHF exacerbation, CAD s/p CABG with subsequent stenting. AICD in place for episode of VT. Presently with no chest pain. Atrial fibrillation: Continue anticoagulated with Coumadin, metoprolol, and Coumadin, continue monitor INRs Well-controlled diabetic with A1c 6.3, Tinea cruris: Is better and resolving, CKD with creatinine baseline Cr of 1.4 - 1.6. Today's creatinine is 1.45, is in his baseline, BPH, Chronic. Stable. No concerns for acute retention. - Continue terazosin - Continue finasteride (10) DVT prophylaxis: On warfarin for afib Continue current care, nephrology wanted to consider dobutamine. may resume diuretic tomorrow Patient want to follow-up with Dr. Joseph Baird in 10 days after discharge, to not want to see PA, follow-up appointment has requested through navigator possible able to discharge to [facility] tomorrow Subjective Generally feeling better, no more cough Has been up with therapist , generally feeling stronger need To be on oxygen Review of Systems Constitutional: Positive weakness, or fatigue Respiratory: no wheezing, denies dyspnea on exertion Cardiac: No chest pain, No orthopnea, trace lower extremity swelling, Abdomen: No pain, No nausea, No vomiting, No diarrhea, Musculoskeletal: No joint pain, No muscle pain, No swelling, No calf pain, No problem reported : No dysuria, No urinary frequency, No incontinence, No hematuria Neurologic: No paralysis, No weakness, No numbness/tingling, Psychiatric: No depression symptoms, No anhedonism, No anxiety, No insomnia, No substance abuse Heme: No abnormal bleeding/bruising, No clotting problems, Skin: No rash, No itch, No new/changing skin lesions, Physical Exam 2 Vital Signs (Past 24 Hours): Last Vital Signs Temp 36.5 C 05/05/18 15:00 Pulse 69 05/05/18 15:00 Resp 20 05/05/18 15:00 BP 100/63 05/05/18 15:00 Pulse Ox 97 05/05/18 15:00 Physical Exam: General Appearance: Pleasant, conversational, WD/WN, no apparent distress, smiling pleasant conversational Eyes: normal inspection, PERRL, EOMI, sclerae normal ENT: normal ENT inspection, hearing grossly normal, pharynx normal Neck: supple, no adenopathy, thyroid normal, no JVD, no carotid bruits, trachea midline Respiratory/Chest: chest non-tender, significantly decreased breath sounds, no respiratory distress, no accessory muscle use, no crackle or rales, wheezing Cardiovascular: regular rate, rhythm, no JVD, no murmur Abdomen: normal bowel sounds, non tender, soft, no organomegaly, Extremities: normal range of motion, non-tender, normal inspection, Trace pedal edema, no calf tenderness, normal capillary refill, pelvis stable, joint has no limited range of motion, capillary refill is normal, no cyanosis clubbing Neurologic/Psychiatric: stitching machine feeder or offbearer II-XII nml as tested, no motor/sensory deficits, Skin: normal color, warm/dry, no rash Lymphatic: no adenopathy Results & Data Laboratory Results Laboratory Results - last 24 hr 05/05/18 05/05/18 06:39 06:39 WBC 6.42 RBC 3.27 L Hgb 10.2 L Hct 32.1 L MCV 98.2 MCH 31.2 MCHC 31.8 L RDW Std Deviation 53.2 H RDW Coeff of Dayanara 14.9 H Plt Count 193 MPV 8.8 Immature Gran % (Auto) 0.5 Neut % (Auto) 63.7 Lymph % (Auto) 15.4 [place] % (Auto) 11.2 Eos % (Auto) 8.4 Baso % (Auto) 0.8 Immature Gran # (Auto) 0.03 H Neut # (Auto) 4.09 Lymph # (Auto) 0.99 L [place] # (Auto) 0.72 H Eos # (Auto) 0.54 H Baso # (Auto) 0.05 Sodium 134 L Potassium 4.6 Chloride 102 Carbon Dioxide 27 Anion Gap 5.0 BUN 49 H Creatinine 1.45 H D Est Cr Clr Drug Dosing 47.8 Est GFR ( Amer) 52.3 Est GFR (Non-Af Amer) 45.2 BUN/Creatinine Ratio 33.6 H Glucose 109 H Calcium 8.9 Phosphorus 3.1 Magnesium 2.6 H _ (1) CHF exacerbation Heart failure type: unspecified Qualified Code(s): I50.9 - Heart failure, unspecified (2) CAD (coronary artery disease) Coronary Disease-Associated Artery/Lesion type: bypass graft [place] vs. transplanted heart: [place] heart Associated angina: without angina Qualified Code(s): I25.810 - Atherosclerosis of coronary artery bypass graft(s) without angina pectoris (3) Atrial fibrillation Atrial fibrillation type: paroxysmal Qualified Code(s): I48.0 - Paroxysmal atrial fibrillation (4) DM w/o complication type II Diabetes mellitus parts counterman insulin use: without skilled nursing use Qualified Code (s): E11.9 - Type 2 diabetes mellitus without complications (5) BPH (benign prostatic hyperplasia) Lower urinary tract symptom presence: symptoms absent Lower urinary tract symptom detail: Qualified Code(s): N40.0 - Benign prostatic hyperplasia without lower urinary tract symptoms
[2018-05-05] MEDS: WARFARIN SOD 2 MG TAB PO SCH (16:29)
[2018-05-05] MEDS: DUTASTERIDE 0.5 MG PO SCH (21:13)
[2018-05-05] MEDS: DOCUSATE SODIUM 100 MG CAP PO SCH (21:14)
[2018-05-05] MEDS: TERAZOSIN HCL 1 MG CAP PO SCH (21:14)
[2018-05-05] MEDS: LACTULOSE SYRUP 10 GM/15 ML BTL 473 ML PO SCH (21:14)
[2018-05-06 07:25] LABS: Basophils # (auto) 0.06 K/uL (0-0.2); Basophils % (auto) 0.8 %; Eosinophils # (auto) 0.48 K/uL (0-0.5); Eosinophils % (auto) 6.6 %; Hematocrit (blood only) 34.4 % (42-52); Hemoglobin 11.2 g/dL (14.0-18.0); Immature Granulocytes # (auto) 0.04 K/uL (0.00-0.02); Immature Granulocytes % (auto) 0.6 %; Lymphocytes % (auto) 16.6 %; Mean Corpuscular Hgb Conc 32.6 g/dL (32-36); Mean Corpuscular Volume 98.3 fL (80-100); Mean Platelet Volume 8.6 fL (7.4-10.4); Monocytes # (auto) 0.64 K/uL (0.11-0.59); Monocytes % (auto) 8.8 %; Neutrophils # (auto) 4.82 K/uL (1.4-6.5); Neutrophils % (auto) 66.6 %; Platelet Count 189 K/uL (130-400); RDW Coefficient of Variation 15.1 % (11.5-14.5); RDW Standard Deviation 53.4 fL (36.4-46.3); White Blood Count 7.24 K/uL (4.8-10.8)
[2018-05-06 07:55] LABS: BUN Creatinine Ratio 27.6 (10-20); Calcium 9.2 mg/dl (8.5-10.1); Creatinine Clr Calc Pharmacy 45.4 ml/min; Est GFR (African American) 49.4; Est GFR (Non-African American) 42.7; Potassium 4.9 mmol/L (3.5-5.1)
[2018-05-06] MEDS: ISOSORBIDE MONO EXTENDED REL 60 MG TABCR PO SCH (08:01)
[2018-05-06] MEDS: PANTOprazole 40 MG TAB PO SCH (08:01)
[2018-05-06] MEDS: POTASSIUM CHLORIDE 20 MEQ TABCR PO SCH (08:01)
[2018-05-06] MEDS: METOPROLOL TARTRATE 25 MG TAB PO SCH (08:02)
[2018-05-06] MEDS: CLOTRIMAZOLE 1% CR 15 GM TUBE EXT SCH (08:04)
[2018-05-06] MEDS: NYSTATIN CR 15 GM TUBE EXT SCH (08:04)
[2018-05-06] MEDS: ACETAMINOPHEN 325 MG TAB PO SCH (08:10)
[2018-05-06] MEDS: POLYETHYLENE (MIRALAX) 17 GM PACK PO SCH (08:10)
--- NOTE | 2018-05-06 10:06 | Nephrology Progress Note ---
Date of Service May 06, 2018 Assessment & Plan (1) Acute kidney injury superimposed on CKD: -- MATTHEW related to CHF. Cr slightly improved off of diuretics but became net positive May need to accept mild decrease in kidney function in order to render patient euvolemic and allow him to complete ADL's --suggest evaluation for need for home O2 prior to discharge --suggest PT evaluation -- OK to be discharged to rehab --suggest starting on lasix 20 mg po daily on discharge Will follow (2) CKD (chronic kidney disease), stage III: -- Baseline creatinine had been ~ 1.2. Renal impairment is on the basis of poor cardiac output, AODM and microvascular disease -- Will monitor PRP, weight and UO (3) CHF exacerbation: (4) Anemia: -- Slow progressive decline in Hgb. -- Day #2 of 5 IV Venofer (5) DM w/o complication type II: (6) Pressure ulcer: (7) BPH (benign prostatic hyperplasia): Robin Euecda was seen & examined in his hospital room this morning. UO dropped off of diuretics but overall remains close to net even and asymptomatic. He does report significant exertional SOB.. He continues to require oxygen by NC. Renal function improved, getting close to baseline. Volume status improved. Respiratory: + dyspnea on exertion; no cough Cardiovascular: + dyspnea on exertion; no chest pain Physical Exam 2 Vital Signs (Past 24 Hours): Last Vital Signs Temp 36.7 C 05/06/18 07:52 Pulse 61 05/06/18 07:52 Resp 20 05/06/18 07:52 BP 114/66 05/06/18 07:52 Pulse Ox 96 05/06/18 07:52 Constitutional: WD/WN, vitals as above Respiratory: Auscultation: + diminished lung sounds Cardiovascular: Heart Sounds: normal S1 and normal S2 Neurologic: moves all extremities and awake Psychiatric: Orientation: alert and oriented x 3 _ (1) CHF exacerbation Heart failure type: unspecified Qualified Code(s): I50.9 - Heart failure, unspecified (2) DM w/o complication type II Diabetes mellitus salvage determiner insulin use: without group home use Qualified Code (s): E11.9 - Type 2 diabetes mellitus without complications (3) BPH (benign prostatic hyperplasia) Lower urinary tract symptom presence: symptoms absent Lower urinary tract symptom detail: Qualified Code(s): N40.0 - Benign prostatic hyperplasia without lower urinary tract symptoms
--- NOTE | 2018-05-06 15:34 | Discharge Summary ---
Date of Service May 06, 2018 Admission HPI Per Admitting Provider Mr. Daugherty is a pleasant 82yo male with extensive cardiac history to include CAD s/p CABG x 4v in 2005 with incomplete vascularization, subsequent [place] placed to on 02/05/18 after presenting with syncope, NSTEMI and sustained VT , s/p dual chamber AICD placement and initiation of Amiodarone. Patient with chronic systolic and diastolic CHF. with EF of 40-49% with grade I diastolic dysfunction per echo 08/08/17. He presents today with complaint of 3 days of progressive SOB, worse on exertion but at rest as well. Patient also with orthopnea, trace edema and a 10 # unintentional weight gain since . Patient has home pulse oximeter and states that his oxygen saturation was periodically in the high 70' s and 80's. Also with fatigue and poor appetite. He denies chest pain, palpitations, cough, wheeze, fevers, chills. Denies abdominal pain, nausea, vomiting, diarrhea or constipation. He does have some mild nasal congestion. When EMS arrived patient was found to be hypoxic, 80% on room air. He was placed on BiPAP for transfer to the ER. Upon arrival to the ER patient was found to be tachypneic at 24bpm and hypoxic 80% on room air. He was placed on 5L nasal cannula with adequate oxygenation. Presetnly he feels better, SOB has improved. He was given Lasix 40mg IV x 1 with response in UOP. No additional complaints at this time. ER Course: Lasix 40mg IV Principal Diagnosis no Discharge Data Allergies Allergy/AdvReac Type Severity Reaction Status Date / Time Iodinated Contrast- Oral and Allergy Severe ANAPHYLAXIS Verified 04/23/18 15:45 IV Dye shellfish derived Allergy Severe ANAPHYLAXIS Verified 04/23/18 15:45 clindamycin Allergy Intermediate Rash Verified 04/23/18 13:18 Penicillins Allergy Intermediate BOILS Verified 04/23/18 15:45 latex AdvReac Intermediate RASH Verified 04/23/18 15:45 Ybpuong-Wet-Oer Reductase AdvReac Intermediate severe Verified 04/23/18 15:45 Inhibitor myalgias atorvastatin AdvReac Mild GI SYMPTOMS Verified 04/23/18 15:45 levofloxacin [From Levaquin] AdvReac Mild Insomnia Verified 04/23/18 15:45 rosuvastatin AdvReac Mild GI SYMPTOMS Verified 04/23/18 15:45 Fish Containing Products AdvReac Unknown Swelling Verified 04/30/18 09:18 of Lip/Tongue/Throat Consultations 04/23/18 12:26 ED Decision to Admit Stat 04/28/18 09:20 Consult Cardiology Routine 04/28/18 11:28 Consult Nephrology Routine 04/29/18 13:08 Consult Pulmonology Routine 05/04/18 14:41 Consult Palliative Care Routine Ordered Studies 04/28/18 10:46 CT chest wo con Routine Hospital Course (1) CHF exacerbation: (2) Abnormal finding on CT scan: (3) Hypoxia: (4) CAD (coronary artery disease): (5) Atrial fibrillation: (6) DM w/o complication type II: (7) Tinea cruris: (8) CKD (chronic kidney disease), stage III: (9) BPH (benign prostatic hyperplasia): (10) DVT prophylaxis: 82-year-old male admitted on April 23, 2018 because of CHF exacerbation, related to stable Acute on chronic systolic heart failure with EF 35-40% in 01/2018. reported LVEF in recent cardiac cath was 35% too Stable and minimal improving,, continue fluid restriction, low-sodium diet, Continue Metoprolol 12.5mg BID & Imdur 60mg daily Lasix 80mg IV TID on 04/30, was on hold, has been continue on hold yesterday and today per recommendation of family day care worker Per nephrology recommendation upon discharge today we will start Lasix 20 mg p.o. daily, and follow-up daily weight, labs, and go from there , pcp please follow-up in the lab result for renal function, CT chest on 04/28 showed findings concerning for pulmonary edema vs. "atypical pneumonitis." on amiodarone for a prior episode of VT, per report he will be normal on amiodarone, upon discharge Hypoxia likely from CHF exacerbation, oxygen saturation dropped to 70s when up and walk 2 days ago Continue nasal cannula oxygen support, aggressive treated for the underlying conditions such as CHF exacerbation, however for now it is limited because patient not able to tolerate diuretic, continue nasal cannula oxygen upon discharge, need to do 2 step to define how many liters in rest and all millimeters when up and walk after arriving to the [facility] CAD s/p CABG with subsequent stenting. AICD in place for episode of VT. Presently with no chest pain. Atrial fibrillation: Continue anticoagulated with Coumadin, metoprolol, continue monitor INRs Well-controlled diabetic with A1c 6.3, Tinea cruris: Is better and resolving, CKD with creatinine baseline Cr of 1.4 - 1.6. Today's creatinine is 1.52, BPH, Chronic. Stable. No concerns for acute retention. - Continue terazosin - Continue finasteride (10) DVT prophylaxis: On warfarin for afib Patient want to follow-up with Dr. Joseph Baird in 10 days after discharge, to not want to see PA, follow-up appointment has requested through navigator, she will also need to follow-up with family day care worker, Patient discharged today in stable condition Subjective upon discharge Generally feeling tired, no cough Has been up with therapist , need To be on oxygen Review of Systems upon discharge Constitutional: Positive weakness, or fatigue Respiratory: no wheezing, denies dyspnea on exertion Cardiac: No chest pain, No orthopnea, trace lower extremity swelling, Abdomen: No pain, No nausea, No vomiting, No diarrhea, Musculoskeletal: No joint pain, No muscle pain, No swelling, No calf pain, No problem reported : No dysuria, No urinary frequency, No incontinence, No hematuria Neurologic: No paralysis, No weakness, No numbness/tingling, Psychiatric: No depression symptoms, No anhedonism, No anxiety, No insomnia, No substance abuse Heme: No abnormal bleeding/bruising, No clotting problems, Skin: No rash, No itch, No new/changing skin lesions, Physical Exam upon discharge General Appearance: Pleasant, conversational, WD/WN, no apparent distress, smiling pleasant conversational Eyes: normal inspection, PERRL, EOMI, sclerae normal ENT: normal ENT inspection, hearing grossly normal, pharynx normal Neck: supple, no adenopathy, thyroid normal, no JVD, no carotid bruits, trachea midline Respiratory/Chest: chest non-tender, significantly decreased breath sounds, no respiratory distress, no accessory muscle use, no crackle or rales, wheezing Cardiovascular: regular rate, rhythm, no JVD, no murmur Abdomen: normal bowel sounds, non tender, soft, no organomegaly, Extremities: normal range of motion, non-tender, normal inspection, Trace pedal edema, no calf tenderness, normal capillary refill, pelvis stable, joint has no limited range of motion, capillary refill is normal, no cyanosis clubbing Neurologic/Psychiatric: isotope hydrologist II-XII nml as tested, no motor/sensory deficits, Skin: normal color, warm/dry, no rash Lymphatic: no adenopathy Lab data upon discharge: Laboratory Results - last 24 hr 05/06/18 05/06/18 07:14 07:14 WBC 7.24 RBC 3.50 L Hgb 11.2 L Hct 34.4 L MCV 98.3 MCH 32.0 MCHC 32.6 RDW Std Deviation 53.4 H RDW Coeff of Dayanara 15.1 H Plt Count 189 MPV 8.6 Immature Gran % (Auto) 0.6 Neut % (Auto) 66.6 Lymph % (Auto) 16.6 [place] % (Auto) 8.8 Eos % (Auto) 6.6 Baso % (Auto) 0.8 Immature Gran # (Auto) 0.04 H Neut # (Auto) 4.82 Lymph # (Auto) 1.20 [place] # (Auto) 0.64 H Eos # (Auto) 0.48 Baso # (Auto) 0.06 Sodium 136 Potassium 4.9 Chloride 102 Carbon Dioxide 26 Anion Gap 8.0 BUN 42 H Creatinine 1.52 H Est Cr Clr Drug Dosing 45.4 Est GFR ( Amer) 49.4 Est GFR (Non-Af Amer) 42.7 BUN/Creatinine Ratio 27.6 H Glucose 118 H Calcium 9.2 Total Time Total Time Spent Total Time Spent (In Minutes): 35 Total Time Includes: Examination of the Patient, Discharge Planning, Medication Reconciliation and Communication With Other Providers Discharge Plan Discharge Items Patient Disposition: Transfer [facility] Reason For Visit: SOB Discharge Diagnosis: Acute on chronic systolic heart failure Discharge Goals: Decrease discomfort, Diagnostic testing, Improve disease control, Improve function and Increase independence Activity: Resume your previous activity Non-emergency contact: Primary Care Provider, Access Rep and Global Coordinator Call non-emergency contact if: you have any medication questions and your temperature is above 100.5 Follow-up/Referrals: Joseph Baird MD [Physician] - 05/18/18 2:45 pm (Please, follow up at [facility] Cardiology Office with Dr. Joseph Baird's assistant analyst, Jimy Doan PA-C, on FridayMay 18 at 2:45 pm. *This office is located in [facility] at [address] in [place]. If you need to change this appointment, call the office at [phone].) Diet: Heart Healthy Fluids: 1500ml (6 cups) Addtl Provider Instructions: you have Acute on chronic systolic heart failure , and acute on chronic kidney failure you have Hypoxia likely from CHF exacerbation now likely is oxygen dependent need to have 2 step done in [facility] to define the oxygen need when is rest and when in walk you have Atrial fibrillation: Continue anticoagulated with Coumadin, need to monitor INRs, check it tomorrow you need to keep appointment with Dr. Joseph Baird in 10 days after discharge, you need to follow up with family day care worker Dr. Metz in 3-[address] Metz specifically recommend starting on lasix 20 mg po daily on discharge today, and monitoring daily weight, and renal function you need to follow up with your primary care physician in 1 week, check INR , BMP, mag in 2 days, report result to pcp, - take medication as instructed, never overdose or any misuse, or take with alcohol, because misuse of medicine may cause organ damage or , call me , or your primary care physician if have questions of discharge medicaitons. - call your primary care physician, or go to local emergency room if has any fever/chill, chest pain, shortness of breathing, nausea/vomiting/abdominal pain , facial droop/slurry speech/local weakness, or if has any questions. - fall precaution - diet as instructed - you need to follow up with your subspecialist, such as Dr. Metz, Dr. Ojeda Prescriptions: Continue terazosin 1 mg capsule 1 mg PO HS RF: 0 warfarin 4 mg tablet 4 mg PO 2XWK RF: 0 isosorbide mononitrate 60 mg tablet extended release 24 hr 60 mg PO QAM RF: 0 pantoprazole 40 mg tablet,delayed release (DR/EC) 40 mg PO QAM RF: 0 nitroglycerin 0.4 mg tablet, sublingual 0.4 mg Sublingual UD PRN (Reason: Chest Pain) RF: 0 docusate sodium [Colace] 100 mg Capsule 100 mg PO HS RF: 0 dutasteride 0.5 mg capsule 0.5 mg PO HS RF: 0 lactulose 10 gram/15 mL solution 15 ml PO HS RF: 0 warfarin 4 mg tablet 2 mg PO 5XWK RF: 0 metoprolol tartrate 25 mg Tablet 12.5 mg PO BID Qty: 30 RF: 0 acetaminophen [Mapap (acetaminophen)] 325 mg tablet 650 mg PO BID RF: 0 polyethylene glycol 3350 [Miralax] 17 gram powder in packet 17 g PO QAM RF: 0 Changed furosemide 20 mg tablet 20 mg PO DAILY Qty: 0 RF: 0 Discontinued amiodarone 200 mg Tablet 200 mg PO QAM Qty: 30 RF: 0 Stand-Alone Forms: [facility] Discharge Orders: Discharge Order (Routine); Ordered 05/06/18 Ordered By: Juanjo Durham Skilled Items Patient informed of condition?: Yes DNR: Yes Discharge Level of Care: Skilled Communicable Disease: No Discharge Prognosis: Stable Admission Data Admit Date/Time: 04/23/18 13:47 Attending Provider: Juanjo Durham Admit Provider: Symone Kaiser Primary Care Provider: Antony Valladares Other Providers: Adonay Richmond ; Rex Melgar ; Marina Metz ; Octavio Abdi ; Rekha Lloyd ; Marimar Albarado ; Sarah Sagastume Service: Telemetry Other Interventions: Discharge Summary Assessment (RN) Last Done: 05/06/18 13:08 Pending Studies at Discharge: No DC Date/Time DO NOT enter until pt leaves facility: 05/06/18 14:43
== END 2018-05-06 14:43 | DRG 291 ==
LOC: ED 11:26 → 2N 13:47 → SUATTDRO 13:47 → 2N 14:13

== ENCOUNTER 2021-02-15 12:38 | Inpatient (IN) ==
[2021-02-15 13:06] LABS: Basophils # (auto) 0.04 K/uL (0-0.2); Basophils % (auto) 0.4 %; Eosinophils # (auto) 0.11 K/uL (0-0.5); Hemoglobin 12.9 g/dL (14.0-18.0); Immature Granulocytes # (auto) 0.02 K/uL (0.00-0.02); Immature Granulocytes % (auto) 0.2 %; Lymphocytes # (auto) 0.95 K/uL (1.2-3.4); Lymphocytes % (auto) 8.7 %; Mean Corpuscular Hemoglobin 34.2 pg (25-34); Mean Corpuscular Hgb Conc 33.1 g/dL (32-36); Mean Corpuscular Volume 103.4 fL (80-100); Mean Platelet Volume 9.5 fL (7.4-10.4); Monocytes # (auto) 0.69 K/uL (0.11-0.59); Monocytes % (auto) 6.3 %; Neutrophils # (auto) 9.17 K/uL (1.4-6.5); Neutrophils % (auto) 83.4 %; Platelet Count 169 K/uL (130-400); RDW Coefficient of Variation 14.5 % (11.5-14.5); RDW Standard Deviation 54.6 fL (36.4-46.3); Red Blood Count 3.77 M/uL (4.7-6.1); White Blood Count 10.98 K/uL (4.8-10.8)
[2021-02-15 13:16] LABS: INR 2.2 (0.9-1.1); Partial Thromboplastin Ratio 1.4; Prothrombin Time 20.7 Seconds (9.0-12.0)
[2021-02-15 13:27] LABS: Alanine Aminotransferase 14 U/L (12-78); Albumin Level 3.4 gm/dl (3.4-5.0); Aspartate Aminotransferase 13 U/L (15-37); BUN Creatinine Ratio 15.3 (10-20); Blood Urea Nitrogen 20 mg/dl (7-18); Calcium 9.2 mg/dl (8.5-10.1); Carbon Dioxide 22 mmol/L (21-32); Chloride 106 mmol/L (98-107); Creatinine Clr Calc Pharmacy 53.8 ml/min; Est GFR (African American) 57.9 ml/min; Glucose 141 mg/dl (70-99); Lipase 99 U/L (73-393); Potassium 4.3 mmol/L (3.5-5.1); Sodium 136 mmol/L (136-145)
--- NOTE | 2021-02-15 13:27 | XRay Report ---
SINGLE VIEW CHEST CLINICAL HISTORY: Atypical chest pain. FINDINGS: An AP, portable, upright chest radiograph is compared to study dated 05/04/2018. The patient is status post midline sternotomy. A 2-lead cardiac AICD is unchanged in position. The heart is enla rged noting atherosclerotic calcification. There is pulmonary vascular congestion. Bilateral airspace opacities are noted. There are small pleural effusions with bibasilar consolidation. No pneumothorax is seen. The skeletal structures are osteopenic. The bony thorax is grossly intact. Advanced arthrit ic change is noted in the right shoulder. IMPRESSION: 1. Cardiomegaly and AICD with evidence of congestive failure. 2. Bilateral airspace opacities likely represent pulmonary edema. Correlate clinically for evidence o f a superimposed infectious/inflammatory pneumonitis. 3. Small pleural effusions. ACT 112: Negative or not required by law. Electronically signed by: Thor Julian M.D. 02/15/2021 1:26 PM
[2021-02-15] MEDS ORDERED: FUROSEMIDE 40 MG/4 ML VIAL IV ONE ×3 (13:29→20:52)
[2021-02-15 13:43] LABS: Alkaline Phosphatase 62 U/L (45-117); Bilirubin Direct < 0.1 mg/dl (0-0.2); Bilirubin,Total 0.5 mg/dl (0.2-1); NT Pro B Type Natriuretic Pept 5392 pg/ml (0-1800); Total Protein 6.8 gm/dl (6.4-8.2); Troponin I 0.295 ng/ml (0-0.045)
--- NOTE | 2021-02-15 14:07 | Cardiology Consultation ---
Date of Consultation February 15, 2021 Assessment & Plan (1) Acute on chronic systolic heart failure: (2) Ischemic cardiomyopathy: (3) Chronic kidney disease, stage 3a: (4) DM w/o complication type II: I would recommend that the patient be treated for his heart failure with IV diuretics. I think that once the patient is out of heart failure his cardiac arrhythmias will slow down or resolve. I would be certain to maintain his electrolytes such as potassium and magnesium while you are diuresing him. I would continue his metoprolol as it is written as an outpatient but if he develops a sustained tachycardia additional IV dosing would be appropriate. The best drug for him would be amiodarone but unfortunately he developed pulmonary toxicity to this medication 2 years ago. Still, there are not many options and we may have to restart the amiodarone to control his arrhythmias. I am not certain why he is not on an SAMMY inhibitor or ARB. It may be due to his renal insufficiency? I will try to look this up. We may want to consider adding Aldactone to his medical regiment. I have ordered an echocardiogram due to a change in his clinical status. 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 He has an ischemic cardiomyopathy with severe LV dysfunction and an estimated left ventricular ejection fraction of around 30%. He is status post coronary artery bypass as well as interventions without complete revascularization and chronic angina. He is status post dual-chamber ICD implanted in 2018 after a syncopal event and findings of nonsustained ventricular tachycardia. At that time he was started on amiodarone but a year later it was stopped. According to records it was felt that he had pulmonary toxicity from the amiodarone. He has done well until recently he has had progressive shortness of breath to the point where he is dyspneic with activities of daily living. Also, his ICD was interrogated as an outpatient and is showing multiple runs of tachycardia. He was asked to come to the emergency department where he is found to be in congestive heart failure with an elevated pro natruretic peptide and a chest x-ray suggesting pulmonary edema. He has been given diuretics and is currently diuresing. In the emergency department he is having runs of SVT most likely atrial fibrillation or flutter. It should be noted, that interrogation of his ICD just prior to his presentation indicated frequent runs of nonsustained ventricular tachycardia. Either way, the patient is completely asymptomatic of these arrhythmias. His presentation is that of progressive acute on chronic systolic heart failure. Past medical history: 1.Atherosclerotic coronary disease with associated ischemic cardiomyopathy. Ejection fraction 30 to 35%. 2.History of prior coronary bypass grafting, August of 2004 with incomplete revascularization of severe diffuse coronary disease receiving a IZQUIERDO graft to the second diagonal a radial graft anastomosing from the left internal mammary to the third obtuse marginal, and a saphenous vein graft sequentially to the posterior descending artery and posterolateral branch of the right coronary artery with poor surgical targets observed. 3.History of chronic class 2 angina pectoris. 4.Hospitalization [facility] with acute syncopal event 02/06/2018, on presentation notable for sustained VT, high risk non-ST elevation myocardial infarction, undergoing urgent cardiac catheterization study demonstrating 95% stenosis of the left main extending into the ostial circumflex, red devil LAD occlusion, dominant RCA aneurysmal prior to proximal chronic occlusion, a IZQUIERDO graft to the diagonal was widely patent, filling a small LAD, a radial off the IZQUIERDO graft to the obtuse marginal was occluded, right coronary grafts were occluded. The patient underwent emergent coronary intervention receiving a drug-eluting stent from left main into the mid circumflex. 5.Atrial fibrillation. First observed in 12/2017. [id number] Score of 6 points. Coumadin anticoagulation. 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 8.Chronic systolic and diastolic heart failure, July 2017. 9.Atherosclerotic carotid disease status post right carotid stent. 10.History of popliteal aneurysm. 11.Hyperlipidemia with poor statin tolerance. 12.Chronic stage III renal insufficiency. 13.Chronic limiting back pain secondary to degenerative joint disease and spinal stenosis. 14.Chronic urinary retention and urinary incontinence. 15.History of E. coli sepsis in October of 2015. 16.Peripheral artery disease status post right SFA angioplasty ultimately through right below-knee popliteal retrograde access June 24, 2018 associated balloon angioplasty to the proximal peroneal and popliteal arteries for nonhealing foot ulcer. Allergies Allergy/AdvReac Type Severity Reaction Status Date / Time Iodinated Contrast Media Allergy Severe ANAPHYLAXIS Verified 11/27/20 12:36 shellfish derived Allergy Severe ANAPHYLAXIS Verified 11/27/20 12:36 adhesive tape Allergy Intermediate Tore skin Verified 11/27/20 12:36 clindamycin Allergy Intermediate Rash Verified 11/27/20 12:36 Penicillins Allergy Intermediate BOILS Verified 11/27/20 12:36 iodine Allergy Verified 11/27/20 12:36 donepezil AdvReac Intermediate Nightmares Verified 11/27/20 12:36 latex AdvReac Intermediate RASH Verified 11/27/20 12:36 [id number]-LFK-[id number] Reductase AdvReac Intermediate severe Verified 11/27/20 12:36 Inhibitor myalgias [Vkokhdl-Rnx-Hdm Reductase Inhibitor] atorvastatin AdvReac Mild GI SYMPTOMS Verified 11/27/20 12:36 levofloxacin [From Levaquin] AdvReac Mild Insomnia Verified 11/27/20 12:36 rosuvastatin AdvReac Mild GI SYMPTOMS Verified 11/27/20 12:36 Fish Containing Products AdvReac Unknown Swelling Verified 11/27/20 12:36 of Lip/Tongue/Throat mold AdvReac Congested Unverified 02/15/21 13:45 pollen extracts AdvReac Watery Eye Unverified 02/15/21 13:45 Home Medications Medication Instructions Recorded Confirmed Type clopidogrel 75 mg tablet (Plavix) 75 mg PO DAILY 08/19/18 02/15/21 History blood sugar diagnostic (Contour #100 ea 11/20/18 02/05/21 Rx Next Test Strips) tamsulosin 0.4 mg capsule 0.4 mg PO DAILY #30 cap 08/29/20 02/15/21 Rx allopurinol 100 mg tablet 100 mg PO DAILY #90 tab 10/26/20 02/15/21 Rx isosorbide mononitrate 60 mg 60 mg PO QAM tab 10/26/20 02/15/21 History tablet,extended release 24 hr metformin 500 mg tablet,extended 500 mg PO DAILY #90 tab 10/26/20 02/15/21 Rx release 24hr metoprolol tartrate 25 mg tablet 50 mg PO BID tab 10/26/20 02/15/21 History polyethylene glycol 3350 17 17 g PO DAILY 10/26/20 02/15/21 History gram/dose oral powder (Miralax) furosemide 20 mg tablet 20 mg PO DAILY #90 tab 11/02/20 02/15/21 Rx warfarin 2 mg tablet See Rx Instructions PO UD #110 tab 11/06/20 02/15/21 Rx pantoprazole 40 mg tablet,delayed See Rx Instructions .ROUTE 02/07/21 02/15/21 Rx release .COMPLEX #90 tab acetaminophen 500 mg tablet 1,000 mg PO BID PRN 02/15/21 02/15/21 History Patient History Medical History Acute kidney injury superimposed on CKD Adult situational stress disorder Anemia of chronic disease Aneurysm of lower limb artery Angina, class II ASCVD (arteriosclerotic cardiovascular disease) Atrial fibrillation Biventricular ICD (implantable cardioverter-defibrillator) in place BMI 40.0-44.9, adult BPH with obstruction/lower urinary tract symptoms CAD (coronary artery disease) CHF exacerbation Chronic anticoagulation 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, NYHA class 2 Chronic constipation Chronic kidney disease, stage 3a Chronic systolic heart failure Constipation Patient on home bowel regimen but requesting possible enema to aid in bowel movement COPD (chronic obstructive pulmonary disease) DM w/o complication type II Drug eruption Dyslipidemia, goal LDL below 70 Former smoker Gastroesophageal reflux disease Gout Hyperlipidemia Hypertension Ischemic cardiomyopathy Laceration of forehead, left, complicated Lumbar canal stenosis Nephrolithiasis Nocturia NSTEMI (non-ST elevated myocardial infarction) Osteoarthritis of knee Osteoarthritis of knees, bilateral Pain syndrome, chronic Paroxysmal atrial fibrillation Peripheral arterial disease Peripheral neuropathy Popliteal aneurysm Pressure ulcer Renal lesion Solitary pulmonary nodule Status post fall STEMI (ST elevation myocardial infarction) Stenosis of right internal carotid artery Syncope Tinea cruris Traumatic orbital hematoma Type 2 diabetes mellitus Type [address] elevation Urethral stricture Urinary incontinence Urinary retention Ventricular tachycardia Ventricular tachycardia Vitamin D deficiency Surgical History AICD (automatic cardioverter/defibrillator) present H/O colonoscopy H/O cystoscopy with internal urethrotomy History of coronary artery stent placement S/P CABG x 1 S/P CABG x 2 S/P CABG x 4 Family History Unknown Acute myocardial infarction Mother Uterine cancer Sister Hypertension Peripheral vascular disease Hyperlipidemia Ovarian cancer Son Alcoholism Denies family history of Prostate cancer Breast cancer Lung cancer Colorectal cancer Social History Smoking Status: Former smoker Tobacco Type: Cigarettes Second Hand Exposure: No; Do You Dip or Chew Tobacco: No; Tobacco Cessation Education Requested by Patient: No Hx Alcohol Use: Yes Alcohol type: wine Alcohol Intake Frequency: 4 or More x per/Week Hx Substance Use: No Preferred Language: Frisian Communication Ability: Effective Visual Impairment: Partially Limited Global Marketing Intern Required: No Beliefs That Will Affect Care: None marital status: Current Living Situation: Spouse current occupational status: retired Other Information That Helps Us Care for You: No Feels Safe at Home: Yes Safety Concerns: Feels Safe At This Time Childhood Exposure to Second-Hand Smoke: No Dental Care, Regularly: Yes Physical Activity Frequency: Does not Exercise Seatbelt Use: always Sunscreen Use: No Assistive Devices: Walker Review of Systems Review of Systems: Review of Systems: See HPI for pertinent positives. All other 10 point review of systems are negative. Physical Exam Physical Exam: General: no acute distress and stated age Head: normocephalic, no masses, lesions, tenderness or abnormalities Eyes: conjunctiva are pink and non-injected, sclera clear Neck: supple, no adenopathy, no bruits, normal jugular venous pulse, no hepatojugular reflux Chest: normal shape and normal respiratory effort Lungs: clear to auscultation and percussion Cardiac Exam: - regular rate & rhythm, no murmurs gallops or rubs - normal S1, normal S2 Pulses: 2(+) throughout Abdomen: abdomen soft, non-tender, no abnormal masses and no hepatosplenomegaly Musculoskeletal: no gait disturbance, no joint inflammation, no deforming arthritis Extremities: no edema and no cyanosis Neuro: grossly normal exam Results & Data ([facility]) Vital Signs (Past 12 Hours) Vital Signs Temp Pulse Pulse Resp BP BP Pulse Ox 02/15/21 13:50 85 16 147/85 H 94 02/15/21 12:47 36.7 C 94 H 28 H 128/91 98 Laboratory Results Laboratory Results - last 24 hr 02/15/21 02/15/21 02/15/21 12:50 12:50 12:50 WBC 10.98 H RBC 3.77 L Hgb 12.9 L Hct 39.0 L MCV 103.4 H MCH 34.2 H MCHC 33.1 RDW Std Deviation 54.6 H RDW Coeff of Dayanara 14.5 Plt Count 169 MPV 9.5 Immature Gran % (Auto) 0.2 Neut % (Auto) 83.4 Lymph % (Auto) 8.7 [place] % (Auto) 6.3 Eos % (Auto) 1.0 Baso % (Auto) 0.4 Neut # (Auto) 9.17 H Lymph # (Auto) 0.95 L [place] # (Auto) 0.69 H Eos # (Auto) 0.11 Baso # (Auto) 0.04 Immature Gran # (Auto) 0.02 PT 20.7 H INR 2.2 H APTT 37.0 H PTT Ratio 1.4 Sodium Potassium Chloride Carbon Dioxide Anion Gap BUN Creatinine Est Cr Clr Drug Dosing Est GFR ( Amer) Est GFR (Non-Af Amer) BUN/Creatinine Ratio Glucose Calcium Total Bilirubin Cancelled Direct Bilirubin Cancelled AST Cancelled ALT Cancelled Alkaline Phosphatase Cancelled Troponin I NT-Pro-B Natriuret Pep Total Protein Cancelled Albumin Cancelled Lipase TSH COVID-19 Eval Order SARS-CoV-2 (PCR) 02/15/21 02/15/21 02/15/21 12:50 13:50 13:50 WBC RBC Hgb Hct MCV MCH MCHC RDW Std Deviation RDW Coeff of Dayanara Plt Count MPV Immature Gran % (Auto) Neut % (Auto) Lymph % (Auto) [place] % (Auto) Eos % (Auto) Baso % (Auto) Neut # (Auto) Lymph # (Auto) [place] # (Auto) Eos # (Auto) Baso # (Auto) Immature Gran # (Auto) PT INR APTT PTT Ratio Sodium 136 Potassium 4.3 Chloride 106 Carbon Dioxide 22 Anion Gap 7.0 BUN 20 H Creatinine 1.31 Est Cr Clr Drug Dosing 53.8 Est GFR ( Amer) 57.9 Est GFR (Non-Af Amer) 50.0 BUN/Creatinine Ratio 15.3 Glucose 141 H Calcium 9.2 Total Bilirubin 0.5 Direct Bilirubin < 0.1 AST 13 L ALT 14 Alkaline Phosphatase 62 Troponin I 0.295 H* NT-Pro-B Natriuret Pep 5392 H Total Protein 6.8 Albumin 3.4 Lipase 99 TSH 1.650 COVID-19 Eval Order Covid19 at [facility] SARS-CoV-2 (PCR) Pending (1) DM w/o complication type II Diabetes mellitus custodial insulin use: without custodial use Qualified Code(s): E11.9 - Type 2 diabetes mellitus without complications
--- NOTE | 2021-02-15 14:11 | Emergency Department Note ---
History of Present Illness General Chief complaint: Shortness of Breath/Dyspnea Stated complaint: CHEST PAIN, SOB Time Seen by Provider: 02/15/21 12:42 History of Present Illness Provider complaint: Dyspnea Onset (ago): day(s) 2 Maximum Pain Intensity: 0 Associated symptoms: + shortness of breath; no chest pain, no cough, no he adaches or no nausea/vomiting 85-year-old male presents emergency department for dyspnea. Patient has been having increasing dyspnea over the last 2 days. He reports swelling in his leg. No chest pain. No fevers. Patient was advised to come to the emergency department by cardiology team at [facility]. Home Medications Medication Instructions Recorded Confirmed Type clopidogrel 75 mg tablet (Plavix) 75 mg PO DAILY 08/19/18 02/15/21 History blood sugar diagnostic (Contour #100 ea 11/20/18 02/05/21 Rx Next Test Strips) tamsulosin 0.4 mg capsule 0.4 mg PO DAILY #30 cap 08/29/20 02/15/21 Rx allopurinol 100 mg tablet 100 mg PO DAILY #90 tab 10/26/20 02/15/21 Rx isosorbide mononitrate 60 mg 60 mg PO QAM tab 10/26/20 02/15/21 History tablet,extended release 24 hr metformin 500 mg tablet,extended 500 mg PO DAILY #90 tab 10/26/20 02/15/21 Rx release 24hr metoprolol tartrate 25 mg tablet 50 mg PO BID tab 10/26/20 02/15/21 History polyethylene glycol 3350 17 17 g PO DAILY 10/26/20 02/15/21 History gram/dose oral powder (Miralax) furosemide 20 mg tablet 20 mg PO DAILY #90 tab 11/02/20 02/15/21 Rx warfarin 2 mg tablet See Rx Instructions PO UD #110 tab 11/06/20 02/15/21 Rx pantoprazole 40 mg tablet,delayed See Rx Instructions .ROUTE 02/07/21 02/15/21 Rx release .COMPLEX #90 tab acetaminophen 500 mg tablet 1,000 mg PO BID PRN 02/15/21 02/15/21 History Allergies Allergy/AdvReac Type Severity Reaction Status Date / Time Iodinated Contrast Media Allergy Severe ANAPHYLAXIS Verified 11/27/20 12:36 shellfish derived Allergy Severe ANAPHYLAXIS Verified 11/27/20 12:36 adhesive tape Allergy Intermediate Tore skin Verified 11/27/20 12:36 clindamycin Allergy Intermediate Rash Verified 11/27/20 12:36 Penicillins Allergy Intermediate BOILS Verified 11/27/20 12:36 iodine Allergy Verified 11/27/20 12:36 donepezil AdvReac Intermediate Nightmares Verified 11/27/20 12:36 latex AdvReac Intermediate RASH Verified 11/27/20 12:36 Vuldfhh-YCA-IdV Reductase AdvReac Intermediate severe Verified 11/27/20 12:36 Inhibitor myalgias [Hrecegu-Pwu-Akz Reductase Inhibitor] atorvastatin AdvReac Mild GI SYMPTOMS Verified 11/27/20 12:36 levofloxacin [From Levaquin] AdvReac Mild Insomnia Verified 11/27/20 12:36 rosuvastatin AdvReac Mild GI SYMPTOMS Verified 11/27/20 12:36 Fish Containing Products AdvReac Unknown Swelling Verified 11/27/20 12:36 of Lip/Tongue/Throat mold AdvReac Congested Unverified 02/15/21 13:45 pollen extracts AdvReac Watery Eye Unverified 02/15/21 13:45 Past Med/Surg History Medical History Acute kidney injury superimposed on CKD Adult situational stress disorder Anemia of chronic disease Aneurysm of lower limb artery Angina, class II ASCVD (arteriosclerotic cardiovascular disease) Atrial fibrillation Biventricular ICD (implantable cardioverter-defibrillator) in place BMI 40.0-44.9, adult BPH with obstruction/lower urinary tract symptoms CAD (coronary artery disease) CHF exacerbation Chronic anticoagulation 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, NYHA class 2 Chronic constipation Chronic kidney disease, stage 3a Chronic systolic heart failure Constipation Patient on home bowel regimen but requesting possible enema to aid in bowel movement COPD (chronic obstructive pulmonary disease) DM w/o complication type II Drug eruption Dyslipidemia, goal LDL below 70 Former smoker Gastroesophageal reflux disease Gout Hyperlipidemia Hypertension Ischemic cardiomyopathy Laceration of forehead, left, complicated Lumbar canal stenosis Nephrolithiasis Nocturia NSTEMI (non-ST elevated myocardial infarction) Osteoarthritis of knee Osteoarthritis of knees, bilateral Pain syndrome, chronic Paroxysmal atrial fibrillation Peripheral arterial disease Peripheral neuropathy Popliteal aneurysm Pressure ulcer Renal lesion Solitary pulmonary nodule Status post fall STEMI (ST elevation myocardial infarction) Stenosis of right internal carotid artery Syncope Tinea cruris Traumatic orbital hematoma Type 2 diabetes mellitus Type [address] elevation Urethral stricture Urinary incontinence Urinary retention Ventricular tachycardia Ventricular tachycardia Vitamin D deficiency Surgical History AICD (automatic cardioverter/defibrillator) present H/O colonoscopy H/O cystoscopy with internal urethrotomy History of coronary artery stent placement S/P CABG x 1 S/P CABG x 2 S/P CABG x 4 Family History Unknown Acute myocardial infarction Mother Uterine cancer Sister Hypertension Peripheral vascular disease Hyperlipidemia Ovarian cancer Son Alcoholism Denies family history of Prostate cancer Breast cancer Lung cancer Colorectal cancer Social History Smoking Status: Former smoker Tobacco Type: Cigarettes Second Hand Exposure: No; Hx Alcohol Use: Yes Alcohol type: wine Alcohol Intake Frequency: 4 or More x per/Week Hx Substance Use: No Preferred Language: Tristanian Communication Ability: Effective Visual Impairment: Partially Limited Beliefs That Will Affect Care: None marital status: Current Living Situation: Spouse current occupational status: retired Feels Safe at Home: Yes Childhood Exposure to Second-Hand Smoke: No Dental Care, Regularly: Yes Physical Activity Frequency: Does not Exercise Seatbelt Use: always Sunscreen Use: No Assistive Devices: Walker Review of Systems A total of 10 systems reviewed and were otherwise negative Physical Exam Vital Signs Vital Signs - 24 hr 02/15/21 12:47 02/15/21 13:28 02/15/21 13:50 Temperature 36.7 C Temperature Source Oral Pulse Rate 94 H Pulse Rate [Finger] 85 Respiratory Rate 28 H 16 Blood Pressure 128/91 Blood Pressure [Right Arm] 147/85 H Blood Pressure Mean 103 Blood Pressure Mean [Right Arm] 105 Pulse Oximetry 98 94 Oxygen Delivery Method Room Air Room Air Room Air Sepsis Recent Fever Within 48 Hours No Sepsis New/Unexplained Change in Mental Status N/A Sepsis Action Taken by Nursing No Action Required Physical Exam GENERAL: He is oriented to person, place, and time. He appears well-developed and well-nourished. He does not appear distressed. HENT: Exam performed. - Head: Normocephalic and atraumatic. - Right Ear: External ear normal. No mastoid tenderness. - Left Ear: External ear normal. No mastoid tenderness. - Mouth/Throat: The oropharynx is clear and moist. No trismus in the jaw. No dental abscesses or uvula swelling. No oropharyngeal exudate or tonsillar abscesses. EYES: Conjunctivae and EOM are normal. Pupils are equal, round, and reactive to light. Right eye exhibits no discharge. Left eye exhibits no discharge. No scleral icterus. NECK: Normal range of motion. Neck supple. No JVD present. No spinous process tenderness present. No carotid bruit present. No rigidity. No tracheal deviation and normal range of motion present. No Brudzinski's sign and no Kernig's sign noted. CV: Normal rate, irregular rhythm, normal heart sounds and intact distal pulses. Palpable radial pulses bue. PULM/CHEST: Rales at the bases bilaterally. - Chest Wall: He exhibits no tenderness. ABD: The abdomen is soft. Bowel sounds are normal. He has no distension. No mass is present. There is no tenderness. There is no rebound, no guarding, no Peralta's sign and no tenderness at McBurney's point. Rovsig negative. MUSC/SKEL: Normal range of motion. 3+ pitting edema of the bilateral lower extremities. NEURO: He is alert and oriented to person, place, and time. He has normal strength. No cranial nerve deficit or sensory deficit. Coordination and gait normal. GCS eye subscore is 4. GCS verbal subscore is 5. GCS motor subscore is 6. Cerebellar tests wnl. SKIN: Skin is warm and dry. He is not diaphoretic. PSYCH: He has a normal mood and affect. Behavior is normal. Judgment and thought content normal. Course Course 1145: Received a call from Dr. Jennifer Espana cardiology. He states he is sending the patient into the emergency department for dyspnea. He reports the patient has ejection fraction of 35%, history of CABG, history of ischemic cardiomyopathy, history of V. tach, and history of a defibrillator being placed. He states that his defibrillator was interpreted and the outpatient setting s hows multiple runs of V. tach. He states that the patient is coming in via EMS. He states he wants the patient to be admitted to the [facility] hospice team for the patient to have a cardiac panel LFTs and a thyroid panel to be done. He states that the patient was taking off of amiodarone last year due to toxicity. He states he might need to start him on amiodarone again. He states not start th e patient on amiodarone acutely in the emergency department as he thinks the patient is more likely fluid overloaded. States start diuresis of the patient and his cardiology team will evaluate the patient further for amiodarone or further cardiac management. 1242: The patient was evaluated in room C6. A complete history and physical exam was performed Cardiac monitoring: An order was placed for continuous cardiac monitoring. The monitor shows a rate of 90 with sinus arrythmia rhythm 1315: Called to bedside by nursing, the patient did go into an SVT. When I arrived into the room the patient had already broken his SVT. He is hemodynamically stable. He reports no chest pain at this time. Discussed with cardiology [facility] Dr. Stein who states he will evaluate the patient. 1422: Vital signs stable. Labs show an elevated proBNP and elevated troponin level. INR is therapeutic. Chest x-ray does show fluid overload. Patient be treated with 40 mg of Lasix. [facility] and will evaluate the patient. Administered Medications Discontinued Medications Furosemide (Furosemide 40 Mg/4 Ml Vial) 40 mg IV ONE ONE Stop: 02/15/21 13:30 Last Admin: 02/15/21 13:50 Dose: 40 mg Documented by: [id number] Medical Decision Making Laboratory Data Result diagrams: 02/15/21 12:50 02/15/21 12:50 Lab Results 02/15/21 02/15/21 02/15/21 Range/Units 12:50 12:50 12:50 WBC 10.98 H (4.8-10.8) K/uL RBC 3.77 L (4.7-6.1) M/uL Hgb 12.9 L (14.0-18.0) g/dL Hct 39.0 L (42-52) % MCV 103.4 H (80-100) fL MCH 34.2 H (25-34) pg MCHC 33.1 (32-36) g/dL RDW Std Deviation 54.6 H (36.4-46.3) fL RDW Coeff of Dayanara 14.5 (11.5-14.5) % Plt Count 169 (130-400) K/uL MPV 9.5 (7.4-10.4) fL Immature Gran % (Auto) 0.2 % Neut % (Auto) 83.4 % Lymph % (Auto) 8.7 % Brewster % (Auto) 6.3 % Eos % (Auto) 1.0 % Baso % (Auto) 0.4 % Neut # (Auto) 9.17 H (1.4-6.5) K/uL Lymph # (Auto) 0.95 L (1.2-3.4) K/uL Brewster # (Auto) 0.69 H (0.11-0.59) K/uL Eos # (Auto) 0.11 (0-0.5) K/uL Baso # (Auto) 0.04 (0-0.2) K/uL Immature Gran # (Auto) 0.02 (0.00-0.02) K/uL PT 20.7 H (9.0-12.0) Seconds INR 2.2 H (0.9-1.1) APTT 37.0 H (21.0-31.0) Seconds PTT Ratio 1.4 Sodium (136-145) mmol/L Potassium (3.5-5.1) mmol/L Chloride (98-107) mmol/L Carbon Dioxide (21-32) mmol/L Anion Gap (3-11) BUN (7-18) mg/dl Creatinine (0.6-1.4) mg/dl Est Cr Clr Drug Dosing ml/min Est GFR ( Amer) ml/min Est GFR (Non-Af Amer) ml/min BUN/Creatinine Ratio (10-20) Glucose (70-99) mg/dl Calcium (8.5-10.1) mg/dl Total Bilirubin Cancelled Direct Bilirubin Cancelled AST Cancelled ALT Cancelled Alkaline Phosphatase Cancelled Troponin I (0-0.045) ng/ml NT-Pro-B Natriuret Pep (0-1800) pg/ml Total Protein Cancelled Albumin Cancelled Lipase (73-393) U/L TSH (0.300-4.500) uIu/ml COVID-19 Eval Order 02/15/21 02/15/21 Range/Units 12:50 13:50 WBC (4.8-10.8) K/uL RBC (4.7-6.1) M/uL Hgb (14.0-18.0) g/dL Hct (42-52) % MCV (80-100) fL MCH (25-34) pg MCHC (32-36) g/dL RDW Std Deviation (36.4-46.3) fL RDW Coeff of Dayanara (11.5-14.5) % Plt Count (130-400) K/uL MPV (7.4-10.4) fL Immature Gran % (Auto) % Neut % (Auto) % Lymph % (Auto) % Brewster % (Auto) % Eos % (Auto) % Baso % (Auto) % Neut # (Auto) (1.4-6.5) K/uL Lymph # (Auto) (1.2-3.4) K/uL Brewster # (Auto) (0.11-0.59) K/uL Eos # (Auto) (0-0.5) K/uL Baso # (Auto) (0-0.2) K/uL Immature Gran # (Auto) (0.00-0.02) K/uL PT (9.0-12.0) Seconds INR (0.9-1.1) APTT (21.0-31.0) Seconds PTT Ratio Sodium 136 (136-145) mmol/L Potassium 4.3 (3.5-5.1) mmol/L Chloride 106 (98-107) mmol/L Carbon Dioxide 22 (21-32) mmol/L Anion Gap 7.0 (3-11) BUN 20 H (7-18) mg/dl Creatinine 1.31 (0.6-1.4) mg/dl Est Cr Clr Drug Dosing 53.8 ml/min Est GFR ( Amer) 57.9 ml/min Est GFR (Non-Af Amer) 50.0 ml/min BUN/Creatinine Ratio 15.3 (10-20) Glucose 141 H (70-99) mg/dl Calcium 9.2 (8.5-10.1) mg/dl Total Bilirubin 0.5 Direct Bilirubin < 0.1 AST 13 L ALT 14 Alkaline Phosphatase 62 Troponin I 0.295 H* (0-0.045) ng/ml NT-Pro-B Natriuret Pep 5392 H (0-1800) pg/ml Total Protein 6.8 Albumin 3.4 Lipase 99 (73-393) U/L TSH 1.650 (0.300-4.500) uIu/ml COVID-19 Eval Order Covid19 at [facility] Imaging Data Radiologist's Impression: Chest X-Ray 02/15/21 12:43 SINGLE VIEW CHEST CLINICAL HISTORY: Atypical chest pain. FINDINGS: An AP, portable, upright chest radiograph is compared to study dated 05/04/2018. The patient is status post midline sternotomy. A 2-lead cardiac AICD is unchanged in position. The heart is enlarged noting atherosclerotic calcification. There is pulmonary vascular congestion. Bilateral airspace opacities are noted. There are small pleural effusions with bibasilar conso lidation. No pneumothorax is seen. The skeletal structures are osteopenic. The bony thorax is grossly intact. Advanced arthritic change is noted in the right shoulder. IMPRESSION: 1. Cardiomegaly and AICD with evidence of congestive failure. 2. Bilateral airspace opacities likely represent pulmonary edema. Correlate clin ically for evidence of a superimposed infectious/inflammatory pneumonitis. 3. Small pleural effusions. ACT 112: Negative or not required by law. Electronically signed by: Thor Julian M.D. 02/15/2021 1:26 PM ECG Data Additional Comments: EKG #1 at 1247: Sinus arrhythmia with a rate of 96. ND 214 QRS [address] elevation or ST depression. EKG #2 at 1301: SVT with a rate of 161. QRS and QTc intervals within normal limits. No ST elevation or ST depression. EKG #3 at 1305: Sinus arrhythmia with a rate of 98. ND QRS and QTc intervals ar e within normal limits. No ST elevation or ST depression. [facility] Narrative 1145: Received a call from Dr. Jennifer Espana cardiology. He states he is sending the patient into the emergency department for dyspnea. He reports the patient has ejection fraction of 35%, history of CABG, history of ischemic cardiomyopathy, history of V. tach, and history of a defibrillator being placed. He states that his defibrillator was interpreted and the outpatient setting shows multiple runs of V. tach. He states that the patient is coming in via EMS. He states he wants the patient to be admitted to the [facility] team for the patient to have a cardiac panel LFTs and a thyroid panel to be done. He states that the patient was taking off of amiodarone last year due to toxicity. He states he might need to start him on amiodarone again. He states not start the patient on amiodarone acutely in the emergency department as he thinks the patient is more likely fluid overloaded. States start diuresis of the patient and his cardiology team will evaluate the patient further for amiodarone or further cardiac management. 1242: The patient was evaluated in room C6. A complete history and physical exam was performed Cardiac monitoring: An order was placed for continuous cardiac monitoring. The monitor shows a rate of 90 with sinus arrythmia rhythm 1315: Called to bedside by nursing, the patient did go into an SVT. When I arrived into the room the patient had already broken his SVT. He is hemodynamically stable. He reports no chest pain at this time. Discussed with cardiology [facility] Dr. Stein who states he will evaluate the patient. 1422: Vital signs stable. Labs show an elevated proBNP and elevated troponin level. INR is therapeutic. Chest x-ray does show fluid overload. Patient be treated with 40 mg of Lasix. Patient will be admitted to the [facility] hospitalist team Dr. Oglesby notified and will evaluate the patient. Impression & Plan Acute exacerbation of CHF (congestive heart failure) Discharge Plan Visit Data Chief Complaint: Shortness of Breath/Dyspnea Stated Complaint: CHEST PAIN, SOB ED Provider: Tyrone Pierre Discharge Problem: Acute exacerbation of CHF (congestive heart failure) Patient Disposition: Being Evaluated by Hospitalist Forms Stand Alone Forms: [facility], Virtual Emergency Department, Important Visit Information Prescriptions Prescriptions: No Action metoprolol tartrate 25 mg tablet 50 mg PO BID RF: 0 clopidogrel [Plavix] 75 mg tablet 75 mg PO DAILY RF: 0 (DME) Contour Next Test Strips strip See Dose Instructions .ROUTE .MEDSUPPLY Qty: 100 RF: 3 metformin 500 mg tablet extended release 24hr 500 mg PO DAILY Qty: 90 RF: 3 allopurinol 100 mg tablet 100 mg PO DAILY Qty: 90 RF: 3 furosemide 20 mg tablet 20 mg PO DAILY Qty: 90 RF: 3 warfarin 2 mg tablet See Rx Instructions PO UD Qty: 110 RF: 1 pantoprazole 40 mg tablet,delayed release (DR/EC) See Rx Instructions .ROUTE .COMPLEX Qty: 90 RF: 3 isosorbide mononitrate 60 mg tablet extended release 24 hr 60 mg PO QAM RF: 0 polyethylene glycol 3350 [Miralax] 17 gram/dose powder 17 g PO DAILY RF: 0 tamsulosin 0.4 mg capsule 0.4 mg PO DAILY Qty: 30 RF: 11 acetaminophen 500 mg Tablet 1,000 mg PO BID PRN (Reason: Pain) RF: 0 Referrals Referrals: Antony Valladares MD [Primary Care Provider] - Discharge Problem: Acute exacerbation of CHF (congestive heart failure) Qualifiers: Heart failure type: unspecified Qualified Code(s): I50.9 - Heart failure, unspecified
--- NOTE | 2021-02-15 14:12 | History & Physical Report ---
Date of Service February 15, 2021 Assessment & Plan (1) Acute on chronic systolic heart failure: Plan: Ok is an 85-year-old male with a past medical history of acute on chronic systolic heart failure with EF 20 1835%, syncope due to ventricular tachycardia in 2018 with subsequent evaluation remarkable for multivessel disease including occlusion of both saxman coronaries and stents and CABG grafts with limited flow to the circumflex, CKD, DM, hypertension, hyperlipidemia, A. fib, and COPD who presents for concerns of acute on chronic systolic heart failure with defibrillator check concerning for runs of VT between 2 and 17 min. Patient case was discussed in route to [facility] by Dr. Cardoso. There is 3 patient had previously been on amiodarone which was stopped due to concerns for pulmonary fibrosis. He has a dual ICD pacer in place. His current presentation is likely provoked by acute congestive failure, but he is high risk for progressive severe CAD and may require an increase in beta-mine therapy and/or reinitiation of amiodarone. Will start with initial diuresis, if arrhythmia seen have low threshold to start amiodarone drip versus 200 mg IV twice daily. Acute on chronic systolic heart failure with reduced ejection fraction last 35% Initial labs: WBC 10.98, creatinine 1.31 at baseline, troponin 0.295 (last 0.017, detectable but normal), BNP 5392, TSH 1.650, no transaminitis, Covid19 -. Received Lasix 40 mg IV on arrival. -CXR: Cardiomegaly with evidence of congestive failure. Bilateral airspace opacities consistent with pulmonary edema, small pleural effusions - EKG: Sinus with PACs, no territorial ST depression/elevations, rate 96 Brisk diuresis to Lasix x1, repeat in 6 hours If runs of sustained tachycardia develops,+IV metoprolol for control If VT develops/sustained tachycardia not improved with beta-mine, may need to restart amiodarone despite toxicity 2 years prior. If indicated stop amiodarone drip, patient will continue follow-up with cardiology TTE pending (2) Biventricular ICD (implantable cardioverter-defibrillator) in place: Plan: As above (3) BMI 40.0-44.9, adult: Plan: As above (4) BPH with obstruction/lower urinary tract symptoms: Plan: Bladder scan if needed, patient with brisk diuresis following Lasix (5) CAD (coronary artery disease): Plan: Patient not on SAMMY/ARB at baseline Consider addition of SAMMY/ARB versus Aldactone - Continue isosorbide (6) DM w/o complication type II: Plan: No antiglycemic's NEWS VIDEOGR[employer]HER, glucose on admission 141 - Hold metformin - + SSI CF 40 Ratio 13 BMP daily (7) Dyslipidemia, goal LDL below 70: Plan: No statin [employer] VIDEOGR[employer]HER Lipid profile pending (8) Hypertension: Plan: Continue metoprolol, sitter SAMMY/Aldactone as noted above (9) Ventricular tachycardia: Plan: As noted above Plan: DVT prophylaxis: Anticoagulated on warfarin Diet: Heart healthy, DM if persistent hyperglycemia CODE STATUS: DNR/DNI Disposition: PCU History of Present Illness Chief Complaint: Progressive dyspnea Primary Care Provider: Antony Valladares MD Ok is an 85-year-old male with a past medical history of acute on chronic systolic heart failure with EF 20 1835%, syncope due to ventricular tachycardia in 2018 with subsequent evaluation remarkable for multivessel disease including occlusion of both saxman coronaries and stents and CABG grafts with limited flow to the circumflex, CKD, DM, hypertension, hyperlipidemia, A. fib, and COPD who presents for concerns of acute on chronic systolic heart failure with defibrillator check concerning for runs of VT between 2 and 17 min. Patient case was discussed in route to [facility] by Dr. Cardoso. There is 3 patient had previously been on amiodarone which was stopped due to concerns for pulmonary fibrosis. He has a dual ICD pacer in place. His current presentation is likely provoked by acute congestive failure, but he is high risk for progressive severe CAD and may require an increase in beta-mine therapy and/or reinitiation of amiodarone. Will start with initial diuresis, if arrhythmia seen have low threshold to start amiodarone drip versus 200 mg IV twice daily. Initial labs: WBC 10.98, creatinine 1.31 at baseline, troponin 0.295 (last 0.017, detectable but normal), BNP 5392, TSH 1.650, no transaminitis, Covid19 []. Received Lasix 40 mg IV on arrival. CXR: Cardiomegaly with evidence of congestive failure. Bilateral airspace opacities consistent with pulmonary edema, small pleural effusions EKG: Sinus with PACs, no territorial ST depression/elevations, rate 96 Dyspnea with exertion started worsening over the last few weeks suddenly worsened in the last 7 days. Has never needed oxygen at home, although had needed in rehab. Denies orthopnea. Has felt some palpitations/heart racing when he exerts himself but no squeezing or pain. Thinks a little pressure in the epigastrum. Per his has 'just seemed crappy for a few weeks, hasn't wanted to go anywhere and has been tired and exhausted.' No fevers, chills, or sweats Some loose bowls, no liquid diarrhea Medical History: Reviewed Medications: Reviewed Surgical History: Reviewed Allergies: Reviewed Social History: Reviewed, denies tobacco/etoh/recdrug Code Status: DNR/DNI Allergies Allergy/AdvReac Type Severity Reaction Status Date / Time Iodinated Contrast Media Allergy Severe ANAPHYLAXIS Verified 11/27/20 12:36 shellfish derived Allergy Severe ANAPHYLAXIS Verified 11/27/20 12:36 adhesive tape Allergy Intermediate Tore skin Verified 11/27/20 12:36 clindamycin Allergy Intermediate Rash Verified 11/27/20 12:36 Penicillins Allergy Intermediate BOILS Verified 11/27/20 12:36 iodine Allergy Verified 11/27/20 12:36 donepezil AdvReac Intermediate Nightmares Verified 11/27/20 12:36 latex AdvReac Intermediate RASH Verified 11/27/20 12:36 Fuoawfr-XVE-CjC Reductase AdvReac Intermediate severe Verified 11/27/20 12:36 Inhibitor myalgias [Gwyefae-Ixo-Yzr Reductase Inhibitor] atorvastatin AdvReac Mild GI SYMPTOMS Verified 11/27/20 12:36 levofloxacin [From Levaquin] AdvReac Mild Insomnia Verified 11/27/20 12:36 rosuvastatin AdvReac Mild GI SYMPTOMS Verified 11/27/20 12:36 Fish Containing Products AdvReac Unknown Swelling Verified 11/27/20 12:36 of Lip/Tongue/Throat mold AdvReac Congested Unverified 02/15/21 13:45 pollen extracts AdvReac Watery Eye Unverified 02/15/21 13:45 Home Medications Medication Instructions Recorded Confirmed Type clopidogrel 75 mg tablet (Plavix) 75 mg PO DAILY 08/19/18 02/15/21 History blood sugar diagnostic (Contour #100 ea 11/20/18 02/05/21 Rx Next Test Strips) tamsulosin 0.4 mg capsule 0.4 mg PO DAILY #30 cap 08/29/20 02/15/21 Rx allopurinol 100 mg tablet 100 mg PO DAILY #90 tab 10/26/20 02/15/21 Rx isosorbide mononitrate 60 mg 60 mg PO QAM tab 10/26/20 02/15/21 History tablet,extended release 24 hr metformin 500 mg tablet,extended 500 mg PO DAILY #90 tab 10/26/20 02/15/21 Rx release 24hr metoprolol tartrate 25 mg tablet 50 mg PO BID tab 10/26/20 02/15/21 History polyethylene glycol 3350 17 17 g PO DAILY 10/26/20 02/15/21 History gram/dose oral powder (Miralax) furosemide 20 mg tablet 20 mg PO DAILY #90 tab 11/02/20 02/15/21 Rx warfarin 2 mg tablet See Rx Instructions PO UD #110 tab 11/06/20 02/15/21 Rx pantoprazole 40 mg tablet,delayed See Rx Instructions .ROUTE 02/07/21 02/15/21 Rx release .COMPLEX #90 tab acetaminophen 500 mg tablet 1,000 mg PO BID PRN 02/15/21 02/15/21 History Past Med/Surg History Medical History Acute kidney injury superimposed on CKD Adult situational stress disorder Anemia of chronic disease Aneurysm of lower limb artery Angina, class II ASCVD (arteriosclerotic cardiovascular disease) Atrial fibrillation Biventricular ICD (implantable cardioverter-defibrillator) in place BMI 40.0-44.9, adult BPH with obstruction/lower urinary tract symptoms CAD (coronary artery disease) CHF exacerbation Chronic anticoagulation 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, NYHA class 2 Chronic constipation Chronic kidney disease, stage 3a Chronic systolic heart failure Constipation Patient on home bowel regimen but requesting possible enema to aid in bowel movement COPD (chronic obstructive pulmonary disease) DM w/o complication type II Drug eruption Dyslipidemia, goal LDL below 70 Former smoker Gastroesophageal reflux disease Gout Hyperlipidemia Hypertension Ischemic cardiomyopathy Laceration of forehead, left, complicated Lumbar canal stenosis Nephrolithiasis Nocturia NSTEMI (non-ST elevated myocardial infarction) Osteoarthritis of knee Osteoarthritis of knees, bilateral Pain syndrome, chronic Paroxysmal atrial fibrillation Peripheral arterial disease Peripheral neuropathy Popliteal aneurysm Pressure ulcer Renal lesion Solitary pulmonary nodule Status post fall STEMI (ST elevation myocardial infarction) Stenosis of right internal carotid artery Syncope Tinea cruris Traumatic orbital hematoma Type 2 diabetes mellitus Type [address] elevation Urethral stricture Urinary incontinence Urinary retention Ventricular tachycardia Ventricular tachycardia Vitamin D deficiency Surgical History AICD (automatic cardioverter/defibrillator) present H/O colonoscopy H/O cystoscopy with internal urethrotomy History of coronary artery stent placement S/P CABG x 1 S/P CABG x 2 S/P CABG x 4 Family History Unknown Acute myocardial infarction Mother Uterine cancer Sister Hypertension Peripheral vascular disease Hyperlipidemia Ovarian cancer Son Alcoholism Denies family history of Prostate cancer Breast cancer Lung cancer Colorectal cancer Social History Smoking Status: Former smoker Tobacco Type: Cigarettes Second Hand Exposure: No; Hx Alcohol Use: Yes Alcohol type: wine Alcohol Intake Frequency: 4 or More x per/Week Hx Substance Use: No Preferred Language: Polish Communication Ability: Effective Visual Impairment: Partially Limited Beliefs That Will Affect Care: None marital status: Current Living Situation: Spouse current occupational status: retired Feels Safe at Home: Yes Childhood Exposure to Second-Hand Smoke: No Dental Care, Regularly: Yes Physical Activity Frequency: Does not Exercise Seatbelt Use: always Sunscreen Use: No Assistive Devices: Walker Review of Systems Review of Systems: All systems reviewed & are unremarkable except as noted in HPI & below Physical Exam Physical Exam: General: A&Ox3. NAD. Cooperative. Skin: Scaly dry rash on R shoulder, no discharge/purulence/tenderness HEENT: Atraumatic, normocephalic. Visual acuity and hearing grossly intact. Pulm: Diminished, bibasilar crackles Symmetrical chest rise. No increase work of breathing. No respiratory distress. Cardiac: Irregular,. Radial pulses intact and symmetrical. Abdominal: Nontender, nondistended, soft. BS present. Extremities: Warm, dry moving all extremities equally. Sensation to soft touch intact in hands and feet bilaterally. 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 strength in ankle dorsiflexion/plantar flexion grossly intact Results & Data Results & Data ([facility]) Vital Signs (Past 12 Hours) Vital Signs Temp Pulse Pulse Resp BP BP Pulse Ox 02/15/21 13:50 85 16 147/85 H 94 02/15/21 12:47 36.7 C 94 H 28 H 128/91 98 PG Care Time/CCT Total # of Minutes Spent Total Time Spent with Patient: Total time spent is greater than 50% in coordination of care (as documented) at patient's floor/unit and/or counseling patient: Coding Level of Care Code 68415 Initial Inpt Care Lvl 3 Diagnoses Acute on chronic systolic heart failure I50.23 Biventricular ICD (implantable cardioverter-defibrillator) in place Z95.810 BMI 40.0-44.9, adult Z68.41 BPH with obstruction/lower urinary tract symptoms N40.1; N13.8 CAD (coronary artery disease) I25.810 Associated angina: without angina Coronary Disease-Associated Artery/Lesion type: bypass graft [place] vs. 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 transplanted heart: saxman heart Qualified Code(s): I25.810 - Atherosclerosis of coronary artery bypass graft(s) without angina pectoris
[2021-02-15] MEDS ORDERED: GLUCOSE 40% GEL 15 GM TUBE PO PRN (15:19)
[2021-02-15] MEDS ORDERED: DEXTROSE 50% 50 ML SYRINGE IV PRN (15:19)
[2021-02-15] MEDS ORDERED: CARBOHYDRATES FOR HYPOGLYCEMIA PO PRN (15:19)
[2021-02-15] MEDS ORDERED: GLUCAGON FOR INJ 1 MG VIAL SQ PRN (15:19)
[2021-02-15] MEDS ORDERED: GLUCOSE 10 TABS/TUBE PO PRN (15:19)
[2021-02-15] MEDS ORDERED: NITROGLYCERIN SL 0.4 MG/TAB TAB SL PRN (18:08)
[2021-02-15] MEDS ORDERED: ACETAMINOPHEN 325 MG TAB PO PRN (18:08)
[2021-02-15] MEDS ORDERED: WARFARIN SOD 3 MG TAB PO SCH (18:30)
[2021-02-15] MEDS ORDERED: STAT IV Infusion **Titration per Protocol STA (20:31)
[2021-02-15] MEDS ORDERED: AMIODARONE IV BOLUS & DRIP IV STA (20:31)
[2021-02-15] MEDS ORDERED: AMIODARONE 150MG / 100ML D5W IV ONE (20:31)
[2021-02-15] MEDS ORDERED: 0.2 MICRON FILTER SET 1 EA IV ONE (20:31)
[2021-02-15] MEDS ORDERED: AMIODARONE 360MG / 200ML D5W IV ONE (20:32)
[2021-02-15] MEDS: NYSTATIN POWDER 15GM BTL EXT SCH (20:42)
[2021-02-15] MEDS: METOPROLOL TARTRATE 50 MG TAB PO SCH (20:42)
[2021-02-15] MEDS ORDERED: AMIODARONE / D5W 150 MG/100 ML BAG IV ONE (20:45)
[2021-02-15] MEDS: INSULIN ASPART 100 UNITS/ML 3 ML PEN SC SCH ×2 (20:50→22:22)
[2021-02-15] MEDS ORDERED: AMIODARONE / D5W 360 MG/200 ML BAG IV ONE (21:00)
--- NOTE | 2021-02-15 21:35 | Communication Note ---
Date of Service: February 15, 2021 Pt seen at bedside after developing VT shocked by AICD. Returned to normal rhythm. Given return and need for shock amio + 150mg bolus initiated. If retur ns, may re-bolus over drip again x1 tonight. Discussed with night team. K >4, Mg pending. At time of reassesment HR 90-100, denies chest pain/chest pressure/palpitations/shortness of breath/diaphoresis. Voiding well following lasix.
[2021-02-15 21:47] LABS: BUN Creatinine Ratio 11.5 (10-20); Calcium 9.8 mg/dl (8.5-10.1); Creatinine Clr Calc Pharmacy 40.5 ml/min; Est GFR (African American) 42.6 ml/min; Est GFR (Non-African American) 36.7 ml/min; Magnesium 1.7 mg/dl (1.8-2.4); Potassium 3.9 mmol/L (3.5-5.1)
[2021-02-15] MEDS: BUTT PASTE (ZINC OXIDE 16%) 171 APPLN/57 GM JAR EXT SCH (22:22)
[2021-02-15] MEDS: POTASSIUM CHLORIDE CRTAB 20 MEQ TABCR PO SCH (22:51)
[2021-02-15] MEDS: MAGNESIUM SULFATE / D5W 1 GM/100 ML BAG IV SCH (22:51)
[2021-02-16] MEDS: MAGNESIUM SULFATE / D5W 1 GM/100 ML BAG IV SCH (01:05)
[2021-02-16] MEDS: AMIODARONE / D5W 360 MG/200 ML BAG IV SCH ×2 (03:21→15:13)
--- NOTE | 2021-02-16 06:22 | Electrocardiogram Report ---
Test Reason : Blood Pressure : / mmHG Vent. Rate : 096 BPM Atrial Rate : 096 BPM P-R Int : 214 ms QRS Dur : 122 ms QT Int : 360 ms P-R-T Axes : -11 062 240 degrees QTc Int : 454 ms Sinus rhythm with 1st degree A-V block with Premature atrial complexes Inferior infarct (cited on or before 01-OCT-2011) Abnormal ECG When compared with ECG of 23-APR-2018 11:32, Premature ventricular complexes are no longer Present Premature atrial complexes are now Present Atrial paced beat no longer present Confirmed by Kumar Lamas ([id number]) on 02/16/2021 6:21:40 AM Referred By: REFERRED SELF Confirmed By:Kumar Lamas
--- NOTE | 2021-02-16 06:26 | Electrocardiogram Report ---
Test Reason : Blood Pressure : / mmHG Vent. Rate : 161 BPM Atrial Rate : 162 BPM P-R Int : 000 ms QRS Dur : 114 ms QT Int : 286 ms P-R-T Axes : 000 071 -57 degrees QTc Int : 468 ms Supraventricular tachycardia Inferior infarct (cited on or before 01-OCT-2011) Abnormal ECG When compared with ECG of 15-FEB-2021 12:47, Premature atrial complexes are no longer Present Supraventricular tachycardia has replaced Sinus rhythm Vent. rate has increased BY 65 BPM T wave inversion more evident in Inferior leads Confirmed by Kumar Lamas ([id number]) on 02/16/2021 6:25:49 AM Referred By: REFERRED SELF Confirmed By:Kumar Lamas
--- NOTE | 2021-02-16 06:27 | Electrocardiogram Report ---
Test Reason : Blood Pressure : / mmHG Vent. Rate : 098 BPM Atrial Rate : 098 BPM P-R Int : 186 ms QRS Dur : 114 ms QT Int : 346 ms P-R-T Axes : 039 071 192 degrees QTc Int : 441 ms Sinus rhythm with Premature atrial complexes Inferior infarct (cited on or before 01-OCT-2011) Abnormal ECG When compared with ECG of 15-FEB-2021 13:01, Sinus rhythm has replaced Supraventricular tachycardia Vent. rate has decreased BY 63 BPM Confirmed by Kumar Lamas ([id number]) on 02/16/2021 6:26:52 AM Referred By: REFERRED SELF Confirmed By:Kumar Lamas
[2021-02-16 07:31] LABS: Basophils # (auto) 0.04 K/uL (0-0.2); Basophils % (auto) 0.4 %; Eosinophils # (auto) 0.13 K/uL (0-0.5); Eosinophils % (auto) 1.4 %; Hematocrit (blood only) 39.3 % (42-52); Hemoglobin 13.5 g/dL (14.0-18.0); Immature Granulocytes # (auto) 0.02 K/uL (0.00-0.02); Immature Granulocytes % (auto) 0.2 %; Lymphocytes # (auto) 1.26 K/uL (1.2-3.4); Lymphocytes % (auto) 13.7 %; Mean Corpuscular Hemoglobin 34.4 pg (25-34); Mean Corpuscular Hgb Conc 34.4 g/dL (32-36); Mean Corpuscular Volume 100.3 fL (80-100); Mean Platelet Volume 9.7 fL (7.4-10.4); Monocytes # (auto) 0.55 K/uL (0.11-0.59); Neutrophils # (auto) 7.21 K/uL (1.4-6.5); Neutrophils % (auto) 78.3 %; Platelet Count 201 K/uL (130-400); RDW Coefficient of Variation 14.4 % (11.5-14.5); RDW Standard Deviation 52.4 fL (36.4-46.3); Red Blood Count 3.92 M/uL (4.7-6.1); White Blood Count 9.21 K/uL (4.8-10.8)
[2021-02-16 08:16] LABS: INR 2.3 (0.9-1.1); Prothrombin Time 22.1 Seconds (9.0-12.0)
[2021-02-16 08:22] LABS: BUN Creatinine Ratio 14.8 (10-20); Calcium 8.7 mg/dl (8.5-10.1); Creatinine Clr Calc Pharmacy 44.8 ml/min; Est GFR (African American) 48.4 ml/min; Est GFR (Non-African American) 41.8 ml/min; Potassium 4.1 mmol/L (3.5-5.1)
[2021-02-16] MEDS: INSULIN ASPART 100 UNITS/ML 3 ML PEN SC SCH ×4 (08:24→21:48)
[2021-02-16] MEDS: CLOPIDOGREL BISULFATE 75 MG TAB PO SCH (08:25)
[2021-02-16] MEDS: NYSTATIN POWDER 15GM BTL EXT SCH ×2 (08:25→21:50)
[2021-02-16] MEDS: ISOSORBIDE MONO EXTENDED REL 60 MG TABCR PO SCH (08:25)
[2021-02-16] MEDS: allopurinoL 100 MG TAB PO SCH (08:25)
[2021-02-16] MEDS: METOPROLOL TARTRATE 50 MG TAB PO SCH ×2 (08:25→21:49)
[2021-02-16] MEDS: MAGNESIUM OXIDE 400 MG TAB PO SCH (08:25)
[2021-02-16] MEDS: BUTT PASTE (ZINC OXIDE 16%) 171 APPLN/57 GM JAR EXT SCH ×2 (08:25→21:51)
[2021-02-16] MEDS: POTASSIUM CHLORIDE CRTAB 20 MEQ TABCR PO SCH ×2 (08:25→21:50)
[2021-02-16 08:32] LABS: Troponin I 0.307 ng/ml (0-0.045)
--- NOTE | 2021-02-16 10:38 | Cardiology Progress Note ---
Date of Service February 16, 2021 Assessment & Plan (1) Acute on chronic systolic heart failure: (2) Ischemic cardiomyopathy: Plan: P (3) Chronic kidney disease, stage 3a: (4) DM w/o complication type II: Plan: Euvolemic on exam. Tolerating Lasix. Slight increase in serum creatinine with slight decrease in sodium. Case discussed with Dr. Stein-recommended strict fluid restriction of 1500 mL daily. Would like to continue diuresis at this time. 1. Continue Lasix 40 mg IV daily with continued close monitoring of BMP 2. Was on lisinopril in the past however due to recent kidney function will hold off on starting at this time. Last evening around 9:30 PM patient developed ventricular tachycardia and was shocked by his AICD and returned to normal sinus rhythm. Patient was then starte d on amiodarone IV infusion-however he does have a known intolerance to this medication which seem to have caused pulmonary toxicity in the past. 1. Will reach out to Dr. Jett regarding this case Admission and Anticipated Discharge Date Admission Date: February 15, 2021 Supervising Physician Co-Signing Physician Notes I have seen and examined the patient. I reviewed the medical record and discussed the case with Ms. Costa. The patient has had a fairly hefty diuresis and is feeling better. I think that IV Lasix 40 mg once a day is adequate. The patient did have a shock delivered by his ICD last evening and when interrogated the device is indicating ventricular tachycardia. He was started on an infusion of amiodarone. We may not have any real choice but to restart him on long-term amiodarone. He has a history of what is described in the medical record several years ago of pulmonary toxicity. I agree with reaching out to the EP service for recommendations. Subjective Patient seen and examined at bedside. Upon entrance to the room patient was resting comfortably in bed without any concerns or complaints. Denies any exertional chest pain or shortness of breath. Denies any palpitations, dizziness or syncopal episodes. Overnight on the monitor patient was averaging sinus rhythm in the 70s to 80s with some short runs of SVT possibly atrial tachycardia. Last evening around 9:30 PM patient developed ventricular tachycardia and was shocked by his AICD and returned to normal sinus rhythm. Patient was then started on amiodarone IV infusion-however he does have a known intolerance to this medication which seem to have caused pulmonary toxicity in the past. Telemetry showed sinus rhythm in the 70s to 80 Labs: Hemoglobin 13.5, sodium 133, creatinine 1.52, troponin 0 0.345, 0.391 and 0.307, BNP 5392 Review of Systems Review of Systems: All systems reviewed & are unremarkable except as noted in HPI & below Physical Exam Physical Exam: General: No acute distress. A+Ox3. HEENT: Normocephalic. Atraumatic. Conjunctiva and sclera clear. NECK: No carotid bruits. No JVD. Carotid upstrokes are brisk. Heart: RRR. S1 and S2 noted without murmur, rubs, gallops. PMI non displaced. Lungs: Clear to auscultation. No wheezes, rhonchi, rales. Abdomen: Normal bowel sounds. Soft. Nontender. No masses or organomegaly. No abdominal bruits. Extremities: No edema. No clubbing or cyanosis. Pulses: radial=2/4, posterior tibial=2/4, dorsalis pedis = 2/4. NEURO: No focal deficits. PSYCH: Normal. Results & Data ([facility]) Vital Signs (Past 12 Hours) Vital Signs Temp Pulse Pulse Resp BP BP Pulse Ox 02/16/21 07:55 36.3 C L 72 20 150/78 H 95 02/16/21 03:10 36.8 C 63 18 120/73 94 02/15/21 23:08 36.4 C L 74 16 131/72 94 02/15/21 22:19 87 02/15/21 21:33 86 155/84 H 02/15/21 21:05 93 H 137/78 02/15/21 21:03 99 H 156/82 H 02/15/21 20:51 100 H 151/80 H 02/15/21 20:46 100 H 161/90 H 02/15/21 20:37 114 H 154/94 H 02/15/21 20:26 186 H 171/114 H 97 Laboratory Results 02/16/21 02/16/21 02/16/21 Range/Units 07:11 06:57 06:57 WBC (4.8-10.8) K/uL RBC (4.7-6.1) M/uL Hgb (14.0-18.0) g/dL Hct (42-52) % MCV (80-100) fL MCH (25-34) pg MCHC (32-36) g/dL RDW Std Deviation (36.4-46.3) fL RDW Coeff of Dayanara (11.5-14.5) % Plt Count (130-400) K/uL MPV (7.4-10.4) fL Immature Gran % (Auto) % Neut % (Auto) % Lymph % (Auto) % [place] % (Auto) % Eos % (Auto) % Baso % (Auto) % Neut # (Auto) (1.4-6.5) K/uL Lymph # (Auto) (1.2-3.4) K/uL [place] # (Auto) (0.11-0.59) K/uL Eos # (Auto) (0-0.5) K/uL Baso # (Auto) (0-0.2) K/uL Immature Gran # (Auto) (0.00-0.02) K/uL PT (9.0-12.0) Seconds INR (0.9-1.1) APTT (21.0-31.0) Seconds PTT Ratio Sodium (136-145) mmol/L Potassium (3.5-5.1) mmol/L Chloride (98-107) mmol/L Carbon Dioxide (21-32) mmol/L Anion Gap (3-11) BUN (7-18) mg/dl Creatinine (0.6-1.4) mg/dl Est Cr Clr Drug Dosing ml/min Est GFR ( Amer) ml/min Est GFR (Non-Af Amer) ml/min BUN/Creatinine Ratio (10-20) Glucose (70-99) mg/dl POC Glucose 162 H (70-99) mg/dl Calcium (8.5-10.1) mg/dl Magnesium 2.4 (1.8-2.4) mg/dl Total Bilirubin Direct Bilirubin AST ALT Alkaline Phosphatase Troponin I Cancelled (0-0.045) ng/ml NT-Pro-B Natriuret Pep (0-1800) pg/ml Total Protein Albumin Lipase (73-393) U/L TSH (0.300-4.500) uIu/ml Specimen Hemolysis COVID-19 Eval Order SARS-CoV-2 (PCR) (Negative) 02/16/21 02/16/21 02/16/21 Range/Units 06:57 06:57 06:57 WBC 9.21 (4.8-10.8) K/uL RBC 3.92 L (4.7-6.1) M/uL Hgb 13.5 L (14.0-18.0) g/dL Hct 39.3 L (42-52) % MCV 100.3 H (80-100) fL MCH 34.4 H (25-34) pg MCHC 34.4 (32-36) g/dL RDW Std Deviation 52.4 H (36.4-46.3) fL RDW Coeff of Dayanara 14.4 (11.5-14.5) % Plt Count 201 (130-400) K/uL MPV 9.7 (7.4-10.4) fL Immature Gran % (Auto) 0.2 % Neut % (Auto) 78.3 % Lymph % (Auto) 13.7 % [place] % (Auto) 6.0 % Eos % (Auto) 1.4 % Baso % (Auto) 0.4 % Neut # (Auto) 7.21 H (1.4-6.5) K/uL Lymph # (Auto) 1.26 (1.2-3.4) K/uL [place] # (Auto) 0.55 (0.11-0.59) K/uL Eos # (Auto) 0.13 (0-0.5) K/uL Baso # (Auto) 0.04 (0-0.2) K/uL Immature Gran # (Auto) 0.02 (0.00-0.02) K/uL PT 22.1 H (9.0-12.0) Seconds INR 2.3 H (0.9-1.1) APTT (21.0-31.0) Seconds PTT Ratio Sodium 133 L (136-145) mmol/L Potassium 4.1 (3.5-5.1) mmol/L Chloride 101 (98-107) mmol/L Carbon Dioxide 24 (21-32) mmol/L Anion Gap 9.0 (3-11) BUN 23 H (7-18) mg/dl Creatinine 1.52 H (0.6-1.4) mg/dl Est Cr Clr Drug Dosing 44.8 ml/min Est GFR ( Amer) 48.4 ml/min Est GFR (Non-Af Amer) 41.8 ml/min BUN/Creatinine Ratio 14.8 (10-20) Glucose 151 H (70-99) mg/dl POC Glucose (70-99) mg/dl Calcium 8.7 (8.5-10.1) mg/dl Magnesium (1.8-2.4) mg/dl Total Bilirubin Direct Bilirubin AST ALT Alkaline Phosphatase Troponin I 0.307 H* (0-0.045) ng/ml NT-Pro-B Natriuret Pep (0-1800) pg/ml Total Protein Albumin Lipase (73-393) U/L TSH (0.300-4.500) uIu/ml Specimen Hemolysis COVID-19 Eval Order SARS-CoV-2 (PCR) (Negative) 02/16/21 02/15/21 02/15/21 Range/Units 01:09 22:11 20:38 WBC (4.8-10.8) K/uL RBC (4.7-6.1) M/uL Hgb (14.0-18.0) g/dL Hct (42-52) % MCV (80-100) fL MCH (25-34) pg MCHC (32-36) g/dL RDW Std Deviation (36.4-46.3) fL RDW Coeff of Dayanara (11.5-14.5) % Plt Count (130-400) K/uL MPV (7.4-10.4) fL Immature Gran % (Auto) % Neut % (Auto) % Lymph % (Auto) % [place] % (Auto) % Eos % (Auto) % Baso % (Auto) % Neut # (Auto) (1.4-6.5) K/uL Lymph # (Auto) (1.2-3.4) K/uL [place] # (Auto) (0.11-0.59) K/uL Eos # (Auto) (0-0.5) K/uL Baso # (Auto) (0-0.2) K/uL Immature Gran # (Auto) (0.00-0.02) K/uL PT (9.0-12.0) Seconds INR (0.9-1.1) APTT (21.0-31.0) Seconds PTT Ratio Sodium 136 (136-145) mmol/L Potassium 3.9 (3.5-5.1) mmol/L Chloride 104 (98-107) mmol/L Carbon Dioxide 24 (21-32) mmol/L Anion Gap 9.0 (3-11) BUN 19 H (7-18) mg/dl Creatinine 1.69 H D (0.6-1.4) mg/dl Est Cr Clr Drug Dosing 40.5 ml/min Est GFR ( Amer) 42.6 ml/min Est GFR (Non-Af Amer) 36.7 ml/min BUN/Creatinine Ratio 11.5 (10-20) Glucose 167 H (70-99) mg/dl POC Glucose 204 H (70-99) mg/dl Calcium 9.8 (8.5-10.1) mg/dl Magnesium 1.7 L (1.8-2.4) mg/dl Total Bilirubin Direct Bilirubin AST ALT Alkaline Phosphatase Troponin I 0.391 H* (0-0.045) ng/ml NT-Pro-B Natriuret Pep (0-1800) pg/ml Total Protein Albumin Lipase (73-393) U/L TSH (0.300-4.500) uIu/ml Specimen Hemolysis COVID-19 Eval Order SARS-CoV-2 (PCR) (Negative) 02/15/21 02/15/21 02/15/21 Range/Units 18:45 18:19 13:50 WBC (4.8-10.8) K/uL RBC (4.7-6.1) M/uL Hgb (14.0-18.0) g/dL Hct (42-52) % MCV (80-100) fL MCH (25-34) pg MCHC (32-36) g/dL RDW Std Deviation (36.4-46.3) fL RDW Coeff of Dayanara (11.5-14.5) % Plt Count (130-400) K/uL MPV (7.4-10.4) fL Immature Gran % (Auto) % Neut % (Auto) % Lymph % (Auto) % [place] % (Auto) % Eos % (Auto) % Baso % (Auto) % Neut # (Auto) (1.4-6.5) K/uL Lymph # (Auto) (1.2-3.4) K/uL [place] # (Auto) (0.11-0.59) K/uL Eos # (Auto) (0-0.5) K/uL Baso # (Auto) (0-0.2) K/uL Immature Gran # (Auto) (0.00-0.02) K/uL PT (9.0-12.0) Seconds INR (0.9-1.1) APTT (21.0-31.0) Seconds PTT Ratio Sodium (136-145) mmol/L Potassium (3.5-5.1) mmol/L Chloride (98-107) mmol/L Carbon Dioxide (21-32) mmol/L Anion Gap (3-11) BUN (7-18) mg/dl Creatinine (0.6-1.4) mg/dl Est Cr Clr Drug Dosing ml/min Est GFR ( Amer) ml/min Est GFR (Non-Af Amer) ml/min BUN/Creatinine Ratio (10-20) Glucose (70-99) mg/dl POC Glucose 133 H (70-99) mg/dl Calcium (8.5-10.1) mg/dl Magnesium (1.8-2.4) mg/dl Total Bilirubin Direct Bilirubin AST ALT Alkaline Phosphatase Troponin I 0.345 H* (0-0.045) ng/ml NT-Pro-B Natriuret Pep (0-1800) pg/ml Total Protein Albumin Lipase (73-393) U/L TSH (0.300-4.500) uIu/ml Specimen Hemolysis COVID-19 Eval Order SARS-CoV-2 (PCR) NEGATIVE (Negative) 02/15/21 02/15/21 02/15/21 Range/Units 13:50 12:50 12:50 WBC (4.8-10.8) K/uL RBC (4.7-6.1) M/uL Hgb (14.0-18.0) g/dL Hct (42-52) % MCV (80-100) fL MCH (25-34) pg MCHC (32-36) g/dL RDW Std Deviation (36.4-46.3) fL RDW Coeff of Dayanara (11.5-14.5) % Plt Count (130-400) K/uL MPV (7.4-10.4) fL Immature Gran % (Auto) % Neut % (Auto) % Lymph % (Auto) % [place] % (Auto) % Eos % (Auto) % Baso % (Auto) % Neut # (Auto) (1.4-6.5) K/uL Lymph # (Auto) (1.2-3.4) K/uL [place] # (Auto) (0.11-0.59) K/uL Eos # (Auto) (0-0.5) K/uL Baso # (Auto) (0-0.2) K/uL Immature Gran # (Auto) (0.00-0.02) K/uL PT 20.7 H (9.0-12.0) Seconds INR 2.2 H (0.9-1.1) APTT 37.0 H (21.0-31.0) Seconds PTT Ratio 1.4 Sodium 136 (136-145) mmol/L Potassium 4.3 (3.5-5.1) mmol/L Chloride 106 (98-107) mmol/L Carbon Dioxide 22 (21-32) mmol/L Anion Gap 7.0 (3-11) BUN 20 H (7-18) mg/dl Creatinine 1.31 (0.6-1.4) mg/dl Est Cr Clr Drug Dosing 53.8 ml/min Est GFR ( Amer) 57.9 ml/min Est GFR (Non-Af Amer) 50.0 ml/min BUN/Creatinine Ratio 15.3 (10-20) Glucose 141 H (70-99) mg/dl POC Glucose (70-99) mg/dl Calcium 9.2 (8.5-10.1) mg/dl Magnesium (1.8-2.4) mg/dl Total Bilirubin 0.5 Direct Bilirubin < 0.1 AST 13 L ALT 14 Alkaline Phosphatase 62 Troponin I 0.295 H* (0-0.045) ng/ml NT-Pro-B Natriuret Pep 5392 H (0-1800) pg/ml Total Protein 6.8 Albumin 3.4 Lipase 99 (73-393) U/L TSH 1.650 (0.300-4.500) uIu/ml Specimen Hemolysis COVID-19 Eval Order Covid19 at [facility] SARS-CoV-2 (PCR) (Negative) 02/15/21 02/15/21 Range/Units 12:50 12:50 WBC 10.98 H (4.8-10.8) K/uL RBC 3.77 L (4.7-6.1) M/uL Hgb 12.9 L (14.0-18.0) g/dL Hct 39.0 L (42-52) % MCV 103.4 H (80-100) fL MCH 34.2 H (25-34) pg MCHC 33.1 (32-36) g/dL RDW Std Deviation 54.6 H (36.4-46.3) fL RDW Coeff of Dayanara 14.5 (11.5-14.5) % Plt Count 169 (130-400) K/uL MPV 9.5 (7.4-10.4) fL Immature Gran % (Auto) 0.2 % Neut % (Auto) 83.4 % Lymph % (Auto) 8.7 % [place] % (Auto) 6.3 % Eos % (Auto) 1.0 % Baso % (Auto) 0.4 % Neut # (Auto) 9.17 H (1.4-6.5) K/uL Lymph # (Auto) 0.95 L (1.2-3.4) K/uL [place] # (Auto) 0.69 H (0.11-0.59) K/uL Eos # (Auto) 0.11 (0-0.5) K/uL Baso # (Auto) 0.04 (0-0.2) K/uL Immature Gran # (Auto) 0.02 (0.00-0.02) K/uL PT (9.0-12.0) Seconds INR (0.9-1.1) APTT (21.0-31.0) Seconds PTT Ratio Sodium (136-145) mmol/L Potassium (3.5-5.1) mmol/L Chloride (98-107) mmol/L Carbon Dioxide (21-32) mmol/L Anion Gap (3-11) BUN (7-18) mg/dl Creatinine (0.6-1.4) mg/dl Est Cr Clr Drug Dosing ml/min Est GFR ( Amer) ml/min Est GFR (Non-Af Amer) ml/min BUN/Creatinine Ratio (10-20) Glucose (70-99) mg/dl POC Glucose (70-99) mg/dl Calcium (8.5-10.1) mg/dl Magnesium (1.8-2.4) mg/dl Total Bilirubin Cancelled Direct Bilirubin Cancelled AST Cancelled ALT Cancelled Alkaline Phosphatase Cancelled Troponin I (0-0.045) ng/ml NT-Pro-B Natriuret Pep (0-1800) pg/ml Total Protein Cancelled Albumin Cancelled Lipase (73-393) U/L TSH (0.300-4.500) uIu/ml Specimen Hemolysis COVID-19 Eval Order SARS-CoV-2 (PCR) (Negative) Diagnostic Findings Echocardiogram 02/16/2021 LVEF 30 to 35% with severe septal hypokinesis and anterior wall akinesis Right ventricular systolic function normal Left atrium and right atrium moderately dilated Mild to moderate MR Resting echocardiography in April 2018 showed severe LVH, wall motion abnormalities suggesting ischemic cardiomyopathy, EF around 35%. (1) DM w/o complication type II Diabetes mellitus machine long goods helper insulin use: without machine long goods helper use Qualified Code(s): E11.9 - Type 2 diabetes mellitus without complications
--- NOTE | 2021-02-16 10:53 | Hospitalist Progress Note ---
Date of Service February 16, 2021 Assessment & Plan (1) Acute on chronic systolic heart failure: Plan: Ok is an 85-year-old male with a past medical history of acute on chronic systolic heart failure with EF 20 1835%, syncope due to ventricular tachycardia in 2018 with subsequent evaluation remarkable for multivessel disease including occlusion of both [place] coronaries and stents and CABG grafts with limited flow to the circumflex, CKD, DM, hypertension, hyperlipidemia, A. fib, and COPD who presents for concerns of acute on chronic systolic heart failure with defibrillator check concerning for runs of VT between 2 and 17 min. Patient case was discussed in route to [facility] by Dr. Cardoso. There is 3 patient had previously been on amiodarone which was stopped due to concerns for pulmonary fibrosis. He has a dual ICD pacer in place. His current presentation is likely provoked by acute congestive failure, but he is high risk for progressive severe CAD and may require an increase in beta-mine therapy and/or reinitiation of amiodarone. Will start with initial diuresis, if arrhythmia seen have low threshold to start amiodarone drip versus 200 mg IV twice daily. Acute on chronic systolic heart failure with reduced ejection fraction (30-35%) -CXR: Cardiomegaly with evidence of congestive failure. Bilateral airspace opacities consistent with pulmonary edema, small pleural effusions - EKG: Sinus with PACs, no territorial ST depression/elevations, rate 96 Appreciate cardiology recommendations regarding ongoing Lasix dosing, aim for negative balance (2) Biventricular ICD (implantable cardioverter-defibrillator) in place: Plan: As above (3) BMI 40.0-44.9, adult: Plan: As above (4) BPH with obstruction/lower urinary tract symptoms: Plan: Bladder scan if needed (5) CAD (coronary artery disease): Plan: Patient not on SAMMY/ARB at baseline - Continue clopidogrel, metoprolol, isosorbide, intolerent to statins (severe myalgias) (6) DM w/o complication type II: Plan: No antiglycemic's 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, glucose on admission 141 - Hold metformin - + SSI CF 40 Ratio 13 BMP daily (7) Dyslipidemia, goal LDL below 70: Plan: No statin 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 Remains on amiodarone drip after ventricular tachycardia yesterday. Prior intolerance discussed with Dr Stein but no clear alternative at this time. Discussed case with Dr Stein Review of Systems Review of Systems: All systems reviewed & are unremarkable except as noted in HPI & below Physical Exam Constitutional: WD/WN, vitals as above + obese Eyes: + anicteric sclerae; normal pupil size ENMT: Mouth: oral mucous membranes not dry Neck: trachea midline, no thyromegaly Respiratory: normal respiratory effort Auscultation: + diminished lung sounds (bibasal); no crackles and no wheezes Cardiovascular: Rate/Rhythm: regular rate and regular rhythm Heart Sounds: no murmur Extremities: normal capillary refill and + pedal edema (1+ b/l equal pre-tibial); no calf tenderness Gastrointestinal (Abdomen): normal bowel sounds, soft, nontender, no hepatosplenomegaly Skin: no rashes, warm and dry Neurologic: moves all extremities and awake; not confused Psychiatric: A+Ox3, euthymic affect Results & Data Results & Data ([facility]) Vital Signs (Past 12 Hours) Vital Signs Temp Pulse Pulse Resp BP Pulse Ox 02/16/21 08:00 64 02/16/21 07:55 36.3 C L 72 20 150/78 H 95 02/16/21 03:10 36.8 C 63 18 120/73 94 02/15/21 23:08 36.4 C L 74 16 131/72 94 PG Care Time/CCT Total # of Minutes Spent Total Time Spent with Patient: Total time spent is greater than 50% in coordination of care (as documented) at patient's floor/unit and/or counseling patient: Coding Level of Care Code 01132 Subseq Hosp Care Lvl 2 Diagnoses Acute on chronic systolic heart failure I50.23 Biventricular ICD (implantable cardioverter-defibrillator) in place Z95.810 BMI 40.0-44.9, adult Z68.41 BPH with obstruction/lower urinary tract symptoms N40.1; N13.8 CAD (coronary artery disease) I25.810 Associated angina: without angina Coronary Disease-Associated Artery/Lesion type: bypass graft [place] vs. transplanted heart: [place] heart DM w/o complication type II E11.9 Diabetes mellitus roasterman insulin use: without roasterman use Dyslipidemia, goal LDL below 70 E78.5 Hypertension I10 Ventricular tachycardia I47.2 (1) DM w/o complication type II Diabetes mellitus roasterman insulin use: without roasterman use Qualified Code(s): E11.9 - Type 2 diabetes mellitus without complications (2) CAD (coronary artery disease) Associated angina: without angina Coronary Disease-Associated Artery/Lesion type: bypass graft [place] vs. transplanted heart: [place] heart Qualified Code(s): I25.810 - Atherosclerosis of coronary artery bypass graft(s) without angina pectoris
[2021-02-16] MEDS: POLYETHYLENE (MIRALAX) 17 GM PACK PO SCH (12:14)
[2021-02-16] MEDS: WARFARIN SOD 2 MG TAB PO SCH (15:13)
[2021-02-16 16:40] LABS: BUN Creatinine Ratio 16.1 (10-20); Calcium 8.8 mg/dl (8.5-10.1); Creatinine Clr Calc Pharmacy 37.6 ml/min; Est GFR (African American) 39.2 ml/min; Est GFR (Non-African American) 33.8 ml/min; Potassium 4.3 mmol/L (3.5-5.1)
[2021-02-17] MEDS: AMIODARONE / D5W 360 MG/200 ML BAG IV SCH (03:07)
[2021-02-17 07:00] LABS: BUN Creatinine Ratio 19.6 (10-20); Calcium 8.6 mg/dl (8.5-10.1); Creatinine Clr Calc Pharmacy 45.3 ml/min; Est GFR (African American) 48.8 ml/min; Est GFR (Non-African American) 42.1 ml/min; Magnesium 2.1 mg/dl (1.8-2.4); Potassium 4.1 mmol/L (3.5-5.1)
[2021-02-17 07:21] LABS: INR 2.3 (0.9-1.1); Prothrombin Time 21.5 Seconds (9.0-12.0)
[2021-02-17 08:02] LABS: Estimated Average Glucose 134 mg/dl; Hemoglobin A1C 6.3 % (4.5-5.6)
[2021-02-17] MEDS: allopurinoL 100 MG TAB PO SCH (08:20)
[2021-02-17] MEDS: METOPROLOL TARTRATE 50 MG TAB PO SCH (08:20)
[2021-02-17] MEDS: POTASSIUM CHLORIDE CRTAB 20 MEQ TABCR PO SCH ×2 (08:20→20:15)
[2021-02-17] MEDS: FUROSEMIDE 40 MG/4 ML VIAL IV SCH (08:20)
[2021-02-17] MEDS: ISOSORBIDE MONO EXTENDED REL 60 MG TABCR PO SCH (08:20)
[2021-02-17] MEDS: MAGNESIUM OXIDE 400 MG TAB PO SCH (08:20)
[2021-02-17] MEDS: CLOPIDOGREL BISULFATE 75 MG TAB PO SCH (08:20)
[2021-02-17] MEDS: INSULIN ASPART 100 UNITS/ML 3 ML PEN SC SCH ×4 (08:21→20:18)
[2021-02-17] MEDS: BUTT PASTE (ZINC OXIDE 16%) 171 APPLN/57 GM JAR EXT SCH ×2 (08:21→21:17)
[2021-02-17] MEDS: NYSTATIN POWDER 15GM BTL EXT SCH ×2 (08:21→21:16)
[2021-02-17] MEDS: POLYETHYLENE (MIRALAX) 17 GM PACK PO SCH (08:33)
[2021-02-17] MEDS ORDERED: METOPROLOL TARTRATE 25 MG TAB PO ONE (09:15)
--- NOTE | 2021-02-17 14:50 | Cardiology Progress Note ---
Date of Service February 17, 2021 Assessment & Plan (1) Acute on chronic systolic heart failure: (2) Ischemic cardiomyopathy: (3) PSVT (paroxysmal supraventricular tachycardia): Plan: Patient with severe multivessel coronary heart disease, LVEF this admission 30 to 35%, which is not significantly different compared to his previous baseline. As an outpatient, his device interrogation revealed frequent episodes of tachycardia in the range of 150 to 170 bpm, this was reproduced during hospital stay, and appears consistent with paroxysmal supraventricular tachycardia rather than ventricular tachycardia as it is a narrow complex tachycardia. This arrhythmia however is very concerning as he becomes symptomatic with it, and he actually received several inappropriate AICD shocks. His outpatient beta-mine dose of metoprolol tartrate 50 mg twice daily, I am going to transition him to metoprolol succinate at 75 mg twice daily. Amiodarone had previously been discontinued in 2019. He had been on the medication for treatment of atrial and ventricular arrhythmias, but there were concerns of amiodarone related lung toxicity. It is difficult to tell if his presenting chest x-ray is consistent with pulmonary edema or underlying interstitial disease and that would make sense with regards to his past history. At this point, we are left with little good options other than to increase his metoprolol and to cautiously reintroduce amiodarone. His liver function tests and thyroid function tests as performed on presentation on 02/15/2021 were within normal limits. I am going to discontinue his IV amiodarone and transition him to an oral load of 200 mg 3 times daily with meals. Continue current Coumadin dose, INR 2.3. Will need to be cautious with Coumadin administration given new amiodarone treatment. His creatinine is stable today at 1.51. Continue furosemide 40 mg IV daily. Admission and Anticipated Discharge Date Admission Date: February 15, 2021 Subjective Patient seen in cardiology follow-up. He denies any complaints, he was eating his noontime meal at the time of my assessment. Telemetry reveals sinus rhythm in the 70s to 80s, he has not had any additional narrow complex tachycardia episodes since 02/15/2021, and remains on an IV amiodarone infusion. Review of Systems Review of Systems: All systems reviewed & are unremarkable except as noted in HPI & below Physical Exam Physical Exam: Temp Pulse Resp BP Pulse Ox 36.5 C 60 18 139/77 95 02/17/21 07:17 02/17/21 08:00 02/17/21 07:17 02/17/21 07:17 02/17/21 07:17 Respiratory: Mildly decreased breath sounds at the bases Cardiovascular: RRR, no murmur, no edema Chest (Breasts): Additional Comments: Left infraclavicular device pocket clean dry and intact Gastrointestinal (Abdomen): normal bowel sounds, soft, nontender, no hepatosplenomegaly Neurologic: PERRL, EOMI, accommodation nl, no face palsy, no dysarthria Results & Data ([facility]) Vital Signs (Past 12 Hours) Vital Signs Temp Pulse Pulse Resp BP Pulse Ox 02/17/21 08:00 60 02/17/21 07:17 36.5 C 64 18 139/77 95 02/17/21 03:10 36.5 C 62 19 142/82 H 94 Laboratory Results Coagulation 02/17/21 Range/Units 05:34 PT 21.5 H (9.0-12.0) Seconds Comprehensive Metabolic Panel 02/16/21 02/17/21 Range/Units 15:58 05:34 Sodium 134 L 136 (136-145) mmol/L Potassium 4.3 4.1 (3.5-5.1) mmol/L Chloride 102 104 (98-107) mmol/L Carbon Dioxide 25 24 (21-32) mmol/L BUN 29 H 30 H (7-18) mg/dl Creatinine 1.81 H 1.51 H D (0.6-1.4) mg/dl Glucose 149 H 137 H (70-99) mg/dl Calcium 8.8 8.6 (8.5-10.1) mg/dl Intake and Output 02/16/21 02/17/21 02/17/21 22:59 06:59 14:59 Intake Total 198.173 / 596.903 198.73 / 596.903 617.885 / 617.885 Output Total 375 / 575 1003 / 1003 Balance 198.173 / 21.903 -176.27 / 21.903 -385.115 / -385.115 Intake: IV 198.173 / 396.903 198.73 / 396.903 192.885 / 192.885 Amiodarone / D5w 360 mg In 200 198.173 / 396.903 198.73 / 396.903 192.885 / 192.885 ml @ 0.5 MG/MIN 16.667 mls/hr IV .Q12H [facility] Rx#:[id number] Oral 425 / 425 Output: Urine Amount (Catheter) 375 / 575 1000 / 1000 Jean/Indwelling 375 / 575 1000 / 1000 # Bowel Movements 3 / 3 Other: Weight 106.7 kg Weight Measurement Method Built in [facility]
[2021-02-17] MEDS: WARFARIN SOD 2 MG TAB PO SCH (16:38)
[2021-02-17] MEDS: AMIODARONE 200 MG TAB PO SCH (16:38)
[2021-02-17] MEDS: PANTOprazole 40 MG TAB PO SCH (16:59)
[2021-02-17] MEDS: TAMSULOSIN HCL 0.4 MG CAP PO SCH (16:59)
--- NOTE | 2021-02-17 19:15 | Hospitalist Progress Note ---
Date of Service February 17, 2021 Assessment & Plan (1) PSVT (paroxysmal supraventricular tachycardia): Plan: Suspect these episodes are causing his CHF. Continue amiodarone and metoprolol per cardiology recommendations. Switching to PO amiodarone today. (2) Acute on chronic systolic heart failure: Plan: Acute on chronic systolic heart failure with reduced ejection fraction (30-35%) -CXR: Cardiomegaly with evidence of congestive failure. Bilateral airspace opacities consistent with pulmonary edema, small pleural effusions - EKG: Sinus with PACs, no territorial ST depression/elevations, rate 96 Appreciate cardiology recommendations regarding ongoing Lasix dosing, aim for negative balance (3) Biventricular ICD (implantable cardioverter-defibrillator) in place: Plan: -several inappropriate AICD shocks - pacemaker settings now adjusted -As above (4) BMI 40.0-44.9, adult: Plan: As above (5) BPH with obstruction/lower urinary tract symptoms: Plan: Bladder scan if needed Continue tamsulosin (6) CAD (coronary artery disease): Plan: Patient not on SAMMY/ARB at baseline - Continue clopidogrel, metoprolol, isosorbide, intolerant to statins (severe myalgias) (7) DM w/o complication type II: Plan: No antiglycemic's SKEIN SPOOLER, glucose on admission 141 - Hold metformin - + SSI CF 40 Ratio 13 BMP daily (8) Dyslipidemia, goal LDL below 70: Plan: No statin SKEIN SPOOLER, LDL 96 (9) Hypertension: Plan: Continue metoprolol, ISMN, SAMMY/Aldactone as noted above (10) Ventricular tachycardia: Plan: Ruled out (11) Transient global amnesia: Plan: Suspect cause of his lack of knowledge of the ER. Given he is back to his baseline no need for CT head currently. Plan: DVT prophylaxis: Anticoagulated on warfarin Diet: Heart healthy, T2DM CODE STATUS: DNR/DNI Disposition: transfer to med/tele Admission and Anticipated Discharge Date Admission Date: February 15, 2021 Subjective No further arrhythmias overnight. Patient acutely confused last evening but back to his baseline today when talking to his at bedside. He also reports having no knowledge of him coming to the emergency room and his first memory is of being in PCU and not knowing why he is here. No current chest pain, shortness of breath, orthopnea, PND, palpitations or claudication. Review of Systems Review of Systems: All systems reviewed & are unremarkable except as noted in HPI & below Physical Exam Constitutional: WD/WN, vitals as above + obese Eyes: + anicteric sclerae; normal pupil size ENMT: Mouth: oral mucous membranes not dry Neck: trachea midline, no thyromegaly Respiratory: normal respiratory effort Auscultation: + diminished lung sounds (bibasal); no crackles and no wheezes Cardiovascular: Rate/Rhythm: regular rate and regular rhythm Heart Sounds: no murmur Extremities: normal capillary refill and + pedal edema (1+ b/l equal pre-tibial); no calf tenderness Gastrointestinal (Abdomen): normal bowel sounds, soft, nontender, no hepatosplenomegaly Skin: no rashes, warm and dry Neurologic: moves all extremities and awake; not confused Psychiatric: A+Ox3, euthymic affect Results & Data Results & Data ([facility]) Vital Signs (Past 12 Hours) Vital Signs Temp Pulse Pulse Resp BP Pulse Ox 02/17/21 16:36 63 131/78 02/17/21 16:30 69 02/17/21 15:15 36.8 C 62 16 136/75 95 02/17/21 15:01 63 02/17/21 08:00 60 02/17/21 07:17 36.5 C 64 18 139/77 95 PG Care Time/CCT Total # of Minutes Spent Total Time Spent with Patient: Total time spent is greater than 50% in coordination of care (as documented) at patient's floor/unit and/or counseling patient: Coding Level of Care Code 58252 Subseq Hosp Care Lvl 2 Diagnoses Acute on chronic systolic heart failure I50.23 Biventricular ICD (implantable cardioverter-defibrillator) in place Z95.810 BMI 40.0-44.9, adult Z68.41 BPH with obstruction/lower urinary tract symptoms N40.1; N13.8 CAD (coronary artery disease) I25.810 Coronary Disease-Associated Artery/Lesion type: bypass graft [place] vs. 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 transplanted heart: [place] heart Associated angina: without angina Qualified Code(s): I25.810 - Atherosclerosis of coronary artery bypass graft(s) without angina pectoris (2) DM w/o complication type II Diabetes mellitus prison insulin use: without prison use Qualified Code(s): E11.9 - Type 2 diabetes mellitus without complications
[2021-02-17] MEDS: METOPROLOL SUCC 25MG EXT REL TAB PO SCH (20:16)
[2021-02-18 07:05] LABS: INR 1.9 (0.9-1.1); Prothrombin Time 18.7 Seconds (9.0-12.0)
[2021-02-18 07:20] LABS: BUN Creatinine Ratio 22.8 (10-20); Calcium 8.6 mg/dl (8.5-10.1); Creatinine Clr Calc Pharmacy 40.4 ml/min; Est GFR (African American) 42.6 ml/min; Est GFR (Non-African American) 36.7 ml/min; Potassium 4.2 mmol/L (3.5-5.1)
[2021-02-18] MEDS: INSULIN ASPART 100 UNITS/ML 3 ML PEN SC SCH ×4 (09:02→20:43)
[2021-02-18] MEDS: allopurinoL 100 MG TAB PO SCH (09:04)
[2021-02-18] MEDS: MAGNESIUM OXIDE 400 MG TAB PO SCH (09:04)
[2021-02-18] MEDS: PANTOprazole 40 MG TAB PO SCH (09:04)
[2021-02-18] MEDS: TAMSULOSIN HCL 0.4 MG CAP PO SCH (09:04)
[2021-02-18] MEDS: POTASSIUM CHLORIDE CRTAB 20 MEQ TABCR PO SCH ×2 (09:04→20:42)
[2021-02-18] MEDS: ISOSORBIDE MONO EXTENDED REL 60 MG TABCR PO SCH (09:04)
[2021-02-18] MEDS: METOPROLOL SUCC 25MG EXT REL TAB PO SCH (09:04)
[2021-02-18] MEDS: FUROSEMIDE 40 MG/4 ML VIAL IV SCH (09:05)
[2021-02-18] MEDS: CLOPIDOGREL BISULFATE 75 MG TAB PO SCH (09:05)
[2021-02-18] MEDS: AMIODARONE 200 MG TAB PO SCH ×3 (09:05→16:37)
[2021-02-18] MEDS: NYSTATIN POWDER 15GM BTL EXT SCH ×2 (09:06→19:48)
[2021-02-18] MEDS: POLYETHYLENE (MIRALAX) 17 GM PACK PO SCH (09:06)
[2021-02-18] MEDS: BUTT PASTE (ZINC OXIDE 16%) 171 APPLN/57 GM JAR EXT SCH ×2 (09:06→19:49)
--- NOTE | 2021-02-18 13:08 | Hospitalist Progress Note ---
Date of Service February 18, 2021 Assessment & Plan (1) PSVT (paroxysmal supraventricular tachycardia): Plan: Suspect these episodes are causing his CHF. Continue amiodarone and metoprolol per cardiology recommendations. Switched to amiodarone 02/17. (2) Acute on chronic systolic heart failure: Plan: Acute on chronic systolic heart failure with reduced ejection fraction (30-35%) -CXR: Cardiomegaly with evidence of congestive failure. Bilateral airspace opacities consistent with pulmonary edema, small pleural effusions - EKG: Sinus with PACs, no territorial ST depression/elevations, rate 96 Appreciate cardiology recommendations regarding ongoing Lasix dosing, aim for negative balance, switching back to oral lasix today (3) Biventricular ICD (implantable cardioverter-defibrillator) in place: Plan: -several inappropriate AICD shocks - pacemaker settings now adjusted -As above (4) BMI 40.0-44.9, adult: Plan: As above (5) BPH with obstruction/lower urinary tract symptoms: Plan: Bladder scan if needed Continue tamsulosin (6) CAD (coronary artery disease): Plan: Patient not on SAMMY/ARB at baseline - Continue clopidogrel, metoprolol, isosorbide, intolerant to statins (severe myalgias) (7) DM w/o complication type II: Plan: 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 Given he is back to his baseline no need for CT head currently. Plan: DVT prophylaxis: Anticoagulated on warfarin, increased by cardiology Diet: Heart healthy, T2DM CODE STATUS: DNR/DNI Disposition: continue on med/tele Admission and Anticipated Discharge Date Admission Date: February 15, 2021 Subjective Not yet seen by physical therapy. Feels his breathing is improving. No chest pain or recurrence of arrhythmia on amiodarone and increased metoprolol dosing. No fever, chills or cough. Review of Systems Review of Systems: All systems reviewed & are unremarkable except as noted in HPI & below Physical Exam Constitutional: WD/WN, vitals as above + obese Eyes: + anicteric sclerae; normal pupil size ENMT: Mouth: oral mucous membranes not dry Neck: trachea midline, no thyromegaly Respiratory: normal respiratory effort Auscultation: + diminished lung sounds (bibasal); no crackles and no wheezes Cardiovascular: Rate/Rhythm: regular rate and regular rhythm Heart Sounds: no murmur Extremities: normal capillary refill and + pedal edema (1+ b/l equal pre-tibial); no calf tenderness Gastrointestinal (Abdomen): normal bowel sounds, soft, nontender, no hepatosplenomegaly Skin: no rashes, warm and dry Neurologic: moves all extremities and awake; not confused Psychiatric: A+Ox3, euthymic affect Results & Data Results & Data ([facility]) Vital Signs (Past 12 Hours) Vital Signs Temp Pulse Pulse Resp BP BP Pulse Ox 02/18/21 12:20 02/18/21 11:12 36.4 C L 63 18 106/65 96 02/18/21 08:00 36.9 C 62 18 125/74 95 02/18/21 07:15 60 02/18/21 03:18 36.3 C L 64 18 120/71 92 Pulse Ox 02/18/21 12:20 94 02/18/21 11:12 02/18/21 08:00 02/18/21 07:15 02/18/21 03:18 PG Care Time/CCT Total # of Minutes Spent Total Time Spent with Patient: Total time spent is greater than 50% in coordination of care (as documented) at patient's floor/unit and/or counseling patient: Coding Level of Care Code 95781 Subseq Hosp Care Lvl 2 Diagnoses PSVT (paroxysmal supraventricular tachycardia) I47.1 Acute on chronic systolic heart failure I50.23 Biventricular ICD (implantable cardioverter-defibrillator) in place Z95.810 BMI 40.0-44.9, adult Z68.41 BPH with obstruction/lower urinary tract symptoms N40.1; N13.8 CAD (coronary artery disease) I25.810 Associated angina: without angina Coronary Disease-Associated Artery/Lesion type: bypass graft [place] vs. transplanted heart: [place] heart DM w/o complication type II E11.9 Diabetes mellitus retirement insulin use: without retirement use Dyslipidemia, goal LDL below 70 E78.5 Hypertension I10 Ventricular tachycardia I47.2 Transient global amnesia G45.4 (1) DM w/o complication type II Diabetes mellitus retirement insulin use: without technician terminal and repeater use Qualified Code(s): E11.9 - Type 2 diabetes mellitus without complications (2) CAD (coronary artery disease) Associated angina: without angina Coronary Disease-Associated Artery/Lesion type: bypass graft [place] vs. transplanted heart: [place] heart Qualified Code(s): I25.810 - Atherosclerosis of coronary artery bypass graft(s) without angina pectoris
--- NOTE | 2021-02-18 15:52 | Cardiology Progress Note ---
Date of Service February 18, 2021 Assessment & Plan (1) Acute on chronic systolic heart failure: (2) Ischemic cardiomyopathy: (3) PSVT (paroxysmal supraventricular tachycardia): Plan: INR is 1.9 today, down from 2.3, we will cautiously increase his Coumadin to 3 mg daily and repeat an INR tomorrow. We will need to follow his INR closely given new amiodarone therapy. Creatinine has trended up to 1.69. Discontinue IV furosemide, transition to oral furosemide 40 mg p.o. daily for tomorrow 02/19/2021 (prior to hospital dose had been furosemide 20 mg daily). Titrate metoprolol succinate to 100 mg twice daily starting this evening 02/18/2021. Admission and Anticipated Discharge Date Admission Date: February 15, 2021 Subjective Patient seen in follow-up, he is now in room 285-2, and has been on oral amiodarone overnight and thus far today. He is feeling improved compared to prior to hospitalization. No acute complaints. He believes his breathing has improved. No subjective palpitations noted. Review of Systems Review of Systems: All systems reviewed & are unremarkable except as noted in HPI & below Physical Exam Physical Exam: Temp Pulse Resp BP Pulse Ox 36.5 C 64 18 115/67 95 02/18/21 15:41 02/18/21 15:41 02/18/21 15:41 02/18/21 15:41 02/18/21 15:41 Constitutional: no acute distress Respiratory: Mildly decreased breath sounds the bases otherwise clear Cardiovascular: RRR, no murmur, no edema Gastrointestinal (Abdomen): normal bowel sounds, soft, nontender, no hepatosplenomegaly Neurologic: Conversant, no focal deficits Results & Data ([facility]) Vital Signs (Past 12 Hours) Vital Signs Temp Pulse Pulse Resp BP BP Pulse Ox 02/18/21 15:41 36.5 C 64 18 115/67 95 02/18/21 14:51 76 02/18/21 12:20 02/18/21 11:12 36.4 C L 63 18 106/65 96 02/18/21 08:00 36.9 C 62 18 125/74 95 02/18/21 07:15 60 Pulse Ox 02/18/21 15:41 02/18/21 14:51 02/18/21 12:20 94 02/18/21 11:12 02/18/21 08:00 02/18/21 07:15 Laboratory Results Coagulation 02/18/21 Range/Units 06:23 PT 18.7 H (9.0-12.0) Seconds Comprehensive Metabolic Panel 02/18/21 Range/Units 06:23 Sodium 134 L (136-145) mmol/L Potassium 4.2 (3.5-5.1) mmol/L Chloride 105 (98-107) mmol/L Carbon Dioxide 22 (21-32) mmol/L BUN 38 H (7-18) mg/dl Creatinine 1.69 H (0.6-1.4) mg/dl Glucose 141 H (70-99) mg/dl Calcium 8.6 (8.5-10.1) mg/dl Intake and Output 02/18/21 02/18/21 02/18/21 06:59 14:59 22:59 Intake Total 960 / 960 Output Total 301 / 1654 801 / 801 Balance -301 / -936.115 159 / 159 Intake: Oral 960 / 960 Output: Urine Amount (Catheter) 300 / 1650 800 / 800 Jean/Indwelling 300 / 1650 800 / 800 # Bowel Movements Other: Other Intake Source Sips Weight 106.3 kg Weight Measurement Method Built in [facility]
[2021-02-18] MEDS: WARFARIN SOD 3 MG TAB PO SCH (16:37)
[2021-02-18] MEDS: METOPROLOL SUCC 50MG EXT REL TAB PO SCH (19:48)
[2021-02-19 07:52] LABS: Basophils # (auto) 0.04 K/uL (0-0.2); Basophils % (auto) 0.4 %; Eosinophils # (auto) 0.27 K/uL (0-0.5); Eosinophils % (auto) 2.9 %; Hematocrit (blood only) 38.5 % (42-52); Hemoglobin 12.8 g/dL (14.0-18.0); Immature Granulocytes # (auto) 0.04 K/uL (0.00-0.02); Immature Granulocytes % (auto) 0.4 %; Lymphocytes # (auto) 0.97 K/uL (1.2-3.4); Lymphocytes % (auto) 10.2 %; Mean Corpuscular Hemoglobin 34.2 pg (25-34); Mean Corpuscular Hgb Conc 33.2 g/dL (32-36); Mean Corpuscular Volume 102.9 fL (80-100); Mean Platelet Volume 9.7 fL (7.4-10.4); Monocytes # (auto) 1.03 K/uL (0.11-0.59); Monocytes % (auto) 10.9 %; Neutrophils # (auto) 7.12 K/uL (1.4-6.5); Neutrophils % (auto) 75.2 %; Nucleated RBC # (auto) 0.02 K/uL (0-0); Nucleated RBC % (auto) 0.2 %; Platelet Count 180 K/uL (130-400); RDW Coefficient of Variation 14.4 % (11.5-14.5); RDW Standard Deviation 54.4 fL (36.4-46.3); Red Blood Count 3.74 M/uL (4.7-6.1); White Blood Count 9.47 K/uL (4.8-10.8)
[2021-02-19] MEDS: AMIODARONE 200 MG TAB PO SCH ×3 (08:04→15:44)
[2021-02-19 08:05] LABS: INR 2.1 (0.9-1.1); Prothrombin Time 20.3 Seconds (9.0-12.0)
[2021-02-19] MEDS: allopurinoL 100 MG TAB PO SCH (08:05)
[2021-02-19] MEDS: TAMSULOSIN HCL 0.4 MG CAP PO SCH ×2 (08:05→19:59)
[2021-02-19] MEDS: FUROSEMIDE 40 MG TAB PO SCH (08:06)
[2021-02-19] MEDS: CLOPIDOGREL BISULFATE 75 MG TAB PO SCH (08:06)
[2021-02-19] MEDS: MAGNESIUM OXIDE 400 MG TAB PO SCH (08:07)
[2021-02-19] MEDS: ISOSORBIDE MONO EXTENDED REL 60 MG TABCR PO SCH (08:07)
[2021-02-19] MEDS: METOPROLOL SUCC 50MG EXT REL TAB PO SCH ×2 (08:07→20:01)
[2021-02-19] MEDS: NYSTATIN POWDER 15GM BTL EXT SCH ×2 (08:08→20:00)
[2021-02-19] MEDS: POLYETHYLENE (MIRALAX) 17 GM PACK PO SCH (08:09)
[2021-02-19] MEDS: BUTT PASTE (ZINC OXIDE 16%) 171 APPLN/57 GM JAR EXT SCH ×2 (08:09→20:00)
[2021-02-19] MEDS: PANTOprazole 40 MG TAB PO SCH (08:09)
[2021-02-19] MEDS: POTASSIUM CHLORIDE CRTAB 20 MEQ TABCR PO SCH (08:09)
[2021-02-19] MEDS: INSULIN ASPART 100 UNITS/ML 3 ML PEN SC SCH ×4 (08:11→20:48)
[2021-02-19 08:54] LABS: BUN Creatinine Ratio 25.4 (10-20); Calcium 9.2 mg/dl (8.5-10.1); Creatinine Clr Calc Pharmacy 35.6 ml/min; Est GFR (African American) 36.3 ml/min; Est GFR (Non-African American) 31.3 ml/min
[2021-02-19 09:22] LABS: Magnesium 2.2 mg/dl (1.8-2.4); Potassium 4.6 mmol/L (3.5-5.1)
--- NOTE | 2021-02-19 11:31 | Cardiology Progress Note ---
Date of Service February 19, 2021 Assessment & Plan (1) Acute on chronic systolic heart failure: (2) Ischemic cardiomyopathy: (3) PSVT (paroxysmal supraventricular tachycardia): Plan: INR is 2.1 today, 02/19/21. Tolerating adjustment of metoprolol succinate to 100 mg BID. Continue oral amiodarone load of 200 mg TID, change to BID at discharge. Oral furosemide 40 mg daily today (up from TPA dose of 20 mg daily) Reduced potassium supplementation fo 20 meq one time per day. SHREYAS Jean. Anticipate discharge today , or tomorrow. Admission and Anticipated Discharge Date Admission Date: February 15, 2021 Robin Euceda is seen in cardiology consultation of his chief complain of shortness of breath with exertiona and findings of paroxysmal supraventricular tachycardia. He notes feeling well. No additional SVT episodes since 02/15, Telemetry reveals sinus rhythm, atrial pacing in the 60s to 70s. Review of Systems Review of Systems: All systems reviewed & are unremarkable except as noted in HPI & below Physical Exam Physical Exam: Temp Pulse Resp BP Pulse Ox 36.8 C 63 18 144/61 H 92 02/19/21 07:43 02/19/21 07:43 02/19/21 07:43 02/19/21 07:43 02/19/21 07:43 Constitutional: WD/WN, vitals as above Respiratory: normal respiratory effort, lungs clear to auscultation Cardiovascular: RRR, no murmur, no edema Gastrointestinal (Abdomen): normal bowel sounds, soft, nontender, no hepatosplenomegaly Neurologic: PERRL, EOMI, accommodation nl, no face palsy, no dysarthria Results & Data ([facility]) Vital Signs (Past 12 Hours) Vital Signs Temp Pulse Pulse Resp BP Pulse Ox 02/19/21 07:43 36.8 C 63 18 144/61 H 92 02/19/21 07:05 62 02/19/21 03:02 36.3 C L 60 16 134/82 95 02/19/21 02:05 72 Laboratory Results Coagulation 02/19/21 Range/Units 07:13 PT 20.3 H (9.0-12.0) Seconds CBC 02/19/21 Range/Units 07:13 WBC 9.47 (4.8-10.8) K/uL RBC 3.74 L (4.7-6.1) M/uL Hgb 12.8 L (14.0-18.0) g/dL Hct 38.5 L (42-52) % Plt Count 180 (130-400) K/uL Neut # (Auto) 7.12 H (1.4-6.5) K/uL Lymph # (Auto) 0.97 L (1.2-3.4) K/uL [place] # (Auto) 1.03 H (0.11-0.59) K/uL Eos # (Auto) 0.27 (0-0.5) K/uL Baso # (Auto) 0.04 (0-0.2) K/uL Comprehensive Metabolic Panel 02/19/21 02/19/21 Range/Units 07:13 08:56 Sodium 136 (136-145) mmol/L Potassium 4.6 (3.5-5.1) mmol/L Chloride 106 (98-107) mmol/L Carbon Dioxide 21 (21-32) mmol/L BUN 49 H (7-18) mg/dl Creatinine 1.93 H (0.6-1.4) mg/dl Glucose 143 H (70-99) mg/dl Calcium 9.2 (8.5-10.1) mg/dl Intake and Output 02/18/21 02/19/21 02/19/21 22:59 06:59 14:59 Intake Total 340 / 1700 400 / 1700 Output Total 200 / 1301 300 / 1301 Balance 140 / 399 100 / 399 - -1 Intake: Oral 340 / 1700 400 / 1700 Output: Urine 300 / 300 Urine Amount (Catheter) 200 / 1000 Jean/Indwelling 200 / 1000 # Bowel Movements Other: Weight 107.2 kg Weight Measurement Method Built in [facility]
[2021-02-19] MEDS: WARFARIN SOD 3 MG TAB PO SCH (15:43)
--- NOTE | 2021-02-19 21:59 | Hospitalist Progress Note ---
Date of Service February 19, 2021 Assessment & Plan (1) PSVT (paroxysmal supraventricular tachycardia): Plan: Suspect these episodes are causing his CHF. Continue amiodarone and metoprolol per cardiology recommendations. Switched to amiodarone 02/17. Appears stable. INR is also at [facility]. (2) Acute on chronic systolic heart failure: Plan: Acute on chronic systolic heart failure with reduced ejection fraction (30-35%) -CXR: Cardiomegaly with evidence of congestive failure. Bilateral airspace opacities consistent with pulmonary edema, small pleural effusions - EKG: Sinus with PACs, no territorial ST depression/elevations, rate 96 Appreciate cardiology recommendations regarding ongoing Lasix dosing, aim for negative balance, switching back to oral lasix today (3) Biventricular ICD (implantable cardioverter-defibrillator) in place: Plan: -several inappropriate AICD shocks - pacemaker settings now adjusted -As above (4) BMI 40.0-44.9, adult: Plan: As above (5) BPH with obstruction/lower urinary tract symptoms: Plan: Bladder scan if needed Continue tamsulosin (6) CAD (coronary artery disease): Plan: Patient not on SAMMY/ARB at baseline - Continue clopidogrel, metoprolol, isosorbide, intolerant to statins (severe myalgias) (7) DM w/o complication type II: Plan: No antiglycemic's ANNEALER, glucose on admission 141 - Hold metformin - + SSI CF 40 Ratio 13 BMP daily (8) Dyslipidemia, goal LDL below 70: Plan: No statin ANNEALER, LDL 96 (9) Hypertension: Plan: Continue metoprolol, ISMN, SAMMY/Aldactone as noted above (10) Ventricular tachycardia: Plan: Ruled out (11) Transient global amnesia: Plan: Suspect cause of his lack of knowledge of the ER. Given he is back to his baseline no need for CT head currently. Plan: DVT prophylaxis: Anticoagulated on warfarin, increased by cardiology Diet: Heart healthy, T2DM CODE STATUS: DNR/DNI Disposition: continue on med/tele Admission and Anticipated Discharge Date Admission Date: February 15, 2021 Subjective 85 yo male reports no new symptoms. Review of Systems Review of Systems: All systems reviewed & are unremarkable except as noted in HPI & below Physical Exam Physical Exam: Constitutional:L WD/WN, vitals as a emily + obese Eyes: + anicteric scler ae; normal pupil s ize ENMT: Mouth: oral mucous membranes not dry Neck: trachea midline, n o thyromegaly Respiratory: normal respiratory effort Auscultat ion: + diminished lung sounds (bibas al); no crackles a nd no wheezes Cardiovascular:L Rate/Rhythm: regul ar rate and regula r rhythm Heart So unds: no murmur E xtremities: normal capillary refill and + pedal edema (1+ b/l equal pre- tibial); no calf t enderness Gastrointestinal ( Abdomen): normal bowel sound s, soft, nontender , no hepatosplenom egaly Skin: no rashes, warm an d dry Neurologic: moves all extremit ies and awake; not confused Psychiatric: A+Ox3, euthymic af fect Results & Data Results & Data ([facility]) Vital Signs (Past 12 Hours) Vital Signs Temp Pulse Pulse Resp BP BP Pulse Ox 02/19/21 19:16 36.6 C 76 18 130/68 97 02/19/21 16:00 36.5 C 65 18 155/96 H 94 02/19/21 15:05 60 02/19/21 11:46 36.3 C L 89 18 120/63 96 PG Care Time/CCT Total # of Minutes Spent Total Time Spent with Patient: Total time spent is greater than 50% in coordination of care (as documented) at patient's floor/unit and/or counseling patient: Coding Level of Care Code 78096 Subseq Hosp Care Lvl 2 Diagnoses PSVT (paroxysmal supraventricular tachycardia) I47.1 Acute on chronic systolic heart failure I50.23 Biventricular ICD (implantable cardioverter-defibrillator) in place Z95.810 BMI 40.0-44.9, adult Z68.41 BPH with obstruction/lower urinary tract symptoms N40.1; N13.8 CAD (coronary artery disease) I25.810 Coronary Disease-Associated Artery/Lesion type: bypass graft [place] vs. transplanted heart: [place] heart Associated angina: without angina DM w/o complication type II E11.9 Diabetes mellitus nursing home insulin use: without nursing home use Dyslipidemia, goal LDL below 70 E78.5 Hypertension I10 Ventricular tachycardia I47.2 Transient global amnesia G45.4 (1) CAD (coronary artery disease) Coronary Disease-Associated Artery/Lesion type: bypass graft [place] vs. transplanted heart: [place] heart Associated angina: without angina Qualified Code(s): I25.810 - Atherosclerosis of coronary artery bypass graft(s) without angina pectoris (2) DM w/o complication type II Diabetes mellitus nursing home insulin use: without nursing home use Qualified Code(s): E11.9 - Type 2 diabetes mellitus without complications
[2021-02-20 07:02] LABS: INR 2.6 (0.9-1.1); Prothrombin Time 24.8 Seconds (9.0-12.0)
[2021-02-20] MEDS: MAGNESIUM OXIDE 400 MG TAB PO SCH (08:09)
[2021-02-20] MEDS: CLOPIDOGREL BISULFATE 75 MG TAB PO SCH (08:09)
[2021-02-20 08:10] LABS: BUN Creatinine Ratio 28.4 (10-20); Calcium 9.3 mg/dl (8.5-10.1); Creatinine Clr Calc Pharmacy 36.2 ml/min; Est GFR (African American) 37.2 ml/min; Est GFR (Non-African American) 32.1 ml/min; Potassium 4.6 mmol/L (3.5-5.1)
[2021-02-20] MEDS: NYSTATIN POWDER 15GM BTL EXT SCH (08:10)
[2021-02-20] MEDS: FUROSEMIDE 40 MG TAB PO SCH (08:10)
[2021-02-20] MEDS: allopurinoL 100 MG TAB PO SCH (08:10)
[2021-02-20] MEDS: AMIODARONE 200 MG TAB PO SCH (08:10)
[2021-02-20] MEDS: METOPROLOL SUCC 50MG EXT REL TAB PO SCH (08:10)
[2021-02-20] MEDS: PANTOprazole 40 MG TAB PO SCH (08:10)
[2021-02-20] MEDS: ISOSORBIDE MONO EXTENDED REL 60 MG TABCR PO SCH (08:10)
[2021-02-20] MEDS: BUTT PASTE (ZINC OXIDE 16%) 171 APPLN/57 GM JAR EXT SCH (08:11)
[2021-02-20] MEDS: POLYETHYLENE (MIRALAX) 17 GM PACK PO SCH (08:13)
[2021-02-20] MEDS: INSULIN ASPART 100 UNITS/ML 3 ML PEN SC SCH ×2 (08:18→12:33)
[2021-02-20] MEDS ORDERED: POTASSIUM CHLORIDE CRTAB 20 MEQ TABCR PO SCH (09:00)
--- NOTE | 2021-02-20 10:42 | XRay Report ---
XR chest 2V PA/lateral HISTORY: 85 years-old Male follow up CHF acute shortness of breath. COMPARISON: Chest radiograph 02/15/2021 TECHNIQUE: PA and lateral views of the chest FINDINGS: Cardiac silhouette is enlarged. Prior median sternotomy with numerous fractured sternotomy wires rede monstrated. Left subclavian pacer/AICD. No pneumothorax. Pulmonary vascular congestion with decreased interstitial coarsening. Trace pleural effusions. Hyperinflation. Degenerative changes of the should ers and spine. IMPRESSION: 1. Cardiomegaly with mildly improved pulmonary edema. 2. Trace pleural effusions with mild persistent bibasilar densities ACT 112: Negative or not required by law. The above report was generated using voice recognition software. It may contain grammatical, syntax o r spelling errors. Electronically signed by: Jhonny Ennis M.D. 02/20/2021 10:41 AM
--- NOTE | 2021-02-20 11:05 | Cardiology Progress Note ---
Date of Service February 20, 2021 Assessment & Plan (1) Acute on chronic systolic heart failure: (2) Ischemic cardiomyopathy: (3) PSVT (paroxysmal supraventricular tachycardia): Plan: INR is 2.6 today, 02/20 Tolerating adjustment of metoprolol succinate to 100 mg BID. Continue oral amiodarone load of 200 mg TID, change to BID at discharge. Summary of radiology report of CXR 02/20: 1. Cardiomegaly with mildly improved pulmonary edema. 2. Trace pleural effusions with mild persistent bibasilar densities Creatinine has trended up to 1.89. It is difficult to distinguish chest x-ray changes of possible underlying interstitial lung disease from CHF in this case, and I think that is in part what prompted the discontinuation of amiodarone previously in 2019. At present, the patient is much improved from a volume status point clinically, and with his rising creatinine, I think it is time to back off on his diuretic therapy even despite the chest x-ray findings from today. His symptoms seem to have improved significantly with controlled atrial arrhythmias. I initially plan to send him home on furosemide 40 mg daily, based on his creatinine, I recommend proceeding with his prior to hospital dose of 20 mg. His Jean catheter was removed at 2 PM on 02/19/2021 and he is voiding well. As noted ,DC on new dose of metoprolol succinate, and amiodarone 200 mg PO BID. lasix 20 mg daily. Need close follow up with outpatient coumadin clinic given amiodarone . I will arrange cardiology follow up in 1-3 weeks. Admission and Anticipated Discharge Date Admission Date: February 15, 2021 Subjective Mr Daugherty is seen in cardiology follow up. He feels well. SR with atrial pacing noted on telemetry. Review of Systems Review of Systems: All systems reviewed & are unremarkable except as noted in HPI & below Physical Exam Physical Exam: Temp Pulse Resp BP Pulse Ox 36.4 C L 64 18 147/78 H 97 02/20/21 11:00 02/20/21 11:00 02/20/21 11:00 02/20/21 11:02/20/21 11:00 Constitutional: WD/WN, vitals as above Respiratory: normal respiratory effort, lungs clear to auscultation Cardiovascular: RRR, no murmur, no edema Gastrointestinal (Abdomen): normal bowel sounds, soft, nontender, no hepatosplenomegaly Neurologic: PERRL, EOMI, accommodation nl, no face palsy, no dysarthria Results & Data ([facility]) Vital Signs (Past 12 Hours) Vital Signs Temp Pulse Resp BP BP Pulse Ox 02/20/21 11:00 36.4 C L 64 18 122/70 147/78 H 97 02/20/21 07:17 36.4 C L 64 18 147/78 H 97 02/20/21 04:01 36.9 C 60 18 122/70 97 02/19/21 23:43 36.9 C 62 18 128/73 95
[2021-02-20] MEDS ORDERED: AMIODARONE 200 MG TAB PO SCH (21:00)
[2021-02-21] MEDS ORDERED: FUROSEMIDE 20 MG TAB PO SCH (09:00)
--- NOTE | 2021-02-23 08:01 | Discharge Summary ---
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 fib, and COPD who presents for concerns of acute on chronic systolic heart failure with defibrillator check concerning for runs of VT between 2 and 17 min. Patient case was discussed in route to [facility] by Dr. Cardoso. There is 3 patient had previously been on amiodarone which was stopped due to concerns for pulmonary fibrosis. He has a dual ICD pacer in place. His current presentation is likely provoked by acute congestive failure, but he is high risk for progressive severe CAD and may require an increase in beta-mine therapy and/or reinitiation of amiodarone. Will start with initial diuresis, if arrhythmia seen have low thre shold to start amiodarone drip versus 200 mg IV twice daily. Initial labs: WBC 10.98, creatinine 1.31 at baseline, troponin 0.295 (last 0.017, detectable but normal), BNP 5392, TSH 1.650, no transaminitis, Covid19 []. Received Lasix 40 mg IV on arrival. CXR: Cardiomegaly with evidence of congestive failure. Bilateral airspace opacities consistent with pulmonary edema, small pleural effusions EKG: Sinus with PACs, no territorial ST depression/elevations, rate 96 Dyspnea with exertion started worsening over the last few weeks suddenly worsened in the last 7 days. Has never needed oxygen at home, although had needed in rehab. Denies orthopnea. Has felt some palpitations/heart racing when he exerts himself but no squeezing or pain. Thinks a little pressure in the epigastrum. Per his has 'just seemed crappy for a few weeks, hasn't wanted to go anywhere and has been tired and exhausted.' No fevers, chills, or sweats Some loose bowls, no liquid diarrhea Medical History: Reviewed Medications: Reviewed Surgical History: Reviewed Allergies: Reviewed Social History: Reviewed, denies tobacco/etoh/recdrug Code Status: DNR/DNI Principal Diagnosis PSVT Discharge Exam Constitutional: WD/WN, vitals as above + obese Eyes: + anicteric sclerae; normal pupil size ENMT: Mouth: oral mucous membranes not dry Neck: trachea midline, no thyromegaly Respiratory: normal respiratory effort Auscultation: + diminished lung sounds (bibasal); no crackles and no wheezes Cardiovascular: Rate/Rhythm: regular rate and regular rhythm Heart Sounds: no murmur Extremities: normal capillary refill and + pedal edema (1+ b/l equal pre-tibial); no calf tenderness Gastrointestinal (Abdomen): normal bowel sounds, soft, nontender, no hepatosplenomegaly Skin: no rashes, warm and dry Neurologic: moves all extremities and awake; not confused Psychiatric: A+Ox3, euthymic affect Discharge Data Allergies Allergy/AdvReac Type Severity Reaction Status Date / Time Iodinated Contrast Media Allergy Severe ANAPHYLAXIS Verified 11/27/20 12:36 shellfish derived Allergy Severe ANAPHYLAXIS Verified 11/27/20 12:36 adhesive tape Allergy Intermediate Tore skin Verified 11/27/20 12:36 clindamycin Allergy Intermediate Rash Verified 11/27/20 12:36 Penicillins Allergy Intermediate BOILS Verified 11/27/20 12:36 iodine Allergy Verified 11/27/20 12:36 donepezil AdvReac Intermediate Nightmares Verified 11/27/20 12:36 latex AdvReac Intermediate RASH Verified 11/27/20 12:36 [id number] Reductase AdvReac Intermediate severe Verified 11/27/20 12:36 Inhibitor myalgias [Xzexspo-Fei-Ljf Reductase Inhibitor] atorvastatin AdvReac Mild GI SYMPTOMS Verified 11/27/20 12:36 levofloxacin [From Levaquin] AdvReac Mild Insomnia Verified 11/27/20 12:36 rosuvastatin AdvReac Mild GI SYMPTOMS Verified 11/27/20 12:36 Fish Containing Products AdvReac Unknown Swelling Verified 11/27/20 12:36 of Lip/Tongue/Throat mold AdvReac Congested Unverified 02/15/21 13:45 pollen extracts AdvReac Watery Eye Unverified 02/15/21 13:45 Consultations 02/15/21 13:30 ED Decision to Admit Stat 02/15/21 18:08 Consult Cardiology Routine Hospital Course (1) PSVT (paroxysmal supraventricular tachycardia): Suspect these episodes are causing his CHF. Continue amiodarone and metoprolol per cardiology recommendations. Switched to amiodarone 02/17. Will discharge as patient appears stable. Patient will continue on amiodarone. INR is also at goal. (2) Acute on chronic systolic heart failure: Acute on chronic systolic heart failure with reduced ejection fraction (30-35%) -CXR: Cardiomegaly with evidence of congestive failure. Bilateral airspace opacities consistent with pulmonary edema, small pleural effusions - EKG: Sinus with PACs, no territorial ST depression/elevations, rate 96 Appreciate cardiology recommendations regarding ongoing Lasix dosing, aim for negative balance. Resumed oral lasix. (3) Biventricular ICD (implantable cardioverter-defibrillator) in place: -several inappropriate AICD shocks - pacemaker settings now adjusted -As above (4) BMI 40.0-44.9, adult: As above (5) BPH with obstruction/lower urinary tract symptoms: Bladder scan if needed Continue tamsulosin (6) CAD (coronary artery disease): Patient not on SAMMY/ARB at baseline - Continue clopidogrel, metoprolol, isosorbide, intolerant to statins (severe myalgias) (7) DM w/o complication type II: No antiglycemic's [employer], glucose on admission 141 - Hold metformin - + SSI CF 40 Ratio 13 BMP daily Resume Diabetic meds at home. (8) Dyslipidemia, goal LDL below 70: No statin [employer], LDL 96 (9) Hypertension: Continue metoprolol, ISMN, SAMMY/Aldactone as noted above (10) Ventricular tachycardia: Ruled out (11) Transient global amnesia: Suspect cause of his lack of knowledge of the ER. Given he is back to his baseline no need for CT head currently. DVT prophylaxis: Anticoagulated on warfarin, increased by cardiology Diet: Heart healthy, T2DM CODE STATUS: DNR/DNI Total Time Total Time Spent Total Time Spent (In Minutes): 35 Discharge Plan Discharge Items Patient Disposition: Home - Home Health Services Reason For Visit: AOC CHFREF, ?VT Discharge Diagnosis: heart failure Activity: Resume your previous activity Non-emergency contact: Primary Care Provider Call non-emergency contact if: you have any medication questions Follow-up/Referrals: Antony Valladares MD [Primary Care Provider] - 02/27/21 3:15 pm Diet: Carb Consistent or DM2 and Heart Healthy Addtl Attending Provider Instructions: Followup with PCP in 1-2 weeks. Call 911 and go to the Emergency Room if: * You have tightness or pain in your chest that does not go away with rest or Nitroglycerin * You are very short of breath even with rest Call your doctor if any of the following symptoms or problems start or get worse: * Shortness of breath or difficulty breathing * Wake up at night short of breath * Chest pain * Cough * Swelling of your hands, fee, or legs * More fatigued or tired with your normal activity * Palpitations - sudden fast heart beats WEIGHT * Weigh yourself every morning after using the bathroom. * Use the same scale. * Wear the same amount of clothing. * Write your weight down on your chart. * Call your doctor if you gain more than 2-3 pounds in 1-2 days. MEDICATIONS * Use this discharge instruction sheet for instructions. * Take your medications at the time your doctor ordered. * Do not skip a dose of your medicines. * If you miss a dose of medicine, take as soon as possible, but DO NOT DOUBLE A DOSE. * Read your medicine information when you get home. * Know all of the side effects of your medicine. * Call your doctor's office if you have any side effects. * Be sure all of your doctors know what medicine and herbs you take (including cold, flu, and herbal medicine). * Pain Medicine: If you do not get relief from your pain, please call your doctor for help. Take the following with you to your follow-up doctor appointments: * Weight Chart * Medication List * List of questions Do not drink excessive alcohol, beer or wine. Pending Studies at Discharge: No Stand-Alone Forms: [facility], Smoking Cessation Medications and DC Order Prescriptions: New warfarin 3 mg Tablet 3 mg PO DAILY@1600 Qty: 30 RF: 0 metoprolol succinate 50 mg Tablet Extended Release 24 Hr 100 mg PO BID Qty: 30 RF: 0 amiodarone 200 mg Tablet 200 mg PO BIDM Qty: 60 RF: 0 potassium chloride 20 mEq Tablet,Er Particles/Crystals 20 meq PO QAM Qty: 30 RF: 0 furosemide 20 mg Tablet 20 mg PO QAM Qty: 30 RF: 0 Continued clopidogrel [Plavix] 75 mg tablet 75 mg PO DAILY RF: 0 (DME) Contour Next Test Strips strip See Dose Instructions .ROUTE .MEDSUPPLY Qty: 100 RF: 3 metformin 500 mg tablet extended release 24hr 500 mg PO DAILY Qty: 90 RF: 3 allopurinol 100 mg tablet 100 mg PO DAILY Qty: 90 RF: 3 pantoprazole 40 mg tablet,delayed release (DR/EC) See Rx Instructions .ROUTE .COMPLEX Qty: 90 RF: 3 isosorbide mononitrate 60 mg tablet extended release 24 hr 60 mg PO QAM RF: 0 polyethylene glycol 3350 [Miralax] 17 gram/dose powder 17 g PO DAILY RF: 0 tamsulosin 0.4 mg capsule 0.4 mg PO DAILY Qty: 30 RF: 11 acetaminophen 500 mg Tablet 1,000 mg PO BID PRN (Reason: Pain) RF: 0 Discontinued metoprolol tartrate 25 mg tablet 50 mg PO BID RF: 0 furosemide 20 mg tablet 20 mg PO DAILY Qty: 90 RF: 3 warfarin 2 mg tablet See Rx Instructions PO UD Qty: 110 RF: 1 No Action nystatin 100,000 unit/gram powder 1 applic topical QID Qty: 30 RF: 1 Discharge Orders: Discharge Order (Routine); Ordered 02/20/21 Ordered By: Keyon Amin/Other Patient Handouts: High Blood Sugar (Hyperglycemia), Hypoglycemia (Low Blood Sugar), Managing Type 2 Diabetes Admission Data Admit Date/Time: 02/15/21 15:01 Attending Provider: Keyon Jacob Admit Provider: Antony Garcia Primary Care Provider: Antony Valladares Other Providers: Antony Garcia ; Jack Stein ; [facility] Other Interventions: Discharge Summary Assessment (RN) Last Done: 02/20/21 11:00 Coding Level of Care Code D/C DAY MANAGEMENT >30 MINS Diagnoses PSVT (paroxysmal supraventricular tachycardia) I47.1 Acute on chronic systolic heart failure I50.23 Biventricular ICD (implantable cardioverter-defibrillator) in place Z95.810 BMI 40.0-44.9, adult Z68.41 BPH with obstruction/lower urinary tract symptoms N40.1; N13.8 CAD (coronary artery disease) I25.810 Coronary Disease-Associated Artery/Lesion type: bypass graft [place] vs. transplanted heart: [place] heart Associated angina: without angina DM w/o complication type II E11.9 Diabetes mellitus technician terminal and repeater insulin use: without care home use Dyslipidemia, goal LDL below 70 E78.5 Hypertension I10 Ventricular tachycardia I47.2 Transient global amnesia G45.4
== END 2021-02-20 15:10 | disposition home health service (06) | DRG 308 ==
LOC: ED 12:38 → 2S 15:01 → SUATTDRO 15:01 → 2S 17:31 → 2N 02-17 15:17

== ENCOUNTER 2022-01-06 10:26 | Observation (INO) ==
--- NOTE | 2022-01-06 12:09 | Emergency Department Note ---
History of Present Illness General Chief complaint: Leg Injury/Pain Stated complaint: LEG PAIN, & EDEMA Time Seen by Provider: 01/06/22 11:55 Source: patient, family ( who is at the bedside), RN notes reviewed and old records reviewed Mode of arrival: ambulatory Limitations: no limitations History of Present Illness Maximum Pain Intensity: 1 This patient is a 86-year-old male who is currently [facility] with where he has some mild dementia, comes in after having increasing lower extremity edema and confusion over the last couple days. He does take Lasix 20 mg twice daily his thinks they may have given him extra to combat this but she is not sure. No fever no fall he has had increased weakness was which is been diffuse and nonfocal he is been eating and drinking okay no vomiting or diarrhea no abdominal pain no urinary symptoms no cough he chronically wears oxygen. Home Medications Medication Instructions Recorded Confirmed Type clopidogrel 75 mg tablet (Plavix) 75 mg PO DAILY 08/19/18 12/27/21 History blood sugar diagnostic (Contour #100 ea 11/20/18 12/20/21 Rx Next Test Strips) isosorbide mononitrate 60 mg 60 mg PO QAM 10/26/20 12/27/21 History tablet,extended release 24 hr pantoprazole 40 mg tablet,delayed See Rx Instructions .Route 02/07/21 12/27/21 Rx release .COMPLEX #90 tabs metoprolol succinate 50 mg 100 mg PO BID #30 tabs 02/20/21 12/27/21 Rx tablet,extended release 24 hr amiodarone 200 mg tablet 100 mg PO BID 04/10/21 12/27/21 History allopurinol 100 mg tablet 300 mg PO DAILY 08/10/21 12/27/21 History Wheelchair (Powered) (Power #1 ea 08/21/21 12/20/21 Rx Wheelchair) acetaminophen 500 mg tablet 1,000 mg PO TID PRN Pain #90 tabs 08/29/21 12/27/21 Rx triamcinolone acetonide 0.1 % 1 applic topical DAILY 08/29/21 12/27/21 History topical cream tamsulosin 0.4 mg capsule 0.4 mg PO DAILY #90 caps 09/11/21 12/27/21 Rx metformin 500 mg tablet,extended See Rx Instructions .Route 06/17/22 09/08/22 Rx release 24 hr .COMPLEX #90 tabs warfarin 2 mg tablet See Rx Instructions PO UD 10/23/21 12/27/21 History furosemide 20 mg tablet 20 mg PO QAM #60 tabs 12/06/21 12/27/21 Rx Allergies Allergy/AdvReac Type Severity Reaction Status Date / Time Iodinated Contrast Media Allergy Severe ANAPHYLAXIS Verified 12/27/21 09:47 shellfish derived Allergy Severe ANAPHYLAXIS Verified 12/27/21 09:47 adhesive tape Allergy Intermediate Tore skin Verified 12/27/21 09:47 clindamycin Allergy Intermediate Rash Verified 12/27/21 09:47 Penicillins Allergy Intermediate BOILS Verified 12/27/21 09:47 iodine Allergy Difficulty Verified 12/27/21 09:47 Breathing donepezil AdvReac Intermediate Nightmares Verified 12/27/21 09:47 latex AdvReac Intermediate RASH Verified 12/27/21 09:47 [id number] Reductase AdvReac Intermediate severe Verified 12/27/21 09:47 Inhibitor myalgias [[id number]-Gvy-[id number] Reductase Inhibitor] atorvastatin AdvReac Mild GI SYMPTOMS Verified 12/27/21 09:47 levofloxacin [From Levaquin] AdvReac Mild Insomnia Verified 12/27/21 09:47 rosuvastatin AdvReac Mild GI SYMPTOMS Verified 12/27/21 09:47 Fish Containing Products AdvReac Unknown Swelling Verified 12/27/21 09:47 of Lip/Tongue/Throat mold AdvReac Congested Verified 12/27/21 09:47 pollen extracts AdvReac Watery Eye Verified 12/27/21 09:47 Past Med/Surg History Medical History Acute kidney injury superimposed on CKD Adult situational stress disorder Anemia due to chronic kidney disease Anemia of chronic disease Aneurysm of lower limb artery Angina, class II ASCVD (arteriosclerotic cardiovascular disease) Atrial fibrillation Biventricular ICD (implantable cardioverter-defibrillator) in place BMI 40.0-44.9, adult BPH with obstruction/lower urinary tract symptoms CAD (coronary artery disease) CHF exacerbation Chronic anticoagulation 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, NYHA class 2 Chronic constipation Chronic kidney disease, stage 3a Chronic systolic heart failure Constipation Patient on home bowel regimen but requesting possible enema to aid in bowel movement COPD (chronic obstructive pulmonary disease) DM w/o complication type II Drug eruption Dyslipidemia, goal LDL below 70 Elevated uric acid in blood Former smoker Gastroesophageal reflux disease Gout Hyperlipidemia Hypertension Ischemic cardiomyopathy Laceration of forehead, left, complicated Lumbar canal stenosis Nephrolithiasis Nocturia NSTEMI (non-ST elevated myocardial infarction) Osteoarthritis of knee Osteoarthritis of knees, bilateral Pain syndrome, chronic Paroxysmal atrial fibrillation Peripheral arterial disease Peripheral neuropathy Popliteal aneurysm Pressure ulcer Renal lesion Solitary pulmonary nodule Stage 3b chronic kidney disease Status post fall STEMI (ST elevation myocardial infarction) Stenosis of right internal carotid artery Syncope Tinea cruris Traumatic orbital hematoma Type 2 diabetes mellitus Type [address] elevation Urethral stricture Urinary incontinence Urinary retention Ventricular tachycardia Ventricular tachycardia Vitamin D deficiency Surgical History AICD (automatic cardioverter/defibrillator) present H/O colonoscopy H/O cystoscopy with internal urethrotomy History of coronary artery stent placement S/P CABG x 1 S/P CABG x 2 S/P CABG x 4 Family History Unknown Acute myocardial infarction Mother Uterine cancer Sister Hypertension Peripheral vascular disease Hyperlipidemia Ovarian cancer Son Alcoholism Denies family history of Prostate cancer Breast cancer Lung cancer Colorectal cancer Social History Smoking Status: Unknown if ever smoked Tobacco Type: Cigarettes Second Hand Exposure: No; Hx Alcohol Use: Yes Alcohol type: wine Alcohol Intake Frequency: 4 or More x per/Week Hx Substance Use: No Preferred Language: Argentine Communication Ability: Effective Visual Impairment: Partially Limited Seismograph Recorder Required: No Beliefs That Will Affect Care: None marital status: Current Living Situation: Spouse current occupational status: retired Feels Safe at Home: Yes Childhood Exposure to Second-Hand Smoke: No Dental Care, Regularly: Yes Physical Activity Frequency: Does not Exercise Seatbelt Use: always Sunscreen Use: No Assistive Devices: Walker Review of Systems A total of 10 systems reviewed and were otherwise negative Physical Exam Vital Signs Vital Signs - 24 hr 01/06/22 10:48 01/06/22 10:50 01/06/22 11:30 Temperature 36.6 C Temperature Source Oral Pulse Rate 62 Pulse Rate [Apical] 60 Respiratory Rate 14 Respiratory Effort / Characteristics Respiratory Depth Blood Pressure 129/77 Blood Pressure [Right Arm] 110/45 L Blood Pressure Mean 94 Blood Pressure Mean [Right Arm] 66 Pulse Oximetry 97 98 Oxygen Delivery Method Nasal Cannula Nasal Cannula Nasal Cannula Oxygen Flow Rate 2 2 2 Sepsis Recent Fever Within 48 Hours No Sepsis New/Unexplained Change in Mental Status No Sepsis Action Taken by Nursing No Action Required 01/06/22 12:13 01/06/22 12:00 01/06/22 15:00 Temperature Temperature Source Pulse Rate Pulse Rate [Apical] 60 61 Respiratory Rate 19 18 Respiratory Effort / Characteristics Non-Labored Spontaneous Non-Labored Spontaneous Respiratory Depth Normal Normal Blood Pressure Blood Pressure [Right Arm] 109/58 L Blood Pressure Mean Blood Pressure Mean [Right Arm] 75 Pulse Oximetry 98 96 Oxygen Delivery Method Nasal Cannula Room Air Nasal Cannula Oxygen Flow Rate 2 2 Sepsis Recent Fever Within 48 Hours Sepsis New/Unexplained Change in Mental Status Sepsis Action Taken by Nursing 01/06/22 15:30 Temperature Temperature Source Pulse Rate Pulse Rate [Apical] 60 Respiratory Rate 18 Respiratory Effort / Characteristics Non-Labored Spontaneous Respiratory Depth Normal Blood Pressure Blood Pressure [Right Arm] 140/56 L Blood Pressure Mean Blood Pressure Mean [Right Arm] 84 Pulse Oximetry 97 Oxygen Delivery Method Nasal Cannula Oxygen Flow Rate 2 Sepsis Recent Fever Within 48 Hours Sepsis New/Unexplained Change in Mental Status Sepsis Action Taken by Nursing General: Well developed well nourished chronically ill-appearing older male who is wearing baseline oxygen but in no acute distress, breathing comfortably on baseline supplemental oxygen normal speech HEENT: Normal cephalic atraumatic. Pupils are equal round and reactive to light. Extraocular movements are intact. Oropharynx is pink with moist mucous membranes. No swelling of the mouth lips or tongue. Neck: Supple with a midline trachea. No meningeal signs or stiffness, no JVD or bruits. No Stridor. Chest: Clear to auscultation bilaterally. No wheezes or rhonchi. No increased work of breathing. Heart: Regular rate and rhythm without murmurs or gallops. Abdomen: Soft nontender, nondistended without rebound guarding or rigidity. Extremities: No cyanosis clubbing. He has bilateral pitting edema in his lower extremities Spine/Back. Non tender to palpation. No CVA tenderness Skin: Good turgor without rashes. Neurologic exam: Cranial nerves two through 12 are intact. Motor and sensation are intact and symmetrical throughout. Medical Decision Making Differential Diagnosis CHF, COPD, COVID, electrolyte or metabolic abnormality, dehydration, arrhythmia, Medical Records Attestation: I reviewed the patient's medical records. Home Medications Current Medication List: was personally reviewed by me Laboratory Data Attestation: I reviewed the patient's lab results. Result diagrams: 01/06/22 12:15 01/06/22 12:15 Lab Results 01/06/22 01/06/22 01/06/22 Range/Units 12:15 12:15 12:15 WBC 6.16 (4.8-10.8) K/ul RBC 2.85 L (4.63-6.08) M/uL Hgb 9.9 L (14.0-18.0) g/dl Hct 30.9 L (40.1-51.0) % MCV 108.4 H (80.0-100.0) fL MCH 34.7 H (25.0-34.0) pg MCHC 32.0 (32.0-36.0) g/dL RDW Std Deviation 64.9 H (36.4-46.3) fL RDW Coeff of Dayanara 16.3 H (11.5-14.5) % Plt Count 103 L (130-400) K/uL MPV 10.2 (9.4-12.4) fL Immature Gran % (Auto) 0.5 % Neut % (Auto) 74.4 % Lymph % (Auto) 10.7 % [place] % (Auto) 11.7 % Eos % (Auto) 1.9 % Baso % (Auto) 0.8 % Neut # (Auto) 4.58 (1.4-6.5) K/uL Lymph # (Auto) 0.66 L (1.2-3.4) K/uL [place] # (Auto) 0.72 (0.24-0.82) K/uL Eos # (Auto) 0.12 (0-0.50) K/uL Baso # (Auto) 0.05 (0-0.2) K/uL Immature Gran # (Auto) 0.03 H (0.00-0.02) K/uL PT (9.0-12.0) Seconds INR (0.9-1.1) Sodium 137 (136-145) mmol/L Potassium 4.6 (3.5-5.1) mmol/L Chloride 102 (98-107) mmol/L Carbon Dioxide 28 (21-32) mmol/L Anion Gap 7 (3-11) BUN 37 H (6-23) mg/dl Creatinine 2.18 H (0.6-1.4) mg/dl Est Cr Clr Drug Dosing 30.4 ml/min Est GFR ( Amer) 31.1 ml/min Est GFR (Non-Af Amer) 26.8 ml/min BUN/Creatinine Ratio 17.0 (10-20) Glucose 125 H (70-99(Fasting)) mg/dl Calcium 9.1 (8.5-10.1) mg/dl Magnesium 1.9 (1.7-2.4) mg/dl Total Bilirubin 0.8 (0.2-1.0) mg/dl AST 14 (13-39) U/L ALT 9 (7-52) U/L Alkaline Phosphatase 116 H (34-104) U/L Troponin I High Sens 14.8 (0-20) pg/ml B-Natriuretic Peptide 1048 H (0-100) pg/ml Total Protein 6.3 (6.0-8.3) gm/dl Albumin 3.7 (3.4-5.0) gm/dl Globulin 2.6 (2.5-4.0) gm/dl Albumin/Globulin Ratio 1.4 (0.9-2) Procalcitonin (0-0.5) ng/ml TSH (0.300-4.500) uIu/ml Urine Color Urine Appearance (Clear) Urine pH (4.5-7.5) Ur Specific [place] (1.000-1.030) Urine Protein (Negative) Urine Glucose (UA) (Negative) Urine Ketones (Negative) Urine Blood (Negative) Urine Nitrite (Negative) Urine Bilirubin (Negative) Urine Urobilinogen (Negative) Ur Leukocyte Esterase (Negative) Urine WBC (Auto) (0-5) /hpf Urine RBC (Auto) (0-4) /hpf U Hyaline Cast (Auto) (0-5) /lpf U Epithel Cells (Auto) (0-5) /lpf Urine Bacteria (Auto) (Negative) SARS-CoV-2, RNA, NAAT (NEGATIVE) 01/06/22 01/06/22 01/06/22 Range/Units 12:15 12:15 12:15 WBC (4.8-10.8) K/ul RBC (4.63-6.08) M/uL Hgb (14.0-18.0) g/dl Hct (40.1-51.0) % MCV (80.0-100.0) fL MCH (25.0-34.0) pg MCHC (32.0-36.0) g/dL RDW Std Deviation (36.4-46.3) fL RDW Coeff of Dayanara (11.5-14.5) % Plt Count (130-400) K/uL MPV (9.4-12.4) fL Immature Gran % (Auto) % Neut % (Auto) % Lymph % (Auto) % [place] % (Auto) % Eos % (Auto) % Baso % (Auto) % Neut # (Auto) (1.4-6.5) K/uL Lymph # (Auto) (1.2-3.4) K/uL [place] # (Auto) (0.24-0.82) K/uL Eos # (Auto) (0-0.50) K/uL Baso # (Auto) (0-0.2) K/uL Immature Gran # (Auto) (0.00-0.02) K/uL PT (9.0-12.0) Seconds INR (0.9-1.1) Sodium (136-145) mmol/L Potassium (3.5-5.1) mmol/L Chloride (98-107) mmol/L Carbon Dioxide (21-32) mmol/L Anion Gap (3-11) BUN (6-23) mg/dl Creatinine (0.6-1.4) mg/dl Est Cr Clr Drug Dosing ml/min Est GFR ( Amer) ml/min Est GFR (Non-Af Amer) ml/min BUN/Creatinine Ratio (10-20) Glucose (70-99(Fasting)) mg/dl Calcium (8.5-10.1) mg/dl Magnesium (1.7-2.4) mg/dl Total Bilirubin (0.2-1.0) mg/dl AST (13-39) U/L ALT (7-52) U/L Alkaline Phosphatase (34-104) U/L Troponin I High Sens (0-20) pg/ml B-Natriuretic Peptide (0-100) pg/ml Total Protein (6.0-8.3) gm/dl Albumin (3.4-5.0) gm/dl Globulin (2.5-4.0) gm/dl Albumin/Globulin Ratio (0.9-2) Procalcitonin < 0.05 (0-0.5) ng/ml TSH 4.418 (0.300-4.500) uIu/ml Urine Color Urine Appearance (Clear) Urine pH (4.5-7.5) Ur Specific [place] (1.000-1.030) Urine Protein (Negative) Urine Glucose (UA) (Negative) Urine Ketones (Negative) Urine Blood (Negative) Urine Nitrite (Negative) Urine Bilirubin (Negative) Urine Urobilinogen (Negative) Ur Leukocyte Esterase (Negative) Urine WBC (Auto) (0-5) /hpf Urine RBC (Auto) (0-4) /hpf U Hyaline Cast (Auto) (0-5) /lpf U Epithel Cells (Auto) (0-5) /lpf Urine Bacteria (Auto) (Negative) SARS-CoV-2, RNA, NAAT NEGATIVE (NEGATIVE) 01/06/22 01/06/22 Range/Units 13:48 15:58 WBC (4.8-10.8) K/ul RBC (4.63-6.08) M/uL Hgb (14.0-18.0) g/dl Hct (40.1-51.0) % MCV (80.0-100.0) fL MCH (25.0-34.0) pg MCHC (32.0-36.0) g/dL RDW Std Deviation (36.4-46.3) fL RDW Coeff of Dayanara (11.5-14.5) % Plt Count (130-400) K/uL MPV (9.4-12.4) fL Immature Gran % (Auto) % Neut % (Auto) % Lymph % (Auto) % [place] % (Auto) % Eos % (Auto) % Baso % (Auto) % Neut # (Auto) (1.4-6.5) K/uL Lymph # (Auto) (1.2-3.4) K/uL [place] # (Auto) (0.24-0.82) K/uL Eos # (Auto) (0-0.50) K/uL Baso # (Auto) (0-0.2) K/uL Immature Gran # (Auto) (0.00-0.02) K/uL PT 24.0 H (9.0-12.0) Seconds INR 2.4 H (0.9-1.1) Sodium (136-145) mmol/L Potassium (3.5-5.1) mmol/L Chloride (98-107) mmol/L Carbon Dioxide (21-32) mmol/L Anion Gap (3-11) BUN (6-23) mg/dl Creatinine (0.6-1.4) mg/dl Est Cr Clr Drug Dosing ml/min Est GFR ( Amer) ml/min Est GFR (Non-Af Amer) ml/min BUN/Creatinine Ratio (10-20) Glucose (70-99(Fasting)) mg/dl Calcium (8.5-10.1) mg/dl Magnesium (1.7-2.4) mg/dl Total Bilirubin (0.2-1.0) mg/dl AST (13-39) U/L ALT (7-52) U/L Alkaline Phosphatase (34-104) U/L Troponin I High Sens (0-20) pg/ml B-Natriuretic Peptide (0-100) pg/ml Total Protein (6.0-8.3) gm/dl Albumin (3.4-5.0) gm/dl Globulin (2.5-4.0) gm/dl Albumin/Globulin Ratio (0.9-2) Procalcitonin (0-0.5) ng/ml TSH (0.300-4.500) uIu/ml Urine Color Yellow Urine Appearance Clear (Clear) Urine pH 5.0 (4.5-7.5) Ur Specific [place] 1.012 (1.000-1.030) Urine Protein Negative (Negative) Urine Glucose (UA) Negative (Negative) Urine Ketones Negative (Negative) Urine Blood Negative (Negative) Urine Nitrite Negative (Negative) Urine Bilirubin Negative (Negative) Urine Urobilinogen Negative (Negative) Ur Leukocyte Esterase 1+ H (Negative) Urine WBC (Auto) 5-10 H (0-5) /hpf Urine RBC (Auto) 0-4 (0-4) /hpf U Hyaline Cast (Auto) 1-5 (0-5) /lpf U Epithel Cells (Auto) >30 H (0-5) /lpf Urine Bacteria (Auto) Negative (Negative) SARS-CoV-2, RNA, NAAT (NEGATIVE) Imaging Data Attestation: I personally reviewed and interpreted this imaging study as follows: My Impression: Chest x-raythere are some haziness/opacities in the left lung which may be infiltrate versus CHF. Radiologist's Impression: Chest X-Ray 01/06/22 12:04 XR chest 1V portable CLINICAL HISTORY: weakness TECHNIQUE: Single frontal radiograph of the chest was obtained. Comparison: Comparison is made to chest radiograph 05/16/2021 FINDINGS: Pacemaker defibrillator is seen. Cardiomegaly is noted. Airspace opacities in the left lung are increased from prior exam. Moderate left pleural effusion. Mild pulmonary vascular congestion seen. IMPRESSION: 1. Interval worsening of left airspace opacities which may represent atelec tasis, pneumonia, and/or aspiration. 2. Moderate left pleural effusion, increased from prior exam. 3. Cardiomegaly and stable pulmonary vascular congestion. ACT 112: Negative or not required by law. Electronically signed by: Cole Nichols M.D. 01/06/2022 12:52 PM ECG Data Attestation: I personally reviewed and interpreted this ECG as follows: Indication: + chest pain Rate (beats per minute): 60 Rhythm: + other (Atrial paced rhythm) ECG Intervals/blocks: + Normal QT ECG [place]: + Right axis deviation ECG ST segments: + Normal ST segments ECG Findings: no PACs or no PVCs Comparison ECG Date: from (02/15/21) Change: the following changes noted (Paced rhythm has replaced normal sinus) MDM Narrative This patient comes in as described above. He was placed in room C5. He is here for treatment and evaluation of increasing edema he may have some mild confusion as well. He does have baseline renal issues as well. IV X established blood work was obtained chest x-ray EKG multiple blood testing was obtained urinalysis was ordered COVID testing was ordered he was reassessed. I talked to his at length he was at the bedside. His BNP is elevated his chest x-ray shows likely CHF he could also be infectious although his symptoms do not sound likely infectious. He has no fever or white count here and his lactic acid is not elevated. I did add a procalcitonin. He also has peripheral edema which would go along with CHF as well as renal insufficiency is slightly worse as well. I do think he needs to be admitted for further treatment and evaluation and have consulted Dr. Oglesby for [facility] to see him in ER for these measures Continuous cardiac monitoring: Order was placed in EMR for continuous monitoring. Upon my interpretation patient noted to be in a paced rhythm with a rate of 60. Impression & Plan Weakness, CHF (congestive heart failure), Bilateral edema of lower extremity, Lab test negative for COVID-19 virus Discharge Plan Visit Data Chief Complaint: Leg Injury/Pain Stated Complaint: LEG PAIN, & EDEMA ED Provider: Javy Fox Discharge Problem: Weakness, CHF (congestive heart failure), Bilateral edema of lower extremity, Lab test negative for COVID-19 virus Patient Disposition: Admitted As Inpatient Discharge Instructions Interventions: ED Discharge Assessment Last Done: 01/06/22 16:31 Forms Stand Alone Forms: My [facility] Prescriptions Prescriptions: No Action warfarin 2 mg tablet See Rx Instructions PO UD Rx Instructions: 1mg /, 2mg x5 days per [facility] PO use as directed; clopidogrel [Plavix] 75 mg tablet 75 mg PO DAILY amiodarone 200 mg tablet 100 mg PO BID (DME) Contour Next Test Strips strip See Dose Instructions .ROUTE .MEDSUPPLY Qty: 100 3RF Dose Instruction: As directed Rx Instructions: Test once daily pantoprazole 40 mg tablet,delayed release (DR/EC) See Rx Instructions .ROUTE .COMPLEX Qty: 90 3RF Dose Instruction: TAKE 1 TABLET BY MOUTH DAILY Rx Instructions: TAKE 1 TABLET BY MOUTH DAILY allopurinol 100 mg tablet 300 mg PO DAILY (DME) Power Wheelchair Device See Rx Instructions .Route Qty: 1 0RF Rx Instructions: THERAPIST EVALUATION FOR POWER WHEELCHAIR triamcinolone acetonide 0.1 % cream 1 applic topical DAILY acetaminophen 500 mg tablet 1,000 mg PO TID PRN (Reason: Pain) Qty: 90 0RF tamsulosin 0.4 mg capsule 0.4 mg PO DAILY Qty: 90 3RF metformin 500 mg tablet extended release 24 hr See Rx Instructions .ROUTE .COMPLEX Qty: 90 3RF Dose Instruction: TAKE 1 TABLET BY MOUTH EVERY DAY Rx Instructions: TAKE 1 TABLET BY MOUTH EVERY DAY furosemide 20 mg tablet 20 mg PO QAM Qty: 60 2RF isosorbide mononitrate 60 mg tablet extended release 24 hr 60 mg PO QAM metoprolol succinate 50 mg Tablet Extended Release 24 Hr 100 mg PO BID Qty: 30 0RF [facility] [place] [facility] - : CHF (congestive heart failure) Qualifiers: Heart failure type: unspecified Heart failure chronicity: acute on chronic Qualified Code(s): I50.9 - Heart failure, unspecified
--- NOTE | 2022-01-06 12:53 | XRay Report ---
XR chest 1V portable CLINICAL HISTORY: weakness TECHNIQUE: Single frontal radiograph of the chest was obtained. Comparison: Comparison is made to chest radiograph 05/16/2021 FINDINGS: Pacemaker defibrillator is seen. Cardiomegaly is noted. Airspace opacities in the left lung are incre ased from prior exam. Moderate left pleural effusion. Mild pulmonary vascular congestion seen. IMPRESSION: 1. Interval worsening of left airspace opacities which may represent atelectasis, pneumonia, and/or aspiration. 2. Moderate left pleural effusion, increased from prior exam. 3. Cardiomegaly and stable pulmonary vascular congestion. ACT 112: Negative or not required by law. Electronically signed by: Cole Nichols M.D. 01/06/2022 12:52 PM
--- NOTE | 2022-01-06 13:04 | Electrocardiogram Report ---
Test Reason : Blood Pressure : / mmHG Vent. Rate : 060 BPM Atrial Rate : 241 BPM P-R Int : 376 ms QRS Dur : 120 ms QT Int : 446 ms P-R-T Axes : 000 106 147 degrees QTc Int : 446 ms Atrial-paced rhythm with prolonged AV conduction Rightward axis Inferior infarct (cited on or before 01-OCT-2011) Poor R wave progression, consider anterior [place] vs. lead placement vs. LVH Abnormal ECG When compared with ECG of 15-FEB-2021 13:05, Significant changes have occurred Confirmed by Ross Alvarez ([id number]) on 01/06/2022 1:03:53 PM Referred By: Confirmed By:Ross Alvarez
[2022-01-06 13:19] LABS: Troponin I High Sensitivity 14.8 pg/ml (0-20)
[2022-01-06 13:25] LABS: Albumin Globulin Ratio 1.4 (0.9-2); Albumin Level 3.7 gm/dl (3.4-5.0); Bilirubin,Total 0.8 mg/dl (0.2-1.0); Calcium 9.1 mg/dl (8.5-10.1); Creatinine Clr Calc Pharmacy 30.4 ml/min; Est GFR (African American) 31.1 ml/min; Est GFR (Non-African American) 26.8 ml/min; Globulin 2.6 gm/dl (2.5-4.0); Magnesium 1.9 mg/dl (1.7-2.4); Potassium 4.6 mmol/L (3.5-5.1); Total Protein 6.3 gm/dl (6.0-8.3)
[2022-01-06 13:34] LABS: Basophils # (auto) 0.05 K/uL (0-0.2); Basophils % (auto) 0.8 %; Eosinophils # (auto) 0.12 K/uL (0-0.50); Eosinophils % (auto) 1.9 %; Hematocrit (blood only) 30.9 % (40.1-51.0); Hemoglobin 9.9 g/dl (14.0-18.0); Immature Granulocytes # (auto) 0.03 K/uL (0.00-0.02); Immature Granulocytes % (auto) 0.5 %; Lymphocytes # (auto) 0.66 K/uL (1.2-3.4); Lymphocytes % (auto) 10.7 %; Mean Corpuscular Hemoglobin 34.7 pg (25.0-34.0); Mean Corpuscular Volume 108.4 fL (80.0-100.0); Mean Platelet Volume 10.2 fL (9.4-12.4); Monocytes # (auto) 0.72 K/uL (0.24-0.82); Monocytes % (auto) 11.7 %; Neutrophils # (auto) 4.58 K/uL (1.4-6.5); Neutrophils % (auto) 74.4 %; Platelet Count 103 K/uL (130-400); RDW Coefficient of Variation 16.3 % (11.5-14.5); RDW Standard Deviation 64.9 fL (36.4-46.3); Red Blood Count 2.85 M/uL (4.63-6.08); White Blood Count 6.16 K/ul (4.8-10.8)
[2022-01-06 14:08] LABS: Appearance Urine Clear (Clear); Bacteria Urine Automated Negative (Negative); Bilirubin Urine Negative (Negative); Blood Urine Negative (Negative); Color Urine Yellow; Epithelial Cell Urine Auto >30 /lpf (0-5); Glucose Urine UA Negative (Negative); Ketones Urine Negative (Negative); Leukocyte Esterase Urine 1+ (Negative); Nitrite Urine Negative (Negative); Protein Urine Negative (Negative); RBC Urine Automated 0-4 /hpf (0-4); Specific Gravity Urine 1.012 (1.000-1.030); Urobilinogen Urine Negative (Negative)
--- NOTE | 2022-01-06 15:06 | History & Physical Report ---
Date of Service January 06, 2022 Assessment & Plan (1) Acute exacerbation of CHF (congestive heart failure): Plan: Ok is an 85-year-old male with a past medical history of acute on chronic systolic heart failure, syncope due to ventricular tachycardia in 2018 with subsequent evaluation remarkable for multivessel disease including occlusion of both [place] coronaries and stents and CABG grafts with limited flow to the circumflex, CKD, DM, hypertension, hyperlipidemia, A. fib, and COPD. Acute on Chronic CHF with reduced ejection fraction. History of [place] to left main in 2018, dual-chamber pacemaker, CABG Aggressive swelling, and worsened orthopnea over approximately 1 week with weight gain of unclear amount Patient has moved to [place], does not cook for him there and thinks he has been eating more salt. Patient is a poor historian of meals, but notes he has had more fried chicken and salty foods which she has not tracked No chest pain, chest pressure, palpitations. He is on 2 L of oxygen chronically, does not think his shortness of breath has changed in the last week but does notice a little bit more of orthopnea at night requiring him to sit up History of dual-chamber pacemaker & AICD He is continued on amiodarone for sustained V. tach history. Has had rare/benefits discussion regarding pulmonary toxicity of this versus recurrent arrhythmia and has opted to continue this for now CTchest pending to better qualify fluid versus potential underlying pulmonary fibrosis. Patient notes that if he were to progress to a point where he had to make the decision between worsening respiratory status, pulmonary fibrosis, or cardiorenal syndrome that could progress to needing dialysis he would pursue palliative options and comfort at that point, however at this time feels it is reasonable to get additional studies and see how he does with fluid medication/treatment of edema. Continue isosorbide Continue Plavix Continue metoprolol 100 mg XL Updated echo pending CKD 3B Last seen by nephrology 11/2021 Baseline creatinine 1.5-1.8 With history of cardiorenal syndrome from Avoid NSAIDs, low-salt diet Nephrology consulted given history BMP daily Type II DM Last A1c 5.6% Metformin held for renal function and admit Type II, low-salt diet Converted to SSI, glucose checks AC/at bedtime, goal BSG [id number]. 20/CF 12 Mild dementia Delirium precautions Peripheral arterial disease History of right lower extremity stenting, right ICA stent 2009. On warfarin and Plavix as noted Left lower extremity popliteal fossa and calf pain with swelling Patient is anticoagulated related on warfarin, last follow-up in clinic 12/25 appears to have been therapeutic. He is not sure what his recent INR has been. Will R/O with duplex GERD Continue PPI, DVT prophylaxis: Anticoagulated Diet: Type II DM, heart healthy, low-salt Disposition: Medical telemetry for acute on chronic CHF CODE STATUS: DNR/DNI (2) PSVT (paroxysmal supraventricular tachycardia): (3) Stage 3b chronic kidney disease: (4) Anemia due to chronic kidney disease: (5) Chronic anticoagulation: (6) Ischemic cardiomyopathy: (7) DM w/o complication type II: (8) Hypertension: (9) Hyperlipidemia: (10) COPD (chronic obstructive pulmonary disease): (11) Atrial fibrillation: History of Present Illness Primary Care Provider: [facility] Ok is an 85-year-old male with a past medical history of acute on chronic systolic heart failure, syncope due to ventricular tachycardia in 2018 with subsequent evaluation remarkable for multivessel disease including occlusion of both [place] coronaries and stents and CABG grafts with limited flow to the circumflex, CKD, DM, hypertension, hyperlipidemia, A. fib, and COPD. BP 109/58, 2 L on nasal cannula Past medical history of CKD, chronic anticoagulation, SVT, CAD with systolic CHF, type 2 diabetes, LDL, lumbar stenosis, A. fib, and COPD. Baseline creatinine 1.52.0. Admitting creatinine 2.1. BNP is elevated at 1040. TSH normal. COVID-negative. Chest x-ray with left pleural effusion, pulmonary vascular congestion, worsening left airspace opacities. EKG: Atrial paced rhythm. Poor R wave progression, no territorial ST segment changes. Last saw cardiology 07/2021. Per Pt: Moved into [facility] September 20. Ok is seen at the bedside with his wif jb. He repots he has been having leg swelling for several days, approximately one week. Inceased pain with swelling in his L leg behind the knee and in the calf for about the same amount of time. Is on warfarin. Having trouble walking and transfering due to fatigue and weakness. Denies chest pain, chest pressure, and palpitations. Denies increase in shortness of breath in the last few days, notes he has been on oxygen since this past September. Is not able to sleep laying flat normally, mayb ea little more in the last week. No abdominal pain. no lightheadedness/syncope/presyncope. Per nursing has some weakness and lightheadednes trying to get dressed, per pt more from L leg weakness and discomfort bu denies lightheadedness. Thinks he is peeing less than nromal, no dysuria. 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 Thinks he has been eaing more salt than normal but is no sure how much. Some deli meat/fried chicken in the las week. Medical History: Reviewed Medications: Reviewed Surgical History: Reviewed Allergies: Reviewed Social History: Former smoke fo ~10 years, 1 glass of wine in the evenings. Code Status: DNR/DNI Allergies Allergy/AdvReac Type Severity Reaction Status Date / Time Iodinated Contrast Media Allergy Severe ANAPHYLAXIS Verified 12/27/21 09:47 shellfish derived Allergy Severe ANAPHYLAXIS Verified 12/27/21 09:47 adhesive tape Allergy Intermediate Tore skin Verified 12/27/21 09:47 clindamycin Allergy Intermediate Rash Verified 12/27/21 09:47 Penicillins Allergy Intermediate BOILS Verified 12/27/21 09:47 iodine Allergy Difficulty Verified 12/27/21 09:47 Breathing donepezil AdvReac Intermediate Nightmares Verified 12/27/21 09:47 latex AdvReac Intermediate RASH Verified 12/27/21 09:47 Jktupbo-JIJ-LfC Reductase AdvReac Intermediate severe Verified 12/27/21 09:47 Inhibitor myalgias [Lealoqv-Wmp-Ayl Reductase Inhibitor] atorvastatin AdvReac Mild GI SYMPTOMS Verified 12/27/21 09:47 levofloxacin [From Levaquin] AdvReac Mild Insomnia Verified 12/27/21 09:47 rosuvastatin AdvReac Mild GI SYMPTOMS Verified 12/27/21 09:47 Fish Containing Products AdvReac Unknown Swelling Verified 12/27/21 09:47 of Lip/Tongue/Throat mold AdvReac Congested Verified 12/27/21 09:47 pollen extracts AdvReac Watery Eye Verified 12/27/21 09:47 Home Medications Medication Instructions Recorded Confirmed Type clopidogrel 75 mg tablet (Plavix) 75 mg PO DAILY 08/19/18 12/27/21 History blood sugar diagnostic (Contour #100 ea 11/20/18 12/20/21 Rx Next Test Strips) isosorbide mononitrate 60 mg 60 mg PO QAM 10/26/20 12/27/21 History tablet,extended release 24 hr pantoprazole 40 mg tablet,delayed See Rx Instructions .Route 02/07/21 12/27/21 Rx release .COMPLEX #90 tabs metoprolol succinate 50 mg 100 mg PO BID #30 tabs 02/20/21 12/27/21 Rx tablet,extended release 24 hr amiodarone 200 mg tablet 100 mg PO BID 04/10/21 12/27/21 History allopurinol 100 mg tablet 300 mg PO DAILY 08/10/21 12/27/21 History Wheelchair (Powered) (Power #1 ea 08/21/21 12/20/21 Rx Wheelchair) acetaminophen 500 mg tablet 1,000 mg PO TID PRN Pain #90 tabs 08/29/21 12/27/21 Rx triamcinolone acetonide 0.1 % 1 applic topical DAILY 08/29/21 12/27/21 History topical cream tamsulosin 0.4 mg capsule 0.4 mg PO DAILY #90 caps 09/11/21 12/27/21 Rx metformin 500 mg tablet,extended See Rx Instructions .Route 10/05/21 12/27/21 Rx release 24 hr .COMPLEX #90 tabs warfarin 2 mg tablet See Rx Instructions PO UD 10/23/21 12/27/21 History furosemide 20 mg tablet 20 mg PO QAM #60 tabs 12/06/21 12/27/21 Rx Past Med/Surg History Medical History Acute kidney injury superimposed on CKD Adult situational stress disorder Anemia due to chronic kidney disease Anemia of chronic disease Aneurysm of lower limb artery Angina, class II ASCVD (arteriosclerotic cardiovascular disease) Atrial fibrillation Biventricular ICD (implantable cardioverter-defibrillator) in place BMI 40.0-44.9, adult BPH with obstruction/lower urinary tract symptoms CAD (coronary artery disease) CHF exacerbation Chronic anticoagulation 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, NYHA class 2 Chronic constipation Chronic kidney disease, stage 3a Chronic systolic heart failure Constipation Patient on home bowel regimen but requesting possible enema to aid in bowel movement COPD (chronic obstructive pulmonary disease) DM w/o complication type II Drug eruption Dyslipidemia, goal LDL below 70 Elevated uric acid in blood Former smoker Gastroesophageal reflux disease Gout Hyperlipidemia Hypertension Ischemic cardiomyopathy Laceration of forehead, left, complicated Lumbar canal stenosis Nephrolithiasis Nocturia NSTEMI (non-ST elevated myocardial infarction) Osteoarthritis of knee Osteoarthritis of knees, bilateral Pain syndrome, chronic Paroxysmal atrial fibrillation Peripheral arterial disease Peripheral neuropathy Popliteal aneurysm Pressure ulcer Renal lesion Solitary pulmonary nodule Stage 3b chronic kidney disease Status post fall STEMI (ST elevation myocardial infarction) Stenosis of right internal carotid artery Syncope Tinea cruris Traumatic orbital hematoma Type 2 diabetes mellitus Type [address] elevation Urethral stricture Urinary incontinence Urinary retention Ventricular tachycardia Ventricular tachycardia Vitamin D deficiency Surgical History AICD (automatic cardioverter/defibrillator) present H/O colonoscopy H/O cystoscopy with internal urethrotomy History of coronary artery stent placement S/P CABG x 1 S/P CABG x 2 S/P CABG x 4 Family History Unknown Acute myocardial infarction Mother Uterine cancer Sister Hypertension Peripheral vascular disease Hyperlipidemia Ovarian cancer Son Alcoholism Denies family history of Prostate cancer Breast cancer Lung cancer Colorectal cancer Social History Smoking Status: Unknown if ever smoked Tobacco Type: Cigarettes Second Hand Exposure: No; Hx Alcohol Use: Yes Alcohol type: wine Alcohol Intake Frequency: 4 or More x per/Week Hx Substance Use: No Preferred Language: Wolof Communication Ability: Effective Visual Impairment: Partially Limited Cake Wrapper Required: No Beliefs That Will Affect Care: None marital status: Current Living Situation: Spouse current occupational status: retired Feels Safe at Home: Yes Childhood Exposure to Second-Hand Smoke: No Dental Care, Regularly: Yes Physical Activity Frequency: Does not Exercise Seatbelt Use: always Sunscreen Use: No Assistive Devices: Walker Review of Systems Review of Systems: All systems reviewed & are unremarkable except as noted in Subjective Physical Exam Physical Exam: General: A&Ox2. Seen at the bedside with his , not oriented to year. Otherwise pleasant, conversant. History collected with assistance of , patient is a inconsistent historian HEENT: Atraumatic, normocephalic. Vision and hearing grossly intact. No JVD appreciated Pulm: Left lower quadrant rales, right lower quadrant crackles, no wheezes symmetrical chest rise. No increase in work of breathing. No respiratory distress. Cardiac: RRR, -mrg. Radial pulses intact and symmetrical. Midline sternal scar present Abdominal: Nontender, nondistended, soft. BS present. Extremities: Warm, dry. Bilateral pitting edema through the lower legs. Sensation of soft touch in hands and feet intact without asymmetry. Ankle dorsiflexion/plantar flexion intact and symmetrical, staff attorney strength intact and symmetrical. Patient is tender to palpation in the posterior knee/posterior left calf Results & Data Results & Data ([facility]) Vital Signs (Past 12 Hours) Vital Signs Temp Pulse Pulse Resp BP BP Pulse Ox 01/06/22 12:00 60 19 109/58 L 98 01/06/22 12:13 01/06/22 11:30 60 110/45 L 98 01/06/22 10:50 36.6 C 62 14 129/77 97 01/06/22 10:48 O2 Del Method O2 Flow Rate 01/06/22 12:00 Room Air 01/06/22 12:13 Nasal Cannula 2 01/06/22 11:30 Nasal Cannula 2 01/06/22 10:50 Nasal Cannula 2 01/06/22 10:48 Nasal Cannula 2 PG Care Time/CCT Total # of Minutes Spent Total Time Spent with Patient: Total time spent is greater than 50% in coordination of care (as documented) at patient's floor/unit and/or counseling patient: Coding Level of Care Code INT OBSERVATION CARE 70M LVL 3 Diagnoses Acute exacerbation of CHF (congestive heart failure) I50.9 Heart failure type: unspecified PSVT (paroxysmal supraventricular tachycardia) I47.1 Stage 3b chronic kidney disease N18.32 Anemia due to chronic kidney disease N18.9; D63.1 Chronic anticoagulation Z79.01 Ischemic cardiomyopathy I25.5 DM w/o complication type II E11.9 Diabetes mellitus fdc insulin use: without fdc use Hypertension I10 Hyperlipidemia E78.5 COPD (chronic obstructive pulmonary disease) J44.9 COPD type: unspecified COPD Atrial fibrillation I48.0 Atrial fibrillation type: paroxysmal (1) Acute exacerbation of CHF (congestive heart failure) Heart failure type: unspecified Qualified Code(s): I50.9 - Heart failure, unspecified (2) DM w/o complication type II 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
[2022-01-06] MEDS ORDERED: FUROSEMIDE INJ 20 MG/2 ML VIAL IV ONE ×2 (15:27→18:33)
[2022-01-06 16:30] LABS: INR 2.4 (0.9-1.1)
--- NOTE | 2022-01-06 17:13 | CT Scan Report ---
CT chest diagnostic wo con CLINICAL HISTORY: CHF/pulm edema vs pna vs fibrosis TECHNIQUE: Multidetector row helical CT of the chest was performed. Coronal and sagittal reformations were obtained. Automated dose lowering techniques and/or adjustment according to patient size were u tilized for this exam. CT DOSE: 721.50 mGy.cm Comparison: Comparison is made to CT chest 04/28/2018 and chest radiograph 01/06/2022 FINDINGS: Lungs and pleura: Interstitial thickening is seen. Scarring is noted in the apices. There is atelecta sis of the left greater than right lung base. Bronchial wall thickening is noted. Heart and pericardium: Cardiomegaly is seen with biatrial enlargement. Mitral annular calcification i s seen. Vessels: Patient appears status post coronary artery bypass. The pulmonary trunk measures 36 mm in di ameter. Mediastinum and forest: Numerous mediastinal lymph nodes measure up to 12 mm in short axis. Chest wall and lower neck: Small thyroid nodules are noted which do not require follow-up by ACR pablito levi. Abdomen: Unremarkable. Bones: Degenerative changes in the thoracic spine. IMPRESSION: 1. Bronchial wall thickening is favored to represent infectious/inflammatory airways disease. Enlarg ed mediastinal lymph nodes are likely reactive, follow-up to resolution is recommended. 2. Interstitial thickening compatible with pulmonary fibrosis. Pulmonary hypertension is seen. Previ ously noted round glass opacities have largely resolved. 3. Cardiomegaly. ACT 112: Negative or not required by law. Electronically signed by: Cole Nichols M.D. 01/06/2022 5:09 PM
--- NOTE | 2022-01-06 17:23 | Ultrasound Report ---
US venous doppler LE LT CLINICAL HISTORY: popliteral/calf pain and swelling TECHNIQUE: Left lower extremity real-time compression venous ultrasound with Color Doppler imaging. U tilizing real-time ultrasonic imaging multiple real time high-resolution ultrasonic images with compr ession and noncompression maneuvers of the deep venous system in addition to color doppler imaging we re performed from the common femoral vein through the proximal calf veins. COMPARISON: None available at the time of this dictation. FINDINGS: Currently there is normal compressibility of the deep venous system from the common femoral vein thro ugh the proximal calf veins. Some stranding is seen near the distal popliteal vein which likely is a chronic finding. Impression: No evidence of deep venous thrombus. ACT 112: Negative or not required by law. Electronically signed by: Cole Nichols M.D. 01/06/2022 5:22 PM
[2022-01-06] MEDS ORDERED: GLUCOSE 40% GEL 15 GM TUBE PO PRN (17:57)
[2022-01-06] MEDS ORDERED: ACETAMINOPHEN 325 MG TAB PO PRN (17:57)
[2022-01-06] MEDS ORDERED: DEXTROSE 50% 50 ML SYRINGE IV PRN (17:57)
[2022-01-06] MEDS ORDERED: GLUCAGON FOR INJ 1 MG VIAL SQ PRN (17:57)
[2022-01-06] MEDS ORDERED: GLUCOSE 10 TAB/TUBE PO PRN (17:57)
[2022-01-06] MEDS ORDERED: CARBOHYDRATES FOR HYPOGLYCEMIA PO PRN (17:57)
[2022-01-06] MEDS ORDERED: POLYETHYLENE (MIRALAX) 17 GM PACK PO PRN (17:57)
[2022-01-06] MEDS ORDERED: WARFARIN SOD 2 MG TAB PO SCH (18:30)
[2022-01-06] MEDS: INSULIN ASPART PER UNIT SC SCH ×2 (18:35→21:36)
[2022-01-06] MEDS: AMIODARONE 200 MG TAB PO SCH (21:36)
[2022-01-06] MEDS: METOPROLOL SUCC 50MG EXT REL TAB PO SCH (21:37)
[2022-01-06] MEDS: FUROSEMIDE INJ 20 MG/2 ML VIAL IV SCH (21:38)
[2022-01-07 06:39] LABS: Hematocrit (blood only) 27.6 % (40.1-51.0); Hemoglobin 9.1 g/dl (14.0-18.0); Mean Corpuscular Hemoglobin 34.9 pg (25.0-34.0); Mean Corpuscular Volume 105.7 fL (80.0-100.0); Mean Platelet Volume 10.2 fL (9.4-12.4); Platelet Count 101 K/uL (130-400); RDW Coefficient of Variation 16.4 % (11.5-14.5); RDW Standard Deviation 63.5 fL (36.4-46.3); Red Blood Count 2.61 M/uL (4.63-6.08); White Blood Count 4.94 K/ul (4.8-10.8)
[2022-01-07 06:43] LABS: INR 2.6 (0.9-1.1); Prothrombin Time 26.5 Seconds (9.0-12.0)
[2022-01-07 07:02] LABS: BUN Creatinine Ratio 19.2 (10-20); Calcium 8.7 mg/dl (8.5-10.1); Creatinine Clr Calc Pharmacy 31.9 ml/min; Est GFR (Non-African American) 31.1 ml/min; Magnesium 1.8 mg/dl (1.7-2.4); Potassium 3.7 mmol/L (3.5-5.1)
[2022-01-07 07:08] LABS: Basophils # (auto) 0.04 K/uL (0-0.2); Basophils % (auto) 0.8 %; Eosinophils # (auto) 0.16 K/uL (0-0.50); Eosinophils % (auto) 3.2 %; Immature Granulocytes # (auto) 0.02 K/uL (0.00-0.02); Immature Granulocytes % (auto) 0.4 %; Lymphocytes % (auto) 12.1 %; Monocytes # (auto) 0.59 K/uL (0.24-0.82); Monocytes % (auto) 11.9 %; Neutrophils # (auto) 3.53 K/uL (1.4-6.5); Neutrophils % (auto) 71.6 %
[2022-01-07] MEDS: METOPROLOL SUCC 50MG EXT REL TAB PO SCH ×2 (08:27→20:46)
[2022-01-07] MEDS: AMIODARONE 200 MG TAB PO SCH ×2 (08:29→20:47)
[2022-01-07] MEDS: PANTOprazole 40 MG TAB PO SCH (08:30)
[2022-01-07] MEDS: TAMSULOSIN HCL 0.4 MG CAP PO SCH (08:30)
[2022-01-07] MEDS: CLOPIDOGREL BISULFATE 75 MG TAB PO SCH (08:30)
[2022-01-07] MEDS: FUROSEMIDE INJ 20 MG/2 ML VIAL IV SCH ×2 (08:30→20:48)
[2022-01-07] MEDS: ISOSORBIDE MONO EXTENDED REL 60 MG TABCR PO SCH (08:30)
[2022-01-07] MEDS: INSULIN ASPART PER UNIT SC SCH ×4 (08:31→21:14)
--- NOTE | 2022-01-07 10:19 | Nephrology Consultation ---
Date of Consultation January 07, 2022 Assessment & Plan (1) Weakness: (2) Bilateral edema of lower extremity: (3) Stage 3b chronic kidney disease: (4) Anemia due to chronic kidney disease: (5) Ischemic cardiomyopathy: Plan 86 y o male with Stage 3B CKD, b/l cr 1.8 to 2.0 secondary to cardio renal syndrome. No significant proteinuria. admitted with 1 week history of confusion, worsening lower extremity edema and generalized weakness. at home he was on Lasix 20 mg twice a day for chronic congestive heart failure with systolic and diastolic dysfunction, EF 30-35%. Started on Lasix 20 mg IV twice a day with significant improvement in bilateral lower extremity. Respiratory status seems stable. Renal function relatively stable with acceptable electrolyte. Main concern seems to be significant weakness in bilateral lower extremity. --continue on current dose of Lasix 20 mg IV twice a day, monitor renal function, electrolyte, intake and output. On discharge diuretics may incur need to be increased to 40 in a.m. and 20 in the afternoon as needed, being managed by heart failure clinic. --recommend physical therapy for bilateral lower extremity weakness and ambulatory dysfunction. --avoid all NSAIDs, follow low-salt diet and keep hydrated and avoid volume d epletion --will give Epogen [id number] units x 1 dose check iron study as recently completed a course of Venofer. Will follow. Thank you for allowing me to participate in your patient's care. It was a pleasure to see Carlos. History of Present Illness Reason for Consultation: Generalized weakness, stage IIIB CKD, volume overload. Attending Physician: Glenn Osuna MD History of Present Illness Mr. Ok Daugherty is a 86-year-old gentleman with PMH significant for stage 3B CKD, Cardiomyopathy, history of coronary artery disease currently lives in [facility], admitted to the hospital with generalized weakness, worsening lower extremity edema And confusion for a week. Nephrology consult was requested to manage advanced CKD and volume status. EMR records are reviewed in detail during patient's visit. Carlos was admitted to hospital yesterday after he was brought with 1 week history of worsening lower extremity edema, some confusion. his main complaint is difficulty to use his lower extremity and move around as he feels weak in his legs. he has history of chronic congestive heart failure with both systolic and diastolic dysfunction and has been on Lasix 20 mg twice a day, baseline weight around 215 lb. According to the report recently he has lower extremity edema was worsening and he was given extra dose of diuretics at correction without any improvement. On admission yesterday he was started on IV Lasix 20 mg twice a day. Renal function is staying reasonably stable. Lower extremity edema improved significantly but he continues to have some confusion and main concern is weakness in his bilateral lower extremity. Has stage IIIB CKD, b/l cr 1.8 to 2.0, secondary to cardiorenal syndrome and residual renal effect from recurrent MATTHEW in the setting pf volume overload and CHF exacerbation requiring high dose of diuretics. Urinalysis was negative for proteinuria hematuria. Renal imaging showed otherwise normal size kidney, except left lower pole exophytic lesion, considered to be a cyst. Never smoker. No h/o chronic NSAID use. PMH also significant for CAD s/p CABG, EF 30 to 35 % with diastolic dysfunction s/p biventricular ICD , dilated LV requiring chronic diuretic use. DM well controlled, last A1c 6.5. Hypertension well controlled on [id number] twice a day, hydralazine 10 twice a day and terazosin 1mg/d. h/o carotid endarterectomy. Has spinal stenosis. BPH with obstructive uropathy symptoms, stable.Mild hyponatremia, sodium stays around 133-134. on chronic anticoagulation. Has dementia at baseline. Has iron deficiency anemia, recently received IV Venofer as an outpatient. Lower extremity edema seems to have improved significantly, denies shortness of breath. His main concern is extreme weakness in his bilateral lower extremity and his inability to move around. Allergies Allergy/AdvReac Type Severity Reaction Status Date / Time Iodinated Contrast Media Allergy Severe ANAPHYLAXIS Verified 12/27/21 09:47 shellfish derived Allergy Severe ANAPHYLAXIS Verified 12/27/21 09:47 adhesive tape Allergy Intermediate Tore skin Verified 12/27/21 09:47 clindamycin Allergy Intermediate Rash Verified 12/27/21 09:47 Penicillins Allergy Intermediate BOILS Verified 12/27/21 09:47 iodine Allergy Difficulty Verified 12/27/21 09:47 Breathing donepezil AdvReac Intermediate Nightmares Verified 12/27/21 09:47 latex AdvReac Intermediate RASH Verified 12/27/21 09:47 [id number]-[id number] Reductase AdvReac Intermediate severe Verified 12/27/21 09:47 Inhibitor myalgias [[id number]-Uun Reductase Inhibitor] atorvastatin AdvReac Mild GI SYMPTOMS Verified 12/27/21 09:47 levofloxacin [From Levaquin] AdvReac Mild Insomnia Verified 12/27/21 09:47 rosuvastatin AdvReac Mild GI SYMPTOMS Verified 12/27/21 09:47 Fish Containing Products AdvReac Unknown Swelling Verified 12/27/21 09:47 of Lip/Tongue/Throat mold AdvReac Congested Verified 12/27/21 09:47 pollen extracts AdvReac Watery Eye Verified 12/27/21 09:47 Home Medications Medication Instructions Recorded Confirmed Type clopidogrel 75 mg tablet (Plavix) 75 mg PO DAILY 08/19/18 12/27/21 History blood sugar diagnostic (Contour #100 ea 11/20/18 12/20/21 Rx Next Test Strips) isosorbide mononitrate 60 mg 60 mg PO QAM 10/26/20 12/27/21 History tablet,extended release 24 hr pantoprazole 40 mg tablet,delayed See Rx Instructions .Route 02/07/21 12/27/21 Rx release .COMPLEX #90 tabs metoprolol succinate 50 mg 100 mg PO BID #30 tabs 02/20/21 12/27/21 Rx tablet,extended release 24 hr amiodarone 200 mg tablet 100 mg PO BID 04/10/21 12/27/21 History allopurinol 100 mg tablet 300 mg PO DAILY 08/10/21 12/27/21 History Wheelchair (Powered) (Power #1 ea 08/21/21 12/20/21 Rx Wheelchair) acetaminophen 500 mg tablet 1,000 mg PO TID PRN Pain #90 tabs 08/29/21 12/27/21 Rx triamcinolone acetonide 0.1 % 1 applic topical DAILY 08/29/21 12/27/21 History topical cream tamsulosin 0.4 mg capsule 0.4 mg PO DAILY #90 caps 09/11/21 12/27/21 Rx metformin 500 mg tablet,extended See Rx Instructions .Route 10/05/21 12/27/21 Rx release 24 hr .COMPLEX #90 tabs warfarin 2 mg tablet See Rx Instructions PO UD 10/23/21 12/27/21 History furosemide 20 mg tablet 20 mg PO QAM #60 tabs 12/06/21 12/27/21 Rx Patient History Medical History Acute kidney injury superimposed on CKD Adult situational stress disorder Anemia due to chronic kidney disease Anemia of chronic disease Aneurysm of lower limb artery Angina, class II ASCVD (arteriosclerotic cardiovascular disease) Atrial fibrillation Biventricular ICD (implantable cardioverter-defibrillator) in place BMI 40.0-44.9, adult BPH with obstruction/lower urinary tract symptoms CAD (coronary artery disease) CHF exacerbation Chronic anticoagulation 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, NYHA class 2 Chronic constipation Chronic kidney disease, stage 3a Chronic systolic heart failure Constipation Patient on home bowel regimen but requesting possible enema to aid in bowel movement COPD (chronic obstructive pulmonary disease) DM w/o complication type II Drug eruption Dyslipidemia, goal LDL below 70 Elevated uric acid in blood Former smoker Gastroesophageal reflux disease Gout Hyperlipidemia Hypertension Ischemic cardiomyopathy Laceration of forehead, left, complicated Lumbar canal stenosis Nephrolithiasis Nocturia NSTEMI (non-ST elevated myocardial infarction) Osteoarthritis of knee Osteoarthritis of knees, bilateral Pain syndrome, chronic Paroxysmal atrial fibrillation Peripheral arterial disease Peripheral neuropathy Popliteal aneurysm Pressure ulcer Renal lesion Solitary pulmonary nodule Stage 3b chronic kidney disease Status post fall STEMI (ST elevation myocardial infarction) Stenosis of right internal carotid artery Syncope Tinea cruris Traumatic orbital hematoma Type 2 diabetes mellitus Type [address] elevation Urethral stricture Urinary incontinence Urinary retention Ventricular tachycardia Ventricular tachycardia Vitamin D deficiency Surgical History AICD (automatic cardioverter/defibrillator) present H/O colonoscopy H/O cystoscopy with internal urethrotomy History of coronary artery stent placement S/P CABG x 1 S/P CABG x 2 S/P CABG x 4 Family History Unknown Acute myocardial infarction Mother Uterine cancer Sister Hypertension Peripheral vascular disease Hyperlipidemia Ovarian cancer Son Alcoholism Denies family history of Prostate cancer Breast cancer Lung cancer Colorectal cancer Social History Smoking Status: Never smoker Tobacco Type: Cigarettes Second Hand Exposure: No; Do You Dip or Chew Tobacco: No; Tobacco Cessation Education Requested by Patient: No Hx Alcohol Use: No Hx Substance Use: No Preferred Language: Frisian Communication Ability: Effective Visual Impairment: Partially Limited Director [employer] Sales Required: No Beliefs That Will Affect Care: None marital status: Current Living Situation: Other Current Living Situation Comment: [place] current occupational status: retired Other Information That Helps Us Care for You: No Feels Safe at Home: Yes Safety Concerns: Feels Safe At This Time Childhood Exposure to Second-Hand Smoke: No Dental Care, Regularly: Yes Physical Activity Frequency: Does not Exercise Seatbelt Use: always Sunscreen Use: No Assistive Devices: Wheelchair Review of Systems Review of Systems: All systems reviewed & are unremarkable except as noted in Subjective Physical Exam Constitutional: WD/WN, vitals as above no acute distress Eyes: + anicteric sclerae Neck: normal visual inspection Respiratory: no respiratory distress and no cough Auscultation: + diminished lung sounds Cardiovascular: Rate/Rhythm: regular rate and regular rhythm Heart Sounds: normal S1 and normal S2 Extremities: + edema ( trace bilateral lower extremity edema) Gastrointestinal (Abdomen): Inspection/Auscultation: abdomen normal to inspection and normal bowel sounds Percussion/Palpation: abdomen soft; abdomen nontender Musculoskeletal: Extremities: extremities normal to inspection Skin: no rashes Neurologic: moves all extremities, + focal motor deficit ( weakness in bilateral lower extremity) and + confused Speech / Cognition: normal speech Psychiatric: Orientation: alert and oriented x 3 Affect: euthymic affect Results & Data ([facility]) Vital Signs (Past 12 Hours) Vital Signs Temp Pulse Pulse Resp BP BP Pulse Ox 01/07/22 09:45 01/07/22 08:08 36.8 C 74 18 120/64 97 01/07/22 07:04 63 01/07/22 04:02 36.8 C 59 L 20 113/58 L 96 01/06/22 23:00 36.9 C 61 20 119/63 96 O2 Del Method O2 Flow Rate 01/07/22 09:45 Nasal Cannula 2 01/07/22 08:08 Nasal Cannula 2 01/07/22 07:04 01/07/22 04:02 Nasal Cannula 2 01/06/22 23:00 Nasal Cannula 2 PG Care Time/CCT Total # of Minutes Spent Total Time Spent with Patient: Total time spent is greater than 50% in coordination of care (as documented) at patient's floor/unit and/or counseling patient: Coding Level of Care Code 49768 Initial Inpt Care Lvl 3 Diagnoses Weakness R53.1 Bilateral edema of lower extremity R60.0 Stage 3b chronic kidney disease N18.32 Anemia due to chronic kidney disease N18.9; D63.1 Ischemic cardiomyopathy I25.5
[2022-01-07] MEDS ORDERED: EPOETIN ALFA 20,000 UNITS/ML VIAL SQ SCH (11:00)
--- NOTE | 2022-01-07 14:31 | Hospitalist Progress Note ---
Date of Service January 07, 2022 Assessment & Plan (1) Acute exacerbation of CHF (congestive heart failure): Plan: Acute on Chronic CHF with reduced ejection fraction. History of [place] to left main in 2018, dual-chamber pacemaker, CABG. Ischemic cardiomyopathy. Aggressive swelling, and worsened orthopnea over approximately 1 week with weight gain of unclear amount Patient has moved to [place], does not cook for him there and thinks he has been eating more salt. Patient is a poor historian of meals, but notes he has had more fried chicken and salty foods which she has not tracked No chest pain, chest pressure, palpitations. He is on 2L of oxygen chronically, does not think his shortness of breath has changed in the last week but does notice a little bit more of orthopnea at night requiring him to sit up History of dual-chamber pacemaker & AICD He is continued on amiodarone for sustained V. tach history. Has had rare/benefits discussion regarding pulmonary toxicity of this versus recurrent arrhythmia and has opted to continue this for now CT chest: bronchial wall thickening, interstitial thickening c/w pulm fibrosis (per my review, appears to have a small L pleural effusion) - Patient notes that if he were to progress to a point where he had to make the decision between worsening respiratory status, pulmonary fibrosis, or ca rdiorenal syndrome that could progress to needing dialysis he would pursue palliative options and comfort at that point, however at this time feels it is reasonable to get additional studies and see how he does with fluid medication/treatment of edema. Continue isosorbide, plavix, metoprolol Updated echo not significantly changed (2) Left leg pain: Plan: - Venous doppler negative for DVT - Known to have widespread OA - PT/OT eval - hoping for rehab prior to returning to [facility] as he has progressively worsening debility (3) Stage 3b chronic kidney disease: Plan: Last seen by nephrology 11/2021 Baseline creatinine 1.8-2.0 d/t cardiorenal syndrome Avoid NSAIDs, low-salt diet Nephrology consulted given history, appreciate input BMP daily (4) Anemia due to chronic kidney disease: Plan: - Recently completed course of Venofer - Ordered EPO 11693 units x1 per nephrology (5) DM w/o complication type II: Plan: Last A1c 5.6% Metformin held for renal function and admit Type II, low-salt diet Converted to SSI, glucose checks AC/at bedtime, goal BSG 574140. 20/CF 12 (6) Hypertension: Plan: - BP low-normal, continue current meds (7) COPD (chronic obstructive pulmonary disease): Plan: - Stable on chronic 2L nasal cannula with actually higher than necessary pulse ox (8) Atrial fibrillation: Plan: - PAF - On Amiodarone and Metoprolol Succinate, currently in sinus - Anticoagulated with Warfarin, INR therapeutic at 2.6 Plan PT/OT eval to determine appropriate dispo. Appears clinically compensated from a HF standpoint, will transition back to oral diuretics - Lasix 40mg in AM and 20mg at HS. Follow up labs ordered for tomorrow. Plan to be d/w Dr. Osuna. Updated at bedside. Admission and Anticipated Discharge Date Admission Date: January 06, 2022 Subjective Patient seen on rounds this morning rounds. He was hospitalized for a/c chf exacerbation with some additional c/o left leg pain. There is some concern with him returning to [facility] and feels that he would benefit from some rehab. He was previously transferring two and from bathroom on wheelchair but now is spending more time in his wheelchair. Pt seems a little reluctant but is agreeable nevertheless. He currently denies dyspnea, cp, n/v/d, f/c, headache, or gu symptoms. His only complaint is discomfort in his left leg. Review of Systems Review of Systems: All systems reviewed and are unremarkable except as noted in HPI and below. Denies fever, chills, fatigue, headache, nasal congestion, sore throat, cough, chest pain, shortness of breath, palpitations, orthopnea, PND, abdominal pain, n/v/d, constipation, dysuria, hematuria, frequency, back pain, easy bruising or bleeding, skin lesions or rashes. Physical Exam Physical Exam: GENERAL: 86 yo Well-developed, well-nourished WM. NAD. LUNGS: Fine crackles in LLL but otherwise CTAB. No conversational dyspnea. CARDIOVASCULAR: Regular rate and rhythm. ABDOMEN: Soft, non-tender and non-distended. BS normoactive x 4 quad. EXTREMITIES: No edema. Non-tender. Peripheral pulses +2/4. NEUROLOGIC: A&O x3. Generalized weakness, LLE > RLE PSYCHIATRIC: Cooperative. Appropriate mood and affect. SKIN: Warm, dry, intact. No rashes or lesions. Results & Data Results & Data ([facility]) Vital Signs (Past 12 Hours) Vital Signs Temp Pulse Pulse Resp BP BP Pulse Ox 01/07/22 11:38 36.5 C 60 18 101/59 L 96 01/07/22 09:45 01/07/22 08:08 36.8 C 74 18 120/64 97 01/07/22 07:04 63 01/07/22 04:02 36.8 C 59 L 20 113/58 L 96 O2 Del Method O2 Flow Rate 01/07/22 11:38 Nasal Cannula 2 01/07/22 09:45 Nasal Cannula 2 01/07/22 08:08 Nasal Cannula 2 01/07/22 07:04 01/07/22 04:02 Nasal Cannula 2 Laboratory Results 01/07/22 05:48 01/07/22 05:48 PG Care Time/CCT Total # of Minutes Spent Total Time Spent with Patient: Total time spent is greater than 50% in coordination of care (as documented) at patient's floor/unit and/or counseling patient: Coding Level of Care Code 96866 Subseq Obs Care Lvl 2 Diagnoses Acute exacerbation of CHF (congestive heart failure) I50.9 Heart failure type: unspecified Left leg pain M79.605 Stage 3b chronic kidney disease N18.32 Anemia due to chronic kidney disease N18.9; D63.1 DM w/o complication type II E11.9 Diabetes mellitus supervisor intermediates insulin use: without supervisor intermediates use Hypertension I10 COPD (chronic obstructive pulmonary disease) J44.9 COPD type: unspecified COPD Atrial fibrillation I48.0 Atrial fibrillation type: paroxysmal (1) Acute exacerbation of CHF (congestive heart failure) Heart failure type: unspecified Qualified Code(s): I50.9 - Heart failure, unspecified (2) DM w/o complication type II Diabetes mellitus supervisor intermediates insulin use: without skilled nursing use Qualified Code(s): E11.9 - Type 2 diabetes mellitus without complications (3) COPD (chronic obstructive pulmonary disease) COPD type: unspecified COPD Qualified Code(s): J44.9 - Chronic obstructive pulmonary disease, unspecified (4) Atrial fibrillation Atrial fibrillation type: paroxysmal Qualified Code(s): I48.0 - Paroxysmal atrial fibrillation
[2022-01-07] MEDS ORDERED: WARFARIN SOD 1 MG TAB PO SCH (16:00)
[2022-01-08 07:44] LABS: INR 2.7 (0.9-1.1); Prothrombin Time 26.9 Seconds (9.0-12.0)
[2022-01-08 07:55] LABS: Albumin Level 3.3 gm/dl (3.4-5.0); BUN Creatinine Ratio 17.7 (10-20); Calcium 8.5 mg/dl (8.5-10.1); Creatinine Clr Calc Pharmacy 29.2 ml/min; Est GFR (African American) 32.7 ml/min; Est GFR (Non-African American) 28.2 ml/min; Magnesium 1.8 mg/dl (1.7-2.4); Phosphorus 2.9 mg/dl (2.5-4.9); Potassium 3.7 mmol/L (3.5-5.1)
[2022-01-08 08:08] LABS: Basophils # (auto) 0.03 K/uL (0-0.2); Basophils % (auto) 0.6 %; Eosinophils # (auto) 0.17 K/uL (0-0.50); Eosinophils % (auto) 3.2 %; Hematocrit (blood only) 29.2 % (40.1-51.0); Hemoglobin 9.4 g/dl (14.0-18.0); Immature Granulocytes # (auto) 0.02 K/uL (0.00-0.02); Immature Granulocytes % (auto) 0.4 %; Lymphocytes # (auto) 0.68 K/uL (1.2-3.4); Lymphocytes % (auto) 12.8 %; Mean Corpuscular Hemoglobin 34.4 pg (25.0-34.0); Mean Corpuscular Hgb Conc 32.2 g/dL (32.0-36.0); Mean Platelet Volume 10.1 fL (9.4-12.4); Monocytes # (auto) 0.62 K/uL (0.24-0.82); Monocytes % (auto) 11.7 %; Neutrophils # (auto) 3.78 K/uL (1.4-6.5); Neutrophils % (auto) 71.3 %; Platelet Count 102 K/uL (130-400); RDW Coefficient of Variation 16.3 % (11.5-14.5); RDW Standard Deviation 64.3 fL (36.4-46.3); Red Blood Count 2.73 M/uL (4.63-6.08)
[2022-01-08 08:09] LABS: Ferritin 792.9 ng/ml (8-388)
[2022-01-08] MEDS: INSULIN ASPART PER UNIT SC SCH ×2 (08:24→12:22)
[2022-01-08] MEDS: AMIODARONE 200 MG TAB PO SCH (08:24)
[2022-01-08] MEDS: METOPROLOL SUCC 50MG EXT REL TAB PO SCH (08:25)
[2022-01-08] MEDS: TAMSULOSIN HCL 0.4 MG CAP PO SCH (08:25)
[2022-01-08] MEDS: ISOSORBIDE MONO EXTENDED REL 60 MG TABCR PO SCH (08:25)
[2022-01-08] MEDS: PANTOprazole 40 MG TAB PO SCH (08:25)
[2022-01-08] MEDS: CLOPIDOGREL BISULFATE 75 MG TAB PO SCH (08:25)
[2022-01-08] MEDS ORDERED: FUROSEMIDE 40 MG TAB PO SCH (09:00)
--- NOTE | 2022-01-08 10:33 | Nephrology Progress Note ---
Date of Service January 08, 2022 Assessment & Plan (1) Stage 3b chronic kidney disease: (2) Anemia due to chronic kidney disease: (3) Weakness: (4) Ischemic cardiomyopathy: Plan 86 y o male with Stage 3B CKD, b/l cr 1.8 to 2.0 secondary to cardio renal syndrome. No significant proteinuria. admitted with 1 week history of confusion, worsening lower extremity edema and generalized weakness. at home he was on Lasix 20 mg twice a day for chronic congestive heart failure with systolic and diastolic dysfunction, EF 30-35%. Started on Lasix 20 mg IV twice a day with significant improvement in bilateral lower extremity. Respiratory status seems stable. Renal function relatively stable with acceptable electrolyte. Main concern seems to be significant weakness in bilateral lower extremity. Renal function staying relatively stable, electrolyte acceptable. Volume status acceptable. --continue on current dose of Lasix 20 mg IV twice a day. --avoid all NSAIDs, follow low-salt diet and keep hydrated and avoid volume depletion --Epogen 51140 units x 1 dose Given on 01/07/2022. Recently received 1 g of IV iron. continue on oral iron 1 tab twice a day. Will follow. Admission and Anticipated Discharge Date Admission Date: January 06, 2022 Subjective Rich was seen and evaluated this morning. No overnight events, denies any shortness of breath or chest pain. Lower extremity edema improved and stable. Decent urine output. Renal function and electrolyte stable. Review of Systems Review of Systems: detailed review of system was otherwise unremarkable. Physical Exam Constitutional: WD/WN, vitals as above + frail appearing; no acute distress Eyes: + anicteric sclerae Neck: normal visual inspection Respiratory: Auscultation: lungs clear to auscultation bilaterally Cardiovascular: Rate/Rhythm: regular rate and regular rhythm Extremities: no edema Skin: no rashes Neurologic: moves all extremities and + focal motor deficit (b/l LE weakness) Psychiatric: Orientation: alert and oriented x 3 Results & Data ([facility]) Vital Signs (Past 12 Hours) Vital Signs Temp Pulse Pulse Pulse Resp BP Pulse Ox 01/08/22 07:55 36.8 C 69 20 130/68 91 01/08/22 07:23 60 01/08/22 04:00 36.8 C 78 18 134/62 98 01/07/22 22:45 59 L 01/07/22 23:00 36.9 C 60 18 101/54 L 96 O2 Del Method O2 Flow Rate 01/08/22 07:55 Nasal Cannula 2 01/08/22 07:23 01/08/22 04:00 Nasal Cannula 2 01/07/22 22:45 01/07/22 23:00 Nasal Cannula 2 PG Care Time/CCT Total # of Minutes Spent Total Time Spent with Patient: Total time spent is greater than 50% in coordination of care (as documented) at patient's floor/unit and/or counseling patient: Coding Level of Care Code 60188 Subseq Hosp Care Lvl 3 Diagnoses Stage 3b chronic kidney disease N18.32 Anemia due to chronic kidney disease N18.9; D63.1 Weakness R53.1 Ischemic cardiomyopathy I25.5
--- NOTE | 2022-01-08 11:18 | Discharge Summary ---
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 fib, and COPD. BP 109/58, 2 L on nasal cannula Past medical history of CKD, chronic anticoagulation, SVT, CAD with systolic CHF, type 2 diabetes, LDL, lumbar stenosis, A. fib, and COPD. Baseline creatinine 1.52.0. Admitting creatinine 2.1. BNP is elevated at 1040. TSH normal. COVID-negative. Chest x-ray with left pleural effusion, pulmonary vascular congestion, worsening left airspace opacities. EKG: Atrial paced rhythm. Poor R wave progression, no territorial ST segment changes. Last saw cardiology 07/2021. Per Pt: Moved into [facility] September 20. Ok is seen at the bedside with his wif leanneflavio. He repots he has been having leg swelling for several days, approximately one week. Inceased pain with swelling in his L leg behind the knee and in the calf for about the same amount of time. Is on warfarin. Having trouble walking and transfering due to fatigue and weakness. Denies chest pain, chest pressure, and palpitations. Denies increase in shortness of breath in the last few days, notes he has been on oxygen since this past September. Is not able to sleep laying flat normally, mayb ea little more in the last week. No abdominal pain. no lightheadedness/syncope/presyncope. Per nursing has some weakness and lightheadednes trying to get dressed, per pt more from L leg weakness and discomfort bu denies lightheadedness. Thinks he is peeing less than nromal, no dysuria. 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 Thinks he has been eaing more salt than normal but is no sure how much. Some deli meat/fried chicken in the las week. Medical History: Reviewed Medications: Reviewed Surgical History: Reviewed Allergies: Reviewed Social History: Former smoke fo ~10 years, 1 glass of wine in the evenings. Code Status: DNR/DNI Principal Diagnosis 1. Mild a/c HFrEF 2. Left leg pain - suspect OA 3. Debility 4. CKD Discharge Exam GENERAL: 86 yo Well-developed, well-nourished WM. NAD. LUNGS: Fine crackles in LLL but otherwise CTAB. No conversational dyspnea. CARDIOVASCULAR: Regular rate and rhythm. ABDOMEN: Soft, non-tender and non-distended. BS normoactive x 4 quad. EXTREMITIES: No edema. Non-tender. Peripheral pulses +2/4. NEUROLOGIC: A&O x3. Generalized weakness, LLE > RLE PSYCHIATRIC: Cooperative. Appropriate mood and affect. SKIN: Warm, dry, intact. No rashes or lesions. Discharge Data Allergies Allergy/AdvReac Type Severity Reaction Status Date / Time Iodinated Contrast Media Allergy Severe ANAPHYLAXIS Verified 12/27/21 09:47 shellfish derived Allergy Severe ANAPHYLAXIS Verified 12/27/21 09:47 adhesive tape Allergy Intermediate Tore skin Verified 12/27/21 09:47 clindamycin Allergy Intermediate Rash Verified 12/27/21 09:47 Penicillins Allergy Intermediate BOILS Verified 12/27/21 09:47 iodine Allergy Difficulty Verified 12/27/21 09:47 Breathing donepezil AdvReac Intermediate Nightmares Verified 12/27/21 09:47 latex AdvReac Intermediate RASH Verified 12/27/21 09:47 Dbmzseh-EGH-WsZ Reductase AdvReac Intermediate severe Verified 12/27/21 09:47 Inhibitor myalgias [Jsvrrhy-Glg-Hjz Reductase Inhibitor] atorvastatin AdvReac Mild GI SYMPTOMS Verified 12/27/21 09:47 levofloxacin [From Levaquin] AdvReac Mild Insomnia Verified 12/27/21 09:47 rosuvastatin AdvReac Mild GI SYMPTOMS Verified 12/27/21 09:47 Fish Containing Products AdvReac Unknown Swelling Verified 12/27/21 09:47 of Lip/Tongue/Throat mold AdvReac Congested Verified 12/27/21 09:47 pollen extracts AdvReac Watery Eye Verified 12/27/21 09:47 Consultations 01/06/22 15:02 ED Decision to Admit Stat 01/06/22 15:39 Consult Nephrology Routine Ordered Studies Chest X-Ray 01/06/22 12:04 XR chest 1V portable CLINICAL HISTORY: weakness TECHNIQUE: Single frontal radiograph of the chest was obtained. Comparison: Comparison is made to chest radiograph 05/16/2021 FINDINGS: Pacemaker defibrillator is seen. Cardiomegaly is noted. Airspace opacities in the left lung are increased from prior exam. Moderate left pleural effusion. Mild pulmonary vascular congestion seen. IMPRESSION: 1. Interval worsening of left airspace opacities which may represent atelectasis, pneumonia, and/or aspiration. 2. Moderate left pleural effusion, increased from prior exam. 3. Cardiomegaly and stable pulmonary vascular congestion. ACT 112: Negative or not required by law. Electronically signed by: Cole Nichols M.D. 01/06/2022 12:[address] 01/06/22 15:01 CT chest diagnostic wo con CLINICAL HISTORY: CHF/pulm edema vs pna vs fibrosis TECHNIQUE: Multidetector row helical CT of the chest was performed. Coronal and sagittal reformations were obtained. Automated dose lowering techniques and/or adjustment according to patient size were utilized for this exam. CT DOSE: 721.50 mGy.cm Comparison: Comparison is made to CT chest 04/28/2018 and chest radiograph 01/06/2022 FINDINGS: Lungs and pleura: Interstitial thickening is seen. Scarring is noted in the apices. There is atelectasis of the left greater than right lung base. Bronchial wall thickening is noted. Heart and pericardium: Cardiomegaly is seen with biatrial enlargement. Mitral annular calcification is seen. Vessels: Patient appears status post coronary artery bypass. The pulmonary trunk measures 36 mm in diameter. Mediastinum and forest: Numerous mediastinal lymph nodes measure up to 12 mm in short axis. Chest wall and lower neck: Small thyroid nodules are noted which do not require follow-up by ACR criteria. Abdomen: Unremarkable. Bones: Degenerative changes in the thoracic spine. IMPRESSION: 1. Bronchial wall thickening is favored to represent infectious/inflammatory airways disease. Enlarged mediastinal lymph nodes are likely reactive, follow-up to resolution is recommended. 2. Interstitial thickening compatible with pulmonary fibrosis. Pulmonary hypertension is seen. Previously noted round glass opacities have largely resolved. 3. Cardiomegaly. ACT 112: Negative or not required by law. Electronically signed by: Cole Nichols M.D. 01/06/2022 5:09 PM Venous Doppler Study 01/06/22 15:39 US venous doppler LE LT CLINICAL HISTORY: popliteral/calf pain and swelling TECHNIQUE: Left lower extremity real-time compression venous ultrasound with Color Doppler imaging. Utilizing real-time ultrasonic imaging multiple real time high-resolution ultrasonic images with compression and noncompression maneuvers of the deep venous system in addition to color doppler imaging were performed from the common femoral vein through the proximal calf veins. COMPARISON: None available at the time of this dictation. FINDINGS: Currently there is normal compressibility of the deep venous system from the common femoral vein through the proximal calf veins. Some stranding is seen near the distal popliteal vein which likely is a chronic finding. Impression: No evidence of deep venous thrombus. ACT 112: Negative or not required by law. Electronically signed by: Cole Nichols M.D. 01/06/2022 5:22 PM Hospital Course (1) Acute exacerbation of CHF (congestive heart failure): Acute on Chronic CHF with reduced ejection fraction. History of [place] to left main in 2018, dual-chamber pacemaker, CABG. Ischemic cardiomyopathy. Aggressive swelling, and worsened orthopnea over approximately 1 week with weight gain of unclear amount Patient has moved to [place], does not cook for him there and thinks he has been eating more salt. Patient is a poor historian of meals, but notes he has had more fried chicken and salty foods which she has not tracked No chest pain, chest pressure, palpitations. He is on 2L of oxygen chronically, does not think his shortness of breath has changed in the last week but does notice a little bit more of orthopnea at night requiring him to sit up History of dual-chamber pacemaker & AICD He is continued on amiodarone for sustained V. tach history. Has had rare/benefits discussion regarding pulmonary toxicity of this versus recurrent arrhythmia and has opted to continue this for now CT chest: bronchial wall thickening, interstitial thickening c/w pulm fibrosis (per my review, appears to have a small L pleural effusion) - Patient notes that if he were to progress to a point where he had to make the decision between worsening respiratory status, pulmonary fibrosis, or cardiorenal syndrome that could progress to needing dialysis he would pursue pa lliative options and comfort at that point, however at this time feels it is reasonable to get additional studies and see how he does with fluid medication/treatment of edema. Continue isosorbide, plavix, metoprolol - suspect that he is not on an SAMMY due to CKD, however, CKD not a contraindication to SAMMY inhibitor. May also be due to borderline low BPs that have been observed. His established coroner technician can re- evaluate this as an outpatient in follow up. Updated echo not significantly changed from prior - Will dc on increased dose of Lasix to 40mg in AM and 20mg at HS (2) Left leg pain: - Venous doppler negative for DVT - Known to have widespread OA - PT/OT eval - hoping for rehab prior to returning to [facility] as he has progressively worsening debility (3) Stage 3b chronic kidney disease: Last seen by nephrology 11/2021 Baseline creatinine 1.8-2.0 d/t cardiorenal syndrome Avoid NSAIDs, low-salt diet Nephrology consulted given history, appreciate input BMP daily-remains at baseline (4) Anemia due to chronic kidney disease: - Recently completed course of Venofer - Ordered EPO 48537 units x1 per nephrology (5) DM w/o complication type II: Last A1c 5.6% Metformin held for renal function and admit Type II, low-salt diet Converted to SSI, glucose checks AC/at bedtime, goal BSG 488613. 20/CF 12 (6) Hypertension: - BP low-normal, continue current meds (7) COPD (chronic obstructive pulmonary disease): - Stable on chronic 2L nasal cannula with actually higher than necessary pulse ox (8) Atrial fibrillation: - PAF - On Amiodarone and Metoprolol Succinate, currently in sinus - Anticoagulated with Warfarin, INR therapeutic at 2.6 Plan Medically and hemodynamically stable for discharge to acute rehab today. Would advise close follow up with coroner technician that he is established with in one week and f/u with pcp upon d/c from rehab. Plan has been d/w Dr. Osuna who has also seen and evaluated this patient and agrees with aforementioned. Total Time Total Time Spent Total Time Spent (In Minutes): <30 minutes Discharge Plan Discharge Items Patient Disposition: Transfer Inpatient Rehab Fac Reason For Visit: CHF EXACERBATION Discharge Diagnosis: mild fluid overload left leg pain Activity: Resume your previous activity Non-emergency contact: Primary Care Provider Call non-emergency contact if: you have any medication questions Follow-up/Referrals: Abril pereyraHoratio [Primary Care Provider] - Diet: Carb Consistent or DM2 and Low Sodium (2gm) Fluids: 1800ml (7 cups) Addtl Attending Provider Instructions: You were hospitalized due to generalized weakness and left leg pain. You were given some medication to help take off excess fluid from your legs and lungs (Lasix). This was first given through your IV and then transitioned back to the pill form. Your dose has been increased to 40mg in the morning and 20mg in the evening. You had a venous doppler done of your left leg due to complaints of pain and it was noted to be negative for a blood clot. You are known to have advanced osteoarthritis and this is likely the cause of your pain. Physical and occupational therapy has seen you during your stay in the hospital and it is recommended that you complete rehabilitation prior to returning home to [facility]. It is advised that you follow up with your primary care provider upon discharge from [facility]. It is also advised that you follow up with your coroner technician within 1 week of discharge from the hospital, especially because you had a change in your diuretics (Lasix) dose. Pending Studies at Discharge: No Stand-Alone Forms: My [facility] Skilled Items Patient informed of condition?: Yes DNR: Yes Discharge Level of Care: Acute rehab Communicable Disease: No Discharge Prognosis: Stable Lines: None Urinary Catheter: No Medications and DC Order Prescriptions: New furosemide 40 mg Tablet 40 mg PO QAM Qty: 30 0RF furosemide 20 mg Tablet 20 mg PO HS Qty: 30 0RF Continued warfarin 2 mg tablet See Rx Instructions PO UD Rx Instructions: 1mg Mo/Th, 2mg x5 days per [facility] Clinic PO use as directed; clopidogrel [Plavix] 75 mg tablet 75 mg PO DAILY amiodarone 200 mg tablet 100 mg PO BID (DME) Contour Next Test Strips strip See Dose Instructions .ROUTE .MEDSUPPLY Qty: 100 3RF Dose Instruction: As directed Rx Instructions: Test once daily pantoprazole 40 mg tablet,delayed release (DR/EC) See Rx Instructions .ROUTE .COMPLEX Qty: 90 3RF Dose Instruction: TAKE 1 TABLET BY MOUTH DAILY Rx Instructions: TAKE 1 TABLET BY MOUTH DAILY allopurinol 100 mg tablet 300 mg PO DAILY (DME) Power Wheelchair Device See Rx Instructions .Route Qty: 1 0RF Rx Instructions: THERAPIST EVALUATION FOR POWER WHEELCHAIR triamcinolone acetonide 0.1 % cream 1 applic topical DAILY acetaminophen 500 mg tablet 1,000 mg PO TID PRN (Reason: Pain) Qty: 90 0RF tamsulosin 0.4 mg capsule 0.4 mg PO DAILY Qty: 90 3RF metformin 500 mg tablet extended release 24 hr See Rx Instructions .ROUTE .COMPLEX Qty: 90 3RF Dose Instruction: TAKE 1 TABLET BY MOUTH EVERY DAY Rx Instructions: TAKE 1 TABLET BY MOUTH EVERY DAY isosorbide mononitrate 60 mg tablet extended release 24 hr 60 mg PO QAM metoprolol succinate 50 mg Tablet Extended Release 24 Hr 100 mg PO BID Qty: 30 0RF Discontinued furosemide 20 mg tablet 20 mg PO QAM Qty: 60 2RF Discharge Orders: Discharge Order (Routine); Ordered 01/08/22 Ordered By: Mary Miller Admission Data Admit Date/Time: 01/06/22 15:09 Attending Provider: Glenn Osuna Admit Provider: Antony Garcia Primary Care Provider: Abril [facility] Other Providers: Antony Garcia ; Marina Metz ; [facility] ; Malcolm Steve Other Interventions: Discharge Summary Assessment (RN) Last Done: 01/08/22 15:50 Supervising Physician Co-Signing Physician Notes I personally saw and examined the patient. I verified all puente points and agree with Mary Miller PA-C with the following exceptions and/or additions: 86 year old admission for lower extremity swelling; diagnosed with mild CHF and Lasix increased. However PT/OT recommended further rehabilitation on discharge prior to returning to [facility] therefore he was discharged to [facility]. 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
[2022-01-08] MEDS ORDERED: FUROSEMIDE 20 MG TAB PO SCH (21:00)
== END 2022-01-08 17:06 ==
LOC: 2N 10:26 → ED 10:26 → SUATTDRO 15:09 → 2N 16:31
DX: Z79.01 Long term (current) use of anticoagulants; I25.5 Ischemic cardiomyopathy; R53.81 Other malaise; M79.662 Pain in left lower leg; Z91.041 Radiographic dye allergy status; Z91.048 Other nonmedicinal substance allergy status; Z95.1 Presence of aortocoronary bypass graft; D63.1 Anemia in chronic kidney disease; Z66 Do not resuscitate; N18.32 Chronic kidney disease, stage 3b; Z95.5 Presence of coronary angioplasty implant and graft; E11.22 Type 2 diabetes mellitus with diabetic chronic kidney disease; I50.23 Acute on chronic systolic (congestive) heart failure; Z79.84 Long term (current) use of oral hypoglycemic drugs; Z88.0 Allergy status to penicillin; Z95.0 Presence of cardiac pacemaker; I13.0 Hypertensive heart and chronic kidney disease with heart failure and stage 1 through stage 4 chronic kidney disease, or unspecified chronic kidney disease; Z88.1 Allergy status to other antibiotic agents; Z79.899 Other long term (current) drug therapy